=== PATIENT | male | born 1945 | race Caucasian/White ===

== ENCOUNTER 2020-11-30 12:49 | Outpatient (REF) | payer OTHER, SELFPAY | END 2020-11-30 12:50 | disposition home or self-care (01) | LOC: HO.LAB 12:49 | PROVIDERS: PCP Internal Medicine; Visit Provider Internal Medicine | DX: Z20.822 Contact with and (suspected) exposure to COVID-19 (principal) | CPT/HCPCS: 36415; C9803; U0003 ==

== ENCOUNTER → 2020-12-27 14:41 | Outpatient (BNVA) | payer OTHER, SELFPAY | PROVIDERS: PCP Internal Medicine; Visit Provider Internal Medicine Cardiovascular Disease | DX: I10 Essential (primary) hypertension (principal); I20.8 Other forms of angina pectoris; I25.2 Old myocardial infarction; I49.3 Ventricular premature depolarization | CPT/HCPCS: 93005 ==

== ENCOUNTER 2021-02-05 16:18 | Outpatient (REF) | payer OTHER, SELFPAY ==
--- NOTE | ~2021-02-05 | US_ITS ---
EXAMINATION: US RETROPERITONEAL COMPLETE (RENAL) CLINICAL INFORMATION: Calculus of kidney. COMPARISON: None TECHNIQUE: Real-time imaging of the kidneys and bladder. FINDINGS: RIGHT KIDNEY: 10.3 x 6.0 x 5.7 cm (SAG x AP x TRV). The kidney is normal in size, contour, and echogenicity. Renal cortical thickness is normal. No calculi or focal parenchymal lesions. No hydronephrosis. There is mild dilated calyces. LEFT KIDNEY: 12.1 x 5.6 x 4.8 cm (SAG x AP x TRV). The kidney is normal in size, contour, and echogenicity. Renal cortical thickness is normal. No calculi or focal parenchymal lesions. No hydronephrosis. There are mild dilated calyces. BLADDER: Well distended and normal. Right ureteral jet is demonstrated; left is not. Prevoid bladder volume is 142 mL. Postvoid bladder volume is 11.4 mL. ADDITIONAL FINDINGS: The prostate is partially removed as per patient. Prostate volume is 38.2 mL. US/US retroperitoneal comp IMPRESSION: Prominent dilated bilateral caliectasis but no hydronephrosis. No echogenic stones. No cyst or solid mass seen. Mild prostate enlargement in spite of partial prostatectomy. Right ureteral jet is seen. Left jet not seen.
== END 2021-02-05 16:19 | disposition home or self-care (01) ==
LOC: HO.US 16:18
PROVIDERS: PCP Internal Medicine; Visit Provider Urology
DX: N20.0 Calculus of kidney (principal)
CPT/HCPCS: 76770

== ENCOUNTER → 2021-03-11 13:22 | Outpatient (REF) | payer OTHER, SELFPAY ==
--- NOTE | 2021-03-11 13:28 | ECG_ITS ---
Hook-up date: 2021-03-11 13:41:00 Duration: 45:41:00 Test Indications: VENT.PREMATURE DEPOLARIZATION Medications: 321604 QRS complexes 50149 Ventricular ectopics which represent 11 % of total QRS comp. 856 Supraventricular ectopics which represent <1 % of total QRS comp. * Paced QRS complexs which represent % of total QRS comp. VENTRICULAR ECTOPY 30996 Isolated 4998 Bigeminal Cycles 383 Couplets 21 Runs 64 Beats in Runs 4 Beats LONGEST at 65 BPM at 03:04:53 2021-03-12 3 Beats FASTEST at 130 BPM at 00:37:50 2021-03-12 SUPRAVENTRICULAR ECTOPY 447 Isolated 189 Couplets 6 Runs 31 Beats in Runs 9 Beats LONGEST at 98 BPM at 18:12:21 2021-03-11 3 Beats FASTEST at 129 BPM at 21:57:51 2021-03-11 HEART RATES 59 MIN at 06:03:34 2021-03-12 83 AVG 116 MAX at 05:06:15 2021-03-12 LONGEST RR 1.5120 secs at 22:24:53 2021-03-11 S-T LEVELS Channel 1 - 128 mm at 13:41:00 2021-03-11 - 128 mm at 13:41:00 2021-03-11 Channel 2 - 128 mm at 13:41:00 2021-03-11 - 128 mm at 13:41:00 2021-03-11 Channel 3 - 128 mm at 03:30:01 -- - 128 mm at 03:30:01 Underlying rhythm is sinus; Average rate 83/min; range 59-116/min; Frequent premature ventricular ectopy- about 13,800 (12%); Mostly isolated, some couplets, several bigeminal cycles, longest 3-4 beats; Occasional Premature atrial complexes ; no sustained arrhythmias; Patient did not return diary Referred By: Sunny Issa Overread By: CARLOS SAXENA
== END ==
LOC: HO.CARD 13:22
PROVIDERS: Visit Provider Internal Medicine Cardiovascular Disease
DX: I49.3 Ventricular premature depolarization (principal)
CPT/HCPCS: 93225; 93226

== ENCOUNTER → 2021-03-27 13:52 | Outpatient (BNVA) | payer OTHER, SELFPAY | PROVIDERS: Visit Provider Internal Medicine Cardiovascular Disease ==

== ENCOUNTER → 2021-04-11 07:52 | Outpatient (REF) | payer OTHER, SELFPAY ==
--- NOTE | ~2021-04-11 | NM_ITS ---
Myocardial perfusion study Indication: Cardiac arrhythmias to evaluate for myocardial ischemia Technique: The patient was brought in for a Lexiscan perfusion study on 04/11/2021. Patient performed low-level exercise and was injected 0.4 mg of Lexiscan intravenously. Within a minute of injection, 30 mCi of sestamibi was given intravenously. Images were obtained using the SPECT gamma camera interlaced with the gating device. Images were obtained in supine position. Resting perfusion study was performed on 04/12/2021. Patient was administered 30 mCi of sestamibi intravenously at rest. Images were then obtained in supine position. Images obtained with and without attenuation. Total DLP 105 mGy-cm. Images were processed with the software and compared side to side in short axis, horizontal long axis and vertical long axis views. Findings: The stress perfusion study showed nondistended images show large area all absent uptake in the basal and mid inferior wall as well as severely reduced uptake in the inferoapical and apex of the LV myocardium. There is also absent uptake in the basal and mid inferolateral and severely reduced uptake in the distal inferolateral wall of the LV myocardium.. The gated study shows decreased LV systolic function with calculated LVEF of 43%. LV cavity is mildly to moderately size. The gated study shows absent inferior and adjacent inferolateral wall thickening and contraction of segments. Resting study shows absent uptake in the basal and mid inferior and moderately reduced uptake in the inferoapical wall of the LV myocardium. Is also absent uptake in the basal and mid inferolateral wall and uptake in the distal inferolateral wall of the LV myocardium. Is also moderately reduced uptake in the mid inferolateral wall of the LV myocardium.. Gating at rest reveals inferior wall motion normality with ejection fraction at 34%. The findings are consistent with large area of myocardial infarction of the inferior and ingested inferolateral wall, transmural with parmjit-infarct ischemia of the inferoapical as well as distal inferolateral wall of the LV myocardium.. NM/NM cardiolite stress test Impression: 1. Myocardial perfusion imaging study shows large area of transmural myocardial infarction in RCA territory with parmjit-infarct ischemia 2. Gated LVEF is 43% with stress and 34% with stress 3. Transient ischemic dilatation not present but LV cavity is dilated EKG is nondiagnostic for ischemia
--- NOTE | 2021-04-11 08:00 | CA_ITS ---
Acquisition Time: 2021-04-11 08:03:37 Total Exercise Time: 00:02:36 Test Indications: Abnormal ECG Medications: ASA ATORVASTATIN CARVEDILOL GEMFIBROZIL LISINOPRIL CLOPIDOGREL LOSARTAN Protocol: [place] Max HR: 153 BPM 104% of Pred: 147 BPM Max BP: 154/072 mmHG Max Work Load: 4.6 METS Exercise stress test with exercise 2 min 36 sec of [place] protocol, with moderte shortness of beath and difficulty with treadmill reqeusting to stop exercise. Heart rate acheived 102% MPHR with rare PVC during exercise. Treadmill stopped and assisted to sitting position. Testing changed to pharmacological stress test with Lexiscan injection, while sitting and kicking his legs, without anginal symptoms, with isolated multifocal PVCs, ventricular cuplets and bigeminy runs, with normotensive response to injection, with borderline ST depression. In recovery he did have prolonged sinus tachycardia and was treated with Aminophylline 75mg IVP with improvement in heart rate. Nuclear images pending. Test reviewed with Dr Issa. Referred By: Sunny Issa Overread By: LATASHA LAKE
== END ==
LOC: HO.CARD 07:52
PROVIDERS: Visit Provider Internal Medicine Cardiovascular Disease
DX: I20.8 Other forms of angina pectoris (principal); I49.3 Ventricular premature depolarization
CPT/HCPCS: 78452; 93016; 93017; 93018; A9500; J0280; J2785

== ENCOUNTER → 2021-04-15 14:36 | Outpatient (BNVA) | payer OTHER, SELFPAY | PROVIDERS: Visit Provider Internal Medicine Cardiovascular Disease ==

== ENCOUNTER 2021-04-17 07:45 | Outpatient (REF) | payer OTHER, SELFPAY ==
[2021-04-17 08:44] LABS: Hematocrit 47.3 % (42-52); Hemoglobin 15.2 g/dl (14.0-18.0); Mean Corpuscular HGB Conc 32.1 g/dl (31.0-36.0); Mean Corpuscular Hemoglobin 29.3 pg (27.0-33.0); Mean Corpuscular Volume 91.1 fL (80-98); Platelet Count 177 X10*3/uL (160-400); Red Blood Count 5.19 X10*6/uL (4.60-5.80); Red Cell Distribution Width 13.1 % (11.0-16.0); White Blood Count 8.3 X10*3/uL (4.8-10.8)
[2021-04-17 09:05] LABS: INTERNATIONAL NORM RATIO 1.1 (0.9-1.1); Prothrombin Time 12.9 SEC (10.8-13.0)
[2021-04-17 09:11] LABS: Anion Gap 11 (12-20); Blood Urea Nitrogen 17 mg/dL (9-16); Calcium 9.1 mg/dL (8.4-10.2); Carbon Dioxide 28 mmol/L (22-29); Chloride 103 mmol/L (96-108); Estimated Glomerular Filt Rate 51; Glucose Random 207 mg/dL (60-115); Potassium 4.2 mmol/L (3.3-5.1); Sodium 138 mmol/L (135-145)
== END 2021-04-17 07:46 | disposition home or self-care (01) ==
LOC: HO.LAB 07:45
PROVIDERS: PCP Internal Medicine; Visit Provider Internal Medicine Cardiovascular Disease
DX: I20.8 Other forms of angina pectoris (principal)
CPT/HCPCS: 36415; 80048; 85027; 85610

== ENCOUNTER 2021-04-30 08:52 | Outpatient (REF) | payer OTHER, SELFPAY ==
--- NOTE | 2021-04-30 17:24 | PFT_ITS ---
FLOWS: FEV1 101% of predicted at 2.89 L. FVC 90% of predicted at 3.59 L. FEV1 to FVC ratio of 0.81. No bronchodilator response. LUNG VOLUMES: Total lung capacity 102% of predicted at 6.78 L. Residual volume 107% of predicted at 2.59 L. Slow vital capacity 99% of predicted at 4.19 L. Expiratory reserve volume 29% of predicted at 0.33 L. Diffusion capacity is mildly decreased. IMPRESSION: No obstructive or restrictive ventilatory defect. No bronchodilator response. Decreased expiratory reserve volume suggests extrathoracic restriction likely secondary to abdominal obesity. Isolated decrease in diffusion capacity suggests pulmonary edema or pulmonary vascular or interstitial disease. Clinical correlation is advised. MD PRETTY Bowens/MODL / [id number]
== END 2021-04-30 08:53 | disposition home or self-care (01) ==
LOC: HO.RESP 08:52
PROVIDERS: PCP Internal Medicine; Visit Provider Internal Medicine Cardiovascular Disease
DX: R06.00 Dyspnea, unspecified (principal)
CPT/HCPCS: 94060; 94727; 94729

== ENCOUNTER 2021-05-09 11:15 | Inpatient (IN) | payer OTHER, SELFPAY ==
[2021-05-09] VITALS (13 sets, daily range): BP systolic 113–158; BP diastolic 74–97; PULSE 67–166; RESP 15–24; TEMP 36.4–37; O2SAT 92–100; BMI 31.1; BMI 31.5
--- NOTE | 2021-05-09 | ECG_ITS ---
Test Reason : REPEAT Blood Pressure : / mmHG Vent. Rate : 160 BPM Atrial Rate : 159 BPM P-R Int : 000 ms QRS Dur : 136 ms QT Int : 270 ms P-R-T Axes : 000 -50 148 degrees QTc Int : 440 ms Ventricular tachycardia Abnormal ECG When compared with ECG of 09-MAY-2021 11:43, Ventricular tachycardia has replaced Sinus rhythm Vent. rate has increased BY 85 BPM Referred By: Edmundo Barahona Electronically Signed By:LORENZO ESCALANTE MD
--- NOTE | 2021-05-09 | ECG_ITS ---
Test Reason : chest pain Blood Pressure : / mmHG Vent. Rate : 073 BPM Atrial Rate : 073 BPM P-R Int : 144 ms QRS Dur : 102 ms QT Int : 422 ms P-R-T Axes : 056 -18 -07 degrees QTc Int : 464 ms Normal sinus rhythm Possible Left atrial enlargement Inferior infarct , age undetermined Abnormal ECG When compared with ECG of 09-MAY-2021 13:15, Sinus rhythm has replaced Vantricular tachycardia Vent. rate has decreased BY 87 BPM Referred By: Edmundo Barahona Electronically Signed By:LORENZO ESCALANTE MD
--- NOTE | 2021-05-09 | ECG_ITS ---
Test Reason : ARRHYTHMIA Blood Pressure : / mmHG Vent. Rate : 075 BPM Atrial Rate : 075 BPM P-R Int : 142 ms QRS Dur : 102 ms QT Int : 384 ms P-R-T Axes : 063 -24 006 degrees QTc Int : 428 ms Sinus rhythm with occasional Premature ventricular complexes Inferior infarct (cited on or before 08-APR-2020) Abnormal ECG When compared with ECG of 08-APR-2020 02:53, Premature ventricular complexes are now Present Non-specific change in ST segment in Inferior leads QT has shortened Referred By: Edmundo Barahona Electronically Signed By:LORENZO ESCALANTE MD
--- NOTE | ~2021-05-09 | XR_ITS ---
EXAMINATION: XR CHEST CLINICAL INFORMATION: Rule out pneumothorax status post ICD COMPARISON: Chest x-ray May 10, 2021 TECHNIQUE: Frontal view of the chest was obtained. FINDINGS: Cardiac silhouette is normal in size. Single lead AICD is stable in orientation. The lungs are adequately aerated. There is no lobar consolidation. No pleural effusion or pneumothorax. XR/XR chest 1V IMPRESSION: No pneumothorax.
--- NOTE | ~2021-05-09 | XR_ITS ---
EXAMINATION: XR CHEST CLINICAL INFORMATION: Chest pain COMPARISON: Chest 04/08/2020 TECHNIQUE: Frontal view of the chest was obtained. FINDINGS: No significant abnormality is noted involving the heart, lungs, mediastinum, bony thorax or soft tissues. XR/XR chest 1V IMPRESSION: Unremarkable chest exam.
--- NOTE | ~2021-05-09 | FL_ITS ---
EXAMINATION: CHEST X-RAY CLINICAL INFORMATION: Rule out pneumothorax COMPARISON: Previous chest x-ray from yesterday TECHNIQUE: AP portable chest FINDINGS: There is a new left subclavian pacemaker defibrillator with tip projecting over the ventricular apex. The cardiac and mediastinal contours are stable. The lungs are clear. There is no pleural effusion or pneumothorax. There is curvature of the midthoracic to the right. FL/FL guidance in OR IMPRESSION: New left subclavian pacemaker defibrillator device with tip projecting over the ventricular apex. No pneumothorax. EXAMINATION: Intraoperative fluoroscopy guidance CLINICAL INFORMATION: Pacemaker COMPARISON: Previous chest x-ray from yesterday TECHNIQUE: Fluoroscopic guidance was provided for pacemaker placement. Fluoroscopy time 245 seconds. Cumulative dose 1 3 6 mgy. 2 submitted fluoroscopic images. FINDINGS: Images demonstrate a pacemaker defibrillator lead projecting over the ventricular apex. IMPRESSION: Fluoroscopic guidance for pacemaker placement.
[2021-05-09] MEDS: Amiodarone/Dextrose 150 MG/100 ML PLAST..BAG 600 MG IV ×2 (12:17→14:05)
[2021-05-09 12:20] LABS: MANUAL DIFF FLAG NO
[2021-05-09 12:22] LABS: Basophils Absolute Auto 0.1 X10*3/uL (0.0-0.2); Basophils Percent Auto 0.6 % (0-2); Eosinophils Absolute Auto 0.4 X10*3/uL (0.0-0.4); Eosinophils Percent Auto 4.2 % (0-4); Hematocrit 47.3 % (42-52); Hemoglobin 15.6 g/dl (14.0-18.0); Imm Gran Abs Auto 0.03 X10*3/uL (0.00-0.03); Imm Gran Pct Auto 0.4 % (0.0-0.4); Lymphocytes Absolute Auto 2.6 X10*3/uL (1.2-4.9); Lymphocytes Percent Auto 30.9 % (20-40); Mean Corpuscular Hemoglobin 29.8 pg (27.0-33.0); Mean Corpuscular Volume 90.4 fL (80-98); Mean Platelet Volume 11.1 fL (9.4-12.4); Monocytes Absolute Auto 0.9 X10*3/uL (0.1-1.2); Monocytes Percent Auto 10.9 % (2-11); Neutrophils Absolute Auto 4.5 X10*3/uL (2.0-8.3); Platelet Count 220 X10*3/uL (160-400); Red Blood Count 5.23 X10*6/uL (4.60-5.80); Red Cell Distribution Width 13.2 % (11.0-16.0); White Blood Count 8.5 X10*3/uL (4.8-10.8)
[2021-05-09 12:26] LABS: Prothrombin Time 11.4 SEC (10.8-13.0)
[2021-05-09 12:29] LABS: Partial Thromboplastin Time 34.1 SEC (24.1-38.0)
[2021-05-09] MEDS: Amiodarone HCL 900 MG in 0.9 % Sodium Chloride 500 ML 34.53 MG IVCONT (12:38)
[2021-05-09 12:50] LABS: Lipase 30 U/L (8-78)
[2021-05-09 12:51] LABS: Troponin-I High Sensitivity 15.2 ng/L (<3.5-35.0)
[2021-05-09 12:53] LABS: Alanine Aminotransferase 18 U/L (0-40); Albumin Level 4.2 g/dL (3.5-5.0); Alkaline Phosphatase 74 U/L (39-117); Anion Gap 12 (12-20); Aspartate Amino Transferase 16 U/L (5-37); Bilirubin Total 0.6 mg/dL (0.0-1.0); Blood Urea Nitrogen 17 mg/dL (9-16); Calcium 9.2 mg/dL (8.4-10.2); Carbon Dioxide 26 mmol/L (22-29); Chloride 105 mmol/L (96-108); Creatinine Clr Calc Pharmacy 54.7; Estimated Glomerular Filt Rate 53; Glucose Random 152 mg/dL (60-115); Magnesium 2.3 mg/dL (1.6-2.6); Phosphorus 2.3 mg/dL (2.7-4.5); Potassium 4.6 mmol/L (3.3-5.1); Sodium 138 mmol/L (135-145); Total Protein 7.1 g/dL (6.5-8.0)
--- NOTE | 2021-05-09 13:14 | P.CONCA_ITS ---
History of Present Illness History of Present Illness Date of Service: 05/09/21 Requesting physician: Edmundo Barahona Consult reason: other ( near syncope, sustained VT) Chief complaint: rapid heart beat Narrative: I was requested to see Garfield in cardiology consultation today for symptoms of near syncope and wide complex tachycardia noted on telemetry. These are consistent with sustained ventricular tachycardia monomorphic going at 180 beats per minute. Patient is a pleasant 75-year-old man follows with Dr. Issa who recently on April 23 underwent cardiac catheterization for symptoms of shortness of breath and subsequently underwent stenting of the proximal LAD after FFR which showed significant LAD stenosis. He was also noted to have 100% distal RCA lesion with collaterals. He had last year delayed presentation with inferior myocardial infarction and at that time was managed medically due to delayed presentation infarcted myocardium. LVEF at that time was 30-35%. Recent myocardial perfusion shows persistent transmitted scar in the inferior wall with moderately reduced LV systolic function by gated LV EF. No recent echocardiogram. He is currently on neurohormonal modulation carvedilol as well as losartan. Patient has not had any history of congestive heart failure. Recent Holter monitor shown frequent PVCs but no ventricular sustained arrhythmias. Patient with the last 10 days to 2 weeks has been having recurrent episodes of lightheadedness and feels flushed and warm. He starts feeling like he is going to pass out but then symptoms then subsided within 30 seconds. He is also notice the symptoms at nighttime and he would say that he would be resting and suddenly he would have the symptoms and his watch would suggest that his heart rate was elevated at 180 beats per minute. And within 15-30 seconds heart rate was settled down back to 80 beats per minute. Was not sure as to what was going on. Today he woke up and since morning he has had 5 episode and therefore decided to come to the Emergency put in the emergency room on monitor was noted to have wide complex tachycardia consistent with ventricular tachycardia. Initially was asymptomatic and hemodynamically stable. Subsequently had another episode where he felt lightheaded while he was laying in bed. He has not had any throat discomfort similar to his myocardial infarction pain or any chest pain. No full syncopal episodes. Denies any recent systemic symptoms. Denies any heart failure symptoms. His initial troponin is negative. His potassium is 4.6 and magnesium of 2.3. Creatinine is stable. Review of Systems Constitutional: Constitutional: Reports no additional constitutional complaint s Cardiovascular: Cardiovascular: Denies chest pain, Denies syncope, Reports rapid heart rate, Denies leg edema, Reports lightheadedness, Denies Loss of Consciousness and Denies dyspnea Respiratory: Respiratory: Reports no additional respiratory complaints and Denies dyspnea Gastrointestinal: Gastrointestinal: Reports no additional gastrointestinal complaints Genitourinary: Genitourinary: Reports no additional male genitourinary complaints Musculoskeletal: Musculoskeletal: Reports no additional musculoskeletal complaints Neurologic: Reports system reviewed and no additional complaints, except as documented and Denies syncope Endocrine: Endocrine: Reports no additional endocrine complaints Hematologic/Lymphatic: Hematologic/Lymphatic: Reports no additional hematologic/lymphatic complaints FOR[facility]LY [facility] Past Medical History Medical History CAD (coronary artery disease) Ischemic cardiomyopathy Sustained VT (ventricular tachycardia) Surgical History Surgical History History of tonsillectomy Hx of external ear surgery Stented coronary artery Social History Social History Alcohol intake: never Patient Tobacco Use Status: Never used Tobacco Meds Allergies Allergy/AdvReac Type Severity Reaction Status Date / Time Sulfa (Sulfonamide Allergy Unknown UNKNOWN Unverified 07/26/20 14:54 Antibiotics) [SULFA (SULFONAMIDE ANTIBIOTICS)] aspirin [ASA] AdvReac Unknown TINGLES Unverified 07/26/20 14:54 FEELING PER PT sulfa Allergy Unknown Uncoded 06/28/20 00:00 Active Medications: Current Medications Generic Name Dose Route Start Last Admin Trade Name Zak PRN Reason Stop Dose Admin Amiodarone HCl 900 mg/ Sodium 518 mls @ 34.533 mls/hr 05/09/21 12:30 05/09/21 12:38 Chloride IVCONT 1 mg/min .Q15H1M MICHAEL 34.53 mls/hr Administration Protocol 1 MG/MIN Home Medications Medication Instructions Recorded Confirmed Last Taken Type aspirin 81 mg tablet,delayed 81 mg PO DAILY 12/27/20 12/27/20 Unknown History release atorvastatin 40 mg tablet 40 mg PO DAILY 12/27/20 12/27/20 Unknown History carvedilol 6.25 mg tablet 6.25 mg PO BID 12/27/20 12/27/20 Unknown History clopidogrel 75 mg tablet 75 mg PO DAILY 12/27/20 12/27/20 Unknown History gemfibrozil 600 mg tablet 600 mg PO BID 12/27/20 12/27/20 Unknown History latanoprost 0.005 % eye drops 1 drp OPHTHALMIC (EYE) DAILY 12/27/20 12/27/20 Unknown History lisinopril 5 mg tablet 5 mg PO DAILY 12/27/20 12/27/20 Unknown History multivitamin 1 tab PO DAILY 12/27/20 12/27/20 Unknown History ropinirole 1 mg tablet 1 mg PO BEDTIME 12/27/20 12/27/20 Unknown History Physical Exam Vital Signs: Vital Signs: Last Vital Signs Temp 98.6 F 05/09/21 11:21 Pulse 79 05/09/21 12:17 Resp 18 05/09/21 11:21 BP 124/74 05/09/21 12:17 Pulse Ox 98 05/09/21 11:21 Body Mass Index 31.1 Const: General: cooperative, comfortable, no acute distress, alert, awake and anxious Nutritional Appearance: overweight Orientation/consciousness: patient oriented x3 Limitations: no limitations HENMT: Head: Yes normocephalic and Yes atraumatic Neck: Neck: Yes trachea midline, Yes supple and Yes no JVD Chest: Chest palpation & inspection: normal inspection of the chest Resp: Effort & Inspection: normal respiratory effort Auscultation: clear to auscultation bilaterally Cardio: Jugular venous distension: no JVD Palpation: abnormal PMI displaced PMI Rate: regular rate Rhythm: regular rhythm Heart sounds: S1 normal heart sound present and S2 normal heart sound present GI: Auscultation: normal bowel sounds Skin: General skin exam: no rashes or lesions noted Neuro: General: patient oriented x3 and no focal motor deficits Extrem: General: Yes no clubbing, cyanosis or edema Psych: Appearance: grossly normal Results Labs and Meds Result diagrams: 05/09/21 12:14 05/09/21 12:14 Lab results: Laboratory Results - last 24 hr 05/09/21 05/09/21 05/09/21 12:14 12:14 12:14 WBC 8.5 RBC 5.23 Hgb 15.6 Hct 47.3 MCV 90.4 MCH 29.8 MCHC 33.0 RDW 13.2 Plt Count 220 MPV 11.1 Immature Gran % (Auto) 0.4 Neut % (Auto) 53.0 Lymph % (Auto) 30.9 Woodruff % (Auto) 10.9 Eos % (Auto) 4.2 H Baso % (Auto) 0.6 Lymph # (Auto) 2.6 Woodruff # (Auto) 0.9 Eos # (Auto) 0.4 Baso # (Auto) 0.1 Abs Immat Gran (auto) 0.03 Absolute Neuts (auto) 4.5 Absolute Nucleated RBC 0.000 Nucleated RBC % (auto) 0.0 PT 11.4 INR 1.0 APTT 34.1 Sodium 138 Potassium 4.6 Chloride 105 Carbon Dioxide 26 Anion Gap 12 BUN 17 H Creatinine 1.33 Estim Creat Clear Calc 54.7 Estimated GFR 53 Random Glucose 152 H Calcium 9.2 Phosphorus 2.3 L Magnesium 2.3 Total Bilirubin 0.6 AST 16 ALT 18 Alkaline Phosphatase 74 Troponin I High Sens Total Protein 7.1 Albumin 4.2 Lipase 05/09/21 05/09/21 12:14 12:14 WBC RBC Hgb Hct MCV MCH MCHC RDW Plt Count MPV Immature Gran % (Auto) Neut % (Auto) Lymph % (Auto) Woodruff % (Auto) Eos % (Auto) Baso % (Auto) Lymph # (Auto) Woodruff # (Auto) Eos # (Auto) Baso # (Auto) Abs Immat Gran (auto) Absolute Neuts (auto) Absolute Nucleated RBC Nucleated RBC % (auto) PT INR APTT Sodium Potassium Chloride Carbon Dioxide Anion Gap BUN Creatinine Estim Creat Clear Calc Estimated GFR Random Glucose Calcium Phosphorus Magnesium Total Bilirubin AST ALT Alkaline Phosphatase Troponin I High Sens 15.2 Total Protein Albumin Lipase 30 Imaging Radiologist's impression: Impressions Chest X-Ray 05/09/21 12:05 IMPRESSION: Unremarkable chest exam. Assessment and Plan (1) Sustained VT (ventricular tachycardia): Status: Acute patient presents with near syncope and noted to have sustained VT. This is a monomorphic VT and appears to be scar based VT from prior inferior myocardial infarction. Hemodynamically stable VT. However due to recurrent episodes, will start him on IV amiodarone. Check electrolytes appear to be within normal limits. No evidence of acute coronary syndrome by troponins. Continue to trend troponin. Given his presentation with near syncope as well as LV systolic dysfunction, patient should get defibrillator placement for secondary prevention. This was discussed with him. Had a detailed discussion about risks, benefits, alternatives 2nd open to proceed. Discussed with EPS will also agree. Will schedule for tomorrow. Discussed with him further management. Most likely will treat him with oral amiodarone. Will also program ICD for antitachycardia pacing. May consider catheter based ablation if pe rsists with recurrent VT and/ or as a primary method of treatment. Will discuss with EPS about the same. (2) Ischemic cardiomyopathy: Status: Acute Ischemic cardiomyopathy with at least moderate LV systolic dysfunction. Will obtain echocardiogram. Continue neurohormonal modulation with carvedilol as well as losartan. No overt signs of congestive heart failure. Management of ischemic cardiomyopathy was discussed. Avoidance of salt loading was discussed. Advised to monitor blood pressure at home. Will continue to maximize medical therapy. (3) CAD (coronary artery disease): Status: Acute CAD with prior inferior NH which appears to have completely infarcted myocardium in the inferior wall. Recent stenting of the LAD for symptoms of shortness of breath. Significant LAD stenosis. Continue dual antiplatelet the rapy uninterrupted. Continue aggressive risk factor modification. Will up titrate atorvastatin to 80 mg daily and add Zetia 10 mg to his regimen. Avoid using gemfibrozil in combination with statin therapy. Consider switching to Vascepa. Will follow with the patient. Thank you for allowing us to partake in his care Procedures Date of Service Date of Service: 05/09/21
--- NOTE | 2021-05-09 13:53 | ED.ARRPALP ---
HPI - Arrhythmia/Palpitations General Chief Complaint: Arrhythmia/Palpitations Stated Complaint: rapid heart beat Time Seen by Provider: 05/09/21 12:01 Source: patient Mode of arrival: ambulatory History of Present Illness HPI narrative: 75-year-old male who presents emergency department for evaluation of lightheadedness, dizziness and a rapid heart rate. The patient states that 1 year prior he had a myocardial infarction, he had a cardiac catheterization but states that did not have any treatment such as stenting at that time. He states that 3 weeks ago he had a stress test which pre press operator felt was abnormal and this led to cardiac catheterization. The patient had a cardiac catheterization at [facility] and he was found to have 100% RCA lesion, 70% lad lesion which was stented and 80% left circumferential lesion. He states that he was asymptomatic prior to the cardiac catheterization. over the past week, the patient has had intermittent episodes of lightheadedness. He describes the lightheadedness as a sensation as if he is going to black out. He states that these were intermittent. He states that yesterday and today he had 4-5 episodes per day lasting 30 seconds associated with shortness of breath. He denied any associated diaphoresis, chest pain, neck, arm or jaw pain, dyspnea on exertion. He states that today he had an episode and his pulse on his Apple watch was 185 and his O2 saturation was 95% at home. The patient came to the emergency department for evaluation . On the patient's phototypesetting equipment monitor he was noted to have a wide complex tachycardia which lasted approximately 1-2 minutes and then resolved. He has had intermittent recurrence of this rhythm since he has been in the emergency department. Related Data Home Medications Medication Instructions Recorded Confirmed aspirin 81 mg tablet,delayed 81 mg PO DAILY 12/27/20 05/09/21 release atorvastatin 40 mg tablet 40 mg PO DAILY 12/27/20 05/09/21 carvedilol 6.25 mg tablet 6.25 mg PO BID 12/27/20 05/09/21 clopidogrel 75 mg tablet 75 mg PO DAILY 12/27/20 05/09/21 gemfibrozil 600 mg tablet 600 mg PO BID 12/27/20 05/09/21 latanoprost 0.005 % eye drops 1 drp OPHTHALMIC (EYE) DAILY 12/27/20 05/09/21 lisinopril 5 mg tablet 5 mg PO DAILY 12/27/20 12/27/20 multivitamin 1 tab PO DAILY 12/27/20 05/09/21 ropinirole 1 mg tablet 1 mg PO BEDTIME 12/27/20 05/09/21 Previous Rx's Medication Instructions Recorded losartan 25 mg tablet 25 mg PO DAILY #90 tab 09/19/20 Allergies Allergy/AdvReac Type Severity Reaction Status Date / Time Sulfa (Sulfonamide Allergy Unknown UNKNOWN Unverified 07/26/20 14:54 Antibiotics) [SULFA (SULFONAMIDE ANTIBIOTICS)] aspirin [ASA] AdvReac Unknown TINGLES Unverified 07/26/20 14:54 FEELING PER PT sulfa Allergy Unknown Uncoded 06/28/20 00:00 Review of Systems Review of Systems: Yes all other systems are reviewed and are negative [facility] Past Medical History Medical History CAD (coronary artery disease) Ischemic cardiomyopathy Sustained VT (ventricular tachycardia) Surgical History History of tonsillectomy Hx of external ear surgery Stented coronary artery Social History Social History Alcohol intake: never Patient Tobacco Use Status: Never used Tobacco Use of substances other than those prescribed or required for medical reasons: No Advance Directives: No Advance Directives Information Provided: No Physical Exam Vital Signs: Vital Signs: Last Vital Signs Temp 98.6 F 05/09/21 11:21 Pulse 78 05/09/21 14:06 Resp 16 05/09/21 14:06 BP 132/88 05/09/21 14:06 Pulse Ox 97 05/09/21 14:06 Body Mass Index 31.1 Const: General: cooperative and healthy appearing Orientation/consciousness: oriented to person and oriented to place Limitations: no limitations HENMT: Head: Yes normal to inspection, Yes normocephalic and Yes atraumatic Ears: external ears normal General nose exam: Normal external nose present Face and sinus: Yes normal facial exam Mouth: Normal oral and palatal mucosa present Throat: Yes posterior oropharynx normal Eyes: Periorbital: periorbital findings normal Eyelids: Yes eyelids normal Conjunctivae: conjunctivae normal Sclerae: sclerae normal Corneas: corneas normal Pupils: Equal, round and reactive pupils present Direct Ophthalmoscopy: normal light reflex Neck: Neck: Yes full ROM, Yes no lymphadenopathy, Yes no meningeal signs, Yes trachea midline and Yes supple Chest: Chest palpation & inspection: normal inspection of the chest and normal palpation of entire chest wall Resp: Effort & Inspection: normal respiratory effort and able to speak in complete sentences Auscultation: clear to auscultation bilaterally Cardio: Rate: regular rate Rhythm: regular rhythm Heart sounds: S1 normal heart sound present, S2 normal heart sound present and no murmurs GI: Inspection: Yes normal to inspection Palpation (GI): Soft to palpation, nontender, no guarding, not rigid and No hepatosplenomegaly present : General: Yes no CVA tenderness Back/Spine/Pelvis: Back: no CVA tenderness Cervical Spine: normal cervical lordosis Thoracic/Lumbar Spine: thoracic and lumbar spine normal to inspection Skin: Lesions: no lesions Rashes: no rashes Wounds: no wounds Neuro: General: oriented to person, oriented to place and no meningeal signs Cranial nerves: Yes CN's II-XII intact bilaterally and Yes Equal, round and reactive pupils present Cognition (Neuro): normal cognition Motor exam (neuro): 5/5 motor strength present throughout Extrem: General: Yes normal to inspection and Yes full ROM Psych: Appearance: well kempt Mental Status: mental status grossly normal Speech and movement: Normal speech and movement present Affect: normal affect Attitude: cooperative Thought process: Normal thought process present Thought content: Normal thought content present Course Course Course Narrative: 75-year-old male with a history of inferior myocardial infarction approximately 1 year prior, status post LAD stent 3 weeks prior presented to the emergency department for multiple episodes of near-syncope. The patient noted today that he had a very high pulses on his Apple watch. On presentation, the patient was found to have recurrent episodes of wide complex tachycardia. I did discuss the patient's presentation with our covering pre press operator, Dr. Busby he felt that the patient was in V-tach. He recommended that the patient be treated with amiodarone. The patient was given an amiodarone bolus of 150 mg IV and then started on amiodarone drip 1 milligram/kilogram x6 hours and then 0.5 milligrams/kilogram. The patient's laboratory evaluation revealed normal electrolytes and normal CBC. The patient had a detectable but not elevated high sensitivity troponin of 15.2. This will be repeated in 3 hours. I will discuss the patient's presentation with the covering hospitalist. 1405: Patient continues to have episodes of V-tach after receiving the 1st amiodarone bolus 150 mg IV and being on the amiodarone drip. I ordered a 2nd bolus of amiodarone 150 mg IV. 1546: The patient continues to have intermittent episodes of ventricular tachycardia with near syncopal symptoms. I did discuss this with Dr. Busby. he recommended that the patient continue on amiodarone drip and also started a lidocaine bolus and drip. The patient was ordered to get lidocaine bolus 1.5 milligrams/kilogram followed by 2nd lidocaine bolus 10 minutes later of 0.75 mg IV. He will any started on a lidocaine drip of 1 milligram/minute. I did discuss the patient's presentation with the covering associate faculty, Dr. Currie the patient will be admitted to the intensive care unit. 1738: The patient's repeat 3 hour high sensitivity troponin was 18.1 which is not greater than 50% elevated compared to the initial value of 15.2 suggest that the patient has not had acute myocardial injury. MDM - Arrhythmia/Palpitations Lab Data Result diagrams: 05/09/21 12:14 05/09/21 12:14 Labs: Lab Results 05/09/21 05/09/21 05/09/21 Range/Units 12:14 12:14 12:14 WBC 8.5 (4.8-10.8) X10*3/uL RBC 5.23 (4.60-5.80) X10*6/uL Hgb 15.6 (14.0-18.0) g/dl Hct 47.3 (42-52) % MCV 90.4 (80-98) fL MCH 29.8 (27.0-33.0) pg MCHC 33.0 (31.0-36.0) g/dl RDW 13.2 (11.0-16.0) % Plt Count 220 (160-400) X10*3/uL MPV 11.1 (9.4-12.4) fL Immature Gran % (Auto) 0.4 (0.0-0.4) % Neut % (Auto) 53.0 (45-73) % Lymph % (Auto) 30.9 (20-40) % [place] % (Auto) 10.9 (2-11) % Eos % (Auto) 4.2 H (0-4) % Baso % (Auto) 0.6 (0-2) % Lymph # (Auto) 2.6 (1.2-4.9) X10*3/uL [place] # (Auto) 0.9 (0.1-1.2) X10*3/uL Eos # (Auto) 0.4 (0.0-0.4) X10*3/uL Baso # (Auto) 0.1 (0.0-0.2) X10*3/uL Abs Immat Gran (auto) 0.03 (0.00-0.03) X10*3/uL Absolute Neuts (auto) 4.5 (2.0-8.3) X10*3/uL Absolute Nucleated RBC 0.000 (0.0-0.012) X10*3/uL Nucleated RBC % (auto) 0.0 (0.0-0.2) /100WBC PT 11.4 (10.8-13.0) SEC INR 1.0 (0.9-1.1) APTT 34.1 (24.1-38.0) SEC Sodium 138 (135-145) mmol/L Potassium 4.6 (3.3-5.1) mmol/L Chloride 105 (96-108) mmol/L Carbon Dioxide 26 (22-29) mmol/L Anion Gap 12 (12-20) BUN 17 H (9-16) mg/dL Creatinine 1.33 (0.5-1.4) mg/dL Estim Creat Clear Calc 54.7 Estimated GFR 53 Random Glucose 152 H (60-115) mg/dL Calcium 9.2 (8.4-10.2) mg/dL Phosphorus 2.3 L (2.7-4.5) mg/dL Magnesium 2.3 (1.6-2.6) mg/dL Total Bilirubin 0.6 (0.0-1.0) mg/dL AST 16 (5-37) U/L ALT 18 (0-40) U/L Alkaline Phosphatase 74 (39-117) U/L Troponin I High Sens (<3.5-35.0) ng/L Total Protein 7.1 (6.5-8.0) g/dL Albumin 4.2 (3.5-5.0) g/dL Lipase (8-78) U/L 05/09/21 05/09/21 05/09/21 Range/Units 12:14 12:14 15:49 WBC (4.8-10.8) X10*3/uL RBC (4.60-5.80) X10*6/uL Hgb (14.0-18.0) g/dl Hct (42-52) % MCV (80-98) fL MCH (27.0-33.0) pg MCHC (31.0-36.0) g/dl RDW (11.0-16.0) % Plt Count (160-400) X10*3/uL MPV (9.4-12.4) fL Immature Gran % (Auto) (0.0-0.4) % Neut % (Auto) (45-73) % Lymph % (Auto) (20-40) % [place] % (Auto) (2-11) % Eos % (Auto) (0-4) % Baso % (Auto) (0-2) % Lymph # (Auto) (1.2-4.9) X10*3/uL [place] # (Auto) (0.1-1.2) X10*3/uL Eos # (Auto) (0.0-0.4) X10*3/uL Baso # (Auto) (0.0-0.2) X10*3/uL Abs Immat Gran (auto) (0.00-0.03) X10*3/uL Absolute Neuts (auto) (2.0-8.3) X10*3/uL Absolute Nucleated RBC (0.0-0.012) X10*3/uL Nucleated RBC % (auto) (0.0-0.2) /100WBC PT (10.8-13.0) SEC INR (0.9-1.1) APTT (24.1-38.0) SEC Sodium (135-145) mmol/L Potassium (3.3-5.1) mmol/L Chloride (96-108) mmol/L Carbon Dioxide (22-29) mmol/L Anion Gap (12-20) BUN (9-16) mg/dL Creatinine (0.5-1.4) mg/dL Estim Creat Clear Calc Estimated GFR Random Glucose (60-115) mg/dL Calcium (8.4-10.2) mg/dL Phosphorus (2.7-4.5) mg/dL Magnesium (1.6-2.6) mg/dL Total Bilirubin (0.0-1.0) mg/dL AST (5-37) U/L ALT (0-40) U/L Alkaline Phosphatase (39-117) U/L Troponin I High Sens 15.2 18.1 (<3.5-35.0) ng/L Total Protein (6.5-8.0) g/dL Albumin (3.5-5.0) g/dL Lipase 30 (8-78) U/L ABG Data Interpretation: 13 15: Wide complex tachycardia with a rate of 160, prolonged QRS of 130 still attacks milliseconds, normal QTC of 440 milliseconds, Q-waves in lead 3 and AVF, ST segment depression V2 through the 6. Critical Care Time Critical Care Time Critical Care Time: Yes Total Critical Care Time: 80 Attestation: Critical Care: The patient was critically ill with a high probability of imminent or life threatening deterioration. I spent greater than 30 minutes of discontinuous time evaluating the patient,delivering critical care at the bedside, discussing and evaluating pertinent data with consultants. Critical care time does not include time spent performing separately billable procedures or teaching. Total time spent performing critical care was 85 minutes. Discharge Plan Discharge Clinical Impression: Near syncope, Ventricular tachycardia Patient Disposition: Admitted As Inpatient
--- NOTE | 2021-05-09 14:17 | PC.NURSE ---
Addendum entered by Joselyn Mitchell 05/09/21 14:19: addendum- wide complex tachycardia Original Note: Pt had svt in 150-170s episode lasting approx 1.5 minutes- felt whoozy , c/o mild chest tightness. Provider at bedside. VS otherwise WNL
[2021-05-09] MEDS: Lidocaine HCl/D5W 2 GM/250 ML IV.SOLN 7.5 GM IVCONT (15:42)
[2021-05-09] MEDS: Lidocaine HCl/PF 100 MG/5 ML SYRINGE 70 MG IV (15:50)
[2021-05-09 16:29] LABS: Troponin-I High Sensitivity 18.1 ng/L (<3.5-35.0)
--- NOTE | 2021-05-09 16:47 | P.EN_ITS ---
Event Note Date of Service: 05/09/21 Event Note: 75 yo M with CAD, recent stent, EF 30%, presented to the ED with s ymptomatic recurrent VT. Started on amiodarone gtt, still having breakthrough VT. Seen by Dr. Busby. Plan to start Lidoc drip, admit to ICU, to OR tomorrow for ICD.
[2021-05-09] MEDS: Sodium,Potassium Phosphates POWD.PACK 2 PACKET PO (20:13)
[2021-05-09] MEDS: Aspirin Enteric Coated 81 MG TABLET.DR PO (20:15)
[2021-05-09] MEDS: Clopidogrel Bisulfate 75 MG TABLET PO (20:15)
[2021-05-09 20:28] LABS: Glucose Urine UA NEG (NEG); Leukocyte Esterase Urine NEG (NEG); Nitrite Urine NEG (NEG); Specific Gravity - Urine 1.025 (1.005-1.025); Urine Blood NEG (NEG); Urine Ketones NEG (NEG); Urine Protein NEG (NEG-TRACE)
[2021-05-09 20:29] LABS: Appearance Urine CLEAR; Color Urine YELLOW
[2021-05-09] MEDS: carvediloL 6.25 MG TABLET PO (21:12)
[2021-05-09] MEDS: Atorvastatin Calcium 40 MG TABLET PO (21:12)
[2021-05-09] MEDS: rOPINIRole HCL 1 MG TABLET PO (21:13)
[2021-05-09] MEDS: gemfibroziL 600 MG TABLET PO (21:13)
--- NOTE | 2021-05-09 21:24 | PM.CCHP ---
History of Present Illness Date of Service: 05/09/21 <PEG Rodas - Last Filed: 05/10/21 22:14> Chief Complaint: PVT, Lighheaddedness <PEG Rodas - Last Filed: 05/10/21 22:14> HPI: 75-year-old patient with underlying history of coronary disease whose 1st HI happened in February of last year, who recently had a coronary cardiac catheterization stent approximately 3 weeks ago where he was found to have LAD stenosis. He also is noted to have 100% distal RCA lesion with collaterals., has history of hypertension, hyperlipidemia, ischemic cardiomyopathy with reported ejection fraction of 30%, Presented to the emergency room today after experiencing 4 days worth of intermittent lightheadedness, the patient states he has noted the episodes were more often until he had 4 very close episodes in the morning associated with lightheadedness, he check his smart watch and noted that his heart rate was as high as 185 beats per minute but would last about 30 seconds to a minute. Upon coming to the emergency room, the patient was noted to be on V-tach with a wide complex, amiodarone was given without any improvement of his symptoms, Cardiology was consulted, patient was placed on a lidocaine drip and these worked converted his rhythm into sinus rhythm. His workup is overall unremarkable without any lab abnormality with exception of a phosphorus level of 2.6. Patient was admitted to the ICU, he has pacer pads on and the hope is to have an AICD implanted tomorrow morning. Currently patient states that he has no symptoms, denies any headache, double or blurred vision, lightheadedness or dizziness, chest pain, shortness of breath, abdominal pain or other related symptoms. ROS: Denies headache, no visual changes, lightheadedness or dizziness, no history of seizures or strokes, no history of eye or ear problems, no sore throat, cough or sputum production, denies shortness of breath, no history of heart failure, pulmonary disease, no hemoptysis, denies any melena, hematochezia, liver or kidney problems, no dysuria, hematuria, no leg swelling, no history of DVT or PE. She has no travel and has not been contact with anybody with COVID and he has received his covid vaccine already All other review of systems negative. Past Medical History: as above Past Surgical History: Left ear bone surgery repair Family history: unknown Social History: Lives at home ; Devices: none Smoker: never Etoh hx: none Drug hx: none CODE STATUS: FULL CODE Allergies: Sulfa (hives, erhythema) Home Medications: see med rec PHYSICAL EXAM: VS: Blood pressure 139/78, heart rate 82, respirations 15, O2 sat 96% on room air temperature 97.5?. General: Alert oriented x3 no acute distress. Speaking full sentences. Speech is well articulated, thought process is coherent. Following all commands. Skin: Intact, no lesions, edema, erythema, clubbing or cyanosis. No ulcers. HEENT: Head is normocephalic, atraumatic, pupils equal round reactive to light accommodation bilaterally. Extraocular movements appear intact. Buccal mucosa is moist, Neck is supple without lymphadenopathy. Cardiac: Clear S1-S2, no murmurs rubs or gallops. Pulmonary: Clear to auscultation, no wheezes, rales or rhonchi. Abdomen: Protuberant, positive bowel sounds in all 4 quadrants. Soft, no-tender, no rebound or guarding. Musculoskeletal: Moving all 4 extremities upon request a major joints, there is no crepitus or tenderness. The strength is 5/5 bilaterally and throughout all 4 extremities. There is no leg edema , no calf tenderness , no leg asymmetry. Gait not assessed at this point. Neurologic: As above, cranial nerves 2-12 are grossly intact. No focal deficits noted. Vascular: 2+ pulses upper and lower extremities distally. LABORATORY DATA: White blood cells 8.5, hemoglobin 15.6, hematocrit 47.3 platelet count 220 INR 1.0. Sodium 138, potassium 4.6, chloride 105, carbon dioxide 26, anion gap 12, BUN 17, creatinine 1.33, phosphorus 2.3, magnesium 2.3. LFTs normal, troponin 18.1. Urinalysis negative. REVIEW OF IMAGES: Chest x-ray no acute pathology. EKG REVIEW: Wide complex tachycardia with a rate of 160, prolonged QRS of 130ms, normal QTC of 440 ms, Q-waves in lead 3 and AVF, ST segment depression V2 through the 6. No comparison available. ASSESSMENT AND PLAN: 1. Paroxysmal white complex ventricular tachycardia 2. Lightheadedness due to above 3. Controlled essential hypertension 4. Hyperlipidemia 5. History of coronary disease status post recent stent 3 weeks ago 6. Hypophosphatemia Admit to ICU, I's and O's, vital signs, continue with lidocaine infusion as amiodarone did not work, resume home medications with exception of Zestril ( as he is on losartan), I have checked with the patient's manager electronic and he does not want aspirin or Plavix held for tomorrow's AICD procedure given that the patient had a recent stent. Will resume Plavix and aspirin tonight as the patient did not have his dose this morning. Will continue with statin. Patient is taking clear liquids only. Neutra-Phos. GI PROPHYLAXIS: No need DVT PROPHYLAXIS: Pneumatic stockings Critical care time used for critical evaluation of this patient, diagnosis, treatment and coordination of care, review her records and documentation TOTAL CRITICAL CARE TIME 90 MIN . Patient's care was discussed in detail with Dr. Currie. He is aware of all the above as well as the plan of care for this patient. <PEG Rodas - Last Filed: 05/10/21 22:14> [facility] Past Medical History Medical History: Medical History CAD (coronary artery disease) Ischemic cardiomyopathy Sustained VT (ventricular tachycardia) <PEG Rodas - Last Filed: 05/10/21 22:14> Surgical History Surgical History: Surgical History History of tonsillectomy Hx of external ear surgery Stented coronary artery <PEG Rodas - Last Filed: 05/10/21 22:14> Social History Social History: Social History Household Members: Other Household Members Other:: partner Housing: House Do you presently have visiting nurse or other home services: No Alcohol intake: never Patient Tobacco Use Status: Never used Tobacco Use of substances other than those prescribed or required for medical reasons: No Currently Displaying Signs/Symptoms of Drug Intoxication Withdrawal: No Have you been hit, kicked, punched, or otherwise hurt by someone within the past year? If so, by whom?: No Do you feel safe in your current relationship?: Yes Is there a partner from a previous relationship who is making you feel unsafe now?: No Are you made to feel afraid or neglected: No Spiritual Healthcare Practices: none per patient [facility] Practices: none per patient Cultural Healthcare Practices: NONE PER PATIENT Advance Directives: No Advance Directives Information Provided: No Do you have thoughts of harming others: None Do you have a plan to hurt others: No Plan Recently lost weight without trying: No Nutrition Risks: No Nutritional Risk Poor oral hygiene: No service: No Current occupational status: unemployed <PEG Rodas - Last Filed: 05/10/21 22:14> Meds Allergies/Adverse reactions: Allergies Allergy/AdvReac Type Severity Reaction Status Date / Time Sulfa (Sulfonamide Allergy Unknown Redness of Verified 05/10/21 10:47 Antibiotics) Skin [SULFA (SULFONAMIDE ANTIBIOTICS)] <PEG Rodas - Last Filed: 05/10/21 22:14> Active Medications: Current Medications Generic Name Dose Route Start Last Admin Trade Name Zak PRN Reason Stop Dose Admin Aspirin 81 mg 05/09/21 20:00 05/09/21 20:15 Aspirin Enteric Coated 81 Mg Tablet.Dr PO 81 mg DAILY MICHAEL Administration Atorvastatin Calcium 40 mg 05/09/21 21:00 05/09/21 21:12 Atorvastatin Calcium 40 Mg Tablet PO 40 mg BEDTIME MICHAEL Administration Carvedilol 6.25 mg 05/09/21 21:00 05/09/21 21:12 Carvedilol 6.25 Mg Tablet PO 6.25 mg BID MICHAEL Administration Protocol Clopidogrel Bisulfate 75 mg 05/09/21 19:45 05/09/21 20:15 Clopidogrel Bisulfate 75 Mg Tablet PO 75 mg DAILY MICHAEL Administration Gemfibrozil 600 mg 05/09/21 21:00 05/09/21 21:13 Gemfibrozil 600 Mg Tablet PO 600 mg BID MICHAEL Administration Amiodarone HCl 900 mg/ Sodium 518 mls @ 34.533 mls/hr 05/09/21 12:30 05/09/21 18:54 Chloride IVCONT 0.5 mg/min .Q15H1M MICHAEL 17.27 mls/hr Infusion Protocol 1 MG/MIN Cefazolin Sodium 2 gm/ Sodium 100 mls @ 200 mls/hr 05/10/21 14:00 Chloride IV 05/10/21 14:29 ONCE ONE Lidocaine HCl/Dextrose 2 gm in 250 mls @ 7.5 mls/hr 05/09/21 15:30 05/09/21 15:42 IVCONT 05/11/21 00:49 1 mg/min .Q24H MICHAEL 7.5 mls/hr Administration 1 MG/MIN Latanoprost 1 drop 05/10/21 21:00 Latanoprost 0.005 % Ophth Rachel 2.5 Ml Drops EYE-BOTH BEDTIME MICHAEL Lidocaine HCl 70 mg 05/09/21 15:18 05/09/21 15:50 Lidocaine Hcl/Pf 100 Mg/5 Ml Syringe IV 70 mg Q15M PRN Administration ventricular tachycardia Multivitamins/Vitamin C 1 tab 05/10/21 09:00 Multivitamin Tablet PO DAILY MICHAEL Ropinirole HCl 1 mg 05/09/21 21:00 05/09/21 21:13 Ropinirole Hcl 1 Mg Tablet PO 1 mg BEDTIME MICHAEL Administration <PEG Rodas - Last Filed: 05/10/21 22:14> Home medications: Home Medications Medication Instructions Recorded Confirmed Last Taken Type aspirin 81 mg tablet,delayed 81 mg PO DAILY 12/27/20 05/09/21 Unknown History release atorvastatin 40 mg tablet 40 mg PO DAILY 12/27/20 05/09/21 Unknown History carvedilol 6.25 mg tablet 6.25 mg PO BID 12/27/20 05/09/21 Unknown History clopidogrel 75 mg tablet 75 mg PO DAILY 12/27/20 05/09/21 Unknown History gemfibrozil 600 mg tablet 600 mg PO BID 12/27/20 05/09/21 Unknown History latanoprost 0.005 % eye drops 1 drp OPHTHALMIC (EYE) DAILY 12/27/20 05/09/21 Unknown History multivitamin 1 tab PO DAILY 12/27/20 05/09/21 Unknown History ropinirole 1 mg tablet 1 mg PO BEDTIME 12/27/20 05/09/21 Unknown History <PEG Rodas - Last Filed: 05/10/21 22:14> Physical Exam Vital Signs: Vital Signs: Last Vital Signs Temp 97.5 F 05/09/21 20:00 Pulse 82 05/09/21 21:12 Resp 18 05/09/21 21:00 BP 138/82 05/09/21 21:12 Pulse Ox 96 05/09/21 21:00 Body Mass Index 31.5 <PEG Rodas - Last Filed: 05/10/21 22:14> Results Labs CBC and Chem 7: : 05/10/21 05:38 05/10/21 05:38 <PEG Rodas - Last Filed: 05/10/21 22:14> Labs: Laboratory Results - last 24 hr 05/09/21 05/09/21 05/09/21 12:14 12:14 12:14 MCV 90.4 MCH 29.8 MCHC 33.0 RDW 13.2 Plt Count 220 MPV 11.1 Immature Gran % (Auto) 0.4 Neut % (Auto) 53.0 Lymph % (Auto) 30.9 [place] % (Auto) 10.9 Eos % (Auto) 4.2 H Baso % (Auto) 0.6 Lymph # (Auto) 2.6 [place] # (Auto) 0.9 Eos # (Auto) 0.4 Baso # (Auto) 0.1 Abs Immat Gran (auto) 0.03 Absolute Neuts (auto) 4.5 Absolute Nucleated RBC 0.000 Nucleated RBC % (auto) 0.0 PT 11.4 INR 1.0 APTT 34.1 Anion Gap 12 Estim Creat Clear Calc 54.7 Estimated GFR 53 Random Glucose 152 H Calcium 9.2 Phosphorus 2.3 L Magnesium 2.3 Total Bilirubin 0.6 AST 16 ALT 18 Alkaline Phosphatase 74 Troponin I High Sens Total Protein 7.1 Albumin 4.2 Lipase Urine Color Urine Appearance Urine pH Ur Specific [place] Urine Protein Urine Glucose (UA) Urine Ketones Urine Blood Urine Nitrite Ur Leukocyte Esterase 05/09/21 05/09/21 05/09/21 12:14 12:14 15:49 MCV MCH MCHC RDW Plt Count MPV Immature Gran % (Auto) Neut % (Auto) Lymph % (Auto) [place] % (Auto) Eos % (Auto) Baso % (Auto) Lymph # (Auto) [place] # (Auto) Eos # (Auto) Baso # (Auto) Abs Immat Gran (auto) Absolute Neuts (auto) Absolute Nucleated RBC Nucleated RBC % (auto) PT INR APTT Anion Gap Estim Creat Clear Calc Estimated GFR Random Glucose Calcium Phosphorus Magnesium Total Bilirubin AST ALT Alkaline Phosphatase Troponin I High Sens 15.2 18.1 Total Protein Albumin Lipase 30 Urine Color Urine Appearance Urine pH Ur Specific [place] Urine Protein Urine Glucose (UA) Urine Ketones Urine Blood Urine Nitrite Ur Leukocyte Esterase 05/09/21 20:12 MCV MCH MCHC RDW Plt Count MPV Immature Gran % (Auto) Neut % (Auto) Lymph % (Auto) [place] % (Auto) Eos % (Auto) Baso % (Auto) Lymph # (Auto) [place] # (Auto) Eos # (Auto) Baso # (Auto) Abs Immat Gran (auto) Absolute Neuts (auto) Absolute Nucleated RBC Nucleated RBC % (auto) PT INR APTT Anion Gap Estim Creat Clear Calc Estimated GFR Random Glucose Calcium Phosphorus Magnesium Total Bilirubin AST ALT Alkaline Phosphatase Troponin I High Sens Total Protein Albumin Lipase Urine Color YELLOW Urine Appearance CLEAR Urine pH 6.0 Ur Specific [place] 1.025 Urine Protein NEG Urine Glucose (UA) NEG Urine Ketones NEG Urine Blood NEG Urine Nitrite NEG Ur Leukocyte Esterase NEG <PEG Rodas - Last Filed: 05/10/21 22:14> Imaging Radiologist's Impressions: Impressions Chest X-Ray 05/09/21 12:05 IMPRESSION: Unremarkable chest exam. <PEG Rodas - Last Filed: 05/10/21 22:14>
[2021-05-09 23:28] LABS: Troponin-I High Sensitivity 20.1 ng/L (<3.5-35.0)
[2021-05-10] VITALS (22 sets, daily range): BP systolic 107–141; BP diastolic 52–103; PULSE 65–85; RESP 10–22; TEMP 35.9–36.7; O2SAT 92–96; BMI 31.5
[2021-05-10 01:37] LABS: Troponin-I High Sensitivity 20.6 ng/L (<3.5-35.0)
[2021-05-10 05:46] LABS: MANUAL DIFF FLAG NO
[2021-05-10 05:56] LABS: Basophils Percent Auto 0.3 % (0-2); Eosinophils Absolute Auto 0.3 X10*3/uL (0.0-0.4); Eosinophils Percent Auto 2.7 % (0-4); Hematocrit 42.3 % (42-52); Hemoglobin 13.9 g/dl (14.0-18.0); Imm Gran Abs Auto 0.04 X10*3/uL (0.00-0.03); Imm Gran Pct Auto 0.4 % (0.0-0.4); Lymphocytes Absolute Auto 1.8 X10*3/uL (1.2-4.9); Lymphocytes Percent Auto 17.8 % (20-40); Mean Corpuscular HGB Conc 32.9 g/dl (31.0-36.0); Mean Corpuscular Hemoglobin 29.6 pg (27.0-33.0); Mean Corpuscular Volume 90.2 fL (80-98); Mean Platelet Volume 10.7 fL (9.4-12.4); Monocytes Absolute Auto 0.7 X10*3/uL (0.1-1.2); Monocytes Percent Auto 7.2 % (2-11); Neutrophils Absolute Auto 7.2 X10*3/uL (2.0-8.3); Neutrophils Percent Auto 71.6 % (45-73); Platelet Count 181 X10*3/uL (160-400); Red Blood Count 4.69 X10*6/uL (4.60-5.80); Red Cell Distribution Width 13.1 % (11.0-16.0)
[2021-05-10 06:17] LABS: Alanine Aminotransferase 16 U/L (0-40); Albumin Level 3.7 g/dL (3.5-5.0); Alkaline Phosphatase 66 U/L (39-117); Anion Gap 14 (12-20); Aspartate Amino Transferase 15 U/L (5-37); Bilirubin Total 1.1 mg/dL (0.0-1.0); Blood Urea Nitrogen 14 mg/dL (9-16); Calcium 8.5 mg/dL (8.4-10.2); Carbon Dioxide 21 mmol/L (22-29); Chloride 105 mmol/L (96-108); Creatinine Clr Calc Pharmacy 63.6; Estimated Glomerular Filt Rate > 60; Glucose Random 133 mg/dL (60-115); Potassium 4.7 mmol/L (3.3-5.1); Sodium 135 mmol/L (135-145); Total Protein 6.2 g/dL (6.5-8.0)
--- NOTE | 2021-05-10 06:33 | PC.NURSE ---
PT HAD EPISODE OF JAW DISCOMFORT AND THEN NAUSEA, NO VOMITTING. THIS OCCURED AT 2300 LAST NIGHT. PEG DAVID AT BEDSIDE IMMEDIATELY. jAW DISCOMFORT AND NAUSEA SUBSIDED ON ITS OWN. 12 LEAD EKG WAS DONE AND INTERPRETTED BY PEG STEVENS TO SHOW NO CHANGES. TROPS DRAWN X2 AND WERE 20.1 AND THEN 20.6. NO CHANGES ON OIL FIELD ROUSTABOUT. RHYTHM WAS AND STILL IS NSR, RATE 60'S-80, NO ECTOPY. PT WAS GIVEN O2 AT 2L VIA NC AND WENT BACK TO SLEEP. NO RECURRENCE OF THESE SYMPTOMS FOR THE REST OF THE NIGHT.
[2021-05-10 07:55] LABS: COVID-19 Test Negative (Negative)
--- NOTE | 2021-05-10 09:00 | CA_ITS ---
Transthoracic Echocardiogram Patient (Last, First, Middle): [place] D Gender: Male Date of : 1945 Age: 75 Procedure Date: 05/10/2021 Procedure Type: Transthoracic Echocardiogram Location: ICU Height: 172.72 cm Weight: 93.9 kg BSA: 2.07 m2 Heart Rate: bpm BP: 112 / 71 mmHg Console Assembler: Referring MD: Naldo Busby MD Back Roller: Naldo Busby MD Symptoms: ventricular tachycardia Study Quality: Fair ECG Rhythm: Sinus Conclusions: - 1. Severe LV systolic dysfunction with LVEF of 25-30% with grade 1 diastolic dysfunction with regional wall motion abnormality suggestive prior myocardial infarction 2. Mild aortic and mitral regurgitation 3. Normal RV systolic pressure 4. No pericardial effusion Findings Procedure Information Contrast agent, definity, is being given per protocol without apparent complications. Left Ventricle Normal left ventricular cavity size. There is normal left ventricular wall thickness. The left ventricular systolic function is severely decreased. The visually estimated ejection fraction is between 25-30%. Spectral Doppler is indicative of an impaired relaxation filling pattern. E/E prime ratio is <8, consistent with normal filling pressures. Evidence suggests grade I (mild) diastolic dysfunction. Wall Motion Rest Echo Findings The apical inferior and apical septum segments are hypokinetic. The inferoseptal wall, inferolateral wall, the basal inferior, basal anterior, and mid inferior segments are akinetic. All other scored wall segments showed normal motion. Right Ventricle Normal right ventricular cavity size. There is normal right ventricular systolic function. Atria The left atrium is likely dilated. There is lipomatous hypertrophy of the interatrial septum. There is no evidence of interatrial shunt. The right atrium is normal in size. Aortic Valve There is mild calcification of the aortic valve. There is mild thickening of the aortic valve. There is no aortic valve stenosis. There is mild aortic valve regurgitation. Mitral Valve Normal mitral valve structure and function. There is mild mitral valve regurgitation. There is no mitral valve stenosis. Pulmonic Valve The pulmonic valve was not well visualized. Tricuspid Valve Normal tricuspid valve structure. There is trace tricuspid valve regurgitation. The right ventricular systolic pressure is normal. The right ventricular systolic pressure is 21 mmHg. There is no evidence of pulmonary hypertension. Great Vessels All visible segments of the aorta are normal in size. The pulmonary artery was not well visualized. Venous The inferior vena cava is normal in size and collapses greater than 50% with inspiration. Pericardium/Pleural There is no evidence of pericardial effusion. Prior Study Comparison No prior study available for comparison. Measurements 2D Linear Measurements IVSd: 1.14 0.6-0.9/0.6-1.0 cm LVIDd: 5.34 3.9-5.3/4.2-5.9 cm LVIDd Index: 2.58 2.4-3.2/2.2-3.1 cm/m2 LVIDs: 4.67 2.0-3.6 cm LVPWd: 1.09 0.7-1.1 cm Ao Root: 3.40 2.1-3.5 cm LA Diam: 4.20 2.7-3.8/3.0-4.0 cm LAIDs Index: 2.03 1.5-2.3 cm/m2 LV Mass: 292.79 67-162/88-224 g LV Mass Index: 141.44 43-95/49-115 g/m2 LVOT Diam: 2.10 3.0+(-)1.3 cm 2D Systolic Function EF 4C: 23.60 >55% EF 2C: 35.50 >55% EF BiP: 30.10 >55% Mitral Valve MV Pk E: 0.54 MV PK A: 0.80 MV Decel Time: 204.00 E/A: 0.70 E'Lateral: 5.55 E'Medial: 3.48 E/E' Med: 15.40 E/E' Lat: 9.70 PHT: 60.00 MVA PHT: 3.67 Decel Smyth: 2.63 Aortic Valve AoV Pk Gabe: 1.13 AoV Mn Gabe: 0.86 AoV VTI: 0.30 AoV Pk Grad: 5.00 Aov Mn Grad: 3.00 BRENDAN Cont.VTI: 1.50 LVOT LVOT Pk Gabe: 0.52 LVOT Mn Gabe: 0.40 LVOT VTI: 0.13 LVOT Pk Grad: 1.00 LVOT Mn Grad: 1.00 LVOT Diam: 2.10 LVOT Area: 3.46 Diastolic Function MV Pk E: 0.54 MV Pk A: 0.80 E/A: 0.70 E'Medial: 3.48 E/E' Med: 15.40 E' Laterial: 5.55 E/E' Lat: 9.70 Tricuspid Valve TR Pk Gabe: 2.11 TR Pk Grad: 18.00 RA Press: 3.00 RVSP: 21.00 Great Vessels Aorta Ao Root-2D: 3.40 2.0-3.7 cm Ao Asc: 3.60 2.1-3.4 cm Updated in Other Vendor System with Status of Final Naldo Busby MD electronically signed on 05/10/2021 10:38:56 AM with status of Final
--- NOTE | 2021-05-10 10:13 | PM.PNCARD ---
Subjective Subjective Date of Service: 05/10/21 Principal diagnosis: Refractory ventricular tachycardia Interval history: patient is doing well currently on dual therapy with IV amiodarone IV lidocaine. He did not respond much to IV amiodarone but arrhythmias were then control with IV lidocaine. Doing well. No cardiac symptoms. Blood pressure is well optimized. Echocardiogram was done this morning pending. No evidence of acute coronary syndrome. Plan for ICD placement later today Review of Systems Constitutional: Reports no additional constitutional complaints Cardiovascular: Reports no additional cardiovascular complaints Respiratory: Reports no additional respiratory complaints Gastrointestinal: Reports no additional gastrointestinal complaints Genitourinary: Reports no additional male genitourinary complaints Musculoskeletal: Reports no additional musculoskeletal complaints Reports system reviewed and no additional complaints, except as documented Psychiatric: Reports no additional psychiatric complaints Hematologic/Lymphatic: Reports no additional hematologic/lymphatic complaints Physical Exam Vital Signs: Last Vital Signs Temp 97.6 F 05/10/21 08:00 Pulse 72 05/10/21 10:00 Resp 14 05/10/21 10:00 BP 126/83 05/10/21 10:00 Pulse Ox 95 05/10/21 10:00 Body Mass Index 31.5 Const General: cooperative, comfortable, no acute distress, alert and awake Nutritional Appearance: average body habitus Orientation/consciousness: patient oriented x3 Limitations: no limitations Neck Neck: Yes trachea midline, Yes supple and Yes no JVD Resp Effort & Inspection: normal respiratory effort Auscultation: clear to auscultation bilaterally Cardio Palpation: abnormal PMI displaced PMI Rate: regular rate Rhythm: regular rhythm Heart sounds: S1 normal heart sound present and S2 normal heart sound present GI Auscultation: normal bowel sounds Skin General skin exam: no rashes or lesions noted Neuro General: patient oriented x3 and no focal motor deficits Extrem General: Yes no clubbing, cyanosis or edema Results Labs and Meds Result diagrams: 05/10/21 05:38 05/10/21 05:38 Lab results: Laboratory Results - last 24 hr 05/09/21 05/09/21 05/09/21 12:14 12:14 12:14 WBC 8.5 RBC 5.23 Hgb 15.6 Hct 47.3 MCV 90.4 MCH 29.8 MCHC 33.0 RDW 13.2 Plt Count 220 MPV 11.1 Immature Gran % (Auto) 0.4 Neut % (Auto) 53.0 Lymph % (Auto) 30.9 [place] % (Auto) 10.9 Eos % (Auto) 4.2 H Baso % (Auto) 0.6 Lymph # (Auto) 2.6 [place] # (Auto) 0.9 Eos # (Auto) 0.4 Baso # (Auto) 0.1 Abs Immat Gran (auto) 0.03 Absolute Neuts (auto) 4.5 Absolute Nucleated RBC 0.000 Nucleated RBC % (auto) 0.0 PT 11.4 INR 1.0 APTT 34.1 Sodium 138 Potassium 4.6 Chloride 105 Carbon Dioxide 26 Anion Gap 12 BUN 17 H Creatinine 1.33 Estim Creat Clear Calc 54.7 Estimated GFR 53 Random Glucose 152 H Calcium 9.2 Phosphorus 2.3 L Magnesium 2.3 Total Bilirubin 0.6 AST 16 ALT 18 Alkaline Phosphatase 74 Troponin I High Sens Total Protein 7.1 Albumin 4.2 Lipase Urine Color Urine Appearance Urine pH Ur Specific [place] Urine Protein Urine Glucose (UA) Urine Ketones Urine Blood Urine Nitrite Ur Leukocyte Esterase COVID-19 (RENA) COVID-19 [place] 05/09/21 05/09/21 05/09/21 12:14 12:14 15:49 WBC RBC Hgb Hct MCV MCH MCHC RDW Plt Count MPV Immature Gran % (Auto) Neut % (Auto) Lymph % (Auto) [place] % (Auto) Eos % (Auto) Baso % (Auto) Lymph # (Auto) [place] # (Auto) Eos # (Auto) Baso # (Auto) Abs Immat Gran (auto) Absolute Neuts (auto) Absolute Nucleated RBC Nucleated RBC % (auto) PT INR APTT Sodium Potassium Chloride Carbon Dioxide Anion Gap BUN Creatinine Estim Creat Clear Calc Estimated GFR Random Glucose Calcium Phosphorus Magnesium Total Bilirubin AST ALT Alkaline Phosphatase Troponin I High Sens 15.2 18.1 Total Protein Albumin Lipase 30 Urine Color Urine Appearance Urine pH Ur Specific [place] Urine Protein Urine Glucose (UA) Urine Ketones Urine Blood Urine Nitrite Ur Leukocyte Esterase COVID-19 (RENA) COVID-19 [place] 05/09/21 05/09/21 05/10/21 20:12 22:51 01:04 WBC RBC Hgb Hct MCV MCH MCHC RDW Plt Count MPV Immature Gran % (Auto) Neut % (Auto) Lymph % (Auto) [place] % (Auto) Eos % (Auto) Baso % (Auto) Lymph # (Auto) [place] # (Auto) Eos # (Auto) Baso # (Auto) Abs Immat Gran (auto) Absolute Neuts (auto) Absolute Nucleated RBC Nucleated RBC % (auto) PT INR APTT Sodium Potassium Chloride Carbon Dioxide Anion Gap BUN Creatinine Estim Creat Clear Calc Estimated GFR Random Glucose Calcium Phosphorus Magnesium Total Bilirubin AST ALT Alkaline Phosphatase Troponin I High Sens 20.1 20.6 Total Protein Albumin Lipase Urine Color YELLOW Urine Appearance CLEAR Urine pH 6.0 Ur Specific [place] 1.025 Urine Protein NEG Urine Glucose (UA) NEG Urine Ketones NEG Urine Blood NEG Urine Nitrite NEG Ur Leukocyte Esterase NEG COVID-19 (RENA) COVID-19 Clin Com 05/10/21 05/10/21 05/10/21 05:38 05:38 07:34 WBC 10.0 RBC 4.69 Hgb 13.9 L Hct 42.3 MCV 90.2 MCH 29.6 MCHC 32.9 RDW 13.1 Plt Count 181 MPV 10.7 Immature Gran % (Auto) 0.4 Neut % (Auto) 71.6 Lymph % (Auto) 17.8 L [place] % (Auto) 7.2 Eos % (Auto) 2.7 Baso % (Auto) 0.3 Lymph # (Auto) 1.8 [place] # (Auto) 0.7 Eos # (Auto) 0.3 Baso # (Auto) 0.0 Abs Immat Gran (auto) 0.04 H Absolute Neuts (auto) 7.2 Absolute Nucleated RBC 0.000 Nucleated RBC % (auto) 0.0 PT INR APTT Sodium 135 Potassium 4.7 Chloride 105 Carbon Dioxide 21 L Anion Gap 14 BUN 14 Creatinine 1.15 Estim Creat Clear Calc 63.6 Estimated GFR > 60 Random Glucose 133 H Calcium 8.5 D Phosphorus Magnesium Total Bilirubin 1.1 H AST 15 ALT 16 Alkaline Phosphatase 66 Troponin I High Sens Total Protein 6.2 L Albumin 3.7 Lipase Urine Color Urine Appearance Urine pH Ur Specific [place] Urine Protein Urine Glucose (UA) Urine Ketones Urine Blood Urine Nitrite Ur Leukocyte Esterase COVID-19 (RENA) Negative COVID-19 Clin Com See Note last EKG shows normal sinus rhythm with inferior Q-waves Imaging Radiologist's impression: Impressions Chest X-Ray 05/09/21 12:05 IMPRESSION: Unremarkable chest exam. Progress Note: A&P Assessment and plan (1) Ventricular tachycardia, incessant: Status: Acute Assessment and Plan: refractory ventricular tachycardia requiring both amiodarone and IV lidocaine, suppressed after IV lidocaine initiation doing well. Schedule for ICD placement for secondary prevention this afternoon. Had a very detailed discussion with patient about the need for ICD and the monitoring required after that. Also discussed risks, benefits, alternatives. Patient understands and agrees. Will await full consultation with Dr. Victor. will switch after defibrillator placement to oral drug therapy with amiodarone and mexiletine. Outpatient follow-up and if persists with recurrent VT may require ablation as outpatient. (2) Ischemic cardiomyopathy: Status: Acute Assessment and Plan: Ischemic cardiomyopathy without heart failure. Will follow up with echocardiogram. Maximize carvedilol as well as losartan therapy. Increase carvedilol to 12.5 mg b.i.d. and losartan to 50 mg daily. (3) CAD (coronary artery disease): Status: Acute Assessment and Plan: CAD with recent stenting to the LAD. Continue dual antiplatelet therapy uninterrupted. Continue atorvastatin 40 mg. Discontinue gemfibrozil, will switch to Vascepa as outpatient. Will follow with the patient. Thank you for allowing me to partake in his care Fall Risk Details Current Medications: Current Medications Generic Name Dose Route Start Last Admin Trade Name Freq PRN Reason Stop Dose Admin Aspirin 81 mg 05/09/21 20:00 05/09/21 20:15 Aspirin Enteric Coated 81 Mg Tablet. PO 81 mg DAILY MICHAEL Administration Atorvastatin Calcium 40 mg 05/09/21 21:00 05/09/21 21:12 Atorvastatin Calcium 40 Mg Tablet PO 40 mg BEDTIME MICHAEL Administration Carvedilol 6.25 mg 05/09/21 21:00 05/09/21 21:12 Carvedilol 6.25 Mg Tablet PO 6.25 mg BID MICHAEL Administration Protocol Clopidogrel Bisulfate 75 mg 05/09/21 19:45 05/09/21 20:15 Clopidogrel Bisulfate 75 Mg Tablet PO 75 mg DAILY MICHAEL Administration Gemfibrozil 600 mg 05/09/21 21:00 05/09/21 21:13 Gemfibrozil 600 Mg Tablet PO 600 mg BID MICHAEL Administration Amiodarone HCl 900 mg/ Sodium 518 mls @ 34.533 mls/hr 05/09/21 12:30 05/10/21 06:32 Chloride IVCONT Not Given .Q15H1M MICHAEL Protocol 1 MG/MIN Cefazolin Sodium 2 gm/ Sodium 100 mls @ 200 mls/hr 05/10/21 14:00 Chloride IV 05/10/21 14:29 ONCE ONE Lidocaine HCl/Dextrose 2 gm in 250 mls @ 7.5 mls/hr 05/09/21 15:30 05/09/21 15:42 IVCONT 05/11/21 00:49 1 mg/min .Q24H MICHAEL 7.5 mls/hr Administration 1 MG/MIN Latanoprost 1 drop 05/10/21 21:00 Latanoprost 0.005 % Ophth Rachel 2.5 Ml Drops EYE-BOTH BEDTIME MICHAEL Lidocaine HCl 70 mg 05/09/21 15:18 05/09/21 15:50 Lidocaine Hcl/Pf 100 Mg/5 Ml Syringe IV 70 mg Q15M PRN Administration ventricular tachycardia Losartan Potassium 25 mg 05/10/21 09:00 Losartan Potassium 25 Mg Tablet PO DAILY MICHAEL Protocol Multivitamins/Vitamin C 1 tab 05/10/21 09:00 05/10/21 09:55 Multivitamin Tablet PO Not Given DAILY MICHAEL Ropinirole HCl 1 mg 05/09/21 21:00 05/09/21 21:13 Ropinirole Hcl 1 Mg Tablet PO 1 mg BEDTIME MICHAEL Administration Time Spent With Patient Time: Total time spent is greater than 50% in coordination of care (as documented) at patient's floor/unit and/or counseling patient: Time with patient: 25 - 35 minutes Procedures Date of Service Date of Service: 05/10/21
[2021-05-10] MEDS: Losartan Potassium 25 MG TABLET PO (10:42)
[2021-05-10] MEDS: Amiodarone HCL 900 MG in 0.9 % Sodium Chloride 500 ML 17.27 MG IVCONT (10:51)
--- NOTE | 2021-05-10 11:52 | MHC.CM.PN ---
Met with pt to discuss d/c planning: pt resides with significant other: independent with all care needs, drives, no assistive devices: agreeable to NA referral for surgical site assessment/ med management, etc. S.O. to transport home.
[2021-05-10] MEDS: ceFAZolin Sodium 2 GM in 0.9 % Sodium Chloride 100 ML IV (13:20)
--- NOTE | 2021-05-10 13:53 | HO.ANESPROP2 ---
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) Stable angina (Acute) Hypertension (Acute) Past Medical History Medical History CAD (coronary artery disease) Ischemic cardiomyopathy Sustained VT (ventricular tachycardia) Surgical History Surgical History History of tonsillectomy Hx of external ear surgery Stented coronary artery Social History Social History Household Members: Other Household Members Other:: partner Housing: House Do you presently have visiting nurse or other home services: No Alcohol intake: never Patient Tobacco Use Status: Never used Tobacco Use of substances other than those prescribed or required for medical reasons: No Currently Displaying Signs/Symptoms of Drug Intoxication Withdrawal: No Have you been hit, kicked, punched, or otherwise hurt by someone within the past year? If so, by whom?: No Do you feel safe in your current relationship?: Yes Is there a partner from a previous relationship who is making you feel unsafe now?: No Are you made to feel afraid or neglected: No Spiritual Healthcare Practices: none per patient Caodaism Healthcare Practices: none per patient Cultural Healthcare Practices: NONE PER PATIENT Advance Directives: No Advance Directives Information Provided: No Do you have thoughts of harming others: None Do you have a plan to hurt others: No Plan Recently lost weight without trying: No Nutrition Risks: No Nutritional Risk Poor oral hygiene: No service: No Current occupational status: unemployed Meds Allergies Allergy/AdvReac Type Severity Reaction Status Date / Time Sulfa (Sulfonamide Allergy Unknown Redness of Verified 05/10/21 10:47 Antibiotics) Skin [SULFA (SULFONAMIDE ANTIBIOTICS)] Active Medications: Current Medications Generic Name Dose Route Start Last Admin Trade Name Freq PRN Reason Stop Dose Admin Aspirin 81 mg 05/10/21 21:00 Aspirin Enteric Coated 81 Mg Tablet. PO BEDTIME MICHAEL Atorvastatin Calcium 40 mg 05/09/21 21:00 05/09/21 21:12 Atorvastatin Calcium 40 Mg Tablet PO 40 mg BEDTIME MICHAEL Administration Carvedilol 12.5 mg 05/10/21 21:00 Carvedilol 12.5 Mg Tablet PO BID [facility] Protocol Clopidogrel Bisulfate 75 mg 05/10/21 21:00 Clopidogrel Bisulfate 75 Mg Tablet PO BEDTIME MICHAEL Amiodarone HCl 900 mg/ Sodium 518 mls @ 34.533 mls/hr 05/09/21 12:30 05/10/21 10:51 Chloride IVCONT 0.5 mg/min .Q15H1M MICHAEL 17.27 mls/hr Administration Protocol 1 MG/MIN Cefazolin Sodium 2 gm/ Sodium 100 mls @ 200 mls/hr 05/10/21 14:00 05/10/21 13:20 Chloride IV 05/10/21 14:29 200 mls/hr ONCE ONE Administration Lidocaine HCl/Dextrose 2 gm in 250 mls @ 7.5 mls/hr 05/09/21 15:30 05/09/21 15:42 IVCONT 05/11/21 00:49 1 mg/min .Q24H MICHAEL 7.5 mls/hr Administration 1 MG/MIN Latanoprost 1 drop 05/10/21 21:00 Latanoprost 0.005 % Ophth Rachel 2.5 Ml Drops EYE-BOTH BEDTIME MICHAEL Lidocaine HCl 70 mg 05/09/21 15:18 05/09/21 15:50 Lidocaine Hcl/Pf 100 Mg/5 Ml Syringe IV 70 mg Q15M PRN Administration ventricular tachycardia Losartan Potassium 50 mg 05/11/21 09:00 Losartan Potassium 50 Mg Tablet PO DAILY [facility] Protocol Multivitamins/Vitamin C 1 tab 05/10/21 09:00 05/10/21 09:55 Multivitamin Tablet PO Not Given DAILY [facility] Non-Form Med: 1 mg 05/10/21 14:00 05/10/21 13:17 Mexiletine 150 Mg PO 1 mg Cap Q8H MICHAEL Administration Ropinirole HCl 1 mg 05/09/21 21:00 05/09/21 21:13 Ropinirole Hcl 1 Mg Tablet PO 1 mg BEDTIME MICHAEL Administration Home Medications Medication Instructions Recorded Confirmed Last Taken Type aspirin 81 mg tablet,delayed 81 mg PO DAILY 12/27/20 05/09/21 Unknown History release atorvastatin 40 mg tablet 40 mg PO DAILY 12/27/20 05/09/21 Unknown History carvedilol 6.25 mg tablet 6.25 mg PO BID 12/27/20 05/09/21 Unknown History clopidogrel 75 mg tablet 75 mg PO DAILY 12/27/20 05/09/21 Unknown History gemfibrozil 600 mg tablet 600 mg PO BID 12/27/20 05/09/21 Unknown History latanoprost 0.005 % eye drops 1 drp OPHTHALMIC (EYE) DAILY 12/27/20 05/09/21 Unknown History multivitamin 1 tab PO DAILY 12/27/20 05/09/21 Unknown History ropinirole 1 mg tablet 1 mg PO BEDTIME 12/27/20 05/09/21 Unknown History Exam Exam Date and Time: May 10, 2021 1353 Height,Weight and Vital Signs: Height 5 ft 8 in Weight 94 kg Last Vital Signs Temp 98.0 F 05/10/21 12:00 Pulse 80 05/10/21 13:00 Resp 15 05/10/21 13:00 BP 141/81 H 05/10/21 13:00 Pulse Ox 95 05/10/21 13:00 Pertinent Lab Results Pertinent Lab Results: Laboratory Tests 05/09/21 05/09/21 05/09/21 12:14 12:14 12:14 WBC 8.5 RBC 5.23 Hgb 15.6 Hct 47.3 MCV 90.4 MCH 29.8 MCHC 33.0 RDW 13.2 Plt Count 220 MPV 11.1 Immature Gran % (Auto) 0.4 Neut % (Auto) 53.0 Lymph % (Auto) 30.9 [place] % (Auto) 10.9 Eos % (Auto) 4.2 H Baso % (Auto) 0.6 Lymph # (Auto) 2.6 [place] # (Auto) 0.9 Eos # (Auto) 0.4 Baso # (Auto) 0.1 Abs Immat Gran (auto) 0.03 Absolute Neuts (auto) 4.5 Absolute Nucleated RBC 0.000 Nucleated RBC % (auto) 0.0 PT 11.4 INR 1.0 APTT 34.1 Sodium 138 Potassium 4.6 Chloride 105 Carbon Dioxide 26 Anion Gap 12 BUN 17 H Creatinine 1.33 Estim Creat Clear Calc 54.7 Estimated GFR 53 Random Glucose 152 H Calcium 9.2 Phosphorus 2.3 L Magnesium 2.3 Total Bilirubin 0.6 AST 16 ALT 18 Alkaline Phosphatase 74 Troponin I High Sens Total Protein 7.1 Albumin 4.2 Lipase Urine Color Urine Appearance Urine pH Ur Specific [place] Urine Protein Urine Glucose (UA) Urine Ketones Urine Blood Urine Nitrite Ur Leukocyte Esterase COVID-19 (RENA) COVID-19 [facility] 05/09/21 05/09/21 05/09/21 12:14 12:14 15:49 WBC RBC Hgb Hct MCV MCH MCHC RDW Plt Count MPV Immature Gran % (Auto) Neut % (Auto) Lymph % (Auto) [place] % (Auto) Eos % (Auto) Baso % (Auto) Lymph # (Auto) [place] # (Auto) Eos # (Auto) Baso # (Auto) Abs Immat Gran (auto) Absolute Neuts (auto) Absolute Nucleated RBC Nucleated RBC % (auto) PT INR APTT Sodium Potassium Chloride Carbon Dioxide Anion Gap BUN Creatinine Estim Creat Clear Calc Estimated GFR Random Glucose Calcium Phosphorus Magnesium Total Bilirubin AST ALT Alkaline Phosphatase Troponin I High Sens 15.2 18.1 Total Protein Albumin Lipase 30 Urine Color Urine Appearance Urine pH Ur Specific [place] Urine Protein Urine Glucose (UA) Urine Ketones Urine Blood Urine Nitrite Ur Leukocyte Esterase COVID-19 (RENA) COVID-19 [facility] 05/09/21 05/09/21 05/10/21 20:12 22:51 01:04 WBC RBC Hgb Hct MCV MCH MCHC RDW Plt Count MPV Immature Gran % (Auto) Neut % (Auto) Lymph % (Auto) [place] % (Auto) Eos % (Auto) Baso % (Auto) Lymph # (Auto) [place] # (Auto) Eos # (Auto) Baso # (Auto) Abs Immat Gran (auto) Absolute Neuts (auto) Absolute Nucleated RBC Nucleated RBC % (auto) PT INR APTT Sodium Potassium Chloride Carbon Dioxide Anion Gap BUN Creatinine Estim Creat Clear Calc Estimated GFR Random Glucose Calcium Phosphorus Magnesium Total Bilirubin AST ALT Alkaline Phosphatase Troponin I High Sens 20.1 20.6 Total Protein Albumin Lipase Urine Color YELLOW Urine Appearance CLEAR Urine pH 6.0 Ur Specific [place] 1.025 Urine Protein NEG Urine Glucose (UA) NEG Urine Ketones NEG Urine Blood NEG Urine Nitrite NEG Ur Leukocyte Esterase NEG COVID-19 (RENA) COVID-19 [facility] 07/12/3005/10/21 05/10/21 05:38 05:38 07:34 WBC 10.0 RBC 4.69 Hgb 13.9 L Hct 42.3 MCV 90.2 MCH 29.6 MCHC 32.9 RDW 13.1 Plt Count 181 MPV 10.7 Immature Gran % (Auto) 0.4 Neut % (Auto) 71.6 Lymph % (Auto) 17.8 L [place] % (Auto) 7.2 Eos % (Auto) 2.7 Baso % (Auto) 0.3 Lymph # (Auto) 1.8 [place] # (Auto) 0.7 Eos # (Auto) 0.3 Baso # (Auto) 0.0 Abs Immat Gran (auto) 0.04 H Absolute Neuts (auto) 7.2 Absolute Nucleated RBC 0.000 Nucleated RBC % (auto) 0.0 PT INR APTT Sodium 135 Potassium 4.7 Chloride 105 Carbon Dioxide 21 L Anion Gap 14 BUN 14 Creatinine 1.15 Estim Creat Clear Calc 63.6 Estimated GFR > 60 Random Glucose 133 H Calcium 8.5 D Phosphorus Magnesium Total Bilirubin 1.1 H AST 15 ALT 16 Alkaline Phosphatase 66 Troponin I High Sens Total Protein 6.2 L Albumin 3.7 Lipase Urine Color Urine Appearance Urine pH Ur Specific [place] Urine Protein Urine Glucose (UA) Urine Ketones Urine Blood Urine Nitrite Ur Leukocyte Esterase COVID-19 (RENA) Negative COVID-19 Clin Com See Note Airway Mallampati Class: III TM Dist: >3cm Neck ROM: Full Loose/Missing/Broken Teeth: Yes Heart: RRR Lungs: CTA Assessment and Plan Assessment Anesthesia Assessment: Anesthesia Plan Discussed and Chart Reviewed Final Anesthetic Review NPO: Yes ASA Class: IV Final Preanesthetic Review: Meds/Allgs Chart Reviewed, Consent Obtained/Reviewed and Anes Risks/Benef Reviewed Patient Risk: High Procedure Risk: Intermediate Anesthetic Plan Anesthetic Plan: MAC: Disposition: Standard PACU
--- NOTE | 2021-05-10 16:31 | PM.CNCAR ---
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 Patient has been having recurrent episodes of palpitations with severe lightheadedness and pre-syncope. He presented [facility] [place] and was found to be sustained VT at HR 180 initially and then subsequently 160 with lightheadedness. He denies chest pain, orthopnea, PND, LE edema. He denies fevers/chills Review of Systems Review of Systems: Yes all other systems are reviewed and are negative [facility] Past Medical History Medical History CAD (coronary artery disease) Ischemic cardiomyopathy Sustained VT (ventricular tachycardia) Surgical History Surgical History History of tonsillectomy Hx of external ear surgery Stented coronary artery Social History Social History Household Members: Other Household Members Other:: partner Housing: House Do you presently have visiting nurse or other home services: No Alcohol intake: never Patient Tobacco Use Status: Never used Tobacco Use of substances other than those prescribed or required for medical reasons: No Currently Displaying Signs/Symptoms of Drug Intoxication Withdrawal: No Have you been hit, kicked, punched, or otherwise hurt by someone within the past year? If so, by whom?: No Do you feel safe in your current relationship?: Yes Is there a partner from a previous relationship who is making you feel unsafe now?: No Are you made to feel afraid or neglected: No Spiritual Healthcare Practices: none per patient Faith Healthcare Practices: none per patient Cultural Healthcare Practices: NONE PER PATIENT Advance Directives: No Advance Directives Information Provided: No Do you have thoughts of harming others: None Do you have a plan to hurt others: No Plan Recently lost weight without trying: No Nutrition Risks: No Nutritional Risk Poor oral hygiene: No service: No Current occupational status: unemployed Meds Allergies Allergy/AdvReac Type Severity Reaction Status Date / Time Sulfa (Sulfonamide Allergy Unknown Redness of Verified 05/10/21 10:47 Antibiotics) Skin [SULFA (SULFONAMIDE ANTIBIOTICS)] Active Medications: Current Medications Generic Name Dose Route Start Last Admin Trade Name Zak PRN Reason Stop Dose Admin Aspirin 81 mg 05/10/21 21:00 Aspirin Enteric Coated 81 Mg Tablet. PO BEDTIME MICHAEL Atorvastatin Calcium 40 mg 05/09/21 21:00 05/09/21 21:12 Atorvastatin Calcium 40 Mg Tablet PO 40 mg BEDTIME MICHAEL Administration Carvedilol 12.5 mg 05/10/21 21:00 Carvedilol 12.5 Mg Tablet PO BID MICHAEL Protocol Clopidogrel Bisulfate 75 mg 05/10/21 21:00 Clopidogrel Bisulfate 75 Mg Tablet PO BEDTIME MICHAEL Amiodarone HCl 900 mg/ Sodium 518 mls @ 34.533 mls/hr 05/09/21 12:30 05/10/21 10:51 Chloride IVCONT 0.5 mg/min .Q15H1M MICHAEL 17.27 mls/hr Administration Protocol 1 MG/MIN Lidocaine HCl/Dextrose 2 gm in 250 mls @ 7.5 mls/hr 05/09/21 15:30 05/09/21 15:42 IVCONT 05/11/21 00:49 1 mg/min .Q24H MICHAEL 7.5 mls/hr Administration 1 MG/MIN Cefazolin Sodium/Dextrose 2 gm in 50 mls @ 2 mls/hr 05/10/21 18:00 Ancef IV 05/11/21 17:59 Q12H MICHAEL Latanoprost 1 drop 05/10/21 21:00 Latanoprost 0.005 % Ophth Rachel 2.5 Ml Drops EYE-BOTH BEDTIME MICHAEL Lidocaine HCl 70 mg 05/09/21 15:18 05/09/21 15:50 Lidocaine Hcl/Pf 100 Mg/5 Ml Syringe IV 70 mg Q15M PRN Administration ventricular tachycardia Losartan Potassium 50 mg 05/11/21 09:00 Losartan Potassium 50 Mg Tablet PO DAILY [facility] Protocol Multivitamins/Vitamin C 1 tab 05/10/21 09:00 05/10/21 09:55 Multivitamin Tablet PO Not Given DAILY [facility] Non-Form Med: 1 mg 05/10/21 14:00 05/10/21 13:17 Mexiletine 150 Mg PO 1 mg Cap Q8H MICHAEL Administration Ropinirole HCl 1 mg 05/09/21 21:00 05/09/21 21:13 Ropinirole Hcl 1 Mg Tablet PO 1 mg BEDTIME MICHAEL Administration Home Medications Medication Instructions Recorded Confirmed Last Taken Type aspirin 81 mg tablet,delayed 81 mg PO DAILY 12/27/20 05/09/21 Unknown History release atorvastatin 40 mg tablet 40 mg PO DAILY 12/27/20 05/09/21 Unknown History carvedilol 6.25 mg tablet 6.25 mg PO BID 12/27/20 05/09/21 Unknown History clopidogrel 75 mg tablet 75 mg PO DAILY 12/27/20 05/09/21 Unknown History gemfibrozil 600 mg tablet 600 mg PO BID 12/27/20 05/09/21 Unknown History latanoprost 0.005 % eye drops 1 drp OPHTHALMIC (EYE) DAILY 12/27/20 05/09/21 Unknown History multivitamin 1 tab PO DAILY 12/27/20 05/09/21 Unknown History ropinirole 1 mg tablet 1 mg PO BEDTIME 12/27/20 05/09/21 Unknown History Physical Exam Vital Signs: Vital Signs: Last Vital Signs Temp 98.0 F 05/10/21 12:00 Pulse 76 05/10/21 14:00 Resp 22 H 05/10/21 14:00 BP 126/103 H 05/10/21 14:00 Pulse Ox 95 05/10/21 14:00 Body Mass Index 31.5 HENMT: Mouth: Normal oral and palatal mucosa present Chest: Chest palpation & inspection: normal inspection of the chest and normal palpation of entire chest wall Resp: Effort & Inspection: normal respiratory effort and able to speak in complete sentences Auscultation: clear to auscultation bilaterally Cardio: Jugular venous distension: no JVD Rate: regular rate Rhythm: regular rhythm Heart sounds: S1 normal heart sound present and Normal, physiologic split S2 sound present GI: Palpation (GI): Soft to palpation and nontender Extrem: General: Yes normal to inspection and Yes no pedal edema Results Labs and Meds Result diagrams: 05/10/21 05:38 05/10/21 05:38 Lab results: Laboratory Results - last 24 hr 05/09/21 05/09/21 05/10/21 20:12 22:51 01:04 WBC RBC Hgb Hct MCV MCH MCHC RDW Plt Count MPV Immature Gran % (Auto) Neut % (Auto) Lymph % (Auto) [place] % (Auto) Eos % (Auto) Baso % (Auto) Lymph # (Auto) [place] # (Auto) Eos # (Auto) Baso # (Auto) Abs Immat Gran (auto) Absolute Neuts (auto) Absolute Nucleated RBC Nucleated RBC % (auto) Sodium Potassium Chloride Carbon Dioxide Anion Gap BUN Creatinine Estim Creat Clear Calc Estimated GFR Random Glucose Calcium Total Bilirubin AST ALT Alkaline Phosphatase Troponin I High Sens 20.1 20.6 Total Protein Albumin Urine Color YELLOW Urine Appearance CLEAR Urine pH 6.0 Ur Specific [place] 1.025 Urine Protein NEG Urine Glucose (UA) NEG Urine Ketones NEG Urine Blood NEG Urine Nitrite NEG Ur Leukocyte Esterase NEG COVID-19 (RENA) COVID-19 Visionnaire 05/10/21 05/10/21 05/10/21 05:38 05:38 07:34 WBC 10.0 RBC 4.69 Hgb 13.9 L Hct 42.3 MCV 90.2 MCH 29.6 MCHC 32.9 RDW 13.1 Plt Count 181 MPV 10.7 Immature Gran % (Auto) 0.4 Neut % (Auto) 71.6 Lymph % (Auto) 17.8 L [place] % (Auto) 7.2 Eos % (Auto) 2.7 Baso % (Auto) 0.3 Lymph # (Auto) 1.8 [place] # (Auto) 0.7 Eos # (Auto) 0.3 Baso # (Auto) 0.0 Abs Immat Gran (auto) 0.04 H Absolute Neuts (auto) 7.2 Absolute Nucleated RBC 0.000 Nucleated RBC % (auto) 0.0 Sodium 135 Potassium 4.7 Chloride 105 Carbon Dioxide 21 L Anion Gap 14 BUN 14 Creatinine 1.15 Estim Creat Clear Calc 63.6 Estimated GFR > 60 Random Glucose 133 H Calcium 8.5 D Total Bilirubin 1.1 H AST 15 ALT 16 Alkaline Phosphatase 66 Troponin I High Sens Total Protein 6.2 L Albumin 3.7 Urine Color Urine Appearance Urine pH Ur Specific [place] Urine Protein Urine Glucose (UA) Urine Ketones Urine Blood Urine Nitrite Ur Leukocyte Esterase COVID-19 (RENA) Negative COVID-19 Flipboard Com See Note Assessment and Plan (1) Ventricular tachycardia, incessant: Start date: 05/10/21 Status: Acute (2) Ischemic cardiomyopathy: Status: Acute (3) CAD (coronary artery disease): Status: Acute 1. VT Discussed with patient that given he has sustained VT, he has a class I indication for ICD. I noted a 1-3% risk of bleeding, infection, perforation, pneumothorax, stroke, heart attack. He agreed to perform ICD Would start asael 150 mg TID today and stop lidocaine If no further VT overnight, would stop IV amio and start amio 400 mg TID for 1 week and then 200 mg qd. If no VT in 1-2 months, can stop amio. If he has further VT, he is a good candidate for VT ablation from likely inferoseptal VT from scar Will plan to keep tegaderm dressing on for 5 days, no showering for 5 days. No lifting arm above shoulder level for 6 weeks My office ([phone] ) will call for follow-up for wound check in 2 weeks CXR today and tomorrow to r/o pneumothorax continue aspirin/plavix, no heparin or lovenox for 5 days Full wound instructions below: [facility] Dr. Fredy Victor Pacemaker/ICD Instructions Site Care: Leave dressing on for 5 days. Do not shower or get the area wet for 5 days. Once you remove the dressing, there will be steri-strips in place. Do not peel off, they will fall off. Hand washing is a must when caring for your incision to prevent infections. Avoid touching your incision or using lotions, creams, or ointments until it is healed (2-4 weeks). Limit the movement of your arm on the same side as the pacemaker but do not stop moving it. Avoid stretching that arm over your head or shoulder-level or lift or carry anything heavier than 5 pounds with the left arm for 6 weeks Avoid golfing, swimming, tennis, bowling, shoveling snow or mowing the lawn for 6 weeks Follow-up instructions: If you do not already have a scheduled follow-up appointment, please call [phone] for the [place] office Please keep the identification card for the device with you, it will be useful when you go through security during flights. Please plug in your home monitor and leave it at your bedside. Call device company if you need assistance plugging in the monitor. Please tell all your healthcare providers you have a pacemaker, especially before procedures or before a MRI. Call your doctor if you have any redness, swelling, pus from incision site, fever of 101 degrees. If you have any bleeding from the incision site, lie down and put pressure on the incision site for 30 minutes. If this does not resolve, please get transportation to the closest hospital but do not drive yourself. Fredy Victor [facility] Electrophysiology Attending Assessment & Plan (1) Ventricular tachycardia, incessant: Code(s): I47.2 - Ventricular tachycardia Category: Medical (2) Ischemic cardiomyopathy: Code(s): I25.5 - Ischemic cardiomyopathy Category: Medical (3) CAD (coronary artery disease): Comment: inferior STEMI, April 2020, manage medically as head CT of RCA and delayed presentation with markedly elevated troponins. Proximal LAD severe disease status post drug-eluting stent. Distal circumflex 80% disease, small vessel. Code(s): I25.10 - Atherosclerotic heart disease of [place] coronary artery without angina pectoris Category: Medical Plan: 1. VT Discussed with patient that given he has sustained VT, he has a class I indication for ICD. I noted a 1-3% risk of bleeding, infection, perforation, pneumothorax, stroke, heart attack. He agreed to perform ICD Would start asael 150 mg TID today and stop lidocaine If no further VT overnight, would stop IV amio and start amio 400 mg TID for 1 week and then 200 mg qd. If no VT in 1-2 months, can stop amio. If he has further VT, he is a good candidate for VT ablation from likely inferoseptal VT from scar Will plan to keep tegaderm dressing on for 5 days, no showering for 5 days. No lifting arm above shoulder level for 6 weeks My office ([phone] ) will call for follow-up for wound check in 2 weeks CXR today and tomorrow to r/o pneumothorax continue aspirin/plavix, no heparin or lovenox for 5 days Full wound instructions below: [facility] Dr. Fredy Victor Pacemaker/ICD Instructions Site Care: Leave dressing on for 5 days. Do not shower or get the area wet for 5 days. Once you remove the dressing, there will be steri-strips in place. Do not peel off, they will fall off. Hand washing is a must when caring for your incision to prevent infections. Avoid touching your incision or using lotions, creams, or ointments until it is healed (2-4 weeks). Limit the movement of your arm on the same side as the pacemaker but do not stop moving it. Avoid stretching that arm over your head or shoulder-level or lift or carry anything heavier than 5 pounds with the left arm for 6 weeks Avoid golfing, swimming, tennis, bowling, shoveling snow or mowing the lawn for 6 weeks Follow-up instructions: If you do not already have a scheduled follow-up appointment, please call [phone] for the [place] office Please keep the identification card for the device with you, it will be useful when you go through security during flights. Please plug in your home monitor and leave it at your bedside. Call device company if you need assistance plugging in the monitor. Please tell all your healthcare providers you have a pacemaker, especially before procedures or before a MRI. Call your doctor if you have any redness, swelling, pus from incision site, fever of 101 degrees. If you have any bleeding from the incision site, lie down and put pressure on the incision site for 30 minutes. If this does not resolve, please get transportation to the closest hospital but do not drive yourself. [facility] Electrophysiology Attending Procedures Date of Service Date of Service: 05/10/21
[2021-05-10] MEDS: ceFAZolin Sodium/Dextrose,Iso 2 GM/50 ML PIGGYBACK IV (16:51)
--- NOTE | 2021-05-10 16:51 | P.OP_ITS ---
Operative Note Operative Note Date of Service: 05/19/21 Pacemaker/ICD/Loop Interrogation Note Date: 05/19/21 Performing provider: Fredy Victor MD % Pacing: The % of pacing is as follows: RA [] RV [] LV (WATER TEAM LEADER only)??[] Current Pacer Settings: documented created in error Testing Performed: error
--- NOTE | 2021-05-10 16:51 | P.BOP_ITS ---
Brief Operative Note Date of Service: 05/10/21 Surgeon: Fredy Victor MD Was an Utilization Manager used for this Procedure?: No Estimated blood loss (mL): 50
--- NOTE | 2021-05-10 16:52 | P.OP_ITS ---
Operative Note Operative Note Date of Service: 05/10/21 Narrative: Date of Service: Narrative: Procedure: Single chamber ICD Indication: secondary prevention ICD for VT Procedure The risks, benefits, complications, alternatives and expected outcomes were discussed with the patient. Patient was prepped and draped in the usual sterile fashion. After the antibiotic was infused, lidocaine was infiltrated medial to the deltopectoral groove. An incision was made. The incision was extended to the prepectoral fascia using blunt dissection. The lead was positioned in the RV. Appropriate sensing and thresholds were obtained. No diaphragmatic pacing occurred at high outputs. The lead was sutured to the muscle using 3 ethibond ties. Lead measurements were rechecked. A left prepectoral pocket was fashioned. The lead was attached to the generator. The system was placed in the pocket. The ICD was checked under fluoroscopy with adrquate slack noted noted. The pin of the lead was beyond the set screws. Hemostasis was verified. The pocket was closed with 3 layers. Steristrips and tegaderm were applied [employer] Device: Acticor 7 VR-T DX [employer] serial number [id number] RV lead: Plexa ProMRI S DX 65/15 serial number [id number] Pacing impedance 618 ohms HV impedance 77 ohms Threshold 0.9 V at 0.4 ms R waves 16 Programmed VVI 40 BPM VF therapy >200 BPM ATP during charging, 40Jx6 VT2 HR 182 BPM, ATP x2, Ramp x 2, 40J x3 VT1 HR 150 BPM, ATP x2, Ramp x 4, 40J x 3 Plan CXR today and tomorrow to r/o pneumo Ancef x 2 doses Keep tegaderm dressing on for 5 days, no showering for 5 days. See Consult note for wound instructions No heparin subq or lovenox for 5 days, continue aspirin/plavix Fredy Victor Electrophysiology/Cardiology Attending
--- NOTE | 2021-05-10 18:24 | PC.NURSE ---
Patient back from OR at 1700 - Lidocain gtt on hold per Dr Busby - Continued on Amio gtt per Dr Busby - plan to transition to PO tomorrow. Dressing left upper chest C/D/I. SR HR 80's, no ectopy. EKG ordered and completed.
[2021-05-10] MEDS: rOPINIRole HCL 1 MG TABLET PO (21:47)
[2021-05-10] MEDS: Clopidogrel Bisulfate 75 MG TABLET PO (21:48)
[2021-05-10] MEDS: Aspirin Enteric Coated 81 MG TABLET.DR PO (21:48)
[2021-05-10] MEDS: carvediloL 12.5 MG TABLET PO (21:48)
[2021-05-10] MEDS: Atorvastatin Calcium 40 MG TABLET PO (21:48)
--- NOTE | 2021-05-10 22:14 | P.PNCC_ITS ---
Subjective Subjective Date of Service: 05/10/21 Critical Care Time (minutes): 60 Comment: Clinical Precedent to this date: 75-year-old patient with underlying history of coronary disease whose 1st PR happened in February of last year, who recently had a coronary cardiac catheterization stent approximately 3 weeks ago where he was found to have LAD stenosis. He also is noted to have 100% distal RCA lesion with collaterals., has history of hypertension, hyperlipidemia, ischemic cardiomyopathy with reported ejection fraction of 30%, Presented to the emergency room on 05/09/2021 after experiencing 4 days worth of intermittent lightheadedness, the patient states he has noted the episodes were more often until he had 4 very close episodes in the morning associated with lightheadedness, he check his smart watch and noted that his heart rate was as h igh as 185 beats per minute but would last about 30 seconds to a minute. Upon coming to the emergency room, the patient was noted to be on V-tach with a wide complex, amiodarone was given without any improvement of his symptoms, Cardiology was consulted, patient was placed on a lidocaine drip and these worked converted his rhythm into sinus rhythm. His workup is overall unremarkable without any lab abnormality with exception of a phosphorus level of 2.6. Patient was admitted to the ICU, overnight without significant events. This morning the patient underwent placement of an ICD without any complications. Follow-up of x-ray did not reveal any pneumothorax. Subjective: Currently the patient denies any complaints such as chest pain, shortness of breath, arm or jaw pain, nausea vomiting, abdominal discomfort or any other associated symptom that was not present before. Other ROS negative. Objective VS: Blood pressure 138/80, heart rate 83 and regular, respirations 12, O2 sat 90 8% on room air. General: Alert oriented x3 no acute distress Skin: Intact, no lesions or rash HEENT: Normocephalic, atraumatic, extraocular movements intact, neck is supple, no lymphadenopathy. Buccal mucosa moist. Throat midline. Cardiac: Clear S1-S2, no murmurs rubs or gallops. Pacer like device under the skin cover with Tegaderm, clean, dry and intact surroundings. Pulmonary: Clear to auscultation, no wheezes, rales or rhonchi. Abdomen: Protuberant, positive bowel sounds in all 4 quadrants. Soft, nontender. Musculoskeletal: Moving all 4 extremities upon request a major joints, no calf tenderness, no edema. Neurologic: As above, no focal deficits. Vascular: 2+ pulses upper and lower extremities distally. LABORATORY DATA: White blood cells 10.0, hemoglobin 13.9, hematocrit 42.3, platelet 181, sodium 135, potassium 4.7, chloride 105, carbon dioxide 21, anion gap 14, BUN 14, creatinine 1.15, random glucose 133, LFTs normal. REVIEW OF IMAGES: Postprocedure x-ray shows no pneumothorax and good placement of the above-mentioned device. ASSESSMENT AND PLAN: 1.Paroxysmal white complex ventricular tachycardia======= post ICD placement 2. Lightheadedness due to above 3. Controlled essential hypertension 4. Hyperlipidemia 5. History of coronary disease status post recent stent 3 weeks ago 6. Hypophosphatemia =====replaced Recommendation by electrophysiology was to stop the lidocaine drip now and star max a cane 150 mg t.i.d. If no more events it was also recommended to start in am amiodarone po 400 mg t.i.d. for 1 week and then 200 mg once daily until seen in follow-up (in 2 weeks). Patient should no shower for 5 days and the Tegaderm is to be kept for the same amount of time. Continue aspirin and Plavix but hold off on any heparin or Lovenox. [employer] will come tomorrow a.m. to interrogate the device. Will order a 12 lead EKG for tomorrow morning. Labs in the morning GI PROPHYLAXIS: No need DVT PROPHYLAXIS: Pneumatic stockings, early ambulation Critical care time used for critical evaluation of this patient, diagnosis, treatment and coordination of care, review her records and documentation TOTAL CRITICAL CARE TIME 60 MIN Patient's care was discussed in detail with Dr. Currie. He is aware of all the above as well as the plan of care for this patient. Physical Exam Vital Signs: Vital Signs: Last Vital Signs Temp 96.6 F L 05/10/21 17:00 Pulse 79 05/10/21 21:48 Resp 18 05/10/21 21:00 BP 125/60 05/10/21 21:48 Pulse Ox 93 05/10/21 19:00 Body Mass Index 31.5 Objective Data Labs CBC & Chem 7: 05/11/21 05:13 05/11/21 05:13 Labs: Laboratory Results - last 24 hr 05/09/21 05/10/21 05/10/21 22:51 01:04 05:38 WBC 10.0 RBC 4.69 Hgb 13.9 L Hct 42.3 MCV 90.2 MCH 29.6 MCHC 32.9 RDW 13.1 Plt Count 181 MPV 10.7 Immature Gran % (Auto) 0.4 Neut % (Auto) 71.6 Lymph % (Auto) 17.8 L [place] % (Auto) 7.2 Eos % (Auto) 2.7 Baso % (Auto) 0.3 Lymph # (Auto) 1.8 [place] # (Auto) 0.7 Eos # (Auto) 0.3 Baso # (Auto) 0.0 Abs Immat Gran (auto) 0.04 H Absolute Neuts (auto) 7.2 Absolute Nucleated RBC 0.000 Nucleated RBC % (auto) 0.0 Sodium Potassium Chloride Carbon Dioxide Anion Gap BUN Creatinine Estim Creat Clear Calc Estimated GFR Random Glucose Calcium Total Bilirubin AST ALT Alkaline Phosphatase Troponin I High Sens 20.1 20.6 Total Protein Albumin COVID-19 (RENA) COVID-Shwrüm 05/10/21 05/10/21 05:38 07:34 WBC RBC Hgb Hct MCV MCH MCHC RDW Plt Count MPV Immature Gran % (Auto) Neut % (Auto) Lymph % (Auto) [place] % (Auto) Eos % (Auto) Baso % (Auto) Lymph # (Auto) [place] # (Auto) Eos # (Auto) Baso # (Auto) Abs Immat Gran (auto) Absolute Neuts (auto) Absolute Nucleated RBC Nucleated RBC % (auto) Sodium 135 Potassium 4.7 Chloride 105 Carbon Dioxide 21 L Anion Gap 14 BUN 14 Creatinine 1.15 Estim Creat Clear Calc 63.6 Estimated GFR > 60 Random Glucose 133 H Calcium 8.5 D Total Bilirubin 1.1 H AST 15 ALT 16 Alkaline Phosphatase 66 Troponin I High Sens Total Protein 6.2 L Albumin 3.7 COVID-19 (RENA) Negative COVID-19 Clin Com See Note Quality Stroke Does the patient have a stroke diagnosis?: No VTE Prior VTE?: No VTE Risk Level:: Medical - moderate - high VTE Device Contraindication: N/A - Device Ordered VTE Drug Contraindication: N/A - Med Ordered
[2021-05-10] MEDS: Latanoprost 0.005 % Ophth Sol 2.5 ML DROPS 1 DROP EYE-BOTH (22:30)
[2021-05-11] VITALS (11 sets, daily range): BP systolic 118–131; BP diastolic 64–86; PULSE 70–81; RESP 10–22; TEMP 36.1–36.7; O2SAT 91–95; BMI 32.0
[2021-05-11 05:23] LABS: MANUAL DIFF FLAG NO
[2021-05-11 05:25] LABS: Basophils Percent Auto 0.2 % (0-2); Eosinophils Absolute Auto 0.2 X10*3/uL (0.0-0.4); Eosinophils Percent Auto 2.2 % (0-4); Hematocrit 43.2 % (42-52); Hemoglobin 14.3 g/dl (14.0-18.0); Imm Gran Abs Auto 0.02 X10*3/uL (0.00-0.03); Imm Gran Pct Auto 0.2 % (0.0-0.4); Lymphocytes Absolute Auto 1.2 X10*3/uL (1.2-4.9); Lymphocytes Percent Auto 12.3 % (20-40); Mean Corpuscular HGB Conc 33.1 g/dl (31.0-36.0); Mean Corpuscular Hemoglobin 29.7 pg (27.0-33.0); Mean Corpuscular Volume 89.8 fL (80-98); Mean Platelet Volume 10.9 fL (9.4-12.4); Monocytes Absolute Auto 0.8 X10*3/uL (0.1-1.2); Monocytes Percent Auto 8.1 % (2-11); Neutrophils Absolute Auto 7.6 X10*3/uL (2.0-8.3); Platelet Count 169 X10*3/uL (160-400); Red Blood Count 4.81 X10*6/uL (4.60-5.80); Red Cell Distribution Width 12.9 % (11.0-16.0); White Blood Count 9.9 X10*3/uL (4.8-10.8)
[2021-05-11] MEDS: ceFAZolin Sodium/Dextrose,Iso 2 GM/50 ML PIGGYBACK IV (05:41)
[2021-05-11 06:06] LABS: Alanine Aminotransferase 14 U/L (0-40); Albumin Level 3.7 g/dL (3.5-5.0); Alkaline Phosphatase 74 U/L (39-117); Anion Gap 12 (12-20); Aspartate Amino Transferase 14 U/L (5-37); Bilirubin Total 0.8 mg/dL (0.0-1.0); Blood Urea Nitrogen 16 mg/dL (9-16); Calcium 8.3 mg/dL (8.4-10.2); Carbon Dioxide 22 mmol/L (22-29); Chloride 105 mmol/L (96-108); Estimated Glomerular Filt Rate 57; Glucose Random 134 mg/dL (60-115); Magnesium 2.1 mg/dL (1.6-2.6); Phosphorus 1.9 mg/dL (2.7-4.5); Potassium 4.5 mmol/L (3.3-5.1); Sodium 134 mmol/L (135-145); Total Protein 6.2 g/dL (6.5-8.0)
--- NOTE | 2021-05-11 08:00 | ECG_ITS ---
Test Reason : h/o VT, s/p ICD. Blood Pressure : / mmHG Vent. Rate : 069 BPM Atrial Rate : 069 BPM P-R Int : 156 ms QRS Dur : 112 ms QT Int : 450 ms P-R-T Axes : 063 -25 -14 degrees QTc Int : 482 ms Normal sinus rhythm Possible Left atrial enlargement Inferior infarct (cited on or before 09-MAY-2021) Abnormal ECG When compared with ECG of 09-MAY-2021 22:46, QT has lengthened Referred By: Pola Currie Electronically Signed By:LORENZO ESCALANTE MD
[2021-05-11] MEDS: Potassium Phosphate 30 MMOL in 0.9 % Sodium Chloride 500 ML 85 MMOL IV (09:54)
[2021-05-11] MEDS: carvediloL 12.5 MG TABLET PO ×2 (09:54→20:42)
[2021-05-11] MEDS: Amiodarone HCL 200 MG TABLET 400 MG PO ×3 (09:54→20:42)
[2021-05-11] MEDS: Multivitamin TABLET 1 TAB PO (09:55)
[2021-05-11] MEDS: Losartan Potassium 50 MG TABLET PO (09:55)
--- NOTE | 2021-05-11 12:41 | PM.PNCARD ---
Subjective Subjective Date of Service: 05/11/21 Principal diagnosis: Refractory ventricular tachycardia Interval history: No overnight ventricular tachycardia. Patient feels fine. Tolerating medications well. Underwent single-chamber ICD placement, [employer] yesterday with atrial sensing modality. Device check today by the company sales solutions representative shows normal functioning. Noted on the monitor intermittent spikes that are suggestive of pacer spike, however they do appear to be artifactual. Switch to p.o. amiodarone today. Tolerating therapy well. Review of Systems Constitutional: Reports no additional constitutional complaints Cardiovascular: Reports no additional cardiovascular complaints Respiratory: Reports no additional respiratory complaints Gastrointestinal: Reports no additional gastrointestinal complaints Reports system reviewed and no additional complaints, except as documented Psychiatric: Reports no additional psychiatric complaints Physical Exam Vital Signs: Last Vital Signs Temp 98.1 F 05/11/21 08:00 Pulse 72 05/11/21 09:55 Resp 20 05/11/21 08:00 BP 131/80 05/11/21 09:55 Pulse Ox 95 05/11/21 08:00 Body Mass Index 32.0 Const General: cooperative, comfortable, no acute distress, alert and awake Nutritional Appearance: overweight Orientation/consciousness: patient oriented x3 Neck Neck: Yes trachea midline, Yes supple and Yes no JVD Resp Effort & Inspection: normal respiratory effort Auscultation: clear to auscultation bilaterally Cardio Jugular venous distension: no JVD Palpation: abnormal PMI displaced PMI Rate: regular rate Rhythm: regular rhythm Heart sounds: S1 normal heart sound present and S2 normal heart sound present Skin General skin exam: no rashes or lesions noted Neuro General: patient oriented x3 Extrem General: Yes no clubbing, cyanosis or edema Results Labs and Meds Result diagrams: 05/11/21 05:13 05/11/21 05:13 Lab results: Laboratory Results - last 24 hr 05/11/21 05/11/21 05:13 05:13 WBC 9.9 RBC 4.81 Hgb 14.3 Hct 43.2 MCV 89.8 MCH 29.7 MCHC 33.1 RDW 12.9 Plt Count 169 MPV 10.9 Immature Gran % (Auto) 0.2 Neut % (Auto) 77.0 H Lymph % (Auto) 12.3 L [place] % (Auto) 8.1 Eos % (Auto) 2.2 Baso % (Auto) 0.2 Lymph # (Auto) 1.2 [place] # (Auto) 0.8 Eos # (Auto) 0.2 Baso # (Auto) 0.0 Abs Immat Gran (auto) 0.02 Absolute Neuts (auto) 7.6 Absolute Nucleated RBC 0.000 Nucleated RBC % (auto) 0.0 Sodium 134 L Potassium 4.5 Chloride 105 Carbon Dioxide 22 Anion Gap 12 BUN 16 Creatinine 1.24 Estim Creat Clear Calc 59.0 Estimated GFR 57 Random Glucose 134 H Calcium 8.3 L Phosphorus 1.9 L Magnesium 2.1 Total Bilirubin 0.8 AST 14 ALT 14 Alkaline Phosphatase 74 Total Protein 6.2 L Albumin 3.7 Imaging Radiologist's impression: Impressions Guidance Fluoroscopy 05/10/21 12:36 IMPRESSION: New left subclavian pacemaker defibrillator device with tip projecting over the ventricular apex. No pneumothorax. EXAMINATION: Intraoperative fluoroscopy guidance CLINICAL INFORMATION: Pacemaker COMPARISON: Previous chest x-ray from yesterday TECHNIQUE: Fluoroscopic guidance was provided for pacemaker placement. Fluoroscopy time 245 seconds. Cumulative dose 1 3 6 mgy. 2 submitted fluoroscopic images. FINDINGS: Images demonstrate a pacemaker defibrillator lead projecting over the ventricular apex. IMPRESSION: Fluoroscopic guidance for pacemaker placement. Chest X-Ray 05/10/21 16:35 IMPRESSION: New left subclavian pacemaker defibrillator device with tip projecting over the ventricular apex. No pneumothorax. EXAMINATION: Intraoperative fluoroscopy guidance CLINICAL INFORMATION: Pacemaker COMPARISON: Previous chest x-ray from yesterday TECHNIQUE: Fluoroscopic guidance was provided for pacemaker placement. Fluoroscopy time 245 seconds. Cumulative dose 1 3 6 mgy. 2 submitted fluoroscopic images. FINDINGS: Images demonstrate a pacemaker defibrillator lead projecting over the ventricular apex. IMPRESSION: Fluoroscopic guidance for pacemaker placement. Chest X-Ray 05/11/21 06:00 IMPRESSION: No pneumothorax. Progress Note: A&P Assessment and plan (1) Ventricular tachycardia, incessant: Status: Acute Assessment and Plan: patient presents with near syncope and refractory ventricular tachycardia acquiring dual therapy. Currently switch to p.o. therapy with mexiletine and amiodarone. QTC is mildly prolonged. Repeat EKG tomorrow morning. Will also maximize beta-blockers. Ventricular tachycardia appears to be scar based. If fails medical therapy plan for outpatient ablation for the VT. Discussed with EPS. Transition to [facility] [place] today. Ambulate as tolerated. If no further arrhythmias will pursue discharge tomorrow with outpatient follow-up. (2) ICD (implantable cardioverter-defibrillator) in place: Status: Acute Assessment and Plan: Single-chamber ICD in place for secondary prevention. ICD function on today's morning intra get silva appears to be normal. The pacing spikes noted on telemetry appear to be artifactual. If persists will check his device again tomorrow prior to discharge. (3) CAD (coronary artery disease): Status: Acute Assessment and Plan: CAD with prior inferior STEMI with delayed presentation with inferior scar. Recent LAD stent. Continue dual antiplatelet therapy uninterrupted for a total of 1 year. Blood pressure is optimized. Will continue to maximize see below. Continue high-intensity statin therapy. (4) Ischemic cardiomyopathy: Status: Acute Assessment and Plan: Ischemic cardiomyopathy severe LV systolic dysfunction. Continue maximize neurohormonal modulation. stage B by WHO heart failure classification. Clinically euvolemic and well compensated. Will pursue further maximization as outpatient. Will follow with the patient. Fall Risk Details Current Medications: Current Medications Generic Name Dose Route Start Last Admin Trade Name Freq PRN Reason Stop Dose Admin Amiodarone HCl 400 mg 05/11/21 09:00 05/11/21 09:54 Amiodarone Hcl 200 Mg Tablet PO 400 mg TID MICHAEL Administration Aspirin 81 mg 05/10/21 21:00 05/10/21 21:48 Aspirin Enteric Coated 81 Mg Tablet. PO 81 mg BEDTIME MICHAEL Administration Atorvastatin Calcium 40 mg 05/09/21 21:00 05/10/21 21:48 Atorvastatin Calcium 40 Mg Tablet PO 40 mg BEDTIME MICHAEL Administration Carvedilol 12.5 mg 05/10/21 21:00 05/11/21 09:54 Carvedilol 12.5 Mg Tablet PO 12.5 mg BID MICHAEL Administration Protocol Clopidogrel Bisulfate 75 mg 05/10/21 21:00 05/10/21 21:48 Clopidogrel Bisulfate 75 Mg Tablet PO 75 mg BEDTIME MICHAEL Administration Amiodarone HCl 900 mg/ Sodium 518 mls @ 34.533 mls/hr 05/09/21 12:30 05/11/21 11:02 Chloride IVCONT Not Given .Q15H1M MICHAEL Protocol 1 MG/MIN Cefazolin Sodium/Dextrose 2 gm in 50 mls @ 2 mls/hr 05/10/21 18:00 05/11/21 05:41 Ancef IV 05/11/21 17:59 2 mls/hr Q12H MICHAEL Administration Potassium Phosphate 30 mmol/ 510 mls @ 85 mls/hr 05/11/21 08:00 05/11/21 09:54 Sodium Chloride IV 05/11/21 13:59 85 mls/hr ONCE ONE Administration Latanoprost 1 drop 05/10/21 21:00 05/10/21 22:30 Latanoprost 0.005 % Ophth Rachel 2.5 Ml Drops EYE-BOTH 1 drop BEDTIME MICHAEL Administration Lidocaine HCl 70 mg 05/09/21 15:18 05/09/21 15:50 Lidocaine Hcl/Pf 100 Mg/5 Ml Syringe IV 70 mg Q15M PRN Administration ventricular tachycardia Losartan Potassium 50 mg 05/11/21 09:00 05/11/21 09:55 Losartan Potassium 50 Mg Tablet PO 50 mg DAILY MICHAEL Administration Protocol Multivitamins/Vitamin C 1 tab 05/10/21 09:00 05/11/21 09:55 Multivitamin Tablet PO 1 tab DAILY MICHAEL Administration Non-Form Med: 150 mg 05/11/21 14:00 Mexiletine 150 Mg PO Cap Q8H MICHAEL Ropinirole HCl 1 mg 05/09/21 21:00 05/10/21 21:47 Ropinirole Hcl 1 Mg Tablet PO 1 mg BEDTIME MICHAEL Administration Time Spent With Patient Time: Total time spent is greater than 50% in coordination of care (as documented) at patient's floor/unit and/or counseling patient: Time with patient: 25 - 35 minutes Procedures Date of Service Date of Service: 05/11/21
--- NOTE | 2021-05-11 13:25 | PM.CCPN ---
Subjective Subjective Date of Service: 05/11/21 Interval History: Mr. [place] was admitted to ICU on May 09 bec of symptomatic recurrent VT. The patient is a 75-year-old man with underlying history of coronary disease, s/p NM February ?. Had cath about 3 weeks ago, found to have LAD stenosis and 100% distal RCA lesion with collaterals. Has CMOP w EF 30%, hypertension and hyperlipidemia Presented to the emergency room on 05/09 after experiencing 4 days worth of intermittent lightheadedness. Had five episodes on May 09. He checked his smart watch and noted that his heart rate was as high as 185, so he went to the ED to get checked out, where he was found to have episodes of wide complex V-tach at rate of 180, lasting for 1-2 min. Amiodarone had no effect. Was given Lidocaine which abolished the VTach episodes. Was admitted to ICU for monitoring. Next day (yesterday) underwent ICD implant, and was started on mexilitine, and lidocaine drip d/c?d. Was started on oral amiodarone this morning, and the amiodarone drip was d/c?d. No episodes of VT since arrival in the ICU. No signif lab abnormalities. Echo yesterday showed severe LV systolic dysfunction with LVEF of 25-30%, grade 1 diastolic dysfunction, with RWMAs c/w prior NM. Normal RV and RVSP. Fully alert and appropriate today. Feels well, looks perfectly well. OOB in chair with no problems. Breathing easy, Sat 95% on room air. HR 71, SR. BP 115/67. Been afebrile throughout. No JVD, no edema. LABORATORY DATA: As below. IMPRESSION: 1. Status post NM in February,. 2. Ischemic cardiomyopathy. 3. Nonsustained VT. 4. Status post ICD implant. Will continue on mexiletine and amiodarone. VT ablation procedure if has recurrent VT. Otherwise continued f/u per Cardiology. St[place] [facility] [place] I will sign out to hospitalists. Time: Critical Care Time (minutes): 0 Physical Exam Vital Signs: Vital Signs: Last Vital Signs Temp 98 F 05/11/21 12:00 Pulse 80 05/11/21 12:00 Resp 22 H 05/11/21 12:00 BP 131/86 05/11/21 12:00 Pulse Ox 94 05/11/21 12:00 Body Mass Index 32.0 Objective Data Labs CBC & Chem 7: 05/11/21 05:13 05/11/21 05:13 Labs: Laboratory Results - last 24 hr 05/11/21 05/11/21 05:13 05:13 WBC 9.9 RBC 4.81 Hgb 14.3 Hct 43.2 MCV 89.8 MCH 29.7 MCHC 33.1 RDW 12.9 Plt Count 169 MPV 10.9 Immature Gran % (Auto) 0.2 Neut % (Auto) 77.0 H Lymph % (Auto) 12.3 L [place] % (Auto) 8.1 Eos % (Auto) 2.2 Baso % (Auto) 0.2 Lymph # (Auto) 1.2 [place] # (Auto) 0.8 Eos # (Auto) 0.2 Baso # (Auto) 0.0 Abs Immat Gran (auto) 0.02 Absolute Neuts (auto) 7.6 Absolute Nucleated RBC 0.000 Nucleated RBC % (auto) 0.0 Sodium 134 L Potassium 4.5 Chloride 105 Carbon Dioxide 22 Anion Gap 12 BUN 16 Creatinine 1.24 Estim Creat Clear Calc 59.0 Estimated GFR 57 Random Glucose 134 H Calcium 8.3 L Phosphorus 1.9 L Magnesium 2.1 Total Bilirubin 0.8 AST 14 ALT 14 Alkaline Phosphatase 74 Total Protein 6.2 L Albumin 3.7 Quality Stroke Does the patient have a stroke diagnosis?: No VTE Prior VTE?: No VTE Risk Level:: Medical - moderate - high VTE Device Contraindication: N/A - Device Ordered VTE Drug Contraindication: N/A - Med Ordered
--- NOTE | 2021-05-11 16:29 | PC.NURSE ---
Amio drip off after Cardiology came to eval patient. First PO dose this AM 0900. Pacer interrogated. Patient remains in NSR with no ectopy noted. KPhos infused and completed at 16:30. Pacer site with Surgical dsg C/D/I, no drainage. PLAN: transfer [place] [facility] [place]
--- NOTE | 2021-05-11 17:29 | HO.POSTANES ---
Post Anesthesia Evaluation Post Anesthesia Evaluation Vital Signs: Vital Signs Temp Pulse Resp BP Pulse Ox 05/11/21 15:21 97.0 F 81 14 119/66 95 05/11/21 15:18 75 119/66 05/11/21 12:00 98 F 80 22 H 131/86 94 05/11/21 09:55 72 131/80 05/11/21 09:54 72 131/80 05/11/21 08:00 98.1 F 72 20 131/80 95 Anesthesia: Monitored Mental Status: Awake Pain Control: Satisfactory Nausea/Vomiting: None Hydration: Adequate Anesthesia-Related Issues: No Anes. Related Issues
[2021-05-11] MEDS: Latanoprost 0.005 % Ophth Sol 2.5 ML DROPS 1 DROP EYE-BOTH (20:40)
[2021-05-11] MEDS: Atorvastatin Calcium 40 MG TABLET PO (20:42)
[2021-05-11] MEDS: Aspirin Enteric Coated 81 MG TABLET.DR PO (20:42)
[2021-05-11] MEDS: rOPINIRole HCL 1 MG TABLET PO (20:42)
[2021-05-11] MEDS: Clopidogrel Bisulfate 75 MG TABLET PO (20:42)
--- NOTE | 2021-05-12 | ECG_ITS ---
Test Reason : S/P PACEMAKER Blood Pressure : / mmHG Vent. Rate : 064 BPM Atrial Rate : 064 BPM P-R Int : 156 ms QRS Dur : 106 ms QT Int : 456 ms P-R-T Axes : 062 -22 -14 degrees QTc Int : 470 ms Normal sinus rhythm Inferior infarct , age undetermined Abnormal ECG When compared to the previous EKG of No significant changes seen Referred By: Naldo Busby Electronically Signed By:NALDO BUSBY MD
[2021-05-12 02:59] VITALS: BP 111/68; PULSE 68; RESP 18; O2SAT 94
[2021-05-12 06:00] VITALS: BMI 32.0
[2021-05-12 06:03] LABS: Phosphorus 2.8 mg/dL (2.7-4.5)
[2021-05-12 06:30] VITALS: BP 158/94; PULSE 67; RESP 18; TEMP 37; O2SAT 97
[2021-05-12 07:16] VITALS: BP 132/77; PULSE 66; RESP 18; TEMP 36.5; O2SAT 96
[2021-05-12 08:36] VITALS: BP 132/77; PULSE 66
[2021-05-12] MEDS: Amiodarone HCL 200 MG TABLET 400 MG PO (08:36)
[2021-05-12 08:37] VITALS: BP 132/77; PULSE 66
[2021-05-12] MEDS: Multivitamin TABLET 1 TAB PO (08:37)
[2021-05-12] MEDS: carvediloL 12.5 MG TABLET PO (08:37)
--- NOTE | 2021-05-12 11:00 | P.PNCA_ITS ---
Subjective Subjective Date of Service: 05/12/21 Principal diagnosis: Refractory ventricular tachycardia Interval history: Patient not having any more ventricular arrhythmias. Feeling well overall. Complains of some nausea. No other cardiac symptoms Review of Systems Constitutional: Reports no additional constitutional complaints Cardiovascular: Reports no additional cardiovascular complaints Respiratory: Reports no additional respiratory complaints Gastrointestinal: Reports no additional gastrointestinal complaints and Reports nausea Genitourinary: Reports no additional male genitourinary complaints Reports system reviewed and no additional complaints, except as documented Psychiatric: Reports no additional psychiatric complaints Physical Exam Vital Signs: Last Vital Signs Temp 97.7 F 05/12/21 07:16 Pulse 66 05/12/21 08:37 Resp 18 05/12/21 07:16 BP 132/77 05/12/21 08:37 Pulse Ox 96 05/12/21 07:16 Body Mass Index 32.0 Const General: cooperative, comfortable, no acute distress, alert and awake Nutritional Appearance: overweight Orientation/consciousness: patient oriented x3 Neck Neck: Yes trachea midline, Yes supple and Yes no JVD Resp Effort & Inspection: normal respiratory effort Auscultation: clear to auscultation bilaterally Cardio Jugular venous distension: no JVD Palpation: abnormal PMI displaced PMI Rate: regular rate Rhythm: regular rhythm Heart sounds: S1 normal heart sound present and S2 normal heart sound present Skin General skin exam: no rashes or lesions noted Neuro General: patient oriented x3 Extrem General: Yes no clubbing, cyanosis or edema Psych Appearance: grossly normal Results Labs and Meds Result diagrams: 05/11/21 05:13 05/11/21 05:13 Lab results: Laboratory Results - last 24 hr 05/12/21 05:23 Phosphorus 2.8 Progress Note: A&P Assessment and plan (1) Ventricular tachycardia, incessant: Status: Acute Assessment and Plan: incessant ventricular tachycardia, suppressed on dual therapy with amiodarone and mexiletine, p.o.. Some nausea. Reduce amiodarone to 400 mg b.i.d. for 2 weeks and continue mexiletine 150 mg t.i.d.. Follow up in the clinic in 2 weeks time with EKG and ICD check. Patient also status post ICD placement for secondary prevention, working well. No driving for at least 2 weeks (2) Ischemic cardiomyopathy: Status: Acute Assessment and Plan: Ischemic cardiomyopathy without overt congestive heart failure. Continue c urrent carvedilol as well as losartan therapy which she is tolerating well. Will continue to maximize as outpatient. Signs and symptoms of heart failure were discussed. He understands and agrees. (3) CAD (coronary artery disease): Status: Acute Assessment and Plan: coronary artery disease status post stenting of LAD Recently with prior inferior infarct with chronic total occlusion of the RCA. Continue dual antiplatelet therapy uninterrupted. Continue high-intensity statin therapy with target goal LDL less than 70 mg/dL. Blood pressure is optimized. Patient can be discharged home. Will follow up in clinic in 2 weeks time. Thank you for allowing me to partake in his care Fall Risk Details Current Medications: Current Medications Generic Name Dose Route Start Last Admin Trade Name Freq PRN Reason Stop Dose Admin Amiodarone HCl 400 mg 05/11/21 09:00 05/12/21 08:36 Amiodarone Hcl 200 Mg Tablet PO 400 mg TID MICHAEL Administration Aspirin 81 mg 05/10/21 21:00 05/11/21 20:42 Aspirin Enteric Coated 81 Mg Tablet. PO 81 mg BEDTIME MICHAEL Administration Atorvastatin Calcium 40 mg 05/09/21 21:00 05/11/21 20:42 Atorvastatin Calcium 40 Mg Tablet PO 40 mg BEDTIME MICHAEL Administration Carvedilol 12.5 mg 05/10/21 21:00 05/12/21 08:37 Carvedilol 12.5 Mg Tablet PO 12.5 mg BID MICHAEL Administration Protocol Clopidogrel Bisulfate 75 mg 05/10/21 21:00 05/11/21 20:42 Clopidogrel Bisulfate 75 Mg Tablet PO 75 mg BEDTIME MICHAEL Administration Amiodarone HCl 900 mg/ Sodium 518 mls @ 34.533 mls/hr 05/09/21 12:30 05/11/21 21:53 Chloride IVCONT Not Given .Q15H1M MICHAEL Protocol 1 MG/MIN Latanoprost 1 drop 05/10/21 21:00 05/11/21 20:40 Latanoprost 0.005 % Ophth Rachel 2.5 Ml Drops EYE-BOTH 1 drop BEDTIME MICHAEL Administration Lidocaine HCl 70 mg 05/09/21 15:18 05/09/21 15:50 Lidocaine Hcl/Pf 100 Mg/5 Ml Syringe IV 70 mg Q15M PRN Administration ventricular tachycardia Losartan Potassium 50 mg 05/12/21 21:00 Losartan Potassium 50 Mg Tablet PO BEDTIME MICHAEL Protocol Multivitamins/Vitamin C 1 tab 05/10/21 09:00 05/12/21 08:37 Multivitamin Tablet PO 1 tab DAILY MICHAEL Administration Non-Form Med: 150 mg 05/11/21 14:00 05/12/21 05:37 Mexiletine 150 Mg PO 150 mg Cap Q8H MICHAEL Administration Ondansetron HCl 4 mg 05/12/21 08:31 Ondansetron Hcl 4 Mg/2 Ml Vial IVPUSH Q8H PRN Nausea and Vomiting Ropinirole HCl 1 mg 05/09/21 21:00 05/11/21 20:42 Ropinirole Hcl 1 Mg Tablet PO 1 mg BEDTIME MICHAEL Administration Time Spent With Patient Time: Total time spent is greater than 50% in coordination of care (as documented) at patient's floor/unit and/or counseling patient: Time with patient: 25 - 35 minutes Progress Note: Quality Stroke Does the patient have a stroke diagnosis?: No Procedures Date of Service Date of Service: 05/12/21
[2021-05-12 11:13] VITALS: BP 116/62; PULSE 67; RESP 16; TEMP 36.5; O2SAT 95
--- NOTE | 2021-05-12 11:37 | PM.DS ---
DS: Providers Provider Date of Service: 05/12/21 Date of admission: 05/09/21 16:38 Primary care physician: Darrell Real MD Consults: 05/09/21 12:50 Consult to Cardiology Stat Consulting Provider: Naldo Busby Reason for consultation: intermittent, symptomatic,V-tach please evaluate for treatment Has provider been notified: Yes DS: Diagnosis Discharge Diagnosis (1) Ventricular tachycardia, incessant: Status: Acute (2) Ischemic cardiomyopathy: Status: Acute (3) CAD (coronary artery disease): Status: Acute (4) ICD (implantable cardioverter-defibrillator) in place: Status: Acute (5) Near syncope: Status: Acute (6) Ventricular tachycardia: Status: Acute (7) Sustained VT (ventricular tachycardia): Status: Acute DS: Medications Discharge Medications Home Medications: Home Medications Medication Instructions Recorded Confirmed aspirin 81 mg tablet,delayed 81 mg PO DAILY 12/27/20 05/09/21 release atorvastatin 40 mg tablet 40 mg PO DAILY 12/27/20 05/09/21 clopidogrel 75 mg tablet 75 mg PO DAILY 12/27/20 05/09/21 gemfibrozil 600 mg tablet 600 mg PO BID 12/27/20 05/09/21 latanoprost 0.005 % eye drops 1 drp OPHTHALMIC (EYE) DAILY 12/27/20 05/09/21 multivitamin 1 tab PO DAILY 12/27/20 05/09/21 ropinirole 1 mg tablet 1 mg PO BEDTIME 12/27/20 05/09/21 Previous Rx's Medication Instructions Recorded Mexiletene 150 mg PO Q8H 30 Days 05/12/21 amiodarone 400 mg PO BID 30 Days #120 tab 05/12/21 carvedilol 12.5 mg PO BID 30 Days #60 tab 05/12/21 losartan 50 mg PO BEDTIME 30 Days #30 tab 05/12/21 ondansetron 4 mg PO Q8H PRN #14 tab 05/12/21 DS: Summary Hospital Course Hospital Course: admission note HPI 75-year-old patient with underlying history of coronary disease whose 1st SD happened in February of last year, who recently had a coronary cardiac catheterization stent approximately 3 weeks ago where he was found to have LAD stenosis. He also is noted to have 100% distal RCA lesion with collaterals., has history of hypertension, hyperlipidemia, ischemic cardiomyopathy with reported ejection fraction of 30%, Presented to the emergency room today after experiencing 4 days worth of intermittent lightheadedness, the patient states he has noted the episodes were more often until he had 4 very close episodes in the morning associated with lightheadedness, he check his smart watch and noted that his heart rate was as high as 185 beats per minute but would last about 30 seconds to a minute. Upon coming to the emergency room, the patient was noted to be on V-tach with a wide complex, amiodarone was given without any improvement of his symptoms, Cardiology was consulted, patient was placed on a lidocaine drip and these worked converted his rhythm into sinus rhythm. His workup is overall unremarkable without any lab abnormality with exception of a phosphorus level of 2.6. Patient was admitted to the ICU, he has pacer pads on and the hope is to have an AICD implanted tomorrow morning. Currently patient states that he has no symptoms, denies any headache, double or blurred vision, lightheadedness or dizziness, chest pain, shortness of breath, abdominal pain or other related symptoms. Hospital course The patient was admitted to the intensive care unit for monitoring after being placed on amiodarone and lidocaine drips with fair control of his sustained ventricular tachycardia as he converted back to sinus rhythm. pacer pads were placed. He was evaluated by Cardiology with recommendation for placement of AICD which was done the next morning. the patient was noted after the procedure to have irregularities on telemetry but confirming with checking the AICD device by Cardiology no abnormal rhythm was found. Adjustments to his carvedilol and losartan doses were recommended by Cardiology as an echo was consistent with cardiomyopathy with ejection fraction 25% to 30 with grade 1 diastolic dysfunction and regional wall motion abnormality. he was started on oral amiodarone and mexiletine with fair control of symptoms is no recurrence of arrhythmias noted. Continue dual antiplatelet therapy. Continue high-intensity statin therapy with target goal LDL less than 70 mg/dL. Blood pressure is optimized. to follow up with Cardiology as outpatient in 2 weeks Time Spent with Patient Time attestation: Total time spent providing and/or coordinating discharge services: Discharge coordination time: Greater than 30 minutes Quality: Stroke Does the patient have a stroke diagnosis?: No Physical Exam Vital Signs: Vital Signs: Last Vital Signs Temp 97.7 F 05/12/21 11:13 Pulse 67 05/12/21 11:13 Resp 16 05/12/21 11:13 BP 116/62 05/12/21 11:13 Pulse Ox 95 05/12/21 11:13 Body Mass Index 32.0 Const: Other: Constitutional : Alert, oriented, not in distress Neck : Normal inspection, Supple Cardiovascular : RRR, S1 S2, no lower extremity edema Respiratory : Good bilateral air entry, no crackles, wheezes or rhonchi Gastrointestinal: soft, lax, Normal bowel sounds, Non tender Skin : Warm/Dry, AICD site clean with no drainage or erythema. Neurological : Alert & oriented x3, No focal deficit DS: Data Data Completed and Pending Labs on day of discharge: Laboratory Results - last 24 hr 05/12/21 05:23 Phosphorus 2.8 Discharge Plan Discharge Patient Disposition: Home, Self-Care Discharge Diagnosis: ventricular tachycardia post ICD placement Referrals: [facility] [Provider Group] - 1 Week Darrell Real MD [Primary Care Provider] - 1 Week Discharge Medications: New amiodarone 200 mg Tablet 400 mg PO BID 30 Days Qty: 120 RF: 0 Mexiletene 150 mg PO Q8H 30 Days RF: 1 losartan 50 mg Tablet 50 mg PO BEDTIME 30 Days Qty: 30 RF: 0 carvedilol 12.5 mg Tablet 12.5 mg PO BID 30 Days Qty: 60 RF: 0 ondansetron 4 mg tablet,disintegrating 4 mg PO Q8H PRN (Reason: nausea and vomiting) Qty: 14 RF: 0 Continued aspirin 81 mg tablet,delayed release (DR/EC) 81 mg PO DAILY RF: 0 clopidogrel 75 mg tablet 75 mg PO DAILY RF: 0 atorvastatin 40 mg tablet 40 mg PO DAILY RF: 0 ropinirole 1 mg tablet 1 mg PO BEDTIME RF: 0 gemfibrozil 600 mg tablet 600 mg PO BID RF: 0 latanoprost 0.005 % drops 1 drp ophthalmic (eye) DAILY RF: 0 multivitamin Tablet 1 tab PO DAILY RF: 0 Discontinued losartan 25 mg tablet 25 mg PO DAILY Qty: 90 RF: 4 carvedilol 6.25 mg tablet 6.25 mg PO BID RF: 0 Discharge Orders: Discharge Order (Routine); Ordered 05/12/21 Ordered By: Vinh Hernandez Diet: advance to usual diet Activity on Discharge: As tolerated Stand Alone Forms: Patient Portal Discharge page Activity Restrictions/Additional Instructions: [facility]olyn and [facility] Dr. Fredy Victor Pacemaker/ICD Instructions Site Care: Leave dressing on for 5 days. Do not shower or get the area wet for 5 days. Once you remove the dressing, there will be steri-strips in place. Do not peel off, they will fall off. Hand washing is a must when caring for your incision to prevent infections. Avoid touching your incision or using lotions, creams, or ointments until it is healed (2-4 weeks). Limit the movement of your arm on the same side as the pacemaker but do not stop moving it. Avoid stretching that arm over your head or shoulder-level or lift or carry anything heavier than 5 pounds with the left arm for 6 weeks Avoid golfing, swimming, tennis, bowling, shoveling snow or mowing the lawn for 6 weeks Follow-up instructions: If you do not already have a scheduled follow-up appointment, please call [phone] for the [place] office Please keep the identification card for the device with you, it will be useful when you go through security during flights. Please plug in your home monitor and leave it at your bedside. Call device company if you need assistance plugging in the monitor. Please tell all your healthcare providers you have a pacemaker, especially before procedures or before a MRI. Call your doctor if you have any redness, swelling, pus from incision site, fever of 101 degrees. If you have any bleeding from the incision site, lie down and put pressure on the incision site for 30 minutes. If this does not resolve, please get transportation to the closest hospital but do not drive yourself. Care Plan Goals: Read below Health Concerns: Read below Plan of Treatment: you were admitted to the hospital for evaluation of near-syncope and lightheadedness. Found to arrhythmia called ventricular tachycardia evaluated by Cardiology and monitored in the ICU on arrhythmia medications. A pacemaker /ICD was placed the next morning and your symptoms totally resolved with no recurrence of the arrhythmias. Evaluated by Dr. Busby from Cardiology with adjustments of your home medications. Assessment: Start amiodarone and Mexiletine as prescribed Increase the dose of carvedilol and losartan To follow-up with Dr. Busby in the clinic in 2 weeks
--- NOTE | 2021-05-12 12:20 | MHC.CM.PN ---
PT WILL DISCHARGE HOME TODAY WITH [facility]. PT WILL SELF ARRANGE TRANSPORT
== END 2021-05-12 13:19 | disposition home or self-care (01) | DRG 177 ==
LOC: HO.ED 15:44 → HO.EDOVER 16:52 → HO.ICU 16:53 → HO.IMC 05-12 06:09
PROVIDERS: Internal Medicine Cardiovascular Disease; Physician Assistant Medical; Admitting Provider Anesthesiology; Emergency Provider Emergency Medicine Emergency Medical Services; PCP Family Medicine; Visit Provider Student in an Organized Health Care Education/Training Program
PROC: 0JH60FZ Insertion of Subcutaneous Defibrillator Lead into Chest Subcutaneous Tissue and Fascia, Open Approach (ICD-10-PCS; principal; 2021-05-10 14:00)
DX: I47.2 Ventricular tachycardia (principal); I25.10 Atherosclerotic heart disease of native coronary artery without angina pectoris; I25.5 Ischemic cardiomyopathy; I25.2 Old myocardial infarction; Z98.61 Coronary angioplasty status; Z20.822 Contact with and (suspected) exposure to COVID-19; Z88.2 Allergy status to sulfonamides; Z79.02 Long term (current) use of antithrombotics/antiplatelets; Z79.82 Long term (current) use of aspirin; Z79.899 Other long term (current) drug therapy
CPT/HCPCS: 36415; 71045; 80053; 81003; 83690; 83735; 84100; 84484; 85025; 85610; 85730; 87635; 93005; 93306; 99223; 99285; C1722; C1892; J0282; J0690; J2250; J2370; J2405; J3010; J3370

== ENCOUNTER → 2021-05-23 12:30 | Outpatient (BNVA) | payer OTHER, SELFPAY | PROVIDERS: PCP Internal Medicine; Referring Provider Family Medicine; Visit Provider Internal Medicine Cardiovascular Disease ==

== ENCOUNTER → 2021-07-25 12:33 | Outpatient (BNVA) | payer OTHER, SELFPAY | PROVIDERS: PCP Internal Medicine; Referring Provider Internal Medicine; Visit Provider Internal Medicine Cardiovascular Disease ==

== ENCOUNTER → 2022-03-03 12:59 | Outpatient (BNVA) | payer OTHER, SELFPAY | PROVIDERS: PCP Internal Medicine; Referring Provider Internal Medicine; Visit Provider Internal Medicine Cardiovascular Disease | DX: I25.5 Ischemic cardiomyopathy (principal); I47.2 Ventricular tachycardia | CPT/HCPCS: 93005 ==

== ENCOUNTER → 2022-03-13 10:16 | Outpatient (REF) | payer OTHER, SELFPAY ==
--- NOTE | 2022-03-13 10:18 | CA_ITS ---
Transthoracic Echocardiogram Patient (Last, First, Middle): Garfield [place] D Gender: Male Date of : 1945 Age: 76 Procedure Date: 03/13/2022 Procedure Type: Transthoracic Echocardiogram Location: OP Height: 172.72 cm Weight: 92.99 kg BSA: 2.07 m2 Heart Rate: bpm BP: 130 / 80 mmHg Electrode Cleaner: TO/YR Referring MD: Sunny Issa MD Symptoms: I25.5 - Ischemic cardiomyopathy Study Quality: Fair Conclusions: - 1. Mildly reduced LV systolic function with impaired relaxation filling pattern with regional wall motion abnormality suggestive underlying coronary artery disease 2. Mild aortic regurgitation 3. Normal RV systolic pressure 4. No pericardial effusion Findings Left Ventricle Normal left ventricular cavity size. There is normal left ventricular wall thickness. The left ventricular systolic function is mildly decreased. The visually estimated ejection fraction is between 45-50%. There is evidence of regional wall motion abnormalities. Spectral Doppler is indicative of an impaired relaxation filling pattern. E/E prime ratio is between 8 and 15 consistent with indeterminate filling pressures. Wall Motion Rest Echo Findings The apex, apical inferior, basal anterior, and mid inferior segments are hypokinetic. The inferoseptal wall and basal inferior segment are akinetic. All other scored wall segments showed normal motion. Right Ventricle Normal right ventricular cavity size and systolic function. Atria The left atrium is normal in size. There is lipomatous hypertrophy of the interatrial septum. There is no evidence of interatrial shunt. The right atrium is normal in size. Aortic Valve There is mild calcification of the aortic valve. There is mild thickening of the aortic valve. There is no aortic valve stenosis. There is mild aortic valve regurgitation. Mitral Valve There is mild anterior mitral leaflet thickening. There is mild mitral annular calcification. There is trace mitral valve regurgitation. There is no mitral valve stenosis. Pulmonic Valve The pulmonic valve was not well visualized. Tricuspid Valve Likely normal tricuspid valve structure and function. There is trace tricuspid valve regurgitation. The right ventricular systolic pressure is normal. The right ventricular systolic pressure is 19 mmHg. Normal right atrial pressure. There is no evidence of pulmonary hypertension. Great Vessels All visible segments of the aorta are normal in size. The pulmonary artery was not well visualized. Venous The inferior vena cava is normal in size and collapses greater than 50% with inspiration. Pericardium/Pleural There is no evidence of pericardial effusion. Prior Study Comparison Changes noted compared to prior study dated: 05/10/2021. LV systolic function is improved Measurements 2D Linear Measurements IVSd: 0.97 0.6-0.9/0.6-1.0 cm LVIDd: 5.68 3.9-5.3/4.2-5.9 cm LVIDd Index: 2.74 2.4-3.2/2.2-3.1 cm/m2 LVIDs: 4.29 2.0-3.6 cm LVPWd: 1.00 0.7-1.1 cm LA Diam: 4.10 2.7-3.8/3.0-4.0 cm LAIDs Index: 1.98 1.5-2.3 cm/m2 LV Mass: 274.11 67-162/88-224 g LV Mass Index: 132.42 43-95/49-115 g/m2 LVOT Diam: 2.10 3.0+(-)1.3 cm 2D Systolic Function EF 4C: 50.50 >55% EF 2C: 45.00 >55% EF BiP: 48.20 >55% Mitral Valve MV Pk E: 0.45 MV PK A: 0.77 MV Decel Time: 258.00 E/A: 0.60 E'Lateral: 5.00 E'Medial: 2.83 E/E' Med: 16.00 E/E' Lat: 9.10 PHT: 75.00 MVA PHT: 2.93 Decel [place]: 1.76 Aortic Valve AoV Pk Gabe: 0.99 AoV Mn Gabe: 0.75 AoV VTI: 0.18 AoV Pk Grad: 4.00 Aov Mn Grad: 2.00 BRENDAN Cont.VTI: 2.03 LVOT LVOT Pk Gabe: 0.56 LVOT Mn Gabe: 0.41 LVOT VTI: 0.11 LVOT Pk Grad: 1.00 LVOT Mn Grad: 1.00 LVOT Diam: 2.10 LVOT Area: 3.46 Diastolic Function MV Pk E: 0.45 MV Pk A: 0.77 E/A: 0.60 E'Medial: 2.83 E/E' Med: 16.00 E' Laterial: 5.00 E/E' Lat: 9.10 Right Ventricle TAPSE (mm): 17.40 TVS' Gabe: 9.25 Tricuspid Valve TR Pk Gabe: 2.02 TR Pk Grad: 16.00 RA Press: 3.00 RVSP: 19.00 Great Vessels Aorta Sinus of Valsalva: 3.88 2.0-3.5 cm Ao Asc: 3.40 2.1-3.4 cm Ao Arch: 3.20 Updated in Other Vendor System with Status of Final Naldo Busby MD electronically signed on 03/14/2022 1:45:08 PM with status of Final
== END ==
LOC: HO.CARD 10:16
PROVIDERS: PCP Physician Assistant Medical; Visit Provider Internal Medicine Cardiovascular Disease
DX: I25.5 Ischemic cardiomyopathy (principal)
CPT/HCPCS: 93306

== ENCOUNTER 2022-03-20 08:11 | Outpatient (REF) | payer OTHER, SELFPAY ==
[2022-03-20 09:23] LABS: Cholesterol 190 mg/dL; HDL Cholesterol 38 mg/dL; LDL Cholesterol Calculated 102 mg/dl; Triglycerides 251 mg/dL
== END 2022-03-20 08:12 | disposition home or self-care (01) ==
LOC: HO.LAB 08:11
PROVIDERS: PCP Physician Assistant Medical; Visit Provider Internal Medicine Cardiovascular Disease
DX: I25.5 Ischemic cardiomyopathy (principal)
CPT/HCPCS: 36415; 80061

== ENCOUNTER → 2023-04-09 12:49 | Outpatient (BNVA) | payer OTHER, SELFPAY | PROVIDERS: PCP Physician Assistant Medical; Referring Provider Physician Assistant Medical; Visit Provider Internal Medicine Cardiovascular Disease | DX: I25.5 Ischemic cardiomyopathy (principal); I47.20 Ventricular tachycardia, unspecified; I20.8 Other forms of angina pectoris | CPT/HCPCS: 93005 ==

== ENCOUNTER → 2023-04-30 13:49 | Outpatient (REF) | payer OTHER, SELFPAY ==
--- NOTE | 2023-04-30 13:51 | CA_ITS ---
Transthoracic Echocardiogram Patient (Last, First, Middle): Garfield [place] D Gender: Male Date of : 1945 Age: 77 Procedure Date: 04/30/2023 Procedure Type: Transthoracic Echocardiogram Location: OP Height: 172.72 cm Weight: 90.72 kg BSA: 2.04 m2 Heart Rate: bpm BP: 130 / 70 mmHg [employer] Assistant Department Head: TO Referring MD: Sunny Issa MD Office Machines Wirer: Sunny Issa MD Symptoms: I25.5 - Ischemic cardiomyopathy Study Quality: Fair Conclusions: - Normal left ventricular cavity size. There is normal left ventricular wall thickness. The left ventricular systolic function is mildly decreased. The visually estimated ejection fraction is between 40-45%. - E/E prime ratio is between 8 and 15 consistent with indeterminate filling pressures. - The inferior wall and inferolateral wall are akinetic. - Normal right ventricular cavity size. There is borderline right ventricular systolic function. - There is mild aortic valve regurgitation. Findings Left Ventricle Normal left ventricular cavity size. There is normal left ventricular wall thickness. The left ventricular systolic function is mildly decreased. The visually estimated ejection fraction is between 40-45%. There is evidence of regional wall motion abnormalities. Abnormal diastolic function is noted. Spectral Doppler is indicative of an impaired relaxation filling pattern. E/E prime ratio is between 8 and 15 consistent with indeterminate filling pressures. Wall Motion Rest Echo Findings The inferior wall and inferolateral wall are akinetic. Right Ventricle Normal right ventricular cavity size. There is borderline right ventricular systolic function. Atria The left atrium is normal in size. The right atrium is likely dilated. Aortic Valve There is a normal trileaflet aortic valve. There is mild calcification of the aortic valve. There is no aortic valve stenosis. There is mild aortic valve regurgitation. Mitral Valve The mitral valve appears normal. There is mild mitral annular calcification. There is no mitral valve regurgitation. There is no mitral valve stenosis. Pulmonic Valve Normal pulmonic valve structure and function. There is no pulmonic valve regurgitation. Tricuspid Valve There is no tricuspid valve regurgitation. Normal right atrial pressure. There is no evidence of pulmonary hypertension. Great Vessels There is mild dilatation of the ascending aorta measuring 3.70 cm. The visualized portions of the pulmonary artery and branches are normal. Venous The inferior vena cava is normal in size and collapses greater than 50% with inspiration. Pericardium/Pleural There is no evidence of pericardial effusion. Prior Study Comparison No significant change compared to prior study dated: 03/13/2022. Measurements 2D Linear Measurements IVSd: 1.24 0.6-0.9/0.6-1.0 cm LVIDd: 5.35 3.9-5.3/4.2-5.9 cm LVIDd Index: 2.62 2.4-3.2/2.2-3.1 cm/m2 LVIDs: 4.29 2.0-3.6 cm LVPWd: 0.79 0.7-1.1 cm LA Diam: 3.30 2.7-3.8/3.0-4.0 cm LAIDs Index: 1.62 1.5-2.3 cm/m2 LV Mass: 259.45 67-162/88-224 g LV Mass Index: 127.18 43-95/49-115 g/m2 LVOT Diam: 2.20 3.0+(-)1.3 cm 2D Systolic Function EF 4C: 44.90 >55% EF 2C: 45.00 >55% EF BiP: 42.90 >55% Mitral Valve MV Pk E: 0.47 MV PK A: 0.96 MV Decel Time: 198.00 E/A: 0.50 E'Lateral: 8.16 E'Medial: 3.81 E/E' Med: 12.30 E/E' Lat: 5.70 PHT: 58.00 MVA PHT: 3.[address] [place]: 2.36 Aortic Valve AoV Pk Gabe: 1.39 AoV Mn Gabe: 1.02 AoV VTI: 0.26 AoV Pk Grad: 8.00 Aov Mn Grad: 5.00 BRENDAN Cont.VTI: 2.27 AI Pk Gabe: 3.[address] [place]: 2.19 LVOT LVOT Pk Gabe: 0.77 LVOT Mn Gabe: 0.56 LVOT VTI: 0.16 LVOT Pk Grad: 2.00 LVOT Mn Grad: 1.00 LVOT Diam: 2.20 LVOT Area: 3.80 Diastolic Function MV Pk E: 0.47 MV Pk A: 0.96 E/A: 0.50 E'Medial: 3.81 E/E' Med: 12.30 E' Laterial: 8.16 E/E' Lat: 5.70 Right Ventricle TAPSE (mm): 16.50 TVS' Gabe: 10.20 Tricuspid Valve TR Pk Gabe: 1.95 TR Pk Grad: 15.00 RA Press: 3.00 RVSP: 18.00 Great Vessels Aorta Sinus of Valsalva: 3.64 2.0-3.[address] [place]: 2.70 1.7-3.4 cm Ao Asc: 3.70 2.1-3.4 cm Updated in Other Vendor System with Status of Final Sunny Issa MD electronically signed on 05/02/2023 12:26:21 AM with status of Final
== END ==
LOC: HO.CARD 13:49
PROVIDERS: PCP Physician Assistant Medical; Visit Provider Internal Medicine Cardiovascular Disease
DX: I25.5 Ischemic cardiomyopathy (principal)
CPT/HCPCS: 93306

== ENCOUNTER → 2023-05-22 23:59 | Outpatient (BNV) | payer OTHER, SELFPAY ==
--- NOTE | 2023-06-03 10:23 | A.OFFVIS_ITS ---
Intake Intake Visit Reasons: Remote ICD Check- Biotronik Allergies Sulfa (Sulfonamide Antibiotics) [SULFA (SULFONAMIDE ANTIBIOTICS)] Allergy (Unknown, Verified 04/09/23 12:55) Redness of Skin [facility] Medical History (Updated 03/03/22 @ 21:15 by Sunny Issa MD) CAD (coronary artery disease) ICD (implantable cardioverter-defibrillator) in place Ischemic cardiomyopathy Sustained VT (ventricular tachycardia) Surgical History History of tonsillectomy Hx of external ear surgery Stented coronary artery Family History Other No known health problems Social History Household Members: Other Household Members Other:: partner Housing: House Do you presently have visiting nurse or other home services: No Alcohol intake: never Patient Tobacco Use Status: Never used Tobacco service: No Current occupational status: unemployed Office Procedures Cardiac Device Check Cardiac Device Check Details: Biotronik ICD. Battery life good. No arrhythmia or device therapies. Right ventricular pacing threshold above limit. We will arrange an in office interrogation. [id number] Cardiac Device Interrogation, pacemaker or defibrillator Procedure code (CPT) selection complete Assessment & Plan Assessment & Plan (1) Sustained VT (ventricular tachycardia): Code(s): I47.2 - Ventricular tachycardia (2) Ischemic cardiomyopathy: Code(s): I25.5 - Ischemic cardiomyopathy Coding Level of Care Code Procedure Only Diagnoses Sustained VT (ventricular tachycardia) I47.2 Ischemic cardiomyopathy I25.5 CPT Codes Cardiac Device Check - Cardiac Device 14: [id number] Cardiac Device Interrogation, pacemaker or defibrillator ([id number])
== END ==
PROVIDERS: PCP Physician Assistant Medical; Visit Provider Internal Medicine Cardiovascular Disease
DX: I25.5 Ischemic cardiomyopathy (principal); Z95.810 Presence of automatic (implantable) cardiac defibrillator; I47.20 Ventricular tachycardia, unspecified
CPT/HCPCS: 93295

== ENCOUNTER → 2023-06-08 14:09 | Outpatient (BNVA) | payer OTHER, SELFPAY | PROVIDERS: PCP Physician Assistant Medical; Visit Provider Internal Medicine Cardiovascular Disease ==

== ENCOUNTER → 2023-08-25 23:59 | Outpatient (BNV) | payer OTHER, SELFPAY ==
--- NOTE | 2023-08-29 16:39 | MHC.OFFVIS ---
Intake Intake Visit Reasons: Remote ICD Check- Biotronik Allergies Sulfa (Sulfonamide Antibiotics) [SULFA (SULFONAMIDE ANTIBIOTICS)] Allergy (Unknown, Verified 04/09/23 12:55) Redness of Skin [facility] Medical History (Updated 03/03/22 @ 21:15 by Sunny Issa MD) ICD (implantable cardioverter-defibrillator) in place Sustained VT (ventricular tachycardia) CAD (coronary artery disease) Ischemic cardiomyopathy Surgical History History of tonsillectomy Hx of external ear surgery Stented coronary artery Family History Other No known health problems Social History Household Members: Other Household Members Other:: partner Housing: House Do you presently have visiting nurse or other home services: No Alcohol intake: never Patient Tobacco Use Status: Never used Tobacco service: No Current occupational status: unemployed Office Procedures Cardiac Device Check Cardiac Device Check Details: ICD Battery life ok. No new alerts. [id number] Cardiac Device Interrogation, pacemaker or defibrillator Procedure code (CPT) selection complete Assessment & Plan Assessment & Plan (1) Sustained VT (ventricular tachycardia): Code(s): I47.2 - Ventricular tachycardia Orders: Orders AMB Cardiac Device Follow-up 08/25/23 I47.2 - Ventricular tachycardia Coding Level of Care Code Procedure Only Diagnoses Sustained VT (ventricular tachycardia) I47.2 CPT Codes Cardiac Device Check - Cardiac Device 14: [id number] Cardiac Device Interrogation, pacemaker or defibrillator ([id number])
== END ==
PROVIDERS: PCP Physician Assistant Medical; Visit Provider Internal Medicine Cardiovascular Disease
DX: I47.20 Ventricular tachycardia, unspecified (principal); Z95.810 Presence of automatic (implantable) cardiac defibrillator
CPT/HCPCS: 93295

== ENCOUNTER 2023-08-31 13:03 | Outpatient (AMB) | payer OTHER, SELFPAY ==
[2023-08-31 13:31] VITALS: BP 130/74; PULSE 84
--- NOTE | 2023-08-31 13:31 | A.OFFVIS_ITS ---
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: No Allergies Sulfa (Sulfonamide Antibiotics) [SULFA (SULFONAMIDE ANTIBIOTICS)] Allergy (Unknown, Verified 08/31/23 13:32) Redness of Skin Medication List - Last Reconciled 08/31/23 by Ashley Isabel NP-C aspirin 81 mg PO DAILY 90 days atorvastatin 40 mg PO DAILY carvedilol 6.25 mg PO BID clopidogrel 75 mg PO DAILY 90 days ezetimibe 10 mg PO DAILY latanoprost 0.005% 1 drp ophthalmic (eye) DAILY losartan 50 mg See Protocol PO BEDTIME 90 days mexiletine 150 mg PO BID multivitamin 1 tab PO DAILY ropinirole 1 mg PO BEDTIME HPI follow up echo w/ device check HPI Details Garfield is a 78-year-old male past medical history of hypertension, hyperlipidemia, inferior wall [place], ischemic cardiomyopathy, VF with cardiac arrest, single-chamber ICD who presents for follow-up. Today he reports that he has been feeling well overall since his visit in April. He does describe an occasional pulsing like pressure in his neck which can happen randomly. It mostly has occurred when he gets up in the morning. He says he also will get if he does something requiring much exertion such as kayaking. He does not have any concerning symptoms with normal ADLs. No chest discomfort at rest or with activity. No shortness of breath, palpitations, presyncope, syncope, PND, orthopnea or edema. He is taking all his meds as directed. ICD site is feeling good. Leaving for [place] September 09 and will be back early March 2024. [facility] Medical History (Updated 08/31/23 @ 16:30 by BHARTI GonzalesC) ICD (implantable cardioverter-defibrillator) in place Sustained VT (ventricular tachycardia) CAD (coronary artery disease) Ischemic cardiomyopathy Surgical History (Updated 08/31/23 @ 16:30 by BHARTI GonzalesC) Stented coronary artery Hx of external ear surgery History of tonsillectomy Family History Other No known health problems Social History Household Members: Other Household Members Other:: partner Housing: House Do you presently have visiting nurse or other home services: No Alcohol intake: never Patient Tobacco Use Status: Never used Tobacco service: No Current occupational status: unemployed Review of Systems Const All systems reviewed & are unremarkable except as noted in HPI and below ENT Details: throat sensation Denies dizziness Card Denies chest pain, Denies chest pain at rest, Denies chest pain with activity, Denies rapid heart rate, Denies pedal edema, Denies edema, Denies leg edema, Denies lightheadedness, Denies palpitations, Denies dyspnea, Denies dyspnea on exertion and Denies orthopnea Resp Denies cough, Denies dyspnea and Denies dyspnea on exertion GI Denies hematochezia and Denies change in stool character Musc Denies abnormal gait, Denies limited range of motion, Denies muscle cramps, Denies muscle weakness, Denies numbness, Denies radiating pain into limb, Denies stiffness and Denies tingling Neuro Denies abnormal gait, Denies dizziness, Denies numbness and Denies tingling Endo Denies palpitations Physical Exam Vital Signs: Last Vital Signs Pulse 84 08/31/23 13:31 BP 130/74 08/31/23 13:31 Const General: cooperative, healthy appearing, comfortable and no acute distress Neck Neck: Yes normal visual inspection Resp Effort & Inspection: normal respiratory effort Auscultation: clear to auscultation bilaterally, no crackles, no rales, no rhonchi and no wheezes Cardio Jugular venous distension: no JVD Rate: regular rate Rhythm: regular rhythm Heart sounds: S1 normal heart sound present, S2 normal heart sound present, no gallops, no murmurs and no rubs Peripheral pulses: Peripheral pulses 2+ throughout Extrem General: Yes normal to inspection Psych Appearance: grossly normal Mental Status: mental status grossly normal Speech and movement: Normal speech and movement present Office Procedures Cardiac Device Check Cardiac Device Check Details: Biotronik single lead ICD VVI mode, base rate 40, battery 100% RV threshold 3.2 volts at 0.4 milliseconds, based on testing the pulse amplitude was increased from 3.75 up to 4 volts. No VT or VF, no therapies, 0% RV pacing [id number] Cardiac Device Check, single lead implantable defibrillator Procedure code (CPT) selection complete Assessment & Plan Assessment & Plan (1) CAD (coronary artery disease): Comment: inferior STEMI, April 2020, manage medically as head CT of RCA and delayed presentation with markedly elevated troponins. Proximal LAD severe disease status post drug-eluting stent. Distal circumflex 80% disease, small vessel. Code(s): I25.10 - Atherosclerotic heart disease of [place] coronary artery without angina pectoris Plan: History of inferior STEMI 04/2020, late presentation, also with proximal LAD disease which was later stented. He did have EF arrest with successful resuscitation. Single chamber ICD is in place. He had residual ischemic cardiomyopathy with EF as low as 25-30%. He has been on appropriate medical management. Echocardiogram done 04/30/2023 shows EF 40-45%, inferior wall and inferior lateral wall akinetic, no significant change from echo 03/13/2022. He does describe getting a quick pulsation type feeling in his neck/throat, randomly and with over exertion such as kayaking. No discomfort with day-to-day activities. Overall this seems atypical for angina however he does say that at the time of his [place] he had throat discomfort. Nuclear stress test considered however patient declines as he is leaving for [place] on September 09. 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 He also can seek emergency medical care if he has concerning symptoms. Informed him that this could be an anginal symptom for him and he states understanding. He will continue to monitor the symptom. Continue aspirin indefinitely. Continue Plavix, atorvastatin, Zetia, carvedilol, losartan. No med changes made today as blood pressure recheck was low at 100/60. Will arrange for cardiology office visit upon his return in March 2024. (2) Stented coronary artery: Comment: 04/23/2021, proximal LAD drug-eluting stent Code(s): Z95.5 - Presence of coronary angioplasty implant and graft (3) Ischemic cardiomyopathy: Code(s): I25.5 - Ischemic cardiomyopathy Plan: Recent echo with EF 40-45%. Echocardiogram March 2022 showed EF 45-50%. No clinical signs of heart failure on examination. Continue carvedilol and losartan for neurohormonal modulation. (4) ICD (implantable cardioverter-defibrillator) in place: Comment: Biotronik single-chamber ICD, secondary prevention, implanted 05/10/2021 Code(s): Z95.810 - Presence of automatic (implantable) cardiac defibrillator Plan: Biotronik ICD in place, single-chamber, 0% V pacing, no and VT/VF or therapies required. RV threshold increased, rep aware. Continue to monitor remotely. Will arrange for office interrogation next visit (5) Hypertension: Code(s): I10 - Essential (primary) hypertension Qualifiers: Hypertension type: essential hypertension Qualified Code(s): I10 - Essential (primary) hypertension Plan: Normal range today. Started visit 130/74, after sitting for 15 minutes blood pressure recheck 100/60. No med changes made Coding Level of Care Code Est Pt Level 4 (89178) Diagnoses CAD (coronary artery disease) I25.10 Stented coronary artery Z95.5 Ischemic cardiomyopathy I25.5 ICD (implantable cardioverter-defibrillator) in place Z95.810 Essential hypertension I10 Hypertension type: essential hypertension CPT Codes Cardiac Device Check - Cardiac Device 4: [id number] Cardiac Device Check, single lead implantable defibrillator ([id number]) Time Spent (min) 28
== END 2023-08-31 14:03 | disposition home or self-care (01) ==
PROVIDERS: PCP Physician Assistant Medical; Visit Provider Nurse Practitioner Family
DX: I25.10 Atherosclerotic heart disease of native coronary artery without angina pectoris (principal); Z95.5 Presence of coronary angioplasty implant and graft; I25.5 Ischemic cardiomyopathy; Z95.810 Presence of automatic (implantable) cardiac defibrillator; I10 Essential (primary) hypertension
CPT/HCPCS: 93282; 99214

== ENCOUNTER → 2023-08-31 13:03 | Outpatient (BNVA) | payer OTHER, SELFPAY | PROVIDERS: PCP Physician Assistant Medical; Visit Provider Nurse Practitioner Family ==

== ENCOUNTER → 2023-11-20 23:59 | Outpatient (BNV) | payer OTHER, SELFPAY ==
--- NOTE | 2023-12-05 20:43 | MHC.OFFVIS ---
Intake Intake Visit Reasons: Remote ICD Check- Biotronik Allergies Sulfa (Sulfonamide Antibiotics) [SULFA (SULFONAMIDE ANTIBIOTICS)] Allergy (Unknown, Verified 08/31/23 13:32) Redness of Skin PFSH Medical History (Updated 08/31/23 @ 16:30 by ALTON Gonzales) ICD (implantable cardioverter-defibrillator) in place Sustained VT (ventricular tachycardia) CAD (coronary artery disease) Ischemic cardiomyopathy Surgical History (Updated 08/31/23 @ 16:30 by ALTON Gonzales) Stented coronary artery Hx of external ear surgery History of tonsillectomy Family History Other No known health problems Social History Household Members: Other Household Members Other:: partner Housing: House Do you presently have visiting nurse or other home services: No Alcohol intake: never Patient Tobacco Use Status: Never used Tobacco service: No Current occupational status: unemployed Office Procedures Cardiac Device Check Cardiac Device Check Details: ICD Good battery life No new alerts. No device therapies. [id number] Cardiac Device Interrogation, pacemaker or defibrillator Procedure code (CPT) selection complete Assessment & Plan Assessment & Plan (1) ICD (implantable cardioverter-defibrillator) in place: Comment: Biotronik single-chamber ICD, secondary prevention, implanted 05/10/2021 Code(s): Z95.810 - Presence of automatic (implantable) cardiac defibrillator Plan Coding Level of Care Code Procedure Only Diagnoses ICD (implantable cardioverter-defibrillator) in place Z95.810 CPT Codes Cardiac Device Check - Cardiac Device 14: [id number] Cardiac Device Interrogation, pacemaker or defibrillator ([id number])
== END ==
PROVIDERS: PCP Physician Assistant Medical; Visit Provider Internal Medicine Cardiovascular Disease
DX: I25.5 Ischemic cardiomyopathy (principal); Z95.810 Presence of automatic (implantable) cardiac defibrillator
CPT/HCPCS: 93295

== ENCOUNTER → 2024-02-12 23:59 | Outpatient (BNV) | payer OTHER, SELFPAY ==
--- NOTE | 2024-02-15 22:01 | MHC.OFFVIS ---
Intake Intake Visit Reasons: Remote HF monitoring- Biotronik Allergies Sulfa (Sulfonamide Antibiotics) [SULFA (SULFONAMIDE ANTIBIOTICS)] Allergy (Unknown, Verified 08/31/23 13:32) Redness of Skin PFSH Medical History (Updated 08/31/23 @ 16:30 by ALTON Gonzales) ICD (implantable cardioverter-defibrillator) in place Sustained VT (ventricular tachycardia) CAD (coronary artery disease) Ischemic cardiomyopathy Surgical History (Updated 08/31/23 @ 16:30 by BHARTI GonzalesC) Stented coronary artery Hx of external ear surgery History of tonsillectomy Family History Other No known health problems Social History Household Members: Other Household Members Other:: partner Housing: House Do you presently have visiting nurse or other home services: No Alcohol intake: never Patient Tobacco Use Status: Never used Tobacco service: No Current occupational status: unemployed Office Procedures Cardiac Device Check Cardiac Device Check Details: HF monitoring Stable thoracic impedance. [id number] Cardiac Device Interrogation, cardio physiologic monitor Procedure code (CPT) selection complete Assessment & Plan Assessment & Plan (1) Ischemic cardiomyopathy: Code(s): I25.5 - Ischemic cardiomyopathy Plan: Orders: Orders AMB Cardiac Device Follow-up 02/12/24 I48.0 - Paroxysmal atrial fibrillation Coding Level of Care Code Procedure Only Diagnoses Ischemic cardiomyopathy I25.5 CPT Codes Cardiac Device Check - Cardiac Device 15: [id number] Cardiac Device Interrogation, cardio physiologic monitor ([id number])
== END ==
PROVIDERS: PCP Physician Assistant Medical; Visit Provider Internal Medicine Cardiovascular Disease
DX: I25.5 Ischemic cardiomyopathy (principal); Z95.810 Presence of automatic (implantable) cardiac defibrillator
CPT/HCPCS: 93297

== ENCOUNTER → 2024-02-29 23:59 | Outpatient (BNV) | payer OTHER, SELFPAY ==
--- NOTE | 2024-03-14 10:34 | MHC.OFFVIS ---
Intake Visit Reasons: Remote ICD check- Biotronik Allergies Sulfa (Sulfonamide Antibiotics) [SULFA (SULFONAMIDE ANTIBIOTICS)] Allergy (Unknown, Verified 08/31/23 13:32) Redness of Skin PFSH Medical History (Updated 08/31/23 @ 16:30 by ALTON Gonzales) ICD (implantable cardioverter-defibrillator) in place Sustained VT (ventricular tachycardia) CAD (coronary artery disease) Ischemic cardiomyopathy Surgical History (Updated 08/31/23 @ 16:30 by ALTON Gonzales) Stented coronary artery Hx of external ear surgery History of tonsillectomy Family History Other No known health problems Social History Household Members: Other Household Members Other:: partner Housing: House Do you presently have visiting nurse or other home services: No Alcohol intake: never Patient Tobacco Use Status: Never used Tobacco service: No Current occupational status: unemployed Office Procedures Cardiac Device Check Cardiac Device Check Details: Biotronik ICD. Good battery life. No new alerts/device therapies. [id number] Cardiac Device Interrogation, pacemaker or defibrillator Procedure code (CPT) selection complete Assessment & Plan Assessment & Plan (1) ICD (implantable cardioverter-defibrillator) in place: Comment: Biotronik single-chamber ICD, secondary prevention, implanted 05/10/2021 Code(s): Z95.810 - Presence of automatic (implantable) cardiac defibrillator Category: Medical Plan Coding Level of Care Code Procedure Only Diagnoses ICD (implantable cardioverter-defibrillator) in place Z95.810 CPT Codes Cardiac Device Check - Cardiac Device 14: [id number] Cardiac Device Interrogation, pacemaker or defibrillator ([id number])
== END ==
PROVIDERS: PCP Physician Assistant Medical; Visit Provider Internal Medicine Cardiovascular Disease
DX: Z45.02 Encounter for adjustment and management of automatic implantable cardiac defibrillator (principal)
CPT/HCPCS: 93295

== ENCOUNTER 2024-03-21 13:29 | Outpatient (AMB) | payer OTHER, SELFPAY ==
[2024-03-21 13:38] VITALS: BP 124/60; PULSE 95; O2SAT 95; BMI 31.0
--- NOTE | 2024-03-21 13:38 | A.OFFVIS_ITS ---
Vital Signs 03/21/24 13:38 Height 5 ft 8 in Weight 204 lb 2.369 oz BMI 31.0 BP 124/60 Blood Pressure Location Lt brachial Position Sitting Pulse 95 Pulse Source Pulse Oximeter Pulse Oximetry (%) 95 Intake Visit Reasons: follow up w/ device check Impress Associate Required: No Accompanied by: Self / Same As Patient Allergies Sulfa (Sulfonamide Antibiotics) [SULFA (SULFONAMIDE ANTIBIOTICS)] Allergy (Unknown, Verified 08/31/23 13:32) Redness of Skin Medication List - Last Reconciled 03/21/24 by Sunny Issa MD aspirin 81 mg PO DAILY 90 days atorvastatin 40 mg PO DAILY carvedilol 6.25 mg PO BID clopidogrel 75 mg PO DAILY ezetimibe 10 mg PO DAILY latanoprost 0.005% 1 drp ophthalmic (eye) DAILY losartan 50 mg See Protocol PO BEDTIME 90 days multivitamin 1 tab PO DAILY ropinirole 1 mg PO BEDTIME HPI Comments Details: 78-year-old gentleman with background history of ischemic cardiomyopathy and ventricular tachycardia for which he had single lead ICD placed in the past. Ejection fraction the past was 25-30%. No heart failure symptoms. He has been on mexiletine and has not had any shocks from his device. Clinically not in heart failure. He had repeat echocardiography in March 2022 showed mildly reduced ejection fraction of 45 50%. He has been on guideline directed medical therapy. He has been doing well. He is denying any shortness of breath. He did have some throbbing sensation around his ICD a few times. This is not a consistent symptom. He did not have any chest throbbing when he had acute coronary syndrome. He has been taking carvedilol 12.5 mg once a day. He is supposed to be on 6.25 mg twice a day. 03/21/24: He is here for follow-up. Doing well. No chest pain or shortness of breath. No arrhythmia or device therapy. [facility] Medical History (Updated 08/31/23 @ 16:30 by ALTON Gonzales) ICD (implantable cardioverter-defibrillator) in place Sustained VT (ventricular tachycardia) CAD (coronary artery disease) Ischemic cardiomyopathy Surgical History Stented coronary artery Hx of external ear surgery History of tonsillectomy Family History Other No known health problems Social History Household Members: Other Household Members Other:: partner Housing: House Do you presently have visiting nurse or other home services: No Alcohol intake: never Patient Tobacco Use Status: Never used Tobacco service: No Current occupational status: unemployed Review of Systems Const Denies chills, Denies fatigue, Denies fever(s), Denies frequent falls, Denies weakness, Denies weight gain and Denies weight loss ENT Denies dizziness Card Denies chest pain, Denies leg edema, Denies lightheadedness, Denies palpitations , Denies dyspnea and Denies dyspnea on exertion Resp Denies cough, Denies dyspnea and Denies dyspnea on exertion GI Denies hematochezia Musc Denies abnormal gait, Denies muscle weakness, Denies numbness, Denies radiating pain into limb and Denies tingling Neuro Denies abnormal gait, Denies dizziness, Denies frequent falls, Denies numbness, Denies tingling and Denies weakness Endo Denies fatigue and Denies palpitations Physical Exam Vital Signs: Last Vital Signs Pulse 95 03/21/24 13:38 BP 124/60 03/21/24 13:38 Pulse Ox 95 03/21/24 13:38 BMI result Body Mass Index 31.0 GENERAL APPEARANCE: in no acute distress, pleasant. NECK: no carotid bruit, no jugular venous distention. SKIN: no suspicious lesions, warm and dry. HEART: no murmurs, regular rate and rhythm. LUNGS: clear to auscultation bilaterally. ABDOMEN: soft, nontender. EXTREMITIES: no edema. PERIPHERAL PULSES: equal. NEUROLOGIC: No gross deficits, AAO X 3 Office Procedures Cardiac Device Check Cardiac Device Check Details: Biotronik ICD. Good battery life. No arrhythmia recorded/no device therapies. [id number] Cardiac Device Interrogation, pacemaker or defibrillator Procedure code (CPT) selection complete Assessment & Plan Assessment & Plan (1) ICD (implantable cardioverter-defibrillator) in place: Comment: Biotronik single-chamber ICD, secondary prevention, implanted 05/10/2021 Code(s): Z95.810 - Presence of automatic (implantable) cardiac defibrillator Category: Medical (2) Stented coronary artery: Comment: 04/23/2021, proximal LAD drug-eluting stent Code(s): Z95.5 - Presence of coronary angioplasty implant and graft Category: Surgical (3) Ischemic cardiomyopathy: Code(s): I25.5 - Ischemic cardiomyopathy Category: Medical (4) Sustained VT (ventricular tachycardia): Code(s): I47.2 - Ventricular tachycardia Category: Medical Plan Pleasant 78 year gentleman who is here for follow-up. Has known history of coronary disease with previous inferior wall PA which was late presenting leading to cardiomyopathy. He subsequently had LAD PCI and presented later with monomorphic VT requiring ICD placement. He was started on mexiletine which she was taking but recently he is stopped using mexiletine thinking that ezetimibe which was sent to him for hyperlipidemia was a substitution for mexiletine. I have explained to him that ezetimibe was added because his LDL cholesterol was more than 100 at target is less than 70 and he should continue ezetimibe but mexiletine has to be restarted. I will send a new script for mexiletine for him. We interrogated his device in the office and he does not have any significant concerns. He did have RV threshold which could not be performed and we will arrange an in office interrogation with device wrap in 3 months. Thank you for allowing me to participate in the care of your patient. Please feel free to contact me if you have any questions. Orders: Orders AMB Cardiac Device Follow-up Today I48.0 - Paroxysmal atrial fibrillation Medications: New mexiletine 150 mg PO Q12H 100 caps 4RF Coding Level of Care Code Est Pt Level 4 (62128) Diagnoses ICD (implantable cardioverter-defibrillator) in place Z95.810 Stented coronary artery Z95.5 Ischemic cardiomyopathy I25.5 Sustained VT (ventricular tachycardia) I47.2 CPT Codes Cardiac Device Check - Cardiac Device 14: [id number] Cardiac Device Interrogation, pacemaker or defibrillator ([id number])
== END 2024-03-21 13:59 | disposition home or self-care (01) ==
PROVIDERS: PCP Physician Assistant Medical; Visit Provider Internal Medicine Cardiovascular Disease
DX: I25.5 Ischemic cardiomyopathy (principal); Z95.810 Presence of automatic (implantable) cardiac defibrillator; I47.20 Ventricular tachycardia, unspecified; Z95.5 Presence of coronary angioplasty implant and graft
CPT/HCPCS: 93282; 99214

== ENCOUNTER → 2024-03-21 13:29 | Outpatient (BNVA) | payer OTHER, SELFPAY | PROVIDERS: PCP Physician Assistant Medical; Visit Provider Internal Medicine Cardiovascular Disease ==

== ENCOUNTER → 2024-04-21 23:59 | Outpatient (BNV) | payer OTHER, SELFPAY ==
--- NOTE | 2024-05-08 19:52 | MHC.OFFVIS ---
Intake Visit Reasons: Remote HF monitoring- Bi[employer]ronik Allergies Sulfa (Sulfonamide Antibiotics) [SULFA (SULFONAMIDE ANTIBIOTICS)] Allergy (Unknown, Verified 08/31/23 13:32) Redness of Skin PFSH Medical History (Updated 08/31/23 @ 16:30 by Ashley Isabel NP-C) ICD (implantable cardioverter-defibrillator) in place Sustained VT (ventricular tachycardia) CAD (coronary artery disease) Ischemic cardiomyopathy Surgical History Stented coronary artery Hx of external ear surgery History of tonsillectomy Family History Other No known health problems Social History Household Members: Other Household Members Other:: partner Housing: House Do you presently have visiting nurse or other home services: No Alcohol intake: never Patient Tobacco Use Status: Never used Tobacco service: No Current occupational status: unemployed Office Procedures Cardiac Device Check Cardiac Device Check Details: HF monitoring Stable thoracic impedance. [id number] Cardiac Device Interrogation, cardio physiologic monitor Procedure code (CPT) selection complete Assessment & Plan Assessment & Plan (1) ICD (implantable cardioverter-defibrillator) in place: Comment: Biotronik single-chamber ICD, secondary prevention, implanted 05/10/2021 Code(s): Z95.810 - Presence of automatic (implantable) cardiac defibrillator Category: Medical Plan: Coding Level of Care Code Procedure Only Diagnoses ICD (implantable cardioverter-defibrillator) in place Z95.810 CPT Codes Cardiac Device Check - Cardiac Device 15: [id number] Cardiac Device Interrogation, cardio physiologic monitor ([id number])
== END ==
PROVIDERS: PCP Physician Assistant Medical; Visit Provider Internal Medicine Cardiovascular Disease
DX: Z45.02 Encounter for adjustment and management of automatic implantable cardiac defibrillator (principal)
CPT/HCPCS: 93297

== ENCOUNTER → 2024-05-23 23:59 | Outpatient (BNV) | payer OTHER, SELFPAY ==
--- NOTE | 2024-06-01 08:51 | MHC.OFFVIS ---
Intake Visit Reasons: Remote ICD check- Bi[employer]ronik Allergies Sulfa (Sulfonamide Antibiotics) [SULFA (SULFONAMIDE ANTIBIOTICS)] Allergy (Unknown, Verified 08/31/23 13:32) Redness of Skin PFSH Medical History (Updated 08/31/23 @ 16:30 by Ashley Isabel NP-C) ICD (implantable cardioverter-defibrillator) in place Sustained VT (ventricular tachycardia) CAD (coronary artery disease) Ischemic cardiomyopathy Surgical History Stented coronary artery Hx of external ear surgery History of tonsillectomy Family History Other No known health problems Social History Household Members: Other Household Members Other:: partner Housing: House Do you presently have visiting nurse or other home services: No Alcohol intake: never Patient Tobacco Use Status: Never used Tobacco service: No Current occupational status: unemployed Office Procedures Cardiac Device Check Cardiac Device Check Details: Biotronik ICD Battery OK No new alerts. [id number] Cardiac Device Check, dual lead implantable defibrillator Procedure code (CPT) selection complete Assessment & Plan Assessment & Plan (1) ICD (implantable cardioverter-defibrillator) in place: Comment: Biotronik single-chamber ICD, secondary prevention, implanted 05/10/2021 Code(s): Z95.810 - Presence of automatic (implantable) cardiac defibrillator Category: Medical Plan Coding Level of Care Code Procedure Only Diagnoses ICD (implantable cardioverter-defibrillator) in place Z95.810 CPT Codes Cardiac Device Check - Cardiac Device 5: 47628-WK Cardiac Device Check, dual lead implantable defibrillator ([id number])
== END ==
PROVIDERS: PCP Physician Assistant Medical; Visit Provider Internal Medicine Cardiovascular Disease
DX: Z45.02 Encounter for adjustment and management of automatic implantable cardiac defibrillator (principal)
CPT/HCPCS: 93295

== ENCOUNTER → 2024-07-01 23:59 | Outpatient (BNV) | payer OTHER, SELFPAY ==
--- NOTE | 2024-07-12 18:36 | MHC.OFFVIS ---
Intake Visit Reasons: Remote HF monitoring- Bi[employer]ronik Allergies Sulfa (Sulfonamide Antibiotics) [SULFA (SULFONAMIDE ANTIBIOTICS)] Allergy (Unknown, Verified 08/31/23 13:32) Redness of Skin PFSH Medical History (Updated 08/31/23 @ 16:30 by BHARTI GonzalesC) ICD (implantable cardioverter-defibrillator) in place Sustained VT (ventricular tachycardia) CAD (coronary artery disease) Ischemic cardiomyopathy Surgical History Stented coronary artery Hx of external ear surgery History of tonsillectomy Family History Other No known health problems Social History Household Members: Other Household Members Other:: partner Housing: House Do you presently have visiting nurse or other home services: No Alcohol intake: never Patient Tobacco Use Status: Never used Tobacco service: No Current occupational status: unemployed Office Procedures Cardiac Device Check Cardiac Device Check Details: HF monitoring Stable thoracic impedance. [id number] Cardiac Device Interrogation, cardio physiologic monitor Procedure code (CPT) selection complete Assessment & Plan Assessment & Plan (1) Ischemic cardiomyopathy: Code(s): I25.5 - Ischemic cardiomyopathy Category: Medical Plan: Coding Level of Care Code Procedure Only Diagnoses Ischemic cardiomyopathy I25.5 CPT Codes Cardiac Device Check - Cardiac Device 15: [id number] Cardiac Device Interrogation, cardio physiologic monitor ([id number])
== END ==
PROVIDERS: PCP Physician Assistant Medical; Visit Provider Internal Medicine Cardiovascular Disease
DX: I25.5 Ischemic cardiomyopathy (principal); Z95.810 Presence of automatic (implantable) cardiac defibrillator
CPT/HCPCS: 93297

== ENCOUNTER 2024-07-17 13:12 | Emergency (ER) | payer OTHER, SELFPAY ==
--- NOTE | ~2024-07-17 | XR_ITS ---
EXAMINATION: XR CHEST CLINICAL INFORMATION: Palpitations COMPARISON: Chest x-ray on 05/11/2021 TECHNIQUE: 2 views of the chest were obtained. FINDINGS: No significant abnormality is noted involving the heart, lungs, mediastinum, bony thorax or soft tissues. Single lead left chest cardiac device. XR/XR chest 2V IMPRESSION: No acute disease. Electronically signed by: Isatu De Paz MD 07/17/2024 03:16 PM EDT
--- NOTE | 2024-07-17 13:15 | ECG_ITS ---
Test Reason : palpitations Blood Pressure : / mmHG Vent. Rate : 099 BPM Atrial Rate : 099 BPM P-R Int : 140 ms QRS Dur : 110 ms QT Int : 336 ms P-R-T Axes : 056 -19 075 degrees QTc Int : 431 ms Normal sinus rhythm Minimal voltage criteria for LVH, may be normal variant ( Kennedy product ) Inferior infarct (cited on or before 09-MAY-2021) Abnormal ECG When compared with ECG of 12-MAY-2021 10:55, Vent. rate has increased BY 35 BPM T wave inversion no longer evident in Inferior leads Referred By: Generic ED Physician Electronically Signed By:TAVO SOUSA
[2024-07-17 13:19] VITALS: BP 158/83; PULSE 108; RESP 18; TEMP 36.6; O2SAT 97; BMI 31.2
[2024-07-17 13:36] LABS: MANUAL DIFF FLAG NO
[2024-07-17 13:37] LABS: Basophils Percent Auto 0.6 % (0-2); Eosinophils Absolute Auto 0.2 X10*3/uL (0.0-0.4); Eosinophils Percent Auto 2.3 % (0-4); Hematocrit 45.5 % (42.0-52.0); Hemoglobin 14.7 g/dl (14.0-18.0); Imm Gran Abs Auto 0.02 X10*3/uL (0.00-0.03); Imm Gran Pct Auto 0.3 % (0.0-0.4); Lymphocytes Absolute Auto 1.9 X10*3/uL (1.2-4.9); Lymphocytes Percent Auto 28.8 % (20-40); Mean Corpuscular HGB Conc 32.3 g/dl (31.0-36.0); Mean Corpuscular Hemoglobin 27.2 pg (27.0-33.0); Mean Corpuscular Volume 84.3 fL (80.0-98.0); Mean Platelet Volume 10.2 fL (9.4-12.4); Monocytes Absolute Auto 0.9 X10*3/uL (0.1-1.2); Neutrophils Absolute Auto 3.5 x10*3/uL (2.0-8.3); Platelet Count 178 X10*3/uL (160-400); Red Cell Distribution Width 15.8 % (11.0-16.0); White Blood Count 6.5 X10*3/uL (4.8-10.8)
--- NOTE | 2024-07-17 13:42 | ED_ITS ---
HPI - General Adult General Chief complaint: Arrhythmia/Palpitations Stated complaint: High heart rate Time Seen by Provider: 07/17/24 16:03 Source: patient, RN notes reviewed and old records reviewed Mode of arrival: ambulatory Limitations: no limitations History of Present Illness ED Provider: Kallie HPI narrative: 78 year old male with past medical history significant for coronary artery disease, history of V-tach, cardiomyopathy followed by Dr. Issa status post ICD implantation, hypertension presents for evaluation of ?fast heart rate. ? Patient reports that he was at [employer] today when his watch told him that his heart rate was fast It did not note an abnormal rhythm but told him that his heart rate was 112 The patient reports that he was asymptomatic at the time He did not feel a fast, or irregular heartbeat He did not have any shortness of breath or chest pain He reports that he is not a diabetic but is being closely followed by his primary doctor due to elevated glucose He has no complaints or concerns at this time He reports that he got his COVID vaccine 3 days ago Related Data Home Medications ?Medication ?Instructions ?Recorded ?Confirmed latanoprost 0.005 % eye drops 1 drp ophthalmic (eye) DAILY 12/27/20 03/21/24 multivitamin 1 tab PO DAILY 12/27/20 03/21/24 ropinirole 1 mg tablet 1 mg PO BEDTIME 12/27/20 03/21/24 carvedilol 6.25 mg tablet 6.25 mg PO BID 08/31/23 03/21/24 Previous Rx's ?Medication ?Instructions ?Recorded aspirin 81 mg tablet,delayed 81 mg PO DAILY 90 days #90 tabs 08/13/21 release atorvastatin 40 mg tablet 40 mg PO DAILY #90 tabs 10/07/21 losartan 50 mg tablet 50 mg PO BEDTIME 90 days #90 tabs 06/30/22 ezetimibe 10 mg tablet 10 mg PO DAILY #90 tabs 09/19/22 clopidogrel 75 mg tablet 75 mg PO DAILY #90 tabs 09/09/23 mexiletine 150 mg capsule 150 mg PO Q12H #100 caps 03/21/24 Allergies Allergy/AdvReac Type Severity Reaction Status Date / Time Sulfa (Sulfonamide Allergy Unknown Redness of Verified 07/17/24 13:20 Antibiotics) Skin [SULFA (SULFONAMIDE ANTIBIOTICS)] Review of Systems 2 Constitutional: Constitutional: Denies body ache(s), Denies chills, Denies fever(s) and Denies frequent falls Eyes: Eyes: Denies blurry vision ENT: Denies vertigo and Denies dizziness Cardiovascular: Cardiovascular: Denies chest pain, Denies chest pain at rest, Denies chest pain with activity, Reports rapid heart rate, Denies palpitations and Denies dyspnea Respiratory: Respiratory: Denies cough and Denies dyspnea Gastrointestinal: Gastrointestinal: Denies abdominal pain, Denies nausea and Denies vomiting Musculoskeletal: Musculoskeletal: Denies back pain Integumentary/Breasts: Skin/Breast: Denies rash Neurologic: Denies vertigo, Denies dizziness and Denies frequent falls Psychiatric: Psychiatric: Denies anxiety Endocrine: Endocrine: Denies palpitations PMFSH Past Medical History Medical History (Updated 07/17/24 @ 16:55 by Jagjit Arreguin) ICD (implantable cardioverter-defibrillator) in place Sustained VT (ventricular tachycardia) CAD (coronary artery disease) Ischemic cardiomyopathy Surgical History Stented coronary artery Hx of external ear surgery History of tonsillectomy Family History Family History Other No known health problems Social History Social History Household Members: Other Household Members Other:: partner Housing: House Do you presently have visiting nurse or other home services: No Alcohol intake: never Patient Tobacco Use Status: Never used Tobacco Smoked in Last 30 Days: No Use of substances other than those prescribed or required for medical reasons: No Advance Directives: No Advance Directives Information Provided: No service: No Current occupational status: unemployed Physical Exam ED Vital Signs: Vital Signs - 24 hr 07/17/24 13:19 07/17/24 15:34 07/17/24 15:57 Temperature 98 F 97.9 F 98.0 F Pulse Rate 108 H 92 85 Respiratory Rate 18 18 13 Blood Pressure 158/83 H 145/88 H 148/90 H Pulse Oximetry 97 98 98 Oxygen Delivery Method Room Air BMI result Body Mass Index 31.2 Const General: healthy appearing, comfortable, no acute distress, alert and awake Nutritional Appearance: well nourished Orientation/consciousness: patient oriented x3 [facility] Head: Yes normocephalic and Yes atraumatic Eyes Eyelids: Yes eyelids normal Conjunctivae: conjunctivae normal Sclerae: sclerae normal Corneas: corneas normal Pupils: Equal, round and reactive pupils present EOM: EOMs intact bilaterally Neck Neck: Yes full ROM Resp Effort & Inspection: normal respiratory effort, able to speak in complete sentences, no audible wheezes and not labored Auscultation: clear to auscultation bilaterally Cardio Other: No lower extremity edema Rate: regular rate Rhythm: regular rhythm GI Inspection: No distended Palpation (GI): Soft to palpation, not firm, nontender, no guarding and not rigid Skin General skin exam: elasticity normal Neuro General: patient oriented x3 Cranial nerves: Yes Equal, round and reactive pupils present and Yes Bilaterally intact EOM present Cognition (Neuro): normal cognition Extrem Other: Moving all extremities well without any obvious deformities Course Course Course Narrative: RME performed by Zaria Weldon PA-C. Patient is a 78 year old assigned male at presenting to the emergency department with an elevated heart rate. Patient states that his watch alerted him that he had a high heart rate. Detailed physical exam and review of systems are deferred to the pre billing clinician. EKG, labs, imaging, and swabs ordered. Patient placed back in the waiting room pending room availability and results. Medical Decision Making Medical Decision Making [place] Narrative: 78-year-old male presents for evaluation of ?tachycardia. ? His past medical history as documented above, he is currently asymptomatic and has been asymptomatic all day today. Currently his heart rate is 88 and regular, his EKG shows a sinus rhythm. The patient is mildly hypertensive, but otherwise vital signs are within normal limits. His labs are significant for a slightly elevated creatinine to 1.56 and a glucose of 236 but no evidence of DKA. I discussed possible IV fluids to address both of these issues with the patient reports that he would like to go home and will drink water at home. He has appropriate follow-up with cardiology and his PCP. There was no evidence that he had a true arrhythmia, the patient does have an AICD that can be interrogated by cardiology to evaluate for any possible arrhythmias Differential Diagnosis Differential Diagnoses: The differential diagnosis associated with the presentation includes Tachycardia Dehydration TYLER Hyperglycemia Arrhythmia Lab Data [place] Lab Attestation statement: I reviewed the patient's lab results. No leukocytosis or anemia. Normal platelet count. Electrolytes within normal limits. Creatinine elevated to 1.56, glucose elevated to 236, no evidence of DKA 07/17/24 13:31 07/17/24 13:31 Labs: Lab Results 07/17/24 07/17/24 Range/Units 13:31 16:08 WBC 6.5 (4.8-10.8) X10*3/uL RBC 5.40 (4.60-5.80) X10*6/uL Hgb 14.7 (14.0-18.0) g/dl Hct 45.5 (42.0-52.0) % MCV 84.3 (80.0-98.0) fL MCH 27.2 (27.0-33.0) pg MCHC 32.3 (31.0-36.0) g/dl RDW 15.8 (11.0-16.0) % Plt Count 178 (160-400) X10*3/uL MPV 10.2 (9.4-12.4) fL Immature Gran % (Auto) 0.3 (0.0-0.4) % Neut % (Auto) 54.0 (45-73) % Lymph % (Auto) 28.8 (20-40) % [place] % (Auto) 14.0 H (2-11) % Eos % (Auto) 2.3 (0-4) % Baso % (Auto) 0.6 (0-2) % Lymph # (Auto) 1.9 (1.2-4.9) X10*3/uL [place] # (Auto) 0.9 (0.1-1.2) X10*3/uL Eos # (Auto) 0.2 (0.0-0.4) X10*3/uL Baso # (Auto) 0.0 (0.0-0.2) X10*3/uL Abs Immat Gran (auto) 0.02 (0.00-0.03) X10*3/uL Absolute Neuts (auto) 3.5 (2.0-8.3) x10*3/uL Absolute Nucleated RBC 0.000 (0.0-0.012) X10*3/uL Nucleated RBC % (auto) 0.0 (0.0-0.2) /100WBC PT 12.1 (11.1-13.3) SEC INR 1.0 (0.9-1.1) Sodium 137 (135-145) mmol/L Potassium 4.2 (3.3-5.1) mmol/L Chloride 105 (96-108) mmol/L Carbon Dioxide 24 (22-29) mmol/L Anion Gap 12 (12-20) BUN 16 (9-16) mg/dL Creatinine 1.56 H (0.5-1.4) mg/dL Estim Creat Clear Calc 44.5 Estimated GFR 43 Random Glucose 236 H (60-115) mg/dL Calcium 9.4 D (8.4-10.2) mg/dL Magnesium 2.2 (1.6-2.6) mg/dL Troponin I High Sens 20.8 19.2 (<3.5-35.0) ng/L Influenza Type A (PCR) NEGATIVE (Negative) Influenza Type B (PCR) NEGATIVE (Negative) RSV RNA Qual (PCR) NEGATIVE (Negative) SARS-CoV-2 RNA (RT-PCR) NEGATIVE (Negative) Independent Interpretation I performed an independent interpretation of an: EKG and Plain X-Ray (Agree with Radiology interpretation) Interpretation: Normal sinus rhythm with a rate of [address] segment elevations or depressions. Radiology Impression Discussion of test interpretation with radiology: I have reviewed the radiologist's reading. Radiologist Impression: FINDINGS: No significant abnormality is noted involving the heart, lungs, mediastinum, bony thorax or soft tissues. Single lead left chest cardiac device. XR/XR chest 2V IMPRESSION: No acute disease. Discharge Plan Discharge Clinical Impression: Tachycardia Patient Disposition: Home, Self-Care Instructions: Tachycardia (ED) Additional Instructions: Your workup in the ER today was reassuring Your EKG showed a normal, sinus rhythm Your blood work and chest x-ray were reassuring Your glucose was elevated to 236 Your kidney function was slightly elevated to 1.56 I recommend that you follow-up with your primary doctor regarding your elevated glucose and cardiology regarding or fast heart rate today Return for new or worsening symptoms Prescriptions: No Action aspirin 81 mg tablet,delayed release (DR/EC) 81 mg PO DAILY 90 Days Qty: 90 2RF atorvastatin 40 mg tablet 40 mg PO DAILY Qty: 90 3RF losartan 50 mg tablet 50 mg PO BEDTIME 90 Days Qty: 90 3RF Protocol: Hold for SBP< HOLD for SBP < : 90 ezetimibe 10 mg tablet 10 mg PO DAILY Qty: 90 3RF clopidogrel 75 mg tablet 75 mg PO DAILY Qty: 90 3RF ropinirole 1 mg tablet 1 mg PO BEDTIME latanoprost 0.005 % drops 1 drp ophthalmic (eye) DAILY multivitamin Tablet 1 tab PO DAILY carvedilol 6.25 mg tablet 6.25 mg PO BID mexiletine 150 mg capsule 150 mg PO Q12H Qty: 100 4RF Print Language: Spanish
[2024-07-17 13:45] LABS: Prothrombin Time 12.1 SEC (11.1-13.3)
[2024-07-17 13:50] LABS: Anion Gap 12 (12-20); Blood Urea Nitrogen 16 mg/dL (9-16); Calcium 9.4 mg/dL (8.4-10.2); Carbon Dioxide 24 mmol/L (22-29); Chloride 105 mmol/L (96-108); Creatinine Clr Calc Pharmacy 44.5; Estimated Glomerular Filt Rate 43; Glucose Random 236 mg/dL (60-115); Magnesium 2.2 mg/dL (1.6-2.6); Potassium 4.2 mmol/L (3.3-5.1); Sodium 137 mmol/L (135-145)
[2024-07-17 13:57] LABS: Troponin-I High Sensitivity 20.8 ng/L (<3.5-35.0)
[2024-07-17 14:17] LABS: Influenza A PCR NEGATIVE (Negative); Influenza B PCR NEGATIVE (Negative); Resp Syncy Virus RNA Qual PCR NEGATIVE (Negative); SARS COV2 PCR INHOUSE NEGATIVE (Negative)
[2024-07-17 15:34] VITALS: BP 145/88; PULSE 92; RESP 18; TEMP 36.6; O2SAT 98
--- NOTE | 2024-07-17 15:38 | PC.NURSE ---
no physical complaints, was going to leave [facility] but will stay for 2nd troponin
[2024-07-17 15:57] VITALS: BP 148/90; PULSE 85; RESP 13; TEMP 36.7; O2SAT 98
[2024-07-17 16:02] VITALS: PULSE 84
[2024-07-17 16:33] LABS: Troponin-I High Sensitivity 19.2 ng/L (<3.5-35.0)
[2024-07-17 17:06] VITALS: BP 143/81; PULSE 78; RESP 14; TEMP 36.8; O2SAT 97
[2024-07-17 17:54] VITALS: BP 143/81; PULSE 78; RESP 14; TEMP 36.8; O2SAT 97
== END 2024-07-17 17:55 | disposition home or self-care (01) ==
PROVIDERS: Physician Assistant Medical; Emergency Provider Emergency Medicine; PCP Physician Assistant Medical
DX: R00.0 Tachycardia, unspecified (principal); I49.9 Cardiac arrhythmia, unspecified; R00.2 Palpitations; I25.10 Atherosclerotic heart disease of native coronary artery without angina pectoris; Z03.818 Encounter for observation for suspected exposure to other biological agents ruled out; Z79.899 Other long term (current) drug therapy
CPT/HCPCS: 0241U; 36415; 71046; 80048; 83735; 84484; 85025; 85610; 93005; 99284; 99285

== ENCOUNTER → 2024-07-25 10:52 | Outpatient (REF) | payer OTHER, SELFPAY ==
--- NOTE | 2024-07-25 10:57 | HM_ITS ---
Conclusion: 1. Patient was monitored for total period of 2 days and 23 hours 2. Baseline was normal sinus rhythm with average heart of 80 beats per minute 3. No significant pauses noted 4. Frequent PVCs noted with total burden of 5.6% mostly isolated 5. No patient reported events MTDD
== END ==
LOC: HO.CARD 10:52
PROVIDERS: Visit Provider Internal Medicine Cardiovascular Disease
DX: I25.5 Ischemic cardiomyopathy (principal); I25.10 Atherosclerotic heart disease of native coronary artery without angina pectoris; Z95.810 Presence of automatic (implantable) cardiac defibrillator; I47.20 Ventricular tachycardia, unspecified
CPT/HCPCS: 93242

== ENCOUNTER → 2024-07-25 10:57 | Outpatient (BNV) | payer OTHER, SELFPAY | PROVIDERS: Visit Provider Internal Medicine Cardiovascular Disease | DX: I49.3 Ventricular premature depolarization (principal) | CPT/HCPCS: 93244 ==

== ENCOUNTER → 2024-08-18 23:59 | Outpatient (BNV) | payer OTHER, SELFPAY ==
--- NOTE | 2024-08-23 18:58 | MHC.OFFVIS ---
Intake Visit Reasons: Remote ICD check- [employer] Allergies Sulfa (Sulfonamide Antibiotics) [SULFA (SULFONAMIDE ANTIBIOTICS)] Allergy (Unknown, Verified 07/17/24 13:20) Redness of Skin [facility] Medical History (Updated 07/18/24 @ 00:00 by Mera Pugh) ICD (implantable cardioverter-defibrillator) in place Sustained VT (ventricular tachycardia) CAD (coronary artery disease) Ischemic cardiomyopathy Surgical History Stented coronary artery Hx of external ear surgery History of tonsillectomy Family History Other No known health problems Social History Household Members: Other Household Members Other:: partner Housing: House Do you presently have visiting nurse or other home services: No Alcohol intake: never Patient Tobacco Use Status: Never used Tobacco service: No Current occupational status: unemployed Office Procedures Cardiac Device Check Cardiac Device Check Details: ICD Good battery life No new alerts. 30275-IY Cardiac Device Check, single lead implantable defibrillator Procedure code (CPT) selection complete Assessment & Plan Assessment & Plan (1) ICD (implantable cardioverter-defibrillator) in place: Comment: [employer] single-chamber ICD, secondary prevention, implanted 05/10/2021 Code(s): Z95.810 - Presence of automatic (implantable) cardiac defibrillator Category: Medical Plan Orders: Orders AMB Cardiac Device Follow-up 08/18/24 Z95.810 - Presence of automatic (implantable) cardiac defibrillator Coding Level of Care Code Procedure Only Diagnoses ICD (implantable cardioverter-defibrillator) in place Z95.810 CPT Codes Cardiac Device Check - Cardiac Device 4: 64480-CE Cardiac Device Check, single lead implantable defibrillator ([id number])
--- NOTE | 2024-08-23 19:01 | A.OFFVIS_ITS ---
Intake Visit Reasons: Remote ICD check- [employer] Allergies Sulfa (Sulfonamide Antibiotics) [SULFA (SULFONAMIDE ANTIBIOTICS)] Allergy (Unknown, Verified 07/17/24 13:20) Redness of Skin [facility] Medical History (Updated 07/18/24 @ 00:00 by Mera Pugh) ICD (implantable cardioverter-defibrillator) in place Sustained VT (ventricular tachycardia) CAD (coronary artery disease) Ischemic cardiomyopathy Surgical History Stented coronary artery Hx of external ear surgery History of tonsillectomy Family History Other No known health problems Social History Household Members: Other Household Members Other:: partner Housing: House Do you presently have visiting nurse or other home services: No Alcohol intake: never Patient Tobacco Use Status: Never used Tobacco service: No Current occupational status: unemployed Office Procedures Cardiac Device Check Cardiac Device Check Details: ICD Good battery life No new alerts. 49142-MY Cardiac Device Check, single lead implantable defibrillator Procedure code (CPT) selection complete Cardiac Device Check Cardiac Device Check Details: HF monitoring Optivol showing ongoing fluid overload. 49082-[id number] Device Interrogation, cardiac physiologic monitor system Procedure code (CPT) selection complete Assessment & Plan Assessment & Plan (1) ICD (implantable cardioverter-defibrillator) in place: Comment: [employer] single-chamber ICD, secondary prevention, implanted 05/10/2021 Code(s): Z95.810 - Presence of automatic (implantable) cardiac defibrillator Category: Medical Plan: (2) Ischemic cardiomyopathy: Code(s): I25.5 - Ischemic cardiomyopathy Category: Medical Plan: Plan Orders: Orders AMB Cardiac Device Follow-up 08/18/24 Z95.810 - Presence of automatic (implantable) cardiac defibrillator AMB Cardiac Device Follow-up 08/18/24 I25.5 - Ischemic cardiomyopathy, Z95.810 - Presence of automatic (implantable) cardiac defibrillator Coding Level of Care Code Procedure Only Diagnoses ICD (implantable cardioverter-defibrillator) in place Z95.810 Ischemic cardiomyopathy I25.5 CPT Codes Cardiac Device Check - Cardiac Device 4: 32709-[place] Cardiac Device Check, single lead implantable defibrillator ([id number]) Cardiac Device Check - Cardiac Device 10: 01420-[id number] Device Interrogation, cardiac physiologic monitor system ([id number])
== END ==
PROVIDERS: Visit Provider Internal Medicine Cardiovascular Disease
DX: I25.5 Ischemic cardiomyopathy (principal); Z95.810 Presence of automatic (implantable) cardiac defibrillator
CPT/HCPCS: 93295; 93297

== ENCOUNTER 2024-09-05 12:29 | Outpatient (AMB) | payer OTHER, SELFPAY ==
[2024-09-05 12:58] VITALS: BP 140/70; PULSE 66; BMI 30.3
--- NOTE | 2024-09-05 12:58 | MHC.OFFVIS ---
Vital Signs 09/05/24 12:58 Height 5 ft 8 in Weight 199 lb 4.766 oz BMI 30.3 BP 140/70 H Blood Pressure Location Rt brachial Position Sitting Pulse 66 Pulse Source Pulse Oximeter Intake Visit Reasons: follow up w/ device check Intake Note: f/up with device check Print Journalist Required: No Accompanied by: Self / Same As Patient Allergies Sulfa (Sulfonamide Antibiotics) [SULFA (SULFONAMIDE ANTIBIOTICS)] Allergy (Unknown, Verified 07/17/24 13:20) Redness of Skin Medication List - Last Reconciled 09/05/24 by Sunny Issa MD aspirin 81 mg PO DAILY 90 days atorvastatin 40 mg PO DAILY carvedilol 12.5 mg (2 x 6.25 mg) PO BID clopidogrel 75 mg PO DAILY ezetimibe 10 mg PO DAILY latanoprost 0.005% 1 drp ophthalmic (eye) DAILY losartan 50 mg See Protocol PO BEDTIME 90 days metformin 500 mg PO DAILY mexiletine 150 mg PO Q12H multivitamin 1 tab PO DAILY ropinirole 1 mg PO BEDTIME HPI Comments Details: 79-year-old gentleman with background history of ischemic cardiomyopathy and ventricular tachycardia for which he had single lead ICD placed in the past. Ejection fraction the past was 25-30%. No heart failure symptoms. He has been on mexiletine and has not had any shocks from his device. Clinically not in heart failure. He had repeat echocardiography in March 2022 showed mildly reduced ejection fraction of 45 50%. He has been on guideline directed medical therapy. He has been doing well. He is denying any shortness of breath. He did have some throbbing sensation around his ICD a few times. This is not a consistent symptom. He did not have any chest throbbing when he had acute coronary syndrome. He has been taking carvedilol 12.5 mg once a day. He is supposed to be on 6.25 mg twice a day. 03/21/24: He is here for follow-up. Doing well. No chest pain or shortness of breath. No arrhythmia or device therapy. 09/05/2024: He is here for follow-up. He has been doing well. He was in the emergency department in 07/2024 when he missed his carvedilol and was feeling tachycardia and palpitations. He did not have any arrhythmia. He was advised to restart carvedilol and was on 12.5 mg twice a day of carvedilol. He is returning and denying any symptoms. His device was interrogated with showing runs of nonsustained VT. No other concerns and no symptoms. [facility] Medical History (Updated 07/18/24 @ 00:00 by Background Daemon) ICD (implantable cardioverter-defibrillator) in place Sustained VT (ventricular tachycardia) CAD (coronary artery disease) Ischemic cardiomyopathy Surgical History Stented coronary artery Hx of external ear surgery History of tonsillectomy Family History Other No known health problems Social History Household Members: Other Household Members Other:: partner Housing: House Do you presently have visiting nurse or other home services: No Alcohol intake: never Patient Tobacco Use Status: Never used Tobacco service: No Current occupational status: unemployed Review of Systems Const Denies chills, Denies fatigue, Denies fever(s), Denies frequent falls, Denies weakness, Denies weight gain and Denies weight loss ENT Denies dizziness Card Denies chest pain, Denies leg edema, Denies lightheadedness, Denies palpitations, Denies dyspnea and Denies dyspnea on exertion Resp Denies cough, Denies dyspnea and Denies dyspnea on exertion GI Denies hematochezia Musc Denies abnormal gait, Denies muscle weakness, Denies numbness, Denies radiating pain into limb and Denies tingling Neuro Denies abnormal gait, Denies dizziness, Denies frequent falls, Denies numbness, Denies tingling and Denies weakness Endo Denies fatigue and Denies palpitations Physical Exam Vital Signs: Last Vital Signs Pulse 66 09/05/24 12:58 BP 140/70 H 09/05/24 12:58 BMI result Body Mass Index 30.3 GENERAL APPEARANCE: in no acute distress, pleasant. NECK: no carotid bruit, no jugular venous distention. SKIN: no suspicious lesions, warm and dry. HEART: no murmurs, regular rate and rhythm. LUNGS: clear to auscultation bilaterally. ABDOMEN: soft, nontender. EXTREMITIES: no edema. PERIPHERAL PULSES: equal. NEUROLOGIC: No gross deficits, AAO X 3 Assessment & Plan Assessment & Plan (1) CAD (coronary artery disease): Comment: inferior STEMI, April 2020, manage medically as head CT of RCA and delayed presentation with markedly elevated troponins. Proximal LAD severe disease status post drug-eluting stent. Distal circumflex 80% disease, small vessel. Code(s): I25.10 - Atherosclerotic heart disease of [place] coronary artery without angina pectoris Category: Medical (2) Ischemic cardiomyopathy: Code(s): I25.5 - Ischemic cardiomyopathy Category: Medical (3) ICD (implantable cardioverter-defibrillator) in place: Comment: [employer] single-chamber ICD, secondary prevention, implanted 05/10/2021 Code(s): Z95.810 - Presence of automatic (implantable) cardiac defibrillator Category: Medical Plan Pleasant 79 year gentleman who is here for follow-up. He has known history of coronary artery disease with previous PCI. He has ischemic cardiomyopathy and had ICD placed because he had sustained ventricular tachycardia. He has been on mexiletine 150 mg twice a day and carvedilol 12.5 mg twice a day. Device interrogation has shown runs of nonsustained VT. I have advised him to increase the carvedilol to 25 mg twice a day. He will continue rest of his medications as before. Clinically stable. Thank you for allowing me to participate in the care of your patient. Please feel free to contact me if you have any questions. Medications: New carvedilol must administer with a meal/food 25 mg PO BID 180 tabs 3RF Discontinued carvedilol Discontinued Reason: Doctor's Order 12.5 mg (2 x 6.25 mg) PO BID 180 tabs 3RF Coding Level of Care Code Est Pt Level 4 (40474) Diagnoses CAD (coronary artery disease) I25.10 Ischemic cardiomyopathy I25.5 ICD (implantable cardioverter-defibrillator) in place Z95.810
== END 2024-09-05 13:18 | disposition home or self-care (01) ==
LOC: HO.HCS 12:30
PROVIDERS: PCP Physician Assistant Medical; Visit Provider Internal Medicine Cardiovascular Disease
DX: I25.10 Atherosclerotic heart disease of native coronary artery without angina pectoris (principal); I25.5 Ischemic cardiomyopathy; Z95.810 Presence of automatic (implantable) cardiac defibrillator
CPT/HCPCS: 99214

== ENCOUNTER → 2024-09-05 12:29 | Outpatient (BNVA) | payer OTHER, SELFPAY | PROVIDERS: PCP Physician Assistant Medical; Visit Provider Internal Medicine Cardiovascular Disease ==

== ENCOUNTER → 2024-11-16 23:59 | Outpatient (BNV) | payer OTHER, SELFPAY ==
--- NOTE | 2024-11-27 17:58 | MHC.OFFVIS ---
Intake Visit Reasons: Remote ICD check- [employer] Allergies Sulfa (Sulfonamide Antibiotics) [SULFA (SULFONAMIDE ANTIBIOTICS)] Allergy (Unknown, Verified 07/17/24 13:20) Redness of Skin [facility] Medical History (Updated 07/18/24 @ 00:00 by Mera Pugh) ICD (implantable cardioverter-defibrillator) in place Sustained VT (ventricular tachycardia) CAD (coronary artery disease) Ischemic cardiomyopathy Surgical History Stented coronary artery Hx of external ear surgery History of tonsillectomy Family History Other No known health problems Social History Household Members: Other Household Members Other:: partner Housing: House Do you presently have visiting nurse or other home services: No Alcohol intake: never Patient Tobacco Use Status: Never used Tobacco service: No Current occupational status: unemployed Office Procedures Cardiac Device Check Cardiac Device Check Details: ICD Good battery No new alerts [id number] Cardiac Device Check, single lead implantable defibrillator Procedure code (CPT) selection complete Assessment & Plan Assessment & Plan (1) ICD (implantable cardioverter-defibrillator) in place: Comment: [employer] single-chamber ICD, secondary prevention, implanted 05/10/2021 Code(s): Z95.810 - Presence of automatic (implantable) cardiac defibrillator Category: Medical Plan Coding Level of Care Code Procedure Only Diagnoses ICD (implantable cardioverter-defibrillator) in place Z95.810 CPT Codes Cardiac Device Check - Cardiac Device 4: 28839-AB Cardiac Device Check, single lead implantable defibrillator ([id number])
== END ==
PROVIDERS: PCP Physician Assistant Medical; Visit Provider Internal Medicine Cardiovascular Disease
DX: Z45.02 Encounter for adjustment and management of automatic implantable cardiac defibrillator (principal)
CPT/HCPCS: 93295

== ENCOUNTER → 2024-12-06 23:59 | Outpatient (BNV) | payer OTHER, SELFPAY ==
--- NOTE | 2024-12-13 13:55 | A.OFFVIS_ITS ---
Intake Visit Reasons: Remote ICD check- [employer] Allergies Sulfa (Sulfonamide Antibiotics) [SULFA (SULFONAMIDE ANTIBIOTICS)] Allergy (Unknown, Verified 07/17/24 13:20) Redness of Skin [facility] Medical History (Updated 07/18/24 @ 00:00 by Mera Pugh) ICD (implantable cardioverter-defibrillator) in place Sustained VT (ventricular tachycardia) CAD (coronary artery disease) Ischemic cardiomyopathy Surgical History Stented coronary artery Hx of external ear surgery History of tonsillectomy Family History Other No known health problems Social History Household Members: Other Household Members Other:: partner Housing: House Do you presently have visiting nurse or other home services: No Alcohol intake: never Patient Tobacco Use Status: Never used Tobacco service: No Current occupational status: unemployed Office Procedures Cardiac Device Check Cardiac Device Check Details: Heart failure monitoring. Stable thoracic impedance. [id number]-[id number] Device Interrogation, cardiac physiologic monitor system Procedure code (CPT) selection complete Assessment & Plan Assessment & Plan (1) Ischemic cardiomyopathy: Code(s): I25.5 - Ischemic cardiomyopathy Category: Medical Plan Orders: Orders AMB Cardiac Device Follow-up 12/06/24 I25.5 - Ischemic cardiomyopathy Coding Level of Care Code Procedure Only Diagnoses Ischemic cardiomyopathy I25.5 CPT Codes Cardiac Device Check - Cardiac Device 10: 77518-Cdenoyd Device Interrogation, cardiac physiologic monitor system ([id number])
== END ==
PROVIDERS: PCP Physician Assistant Medical; Visit Provider Internal Medicine Cardiovascular Disease
DX: I25.5 Ischemic cardiomyopathy (principal)
CPT/HCPCS: 93290

== ENCOUNTER → 2024-12-13 23:59 | Outpatient (BNV) | payer OTHER, SELFPAY ==
--- NOTE | 2024-12-13 14:03 | MHC.OFFVIS ---
Intake Visit Reasons: Remote ICD check- [employer] Allergies Sulfa (Sulfonamide Antibiotics) [SULFA (SULFONAMIDE ANTIBIOTICS)] Allergy (Unknown, Verified 07/17/24 13:20) Redness of Skin PFSH Medical History (Updated 07/18/24 @ 00:00 by Mera Pugh) ICD (implantable cardioverter-defibrillator) in place Sustained VT (ventricular tachycardia) CAD (coronary artery disease) Ischemic cardiomyopathy Surgical History Stented coronary artery Hx of external ear surgery History of tonsillectomy Family History Other No known health problems Social History Household Members: Other Household Members Other:: partner Housing: House Do you presently have visiting nurse or other home services: No Alcohol intake: never Patient Tobacco Use Status: Never used Tobacco service: No Current occupational status: unemployed Office Procedures Cardiac Device Check Cardiac Device Check Details: [employer]ronik ICD. Battery status 89%. No new alerts. 43297-ZN Cardiac Device Check, single lead implantable defibrillator Procedure code (CPT) selection complete Assessment & Plan Assessment & Plan (1) ICD (implantable cardioverter-defibrillator) in place: Comment: [employer]ik single-chamber ICD, secondary prevention, implanted 05/10/2021 Code(s): Z95.810 - Presence of automatic (implantable) cardiac defibrillator Category: Medical Plan Orders: Orders AMB Cardiac Device Follow-up Today Z95.810 - Presence of automatic (implantable) cardiac defibrillator Coding Level of Care Code Procedure Only Diagnoses ICD (implantable cardioverter-defibrillator) in place Z95.810 CPT Codes Cardiac Device Check - Cardiac Device 4: 43161-SD Cardiac Device Check, single lead implantable defibrillator ([id number])
== END ==
PROVIDERS: PCP Physician Assistant Medical; Visit Provider Internal Medicine Cardiovascular Disease
DX: Z45.02 Encounter for adjustment and management of automatic implantable cardiac defibrillator (principal)
CPT/HCPCS: 93295

== ENCOUNTER → 2024-12-15 23:59 | Outpatient (BNV) | payer OTHER, SELFPAY ==
--- NOTE | 2024-12-19 08:57 | MHC.OFFVIS ---
Intake Visit Reasons: Remote ICD check- [employer] Allergies Sulfa (Sulfonamide Antibiotics) [SULFA (SULFONAMIDE ANTIBIOTICS)] Allergy (Unknown, Verified 07/17/24 13:20) Redness of Skin [facility] Medical History (Updated 07/18/24 @ 00:00 by Mera Pugh) ICD (implantable cardioverter-defibrillator) in place Sustained VT (ventricular tachycardia) CAD (coronary artery disease) Ischemic cardiomyopathy Surgical History Stented coronary artery Hx of external ear surgery History of tonsillectomy Family History Other No known health problems Social History Household Members: Other Household Members Other:: partner Housing: House Do you presently have visiting nurse or other home services: No Alcohol intake: never Patient Tobacco Use Status: Never used Tobacco service: No Current occupational status: unemployed Office Procedures Cardiac Device Check Cardiac Device Check Details: [employer]ik ICD. Battery status 87%. No new alerts. Lead impedance and threshold stable. 95171-SP Cardiac Device Check, single lead implantable defibrillator Procedure code (CPT) selection complete Assessment & Plan Assessment & Plan (1) Ischemic cardiomyopathy: Code(s): I25.5 - Ischemic cardiomyopathy Category: Medical Plan Orders: Orders AMB Cardiac Device Follow-up 12/15/24 I25.5 - Ischemic cardiomyopathy Coding Level of Care Code Procedure Only Diagnoses Ischemic cardiomyopathy I25.5 CPT Codes Cardiac Device Check - Cardiac Device 4: 88703-CA Cardiac Device Check, single lead implantable defibrillator ([id number])
== END ==
PROVIDERS: PCP Physician Assistant Medical; Visit Provider Internal Medicine Cardiovascular Disease
DX: I25.5 Ischemic cardiomyopathy (principal); Z95.810 Presence of automatic (implantable) cardiac defibrillator
CPT/HCPCS: 93295

== ENCOUNTER → 2025-01-17 23:59 | Outpatient (BNV) | payer OTHER, SELFPAY ==
--- NOTE | 2025-03-05 21:08 | A.OFFVIS_ITS ---
Intake Visit Reasons: Remote ICD check- [employer] Allergies Sulfa (Sulfonamide Antibiotics) [SULFA (SULFONAMIDE ANTIBIOTICS)] Allergy (Unknown, Verified 07/17/24 13:20) Redness of Skin [facility] Medical History (Updated 07/18/24 @ 00:00 by Mera Pugh) ICD (implantable cardioverter-defibrillator) in place Sustained VT (ventricular tachycardia) CAD (coronary artery disease) Ischemic cardiomyopathy Surgical History Stented coronary artery Hx of external ear surgery History of tonsillectomy Family History Other No known health problems Social History Household Members: Other Household Members Other:: partner Housing: House Do you presently have visiting nurse or other home services: No Alcohol intake: never Patient Tobacco Use Status: Never used Tobacco service: No Current occupational status: unemployed Office Procedures Cardiac Device Check Cardiac Device Check Details: HF monitoring Stable thoracic impedance. 77652-Sysssz Cardiac Device Interrogation, cardio physiologic monitor Procedure code (CPT) selection complete Assessment & Plan Assessment & Plan (1) Ischemic cardiomyopathy: Code(s): I25.5 - Ischemic cardiomyopathy Category: Medical Plan: Coding Level of Care Code Procedure Only Diagnoses Ischemic cardiomyopathy I25.5 CPT Codes Cardiac Device Check - Cardiac Device 15: 28748-Taurkl Cardiac Device Interrogation, cardio physiologic monitor ([id number])
== END ==
PROVIDERS: PCP Physician Assistant Medical; Visit Provider Internal Medicine Cardiovascular Disease
DX: I25.5 Ischemic cardiomyopathy (principal); Z95.810 Presence of automatic (implantable) cardiac defibrillator
CPT/HCPCS: 93297

== ENCOUNTER → 2025-01-19 23:59 | Outpatient (BNV) | payer OTHER, SELFPAY ==
--- NOTE | 2025-02-14 13:11 | MHC.OFFVIS ---
Intake Visit Reasons: Remote ICD check- [employer] Allergies Sulfa (Sulfonamide Antibiotics) [SULFA (SULFONAMIDE ANTIBIOTICS)] Allergy (Unknown, Verified 07/17/24 13:20) Redness of Skin PFS Medical History (Updated 07/18/24 @ 00:00 by Mera Pugh) ICD (implantable cardioverter-defibrillator) in place Sustained VT (ventricular tachycardia) CAD (coronary artery disease) Ischemic cardiomyopathy Surgical History Stented coronary artery Hx of external ear surgery History of tonsillectomy Family History Other No known health problems Social History Household Members: Other Household Members Other:: partner Housing: House Do you presently have visiting nurse or other home services: No Alcohol intake: never Patient Tobacco Use Status: Never used Tobacco service: No Current occupational status: unemployed Office Procedures Cardiac Device Check Cardiac Device Check Details: [employer]ik ICD. Battery life 87%. No new alerts. 05165-Gnuugl Cardiac Device Interrogation, pacemaker or defibrillator Procedure code (CPT) selection complete Assessment & Plan Assessment & Plan (1) ICD (implantable cardioverter-defibrillator) in place: Comment: [employer] single-chamber ICD, secondary prevention, implanted 05/10/2021 Code(s): Z95.810 - Presence of automatic (implantable) cardiac defibrillator Category: Medical Plan Coding Level of Care Code Procedure Only Diagnoses ICD (implantable cardioverter-defibrillator) in place Z95.810 CPT Codes Cardiac Device Check - Cardiac Device 14: 62080-Iuhuxu Cardiac Device Interrogation, pacemaker or defibrillator ([id number])
== END ==
PROVIDERS: PCP Physician Assistant Medical; Visit Provider Internal Medicine Cardiovascular Disease
DX: Z45.02 Encounter for adjustment and management of automatic implantable cardiac defibrillator (principal)
CPT/HCPCS: 93295

== ENCOUNTER → 2025-02-03 23:59 | Outpatient (BNV) | payer OTHER, SELFPAY ==
--- NOTE | 2025-02-14 12:45 | MHC.OFFVIS ---
Intake Visit Reasons: Remote ICD check- [employer] Allergies Sulfa (Sulfonamide Antibiotics) [SULFA (SULFONAMIDE ANTIBIOTICS)] Allergy (Unknown, Verified 07/17/24 13:20) Redness of Skin PFS Medical History (Updated 07/18/24 @ 00:00 by Mera Pugh) ICD (implantable cardioverter-defibrillator) in place Sustained VT (ventricular tachycardia) CAD (coronary artery disease) Ischemic cardiomyopathy Surgical History Stented coronary artery Hx of external ear surgery History of tonsillectomy Family History Other No known health problems Social History Household Members: Other Household Members Other:: partner Housing: House Do you presently have visiting nurse or other home services: No Alcohol intake: never Patient Tobacco Use Status: Never used Tobacco service: No Current occupational status: unemployed Office Procedures Cardiac Device Check Cardiac Device Check Details: [employer]ik ICD. Battery life 87%. No new alerts. RV pacing 0%. [id number]-Fxsrnq Cardiac Device Interrogation, pacemaker or defibrillator Procedure code (CPT) selection complete Assessment & Plan Assessment & Plan (1) ICD (implantable cardioverter-defibrillator) in place: Comment: [employer] single-chamber ICD, secondary prevention, implanted 05/10/2021 Code(s): Z95.810 - Presence of automatic (implantable) cardiac defibrillator Category: Medical Plan Coding Level of Care Code Procedure Only Diagnoses ICD (implantable cardioverter-defibrillator) in place Z95.810 CPT Codes Cardiac Device Check - Cardiac Device 14: 50731-Awdiqw Cardiac Device Interrogation, pacemaker or defibrillator ([id number])
== END ==
PROVIDERS: PCP Physician Assistant Medical; Visit Provider Internal Medicine Cardiovascular Disease
DX: Z45.02 Encounter for adjustment and management of automatic implantable cardiac defibrillator (principal)
CPT/HCPCS: 93295

== ENCOUNTER → 2025-02-21 23:59 | Outpatient (BNV) | payer OTHER, SELFPAY ==
--- NOTE | 2025-03-13 10:20 | MHC.OFFVIS ---
Intake Visit Reasons: Remote HF monitoring- [employer] Allergies Sulfa (Sulfonamide Antibiotics) [SULFA (SULFONAMIDE ANTIBIOTICS)] Allergy (Unknown, Verified 07/17/24 13:20) Redness of Skin PFSH Medical History (Updated 07/18/24 @ 00:00 by Mera Pugh) ICD (implantable cardioverter-defibrillator) in place Sustained VT (ventricular tachycardia) CAD (coronary artery disease) Ischemic cardiomyopathy Surgical History Stented coronary artery Hx of external ear surgery History of tonsillectomy Family History Other No known health problems Social History Household Members: Other Household Members Other:: partner Housing: House Do you presently have visiting nurse or other home services: No Alcohol intake: never Patient Tobacco Use Status: Never used Tobacco service: No Current occupational status: unemployed Office Procedures Cardiac Device Check Cardiac Device Check Details: Heart failure monitoring. Stable thoracic impedance. [id number]-Vcpnqv Cardiac Device Interrogation, cardio physiologic monitor Procedure code (CPT) selection complete Assessment & Plan Assessment & Plan (1) Ischemic cardiomyopathy: Code(s): I25.5 - Ischemic cardiomyopathy Category: Medical Plan Coding Level of Care Code Procedure Only Diagnoses Ischemic cardiomyopathy I25.5 CPT Codes Cardiac Device Check - Cardiac Device 15: 10529-Boeyjw Cardiac Device Interrogation, cardio physiologic monitor ([id number])
== END ==
PROVIDERS: PCP Physician Assistant Medical; Visit Provider Internal Medicine Cardiovascular Disease
DX: I25.5 Ischemic cardiomyopathy (principal); Z95.810 Presence of automatic (implantable) cardiac defibrillator
CPT/HCPCS: 93297

== ENCOUNTER → 2025-02-21 23:59 | Outpatient (BNV) | payer OTHER, SELFPAY ==
--- NOTE | 2025-03-13 10:18 | A.OFFVIS_ITS ---
Intake Visit Reasons: Remote device check- [employer] Allergies Sulfa (Sulfonamide Antibiotics) [SULFA (SULFONAMIDE ANTIBIOTICS)] Allergy (Unknown, Verified 07/17/24 13:20) Redness of Skin [facility] Medical History (Updated 07/18/24 @ 00:00 by Mera Pugh) ICD (implantable cardioverter-defibrillator) in place Sustained VT (ventricular tachycardia) CAD (coronary artery disease) Ischemic cardiomyopathy Surgical History Stented coronary artery Hx of external ear surgery History of tonsillectomy Family History Other No known health problems Social History Household Members: Other Household Members Other:: partner Housing: House Do you presently have visiting nurse or other home services: No Alcohol intake: never Patient Tobacco Use Status: Never used Tobacco service: No Current occupational status: unemployed Office Procedures Cardiac Device Check Cardiac Device Check Details: ICD Good battery life. No new alerts. 28539-Gdumte Cardiac Device Interrogation, pacemaker or defibrillator Procedure code (CPT) selection complete Assessment & Plan Assessment & Plan (1) ICD (implantable cardioverter-defibrillator) in place: Comment: [employer]ik single-chamber ICD, secondary prevention, implanted 05/10/2021 Code(s): Z95.810 - Presence of automatic (implantable) cardiac defibrillator Category: Medical Plan Coding Level of Care Code Procedure Only Diagnoses ICD (implantable cardioverter-defibrillator) in place Z95.810 CPT Codes Cardiac Device Check - Cardiac Device 14: 45617-Behcbb Cardiac Device Interrogation, pacemaker or defibrillator ([id number])
== END ==
PROVIDERS: PCP Physician Assistant Medical; Visit Provider Internal Medicine Cardiovascular Disease
DX: Z45.02 Encounter for adjustment and management of automatic implantable cardiac defibrillator (principal)
CPT/HCPCS: 93295

== ENCOUNTER 2025-04-05 13:28 | Outpatient (AMB) | payer OTHER, SELFPAY ==
--- NOTE | 2025-04-05 13:37 | A.OFFVIS_ITS ---
Vital Signs 04/05/25 13:39 Height 5 ft 8 in Weight 197 lb 8.547 oz BMI 30.0 BP 110/62 Blood Pressure Location Lt brachial Position Sitting Pulse 66 Pulse Source Monitor Intake Visit Reasons: 6m follow up Intake Note: 6 mth f/up Regrinder Required: No Accompanied by: Self / Same As Patient Allergies Sulfa (Sulfonamide Antibiotics) [SULFA (SULFONAMIDE ANTIBIOTICS)] Allergy (Unknown, Verified 07/17/24 13:20) Redness of Skin Medication List - Last Reconciled 04/05/25 by Sunny Issa MD aspirin 81 mg PO DAILY 90 days atorvastatin 40 mg PO DAILY carvedilol 25 mg PO BID clopidogrel 75 mg PO DAILY ezetimibe 10 mg PO DAILY losartan 50 mg See Protocol PO BEDTIME 90 days metformin 500 mg PO DAILY mexiletine 150 mg PO Q12H multivitamin 1 tab PO DAILY ropinirole 1 mg PO BEDTIME HPI Comments Details: 79-year-old gentleman with background history of ischemic cardiomyopathy and ventricular tachycardia for which he had single lead ICD placed in the past. Ejection fraction the past was 25-30%. No heart failure symptoms. He has been on mexiletine and has not had any shocks from his device. Clinically not in heart failure. He had repeat echocardiography in March 2022 showed mildly reduced ejection fraction of 45 50%. He has been on guideline directed medical therapy. He has been doing well. He is denying any shortness of breath. He did have some throbbing sensation around his ICD a few times. This is not a consistent symptom. He did not have any chest throbbing when he had acute coronary syndrome. He has been taking carvedilol 12.5 mg once a day. He is supposed to be on 6.25 mg twice a day. 03/21/24: He is here for follow-up. Doing well. No chest pain or shortness of breath. No arrhythmia or device therapy. 09/05/2024: He is here for follow-up. He has been doing well. He was in the emergency department in 07/2024 when he missed his carvedilol and was feeling tachycardia and palpitations. He did not have any arrhythmia. He was advised to restart carvedilol and was on 12.5 mg twice a day of carvedilol. He is returning and denying any symptoms. His device was interrogated with showing runs of nonsustained VT. No other concerns and no symptoms. 04/05/2025: Here for follow-up. Denying any significant dyspnea or chest discomfort. He has been walking his dog. Occasionally he gets hot and sweaty feeling along with some throat discomfort at rest. This happens every few months. He is saying when he is walking his dog he does not get any symptoms. Last echocardiography was in April of 2023 when his ejection fraction was 40-45% with inferior inferolateral akinesis. [facility] Medical History (Updated 07/18/24 @ 00:00 by Mera Pugh) ICD (implantable cardioverter-defibrillator) in place Sustained VT (ventricular tachycardia) CAD (coronary artery disease) Ischemic cardiomyopathy Surgical History Stented coronary artery Hx of external ear surgery History of tonsillectomy Family History Other No known health problems Social History Household Members: Other Household Members Other:: partner Housing: House Do you presently have visiting nurse or other home services: No Alcohol intake: never Patient Tobacco Use Status: Never used Tobacco service: No Current occupational status: unemployed Review of Systems Const Denies chills, Denies fatigue, Denies fever(s), Denies frequent falls, Denies weakness, Denies weight gain and Denies weight loss ENT Denies dizziness Card Denies chest pain, Denies leg edema, Denies lightheadedness, Denies palpitations, Denies dyspnea and Denies dyspnea on exertion Resp Denies cough, Denies dyspnea and Denies dyspnea on exertion GI Denies hematochezia Musc Denies abnormal gait, Denies muscle weakness, Denies numbness, Denies radiating pain into limb and Denies tingling Neuro Denies abnormal gait, Denies dizziness, Denies frequent falls, Denies numbness, Denies tingling and Denies weakness Endo Denies fatigue and Denies palpitations Physical Exam Vital Signs: Last Vital Signs Pulse 66 04/05/25 13:39 BP 110/62 04/05/25 13:39 BMI result Body Mass Index 30.0 GENERAL APPEARANCE: in no acute distress, pleasant. NECK: no carotid bruit, no jugular venous distention. SKIN: no suspicious lesions, warm and dry. HEART: no murmurs, regular rate and rhythm. LUNGS: clear to auscultation bilaterally. ABDOMEN: soft, nontender. EXTREMITIES: no edema. PERIPHERAL PULSES: equal. NEUROLOGIC: No gross deficits, AAO X 3 Assessment & Plan Assessment & Plan (1) Hypertension: Code(s): I10 - Essential (primary) hypertension Category: Medical Qualifiers: Hypertension type: essential hypertension Qualified Code(s): I10 - Essential (primary) hypertension (2) Ischemic cardiomyopathy: Code(s): I25.5 - Ischemic cardiomyopathy Category: Medical (3) ICD (implantable cardioverter-defibrillator) in place: Comment: [employer]ik single-chamber ICD, secondary prevention, implanted 05/10/2021 Code(s): Z95.810 - Presence of automatic (implantable) cardiac defibrillator Category: Medical Plan [age] year gentleman who is here for follow-up. He has known history of inferior wall OH. He presented late and was felt not to be a candidate for revascularization. He did have residual disease which was treated with drug- eluting stents. His ejection fraction is 40-45% based on echo from April 2023. He continues to be on mexiletine for ventricular tachycardia and has a secondary prevention ICD in place. Clinically euvolemic. We will check echocardiogram to reassess ejection fraction. He also is endorsing some symptoms including throat discomfort and sweating from time to time. This is clearly nonexertional. His device interrogation has not shown any significant arrhythmia so far. We will continue to monitor him closely. He will see us in few months after echocardiography is done. If echo shows worsening ejection fraction then I will consider repeat angiogram. Thank you for allowing me to participate in the care of your patient. Please feel free to contact me if you have any questions. Orders: Orders CA echo transthoracic complete Today I25.5 - Ischemic cardiomyopathy Coding Level of Care Code Est Pt Level 4 (70863) Diagnoses Essential hypertension I10 Hypertension type: essential hypertension Ischemic cardiomyopathy I25.5 ICD (implantable cardioverter-defibrillator) in place Z95.810
[2025-04-05 13:39] VITALS: BP 110/62; PULSE 66
--- OUTSIDE RECORDS SUMMARY | 2025-04-05 14:22 | XMS_ITS | Clinical Summary ---
Author Organization [facility] [address] [facility] Address [address] [place] [address] Phone Care Team Providers Care Professor Of Graphic Design Name Role Phone Dorian Douglas Primary Care Provider [phone] Allergies Active Allergy Reactions Criticality Noted Date Comments Sulfacetamide Sodium Hives 09/08/2005 Medications rOPINIRole (REQUIP) 1 mg tablet Take 1 tablet (1 mg total) by mouth at bedtime. 4 Active losartan (COZAAR) 50 mg tablet Take 1 tablet (50 mg total) by mouth 1 (one) time each day. Active mexiletine (MEXITIL) 150 mg capsule Take 1 capsule (150 mg total) by mouth 1 (one) time each day. Active atorvastatin (LIPITOR) 40 mg tablet Take 1 tablet (40 mg total) by mouth 1 (one) time each day. 4 Active ezetimibe (ZETIA) 10 mg tablet Take 1 tablet (10 mg total) by mouth 1 (one) time each day. 4 Active metFORMIN (GLUCOPHAGE) 500 mg tablet Take 1 Tablet by mouth daily (with breakfast). Take 1 tab with breakfast each day for blood sugar. 4 Active flash glucose scanning reader (FreeStyle Dave 2 [place]well) misc 1 UNITS BY DOES NOT APPLY ROUTE NEEDED FOR OTHER (GLUCOSE MONITORING). 4 Active aspirin 81 mg EC tablet Take 81 mg by mouth daily. 1 Active carvediloL (COREG) 6.25 mg tablet Take 2 Tablets by mouth 2 times daily (with meals). 0 Active clopidogreL (PLAVIX) 75 mg tablet Take 1 tablet (75 mg total) by mouth 1 (one) time each day. 0 Active flash glucose sensor (FreeStyle Dave 2 Sensor) kit 1 UNITS BY DOES NOT APPLY ROUTE EVERY 14 DAYS 2 each 5 Active flash glucose sensor (FREESTYLE DAVE 2 SENSOR MISC) 1 UNITS BY DOES NOT APPLY ROUTE EVERY 14 DAYS. 4 03/30/20 Discontinu ed(zhouwulicOgone te order) cephalexin (KEFLEX) 500 mg capsule Take 1 capsule (500 mg total) by mouth every 12 (twelve) hours. 4 03/30/20 Discontinu ed(Therapy completed) blood-glucose meter kit 1 Device by Does not apply route daily for 360 days. E11.49 3 03/30/20 25 Discontinu ed(Patient Discharge) FREESTYLE LANCETS MISC 1 Units by Does not apply route daily. E11.49 3 03/30/20 25 Discontinu ed(Therapy completed) blood sugar diagnostic (FreeStyle Lite Strips) test strip 1 Units by In Vitro route daily. E11.49 3 03/30/20 25 Discontinu ed(Therapy completed) latanoprost (XALATAN) 0.005 % ophthalmic solution Place 1 Drop into both eyes at bedtime. 03/30/20 Discontinu ed(Patient Discharge) Active Problems Problem Noted Date Diagnosed Date Basal cell carcinoma of right ala nasi 4 Diabetes mellitus type 2, un complicated ([facility] V24, [facility] V28) 03/09/2023 Coronary artery disease due to lipid rich plaque 05/17/2021 ICD (implantable cardioverter-defibrillator) in place 05/17/2021 History of myocardial infarction 04/25/2020 Overview (10/24/2024): Right coronary artery totally occluded some disease in circumflex and LAD Glaucoma 03/26/2018 Hyperglycemia 01/08/2015 Overview (11/03/2024): Hyperglycemia noted on nonfasting test BPH (benign prostatic hyperplasia) 09/24/2011 Overview (10/24/2024): Dr Carbajal Diverticulitis of colon without hemorrhage 01/22 Overview (10/24/2024): Incidental finding at colonoscopy 01/22/2009. Restless leg syndrome 10/27/2008 Urolithiasis 10/27/2008 Overview (11/03/2024): Hx of lithotripsy Usually sees dr carbajal, kidney stones lithotripsy 2013 and 2019 in [place] Pure hypercholesterolemia 09/08/2005 Encounters Date Type Department Care Team Description 03/30/2025 8:30 AM EDT Office Visit Adult Medicine [address] [phone] Lamar Mitchell PA Type 2 diabetes mellitus without complication, without long-term current use of insulin (CMS/HCC V24, CMS/HCC V28) (Primary Dx); Mixed hyperlipidemia; Stage 3a chronic kidney disease (CMS/HCC V24, CMS/HCC V28); History of non-ST elevation myocardial infarction (NSTEMI); Benign prostatic hyperplasia without lower urinary tract symptoms; Restless leg syndrome; Colon cancer screening 03/30/2025 Telephone Adult Medicine [address] [phone] Lamar Mitcehll PA Med Refill 03/27/2025 Telephone Adult Medicine [address] [phone] Dorian Douglas PA Labs Only from Last 3 Months Immunizations Name Administration Dates Next Due Influenza trivalent, 0.5mL ( Fluad) 65yo and older 07/17/2022,07/11/2021,07/18/2020,08/10,08/19/2017,07/27/2015 Influenza trivalent, 0.5mL ( Fluzone High-dose) 65yo and older 07/15/2024,08/06/2018 Influenza trivalent, 0.5mL, preservative free (Fluarix; FluLaval; Fluzone) ages 6mo and older (Afluria) 3 years and older 09/22/2016,07/25/2014,11/24/2012,09/02 Influenza trivalent, with pr eservative (Fluzone; Afluria) 6mo and older 06/24/2019 Influenza, Unspecified 08/19/2017 Moderna (age 6mo & older) Bi valent, COVID-19, 0.5 mL or 0.25 mL dosage 04/29/2023,07/30/2022 Moderna SARS-CoV-2 COVID-19, mRNA, LNP-S, preservative free 02/21/2022 Pneumococcal conjugate 13 va lent (Prevnar 13, PCV13) 2mo and older 07/27/2015 Pneumococcal polysaccharide 23 valent (Pneumovax 23) 2yo and older 2014 RSV, bivalent, protein subun it RSVpreF, 0.5mL, Preservative Free (Arexvy) 60yo and older 08/02/2024 Td Tetanus diptheria (Tdvax) 7yo and older 01/19/2015,02/20/2005 Td, Unspecified 02/20/2005 Tdap Tetanus diptheria acell ular pertussis (Boostrix; Adacel) 7yo and older 07/02/2022 Zoster Live 02/07/2015 Zoster recombinant (Shingrix ) 19yo and older 04/15/2021,11/25/2020 Surgical History Surgery Date Site/Laterality Comments OTHER SURGICAL HISTORY PROCEDURE: HISTORY OTHER; COMMENT: bladder stone surgicaly removed TONSILLECTOMY PROCEDURE: HISTORICAL TONSILLECTOMY LITHOTRIPSY 2013 PROCEDURE: HISTORICAL LITHOTRIPSY; COMMENT: 2013 OTHER SURGICAL HISTORY 2014 PROCEDURE: HISTORY OTHER; COMMENT: dr mcarthur rt prosthetic bone inserted COLONOSCOPY 01/22/2009 PROCEDURE: HISTORICAL COLONOSCOPY; COMMENT: diverticulosis FLEXIBLE SIGMOIDOSCOPY 1990 PROCEDURE: HISTORICAL FLEXIBLE SIGMOIDOSCOPY; COMMENT: 1990 negative COLONOSCOPY 06/21/2020 PROCEDURE: HISTORICAL COLONOSCOPY; COMMENT: Subcentimeter polyps x4 and extensive diverticulosis; pathology: Tubular adenoma x4. CARDIAC CATHETERIZATION 04/2021 PROCEDURE: HISTORICAL CARDIAC CATH; COMMENT: stenting procedure 04/2021 PACEMAKER IMPLANT Left PROCEDURE: HISTORICAL PACEMAKER Medical History Medical History Date Comments Pure hypercholesterolemia DX:Pur e hypercholesterolemia Urolithiasis 10/27/2008 DX:Urolithiasis; COMMENT: Hx of lithotripsy Sone residual stones present Restless leg syndrome 10/27/2008 DX:Restles s leg syndrome Diverticulosis of colon (wit hout mention of hemorrhage) 01/22/2009 DX:Diverticulosis of colon ( without mention of hemorrhage); COMMENT: Incidental finding at colonoscopy 01/22/2009. Special screening for malign ant neoplasms, colon 01/22/2009 DX:Special screening for mal ignant neoplasms, colon; COMMENT: Negative colonoscopy 01/22/2009, no colon cancer screening needed for 10 years. Hyperglycemia 01/08/2015 DX:Hyperglycemia Glaucoma 03/26/2018 DX:Glaucoma Family History Relation Name Status Comments Father (Age 80's) no sibs Mother (Age 80's) Social History Tobacco Use Types Packs/Day Years Used Date Smoking Tobacco: Never Smokeless Tobacco: Never Tobacco Cessation:Counseling Given: Not Answered Alcohol Use Standard Drinks/Week Comments Yes 0 (1 standard drink = 0.6 oz pur e alcohol) Housing Instability Answer Date Recorde d Are you worried that in the next 2 months you may not have stable housing? No 03/27/2025 Food Access & Nutrition Answer Date Rec orded Do you have access to a vari ety of food including fruits and vegetables? Yes 03/27/2025 Access to Healthcare Answer Date Record ed Within the last 3 months, ho w many times did you visit the emergency department for your medical care? 0 03/27/2025 Health Literacy Answer Date Recorded How often do you need to hav e someone help you when you read instructions, pamphlets, or other written material from your doctor or pharmacy? Never 03/27/2025 Caregiver: How often do you need to have someone help you when you read instructions, pamphlets, or other written material from your doctor or pharmacy? Not on file 03/27/2025 Financial Risk Answer Date Recorded How hard is it for you to pa y for the very basics like food, housing, medical care, and air conditioning / heating? Somewhat hard 03/27/2025 Transportation Answer Date Recorded Has the lack of transportati on kept you from meetings, work, or from getting things needed for daily living? No Has the lack of transportati on kept you from medical appointments or from getting medications? No 03/27/2025 Social Isolation Answer Date Recorded How often do you feel lonely or isolated from th ose around you? Never 03/27/2025 Food Risk Answer Date Recorded Within the past 12 months we worried whether our food would run out before we got money to buy more. Never true 03/27/2025 Within the past 12 months th e food we bought just didn't last and we didn't have money to get more. Never true 03/27/2025 Dependent Care Answer Date Recorded Do you need help finding or paying for care for your loved ones. For example, early childhood associate teacher or elderly care for an older adult? No 03/27/2025 Education Answer Date Recorded Do you think completing more education or training, like finishing a GED, going to college, or learning a trade, would be helpful for you? No 03/27/2025 Employment and Income Answer Date Recor ded During the last four weeks, have you been actively looking for work? No 03/27/2025 Living Situation Answer Date Recorded What is your living situation? 0 03/27/2025 Sex and Gender Information Value Date Recorded Sex Assigned at Male 03/27/2025 2:11 PM EDT Legal Sex Male 9:21 PM EST Gender Identity Male 03/27/2025 2:11 PM EDT Sexual Orientation Straight 03/27/2025 2: 11 PM EDT Obstetrics History Last Filed Vital Signs Vital Sign Reading Time Taken Comments Blood Pressure 115/60 03/30/2025 8:18 AM EDT Pulse 68 03/30/2025 8:18 AM EDT Temperature 36.2 ??C (97.2 ??F) 03/30/2025 8:18 AM ED T Respiratory Rate 16 03/30/2025 8:18 AM EDT Oxygen Saturation - - Inhaled Oxygen Concentration - - Weight 91.6 kg (202 lb) 03/30/2025 8:18 AM EDT Height 172.7 cm (5' 8 ) 03/30/2025 8:18 AM EDT Body Mass Index 30.71 03/30/2025 8:18 AM EDT Plan of Treatment Upcoming Encounters Date Type Department Care Team (Late st Contact Info) Description 05/30/2025 8:40 AM EDT Consult Gastroenterology - [place] [address] [place] [phone] Pamela Cruz, SHERMAN [address] [facility] [address] [place] [address] 09/06/2025 10:45 AM EDT Office Visit Adult Medicine [facility] [address] [place] [phone] Dorian Douglas PA [address] [place] [address] Health Maintenance Due Date Last Done Comments COVID-19 Vaccine (7 - Moderna risk 2023- season) 2025 07/15/2024, 04/29/2023, 07/30/2022, Additional history exists Diabetes: Blood Sugar Control Test (HGBA1C) 01/29/2025 08/01/2024, 08/01/2024 Colorectal Cancer Screening: Colonoscopy 06/21/2025 06/21/2020 Diabetes: Annual Retina Eye Exam 07/26/2025 07/26/2024 Diabetes: Annual Urine Albumin-Creatinine Ratio (uACR) 08/01/2025 08/01/2024 Diabetes: Annual GFR (Glomerular Filtration Rate) 08/01/2025 08/01/2024, 08/01/2024 Hypertension/CHF/CAD Annual BMP Blood Test 08/01/2025 08/01/2024, 08/01/2024 Diabetes: Annual Foot Exam 08/10/2025 08/10/2024 Depression Screening 03/27/2026 03/27/2025 Social Influencers of Health Screening 03/27/2026 03/27/2025 Falls Risk Assessment 03/30/2026 03/30/2025 Cholesterol Screening (Lipid Panel) 08/01/2029 08/01/2024, 08/01/2024 DTaP,Tdap,and Td Vaccines (5 - Td or Tdap) 07/02/2032 07/02/2022, 01/19/2015, 02/20/2005, Additional history exists Pneumococcal Vaccine: 50+ Years Completed 07/27/2015, 2014 Hepatitis C Screening Completed 01/29/2016 Zoster Vaccines Completed 04/15/2021, 11/09, 02/07/2015 Influenza Vaccine Completed 07/15/2024, , 07/11/2021, Additional history exists RSV Immunization Adult Patients Completed 08/02/2024 HIB Vaccines Aged Out No longer eligi ble based on patient's age to complete this topic HPV Vaccines Aged Out No longer eligi ble based on patient's age to complete this topic Hepatitis A Vaccines Aged Out No long er eligible based on patient's age to complete this topic Hepatitis B Vaccines Aged Out No long er eligible based on patient's age to complete this topic IPV Vaccines Aged Out No longer eligi ble based on patient's age to complete this topic MMR Vaccines Aged Out No longer eligi ble based on patient's age to complete this topic Meningococcal ACWY Vaccine Aged Out N o longer eligible based on patient's age to complete this topic Meningococcal B Vaccine Aged Out No l onger eligible based on patient's age to complete this topic RSV Immunization Patients Under 20 months Aged Out No longer eligible based on patient's age to complete this topic Varicella Vaccines Aged Out No longer eligible based on patient's age to complete this topic Procedures Procedure Name Priority Date/Time Associated Diagnosis Comments POC GLUCOSE Routine 03/30/2025 8:46 AM EDT Type 2 diabetes mellitus without complication, without long-term current use of insulin ([facility] V24, [facility] V28) DIABETES FOOT EXAM Routine 08/10/2024 URINE ALBUMIN CREATININE RATIO Routine 08/01/2024 ANNUAL BMP BLOOD TEST Routine 08/01/2024 HEMOGLOBIN A1C Routine 08/01/2024 LIPID PANEL Routine 08/01/2024 DIABETES EYE EXAM Routine 07/26/2024 COLONOSCOPY Routine 06/21/2020 HEPATITIS C SCREENING Routine 01/29/2016 from Last 3 Months or Most Recently Relevant to Health Maintenance Results * (ABNORMAL) POC glucose manually resulted (03/30/2025 8:46 AM EDT) [facility] Glucose POC 240 mg/dL Blood Capillary blood specimen / Unknown 03/30/2025 8:[address] [facility] Lamar Mitchell PA POINT OF CARE TEST ENTER/EDIT OR DERABLES Final Result * Diabetes Foot Exam (08/10/2024) [facility] Diabetes: Annual Foot Exam abstracted Result [facility] Provider HEALTH MAINTENANCE Final Result * Urine Albumin Creatinine Ratio (08/01/2024) [facility] Urine Albumin Creatinine Ratio abstracted Result [facility] Provider HEALTH MAINTENANCE Final Result * Annual BMP Blood Test (08/01/2024) [facility] Annual BMP Blood Test abstracted Result [facility] Provider HEALTH MAINTENANCE Final Result * (ABNORMAL) Hemoglobin A1c (08/01/2024) [facility] Hemoglobin A1C 8.0(A) <=6.5 % Blood Venous blood specimen / Unknown Result [facility] Provider LAB BLOOD ORDERABLES Briana l Result * (ABNORMAL) Lipid panel (08/01/2024) [facility] LDL/HDL Ratio 4 0 - 4 Triglycerides 239(A) 0 - 150 mg/dL Cholesterol 137 0 - 200 mg/dL HDL 34(A) >=40 mg/dL LDL Cholesterol 56 0 - 100 mg/dL Blood Venous blood specimen / Unknown Result [facility] Provider LAB BLOOD ORDERABLES Briana l Result * Diabetes Eye Exam (07/26/2024) [facility] Diabetes: Annual Retina Eye Exam abstracted Result [facility] Provider HEALTH MAINTENANCE Final Result * Colonoscopy (06/21/2020) Colonoscopy no interpretation , abstracted Anatomical Region Laterality Modality Other Historical Provider HEALTH MAINTENANCE Final Result * Hepatitis C Screening (01/29/2016) Hepatitis C Screening abstracted us Historical Provider HEALTH MAINTENANCE Final Result from Last 3 Months or Most Recently Relevant to Health Maintenance [place] [address] [place] [phone] [facility] Care Teams Professor Of Graphic Design Relationship Specialty Start Date End Date Dorian Douglas PA [address] [place] [phone] PCP - General Internal Medicine 11/16/20
== END 2025-04-05 14:11 | disposition home or self-care (01) ==
LOC: HO.HCS 13:29
PROVIDERS: PCP Physician Assistant Medical; Visit Provider Internal Medicine Cardiovascular Disease
DX: I10 Essential (primary) hypertension (principal); I25.5 Ischemic cardiomyopathy; Z95.810 Presence of automatic (implantable) cardiac defibrillator
CPT/HCPCS: 93010; 99214

== ENCOUNTER → 2025-04-05 13:28 | Outpatient (BNVA) | payer OTHER, SELFPAY | PROVIDERS: PCP Physician Assistant Medical; Visit Provider Internal Medicine Cardiovascular Disease | DX: I10 Essential (primary) hypertension (principal); I25.5 Ischemic cardiomyopathy; I47.20 Ventricular tachycardia, unspecified; Z95.810 Presence of automatic (implantable) cardiac defibrillator; Z95.5 Presence of coronary angioplasty implant and graft | CPT/HCPCS: 93005 ==

== ENCOUNTER → 2025-04-25 23:59 | Outpatient (BNV) | payer OTHER, SELFPAY ==
--- NOTE | 2025-05-04 21:46 | MHC.OFFVIS ---
Intake Visit Reasons: Remote device check- [employer] Allergies Sulfa (Sulfonamide Antibiotics) (SULFA (SULFONAMIDE ANTIBIOTICS)) Allergy (Unknown, Verified 07/17/24 13:20) Redness of Skin PFSH Medical History (Updated 07/18/24 @ 00:00 by Mera Pugh) ICD (implantable cardioverter-defibrillator) in place Sustained VT (ventricular tachycardia) CAD (coronary artery disease) Ischemic cardiomyopathy Surgical History Stented coronary artery Hx of external ear surgery History of tonsillectomy Family History Other No known health problems Social History Household Members: Other Household Members Other:: partner Housing: House Do you presently have visiting nurse or other home services: No Alcohol intake: never Patient Tobacco Use Status: Never used Tobacco service: No Current occupational status: unemployed Office Procedures Cardiac Device Check Cardiac Device Check Details: HF monitoring Good battery life Stable thoracic impedance. [id number] Cardiac Device Interrogation, cardio physiologic monitor Procedure code (CPT) selection complete Assessment & Plan Assessment & Plan (1) Ischemic cardiomyopathy: Code(s): I25.5 - Ischemic cardiomyopathy Category: Medical Plan: Coding Level of Care Code Procedure Only Diagnoses Ischemic cardiomyopathy I25.5 CPT Codes Cardiac Device Check - Cardiac Device 15: [id number] Cardiac Device Interrogation, cardio physiologic monitor ([id number])
== END ==
PROVIDERS: PCP Physician Assistant Medical; Visit Provider Internal Medicine Cardiovascular Disease
DX: I25.5 Ischemic cardiomyopathy (principal); Z95.810 Presence of automatic (implantable) cardiac defibrillator
CPT/HCPCS: 93297

== ENCOUNTER → 2025-05-11 23:59 | Outpatient (BNV) | payer OTHER, SELFPAY ==
--- NOTE | 2025-06-06 16:43 | A.OFFVIS_ITS ---
Intake Visit Reasons: Remote device check- [employer] Allergies Sulfa (Sulfonamide Antibiotics) (SULFA (SULFONAMIDE ANTIBIOTICS)) Allergy (Unknown, Verified 07/17/24 13:20) Redness of Skin [facility] Medical History (Updated 07/18/24 @ 00:00 by Mera Pugh) ICD (implantable cardioverter-defibrillator) in place Sustained VT (ventricular tachycardia) CAD (coronary artery disease) Ischemic cardiomyopathy Surgical History Stented coronary artery Hx of external ear surgery History of tonsillectomy Family History Other No known health problems Social History Household Members: Other Household Members Other:: partner Housing: House Do you presently have visiting nurse or other home services: No Alcohol intake: never Patient Tobacco Use Status: Never used Tobacco service: No Current occupational status: unemployed Office Procedures Cardiac Device Check Cardiac Device Check Details: ICD Good battery No new alerts. [id number] Cardiac Device Interrogation, pacemaker or defibrillator Procedure code (CPT) selection complete Assessment & Plan Assessment & Plan (1) Ischemic cardiomyopathy: Code(s): I25.5 - Ischemic cardiomyopathy Category: Medical Plan Coding Level of Care Code Procedure Only Diagnoses Ischemic cardiomyopathy I25.5 CPT Codes Cardiac Device Check - Cardiac Device 14: [id number] Cardiac Device Interrogation, pacemaker or defibrillator ([id number])
== END ==
PROVIDERS: PCP Physician Assistant Medical; Visit Provider Internal Medicine Cardiovascular Disease
DX: I25.5 Ischemic cardiomyopathy (principal); Z95.810 Presence of automatic (implantable) cardiac defibrillator
CPT/HCPCS: 93295

== ENCOUNTER → 2025-05-18 12:48 | Outpatient (REF) | payer OTHER, SELFPAY ==
--- NOTE | 2025-05-18 12:51 | CA_ITS ---
Transthoracic Echocardiogram Patient (Last, First, Middle): [place] D Gender: Male Date of : 1945 Age: 79 Procedure Date: 05/18/2025 Procedure Type: Transthoracic Echocardiogram Location: OP Height: 172.72 cm Weight: 90.72 kg BSA: 2.04 m2 Heart Rate: 67 bpm BP: 130 / 60 mmHg Director Process Improvement: BRANDYN/VEE Referring MD: Sunny Issa MD Cryptologic Linguist: Sunny Issa MD Symptoms: I25.5 - Ischemic cardiomyopathy Study Quality: Fair ECG Rhythm: Sinus Conclusions: - Normal left ventricular cavity size. There is normal left ventricular wall thickness. The left ventricular systolic function is mildly decreased. The visually estimated ejection fraction is between 40-45%. - Elevated filling pressures. - The inferior wall and inferolateral wall are akinetic. - Normal right ventricular cavity size and systolic function. Findings Left Ventricle Normal left ventricular cavity size. There is normal left ventricular wall thickness. The left ventricular systolic function is mildly decreased. The visually estimated ejection fraction is between 40-45%. There is evidence of regional wall motion abnormalities. Abnormal diastolic function is noted. Spectral Doppler is indicative of an impaired relaxation filling pattern. Elevated filling pressures. Wall Motion Rest Echo Findings The inferior wall and inferolateral wall are akinetic. Right Ventricle Normal right ventricular cavity size and systolic function. There is an ICD wire seen in the right ventricle. Atria The left atrium is normal in size. The right atrium is normal in size. Aortic Valve There is no aortic valve stenosis. There is trace (trivial) aortic valve regurgitation. Mitral Valve The mitral valve appears normal. There is trace mitral valve regurgitation. There is no mitral valve stenosis. Pulmonic Valve Normal pulmonic valve structure and function. There is no pulmonic valve regurgitation. Tricuspid Valve Normal tricuspid valve structure. There is no tricuspid valve regurgitation. Tricuspid regurgitation envelope is inadequate for calculation of right ventricular systolic pressure. Normal right atrial pressure. Great Vessels All visible segments of the aorta are normal in size. The visualized portions of the pulmonary artery and branches are normal. Venous The inferior vena cava is normal in size and collapses greater than 50% with inspiration. Pericardium/Pleural There is no evidence of pericardial effusion. Prior Study Comparison No significant change compared to prior study dated: 04/30/2023. Measurements 2D Linear Measurements IVSd: 1.08 0.6-0.9/0.6-1.0 cm LVIDd: 5.73 3.9-5.3/4.2-5.9 cm LVIDd Index: 2.81 2.4-3.2/2.2-3.1 cm/m2 LVIDs: 4.49 2.0-3.6 cm LVPWd: 0.98 0.7-1.1 cm LA Diam: 4.10 2.7-3.8/3.0-4.0 cm LAIDs Index: 2.01 1.5-2.3 cm/m2 LV Mass: 296.74 67-162/88-224 g LV Mass Index: 145.46 43-95/49-115 g/m2 LVOT Diam: 2.40 3.0+(-)1.3 cm 2D Systolic Function EF 4C: 44.60 >55% EF 2C: 44.50 >55% EF BiP: 46.00 >55% Mitral Valve MV Pk E: 0.72 MV PK A: 0.81 MV Decel Time: 240.00 E/A: 0.90 E'Lateral: 6.31 E'Medial: 3.70 E/E' Med: 19.40 E/E' Lat: 11.30 PHT: 70.00 MVA PHT: 3.14 Decel Reynolds: 2.98 Aortic Valve AoV Pk Gabe: 1.05 AoV Mn Gabe: 0.87 AoV VTI: 0.25 AoV Pk Grad: 4.00 Aov Mn Grad: 3.00 BRENDAN Cont.VTI: 2.38 LVOT LVOT Pk Gabe: 0.62 LVOT Mn Gabe: 0.43 LVOT VTI: 0.13 LVOT Pk Grad: 2.00 LVOT Mn Grad: 1.00 LVOT Diam: 2.40 LVOT Area: 4.52 Diastolic Function MV Pk E: 0.72 MV Pk A: 0.81 E/A: 0.90 E'Medial: 3.70 E/E' Med: 19.40 E' Laterial: 6.31 E/E' Lat: 11.30 Right Ventricle TAPSE (mm): 16.50 TVS' Gabe: 12.00 Tricuspid Valve TR Pk Gabe: 2.03 TR Pk Grad: 16.00 Great Vessels Aorta Sinus of Valsalva: 3.80 2.0-3.5 cm Ao Asc: 3.30 2.1-3.4 cm Pulmonary Valve PV Pk Gabe: 0.77 Peak PV Grad: 2.00 WV Pk Gabe: 0.98 Updated in Other Vendor System with Status of Final Sunny Issa MD electronically signed on 05/21/2025 5:56:08 PM with status of Final
--- OUTSIDE RECORDS SUMMARY | 2025-05-18 12:52 | XMS_ITS | Clinical Summary ---
Author Organization [facility] [address] [facility] Address [address] [place] [address] Phone Care Team Providers Care Felled Seam Operator Name Role Phone Dorian Douglas Primary Care Provider [phone] Allergies Active Allergy Reactions Criticality Noted Date [...] flash glucose scanning reader (FreeStyle Dave 2 [place]) misc 1 UNITS BY DOES NOT APPLY [...] APPLY ROUTE EVERY 14 DAYS 2 each 11 5 Active Active Problems Problem Noted Date Diagnosed Date Basal cell carcinoma of right ala nasi 4 Diabetes mellitus type 2, un complicated ([facility] V24, [facility] V28) 03/09/2023 Coronary artery disease due to [...] kidney stones lithotripsy 2013 and 2019 in [place] Pure hypercholesterolemia 09/08/2005 Encounters Date Type Department Care Team Description 03/30/2025 8:30 AM EDT Office Visit Adult Medicine [address] [phone] Lamar Mitchell, PA Type 2 diabetes mellitus without complication, without long-term current use of insulin ([facility] V24, [facility] V28) (Primary Dx); Mixed hyperlipidemia; Stage 3a chronic kidney disease ([facility] V24, [facility] V28); History of non-ST elevation myocardial infarction (NSTEMI); Benign prostatic hyperplasia without lower urinary tract symptoms; Restless leg syndrome; Colon cancer screening 03/30/2025 Telephone Adult Medicine [address] [phone] Lamar Mitchell PA Med Refill 03/27/2025 Telephone Adult Medicine [address] [phone] Dorian Douglas PA Labs Only from Last [...] care for your loved ones. For example, child care worker or elderly care for an older adult? [...] 70 03/30/2025 8:18 AM EDT Temperature 36.2 C (97.2 F) 03/30/2025 8:18 AM EDT Respiratory Rate 16 03/30/2025 8:18 AM EDT [...] 05/30/2025 8:40 AM EDT Consult Gastroenterology - [place] [address] [phone] Pamela Cruz NP 175 [facility] [address] [place] [address] 09/06/2025 10:45 AM EDT Office Visit Adult Medicine [address] [phone] Dorian Douglas, [place] [address] [place] [id number] Health Maintenance Due Date Last Done Comments COVID-19 Vaccine (7 - Moderna risk 2023- season) 2025 07/15/2024, 04/29/2023, 07/30/2022, Additional history exists Diabetes: Blood Sugar Control Test (HGBA1C) 01/29/2025 08/01/2024, 08/01/2024 Colorectal Cancer Screening: Colonoscopy 06/21/2025 06/21/2020 Influenza Vaccine (#1) 2025 , 07/17/2022, 07/11/2021, Additional history exists Diabetes: Annual Retina Eye Exam 07/26/2025 07/26/2024 [...] 01/29/2016 Zoster Vaccines Completed 04/15/2021, 11/09, 02/07/2015 RSV Immunization Adult Patients Completed 08/02/2024 HIB [...] complication, without long-term current use of insulin ([facility] V24, [facility] V28) DIABETES FOOT EXAM Routine 08/10/2024 URINE ALBUMIN CREATININE RATIO Routine 08/01/2024 ANNUAL BMP BLOOD TEST Routine 08/01/2024 HEMOGLOBIN A1C Routine 08/01/2024 LIPID PANEL Routine 08/01/2024 DIABETES EYE EXAM Routine 07/26/2024 COLONOSCOPY Routine 06/21/2020 HEPATITIS C SCREENING Routine 01/29/2016 from Last 3 Months or Most Recently Relevant to Health Maintenance Results * (ABNORMAL) POC glucose manually resulted (03/30/2025 8:46 AM EDT) [facility] Glucose POC 240 mg/dL Blood Capillary blood specimen / Unknown 03/30/2025 8:46 AM EDT us Lamar RUVALCABA POINT OF CARE TEST ENTER/EDIT OR DERABLES Final Result * Diabetes Foot Exam (08/10/2024) [facility] Diabetes: Annual Foot Exam abstracted Historical Provider HEALTH MAINTENANCE Final Result * Urine Albumin Creatinine Ratio (08/01/2024) [facility] Urine Albumin Creatinine Ratio abstracted Historical Provider HEALTH MAINTENANCE Final Result * Annual BMP Blood Test (08/01/2024) [facility] Annual BMP Blood Test abstracted Historical Provider HEALTH MAINTENANCE Final Result * (ABNORMAL) Hemoglobin A1c (08/01/2024) [facility] Hemoglobin A1C 8.0(A) <=6.5 % Blood Venous blood specimen / Unknown Result [facility] Provider LAB BLOOD ORDERABLES Briana l Result * (ABNORMAL) Lipid panel (08/01/2024) [facility] LDL/HDL Ratio 4 0 - 4 Triglycerides 239(A) 0 - 150 mg/dL Cholesterol 137 0 - 200 mg/dL HDL 34(A) >=40 mg/dL LDL Cholesterol 56 0 - 100 mg/dL Blood Venous blood specimen / Unknown Result [facility] LAB BLOOD ORDERABLES Briana l Result * Diabetes Eye Exam (07/26/2024) [facility] Diabetes: Annual Retina Eye Exam abstracted Result [facility] Provider HEALTH MAINTENANCE Final Result * Colonoscopy (06/21/2020) [facility] Colonoscopy no interpretation , abstracted Anatomical Region Laterality Modality Other Result [facility] Provider HEALTH MAINTENANCE Final Result * Hepatitis C Screening (01/29/2016) [facility] Hepatitis C Screening abstracted Result [facility] HEALTH MAINTENANCE Final Result from Last 3 Months or Most Recently Relevant to Health Maintenance [place] [address] [place] [id number] [facility] Care Teams Felled Seam Operator Relationship Specialty Start Date End Date Dorian Douglas PA [address] [place] [address] PCP - General Internal Medicine 11/16/20
== END ==
LOC: HO.CARD 12:48
PROVIDERS: PCP Physician Assistant Medical; Visit Provider Internal Medicine
DX: I25.5 Ischemic cardiomyopathy (principal)
CPT/HCPCS: 93306

== ENCOUNTER → 2025-05-18 12:51 | Outpatient (BNV) | payer OTHER, SELFPAY | PROVIDERS: PCP Physician Assistant Medical; Visit Provider Internal Medicine Cardiovascular Disease | DX: I25.5 Ischemic cardiomyopathy (principal) | CPT/HCPCS: 93306 ==

== ENCOUNTER → 2025-05-22 23:59 | Outpatient (BNV) | payer OTHER, SELFPAY ==
--- NOTE | 2025-06-25 21:02 | MHC.OFFVIS ---
Intake Visit Reasons: Remote device check- [employer] Allergies Sulfa (Sulfonamide Antibiotics) (SULFA (SULFONAMIDE ANTIBIOTICS)) Allergy (Unknown, Verified 07/17/24 13:20) Redness of Skin [facility] Medical History (Updated 07/18/24 @ 00:00 by Mera Pugh) ICD (implantable cardioverter-defibrillator) in place Sustained VT (ventricular tachycardia) CAD (coronary artery disease) Ischemic cardiomyopathy Surgical History Stented coronary artery Hx of external ear surgery History of tonsillectomy Family History Other No known health problems Social History Household Members: Other Household Members Other:: partner Housing: House Do you presently have visiting nurse or other home services: No Alcohol intake: never Patient Tobacco Use Status: Never used Tobacco service: No Current occupational status: unemployed Office Procedures Cardiac Device Check Cardiac Device Check Details: ICD Good battery life No new alerts [id number] Cardiac Device Interrogation, pacemaker or defibrillator Procedure code (CPT) selection complete Assessment & Plan Assessment & Plan (1) ICD (implantable cardioverter-defibrillator) in place: Comment: [employer]ik single-chamber ICD, secondary prevention, implanted 05/10/2021 Code(s): Z95.810 - Presence of automatic (implantable) cardiac defibrillator Category: Medical Plan Coding Level of Care Code Procedure Only Diagnoses ICD (implantable cardioverter-defibrillator) in place Z95.810 CPT Codes Cardiac Device Check - Cardiac Device 14: [id number] Cardiac Device Interrogation, pacemaker or defibrillator ([id number])
== END ==
PROVIDERS: PCP Physician Assistant Medical; Visit Provider Internal Medicine Cardiovascular Disease
DX: Z45.02 Encounter for adjustment and management of automatic implantable cardiac defibrillator (principal)
CPT/HCPCS: 93295

== ENCOUNTER → 2025-06-16 23:59 | Outpatient (BNV) | payer OTHER, SELFPAY ==
--- NOTE | 2025-06-25 20:23 | MHC.OFFVIS ---
Intake Visit Reasons: Remote HF monitoring- [employer] Allergies Sulfa (Sulfonamide Antibiotics) (SULFA (SULFONAMIDE ANTIBIOTICS)) Allergy (Unknown, Verified 07/17/24 13:20) Redness of Skin [facility] Medical History (Updated 07/18/24 @ 00:00 by Mera Pugh) ICD (implantable cardioverter-defibrillator) in place Sustained VT (ventricular tachycardia) CAD (coronary artery disease) Ischemic cardiomyopathy Surgical History Stented coronary artery Hx of external ear surgery History of tonsillectomy Family History Other No known health problems Social History Household Members: Other Household Members Other:: partner Housing: House Do you presently have visiting nurse or other home services: No Alcohol intake: never Patient Tobacco Use Status: Never used Tobacco service: No Current occupational status: unemployed Office Procedures Cardiac Device Check Cardiac Device Check Details: HF monitoring Stable thoracic impedance. [id number] Cardiac Device Interrogation, cardio physiologic monitor Procedure code (CPT) selection complete Assessment & Plan Assessment & Plan (1) ICD (implantable cardioverter-defibrillator) in place: Comment: [employer]ik single-chamber ICD, secondary prevention, implanted 05/10/2021 Code(s): Z95.810 - Presence of automatic (implantable) cardiac defibrillator Category: Medical Plan Coding Level of Care Code Procedure Only Diagnoses ICD (implantable cardioverter-defibrillator) in place Z95.810 CPT Codes Cardiac Device Check - Cardiac Device 15: [id number] Cardiac Device Interrogation, cardio physiologic monitor ([id number])
== END ==
PROVIDERS: PCP Physician Assistant Medical; Visit Provider Internal Medicine Cardiovascular Disease
DX: Z45.02 Encounter for adjustment and management of automatic implantable cardiac defibrillator (principal)
CPT/HCPCS: 93297

== ENCOUNTER 2025-07-18 18:09 | Inpatient (IN) | payer OTHER, SELFPAY ==
--- NOTE | ~2025-07-18 | CT_ITS ---
CLINICAL HISTORY: LLQ pain, diverticulitis CT abdomen and pelvis without contrast Comparison: None provided Findings: Mild bibasilar atelectasis and emphysematous changes of the imaged lung bases. Small pericardial effusion with borderline cardiomegaly. Cardiac leads and additional superficial metal noted with associated metal artifacts. Mild-moderate left-sided hydroureteronephrosis with with 5 mm stone in the lower portion of the left ureter. No right-sided hydronephrosis. Vascular calcifications are multifocal. Bilateral perinephric stranding, left worse than right. Multiple additional bilateral nephrolithiasis are nonobstructing in the small measuring up to 4 mm. The adrenal glands are normal. The spleen is nonenlarged. Mild volume loss of the pancreas noted. Gallbladder is distended. Question mild liver surface nodularity accounting for artifacts. Small mesenteric nodes are nonspecific and may be reactive. No small bowel obstruction. Severe stool burden is present, including the cecum. Wall thickening of the sigmoid colon is nonspecific multiple diverticula. Imaged appendix is within normal limits (image 542 of series 4). Right inguinal hernia contains fat, mesentery, and 10 cm of small intestine. No associated acute inflammatory stranding at this time. Prostate gland measures 5.9 cm transverse. Moderate wall thickening of the urinary bladder is nonspecific. Degenerative disc changes and facet arthropathy are multifocal. Mild-moderate osteoarthritis of the hips. IMPRESSION: 1. Mild-moderate left-sided hydroureteronephrosis with 5 mm stone in the lower portion of the left ureter. 2. Additional small nonobstructing nephrolithiasis. 3. Right inguinal hernia containing small intestine. No small bowel obstruction. 4. Severe stool burden. This document has been electronically signed by: William Pruitt MD on 07/18/2025 23:27:05
--- NOTE | ~2025-07-18 | FL_ITS ---
EXAMINATION: FL GUIDANCE ONLY HISTORY: Left ureteral stone COMPARISON: None available. TECHNIQUE: Fluoroscopy time: 10.3 seconds. Cumulative Dose: 3.0757 mGy. DAP: 1.3379 mGym2 Images: 2. FINDINGS: Fluoroscopic spot films of the left abdomen demonstrate a nephroureteral stent in place. There is a small amount of contrast in the left renal collecting system. FL/FL guidance in OR IMPRESSION: Fluoroscopy during procedure. Please see procedure report for additional information. Electronically signed by: Devan Larsen MD 07/21/2025 07:08 AM EDT
--- NOTE | ~2025-07-18 | XR_ITS ---
CLINICAL HISTORY: SOB 2 view chest x-ray Comparison: CR/SR - XR CHEST 2V - 07/17/24 13:35 EDT Findings: Left-sided pacer. The lungs are clear. Heart size is normal. No acute fracture. IMPRESSION: 1. No acute findings. This document has been electronically signed by: Maximiliano Henry MD on 07/18/2025 20:54:23
[2025-07-18 20:01] VITALS: BP 175/76; PULSE 66; RESP 16; TEMP 36.6; O2SAT 99; BMI 29.5
--- NOTE | 2025-07-18 20:04 | ECG_ITS ---
Test Reason : ABDOMINAL PAIN Blood Pressure : */* mmHG Vent. Rate : 69 BPM Atrial Rate : 69 BPM P-R Int : 138 ms QRS Dur : 108 ms QT Int : 388 ms P-R-T Axes : 51 -19 25 degrees QTcB Int : 415 ms Normal sinus rhythm Nonspecific T wave abnormality Abnormal ECG When compared with ECG of 17-Jul-2024 13:10, No significant change was found Referred By: Christiane Jessica Electronically Signed By: LORENZO ESCALANTE MD
--- NOTE | 2025-07-18 20:04 | ED.GENADULT ---
HPI - General Adult General Chief complaint: Abdominal Pain Stated complaint: hot and cold flashes/rt side pain Time Seen by Provider: 07/18/25 21:31 Source: patient Limitations: no limitations History of Present Illness ED Provider: Fely Lopez PA-C HPI narrative: 79-year-old male with a history of kidney stones, hypertension, hyperlipidemia, diabetes, known coronary artery disease, prior sustained V-tach, ischemic cardiomyopathy status post ICD, systolic heart failure with the EF of 40-45% ECHO 05/2025 who presents with the abdominal pain since earlier today. Pain is focal to the left lower abdomen, unable to describe the nature of his discomfort. The pain does not migrate, but it does fluctuate in intensity, becoming severe at times. Associated diaphoresis when the pain becomes severe, and nausea. Denies diarrhea or fever. Denies abdominal distention, inability to pass flatus from below or constipation. Denies flank pain, back pain, dysuria or hematuria. Related Data Home Medications ?Medication ?Instructions ?Recorded ?Confirmed multivitamin 1 tab PO DAILY 12/27/20 04/05/25 ropinirole 1 mg tablet 1 mg PO BEDTIME 12/27/20 04/05/25 metformin 500 mg tablet 500 mg PO DAILY 09/05/24 04/05/25 Previous Rx's ?Medication ?Instructions ?Recorded aspirin 81 mg tablet,delayed 81 mg PO DAILY 90 days #90 tabs 08/13/21 release atorvastatin 40 mg tablet 40 mg PO DAILY #90 tabs 10/07/21 losartan 50 mg tablet 50 mg PO BEDTIME 90 days #90 tabs 06/30/22 ezetimibe 10 mg tablet 10 mg PO DAILY #90 tabs 09/19/22 carvedilol 25 mg tablet 25 mg PO BID #180 tabs 09/05/24 mexiletine 150 mg capsule 150 mg PO Q12H #180 caps 09/19/24 clopidogrel 75 mg tablet 75 mg PO DAILY #90 tabs 02/06/25 Allergies Allergy/AdvReac Type Severity Reaction Status Date / Time Sulfa (Sulfonamide Allergy Unknown Redness of Verified 07/18/25 20:04 Antibiotics) (SULFA Skin (SULFONAMIDE ANTIBIOTICS)) Review of Systems Review of Systems: Yes all other systems are reviewed and are negative Constitutional: Constitutional: Denies fatigue and Denies fever(s) Cardiovascular: Cardiovascular: Denies chest pain and Denies dyspnea Respiratory: Respiratory: Denies cough and Denies dyspnea Gastrointestinal: Gastrointestinal: Reports abdominal pain, Denies constipation, Denies diarrhea, Denies nausea and Denies vomiting Genitourinary: Genitourinary: Denies hematuria, Denies oliguria, Denies dysuria and Denies flank pain Musculoskeletal: Musculoskeletal: Denies back pain Endocrine: Endocrine: Denies fatigue PMFSH Past Medical History Attestation statement: The following information was validated with the patient. Medical History (Updated 07/19/25 @ 02:50 by PEG Aviles) ICD (implantable cardioverter-defibrillator) in place Sustained VT (ventricular tachycardia) CAD (coronary artery disease) Ischemic cardiomyopathy Surgical History Stented coronary artery Hx of external ear surgery History of tonsillectomy Family History Family History Other No known health problems Social History Social History Household Members: Other Household Members Other:: partner Housing: House Do you presently have visiting nurse or other home services: No Alcohol intake: never Patient Tobacco Use Status: Never used Tobacco Smoked in Last 30 Days: No Use of substances other than those prescribed or required for medical reasons: No Advance Directives: No Advance Directives Information Provided: No service: No Current occupational status: unemployed Physical Exam ED Vital Signs: Vital Signs - 24 hr 07/18/25 20:01 07/18/25 21:12 07/18/25 22:41 Temperature 97.8 F 98.4 F Pulse Rate 66 77 89 Respiratory Rate 16 18 16 Blood Pressure 175/76 H 172/66 H 153/78 H Pulse Oximetry 99 97 95 Oxygen Delivery Method Room Air Room Air 07/19/25 02:12 Temperature 98.3 F Pulse Rate 99 Respiratory Rate 12 Blood Pressure 124/73 Pulse Oximetry 96 Oxygen Delivery Method Room Air BMI result Body Mass Index 29.5 Const Other: Alert Orientation/consciousness: patient oriented x3 Resp Effort & Inspection: normal respiratory effort Cardio Other: Normal peripheral perfusion GI Other: Abdomen is soft, nontender nondistended no guarding with deep palpation General: Yes no CVA tenderness Back/Spine/Pelvis Back: no CVA tenderness Skin Other: Warm dry no rash Neuro General: patient oriented x3, gait normal, no focal motor deficits and CN's II-XI intact bilaterally Psych Other: Cooperative Course Course Course Narrative: This is an RME: Additional HPI, ROS, PE not included below will be deferred to primary provider. RME assessment and note performed by: Christiane Jessica PA-C This is a 4-ovoe-gxr-male, with a hx of FL with stents and ICD, CAD, HTN, who presents to the ER with complaints of nausea, and dry heaves, also endorsing llq pain. ABd is soft with TTP in the LLQ. Plan: Labs, UA, EKG, CXR, further ER eval needed Medications Administered Discontinued Medications Generic Name Dose Route Start Last Admin Trade Name Freq PRN Reason Stop Dose Admin Ceftriaxone Sodium 2 gm 07/19/25 00:06 07/19/25 00:50 Ceftriaxone Sodium 2 Gm Vial IVPUSH 07/19/25 00:07 2 gm ONCE ONE Administration Sodium Chloride 500 mls @ 500 mls/hr 07/18/25 21:56 07/18/25 23:26 Ns IV 07/18/25 22:55 Infused .Q1H ONE Infusion Morphine Sulfate 4 mg 07/18/25 21:56 07/18/25 22:26 Morphine Sulfate 4 Mg/Ml Cartridge IVPUSH 07/18/25 21:57 4 mg ONCE ONE Administration Protocol Morphine Sulfate 4 mg 07/19/25 01:01 07/19/25 01:24 Morphine Sulfate 4 Mg/Ml Cartridge IVPUSH 07/19/25 01:02 4 mg ONCE ONE Administration Protocol Ondansetron HCl 4 mg 07/18/25 21:56 07/18/25 22:26 Ondansetron Hcl 4 Mg/2 Ml Vial IVPUSH 07/18/25 21:57 4 mg ONCE ONE Administration Medical Decision Making Medical Decision Making [facility] Narrative: 79-year-old male with a history of kidney stones, hypertension, hyperlipidemia, diabetes, known coronary artery disease, prior sustained V-tach, ischemic cardiomyopathy status post ICD, systolic heart failure with the EF of 40-45% ECHO 05/2025 who presents with the abdominal pain since earlier today. Pain is focal to the left lower abdomen, unable to describe the nature of his discomfort. The pain does not migrate, but it does fluctuate in intensity, becoming severe at times. Associated diaphoresis when the pain becomes severe, and nausea. Denies diarrhea or fever. Denies abdominal distention, inability to pass flatus from below or constipation. Denies flank pain, back pain, dysuria or hematuria. Problem: Age, kidney stones, vascular disease, diabetes History: Per patient I have considered the following differential diagnoses: Diverticulitis, bowel obstruction, renal colic, UTI, pyelonephritis Plan: Patient here with focal left lower abdominal discomfort, without any associated symptoms. Could be renal colic, he has a history of kidney stones, although he is not complaining of back pain flank pain, or related symptoms. Doubtful to be pyelonephritis, he has no CVA tenderness. He is just giving a urine sample now, screening labs were already collected. He has no diarrhea to suggest diverticulitis, he does not have any obstructive symptoms to suggest SBO. We will be obtaining a CT scan. He does have a leukocytosis. He also has a slight bump in his creatinine, we will be giving gentle IV fluid hydration, his EF is only 40%. I have independently reviewed the following tests: Labs: Leukocytosis of 15.8 with left shift, not anemic, slight bump in creatinine at 1.65, no additional electrolyte abnormalities, lactic 1.7, urine infected passing a large amount of hematuria it is very discolored, viral panel negative CT abdomen and pelvis:Findings: Mild bibasilar atelectasis and emphysematous changes of the imaged lung bases. Small pericardial effusion with borderline cardiomegaly. Cardiac leads and additional superficial metal noted with associated metal artifacts. Mild-moderate left-sided hydroureteronephrosis with with 5 mm stone in the lower portion of the left ureter. No right-sided hydronephrosis. Vascular calcifications are multifocal. Bilateral perinephric stranding, left worse than right. Multiple additional bilateral nephrolithiasis are nonobstructing in the small measuring up to 4 mm. The adrenal glands are normal. The spleen is nonenlarged. Mild volume loss of the pancreas noted. Gallbladder is distended. Question mild liver surface nodularity accounting for artifacts. Small mesenteric nodes are nonspecific and may be reactive. No small bowel obstruction. Severe stool burden is present, including the cecum. Wall thickening of the sigmoid colon is nonspecific multiple diverticula. Imaged appendix is within normal limits (image 542 of series 4). Right inguinal hernia contains fat, mesentery, and 10 cm of small intestine. No associated acute inflammatory stranding at this time. Prostate gland measures 5.9 cm transverse. Moderate wall thickening of the urinary bladder is nonspecific. Degenerative disc changes and facet arthropathy are multifocal. Mild-moderate osteoarthritis of the hips. IMPRESSION: 1. Mild-moderate left-sided hydroureteronephrosis with 5 mm stone in the lower portion of the left ureter. 2. Additional small nonobstructing nephrolithiasis. 3. Right inguinal hernia containing small intestine. No small bowel obstruction. 4. Severe stool burden Given the findings, obtaining blood cultures, lactic, starting ceftriaxone,. Differential Diagnosis Differential Diagnoses: The differential diagnosis associated with the presentation includes See medical decision making Admission/Observation Consideration of admission/observation: Escalation of care including admission/observation considered We will be admitted, we will require Urology during his hospitalization Consult Healthcare Provider Management of the patient was discussed with: Hospitalist Lab Data MDM Lab Attestation statement: I reviewed the patient's lab results. 07/18/25 20:39 07/18/25 20:39 Labs: Lab Results 07/18/25 07/18/25 07/19/25 Range/Units 20:39 22:06 00:42 WBC 15.8 H (4.8-10.8) X10*3/uL RBC 5.21 (4.60-5.80) X10*6/uL Hgb 15.1 (14.0-18.0) g/dl Hct 44.8 (42.0-52.0) % MCV 86.0 (80.0-98.0) fL MCH 29.0 (27.0-33.0) pg MCHC 33.7 (31.0-36.0) g/dl RDW 13.3 (11.0-16.0) % Plt Count 196 (160-400) X10*3/uL MPV 10.5 (9.4-12.4) fL Immature Gran % (Auto) 0.4 (0.0-0.4) % Neut % (Auto) 84.2 H (45-73) % Lymph % (Auto) 8.5 L (20-40) % Caswell % (Auto) 6.5 (2-11) % Eos % (Auto) 0.1 (0-4) % Baso % (Auto) 0.3 (0-2) % Lymph # (Auto) 1.3 (1.2-4.9) X10*3/uL [place]well # (Auto) 1.0 (0.1-1.2) X10*3/uL Eos # (Auto) 0.0 (0.0-0.4) X10*3/uL Baso # (Auto) 0.1 (0.0-0.2) X10*3/uL Abs Immat Gran (auto) 0.06 H (0.00-0.03) X10*3/uL Absolute Neuts (auto) 13.3 H (2.0-8.3) x10*3/uL Absolute Nucleated RBC 0.000 (0.0-0.012) X10*3/uL Nucleated RBC % (auto) 0.0 (0.0-0.2) /100WBC Sodium 141 (135-145) mmol/L Potassium 4.7 (3.3-5.1) mmol/L Chloride 106 (96-108) mmol/L Carbon Dioxide 24 (22-29) mmol/L Anion Gap 16 (12-20) BUN 20 H (9-16) mg/dL Creatinine 1.65 H (0.5-1.4) mg/dL Estim Creat Clear Calc 40.4 Estimated GFR 41 Random Glucose 135 H (60-115) mg/dL Lactic Acid 1.7 (0.5-2.0) mmol/L Calcium 9.3 (8.4-10.2) mg/dL Magnesium 2.1 (1.6-2.6) mg/dL Total Bilirubin 1.2 H (0.0-1.0) mg/dL Direct Bilirubin 0.4 (0.0-0.5) mg/dL AST 27 (5-37) U/L ALT 23 (0-40) U/L Alkaline Phosphatase 104 (39-117) U/L Troponin I High Sens 16.8 (<3.5-35.0) ng/L B-Natriuretic Peptide 103 H (<100) pg/mL Total Protein 7.3 (6.5-8.0) g/dL Albumin 4.3 (3.5-5.0) g/dL Lipase 26 (8-78) U/L Urine Color Red A Urine Appearance Cloudy Urine pH 8.5 (5.0-9.0) Ur Specific [place] 1.020 (1.005-1.025) Urine Protein 30 (1+) H (Neg-Trace) mg/dL Urine Glucose (UA) Negative (Negative) mg/dL Urine Ketones Trace (Negative) mg/dL Urine Blood Large (3+) H (Negative) Urine Nitrite Negative (Negative) Ur Leukocyte Esterase Moderate (2+) H (Negative) Urine RBC >20 H (0-2) /HPF Urine WBC >50 H (0-5) /HPF Ur Squamous Epith Cells 0-2 (0-2) /HPF Urine Bacteria None Seen (None Seen) Hyaline Casts 0-2 (0-2) /LPF COVID-19 (RENA) Cancelled COVID-19 Clin Com Cancelled Influenza Type A (INDRA) Negative (Negative) Influenza Type A (PCR) NEGATIVE (Negative) Influenza Type B (INDRA) Negative (Negative) Influenza Type B (PCR) NEGATIVE (Negative) Influenza A & B Note See Note RSV RNA Qual (PCR) NEGATIVE (Negative) SARS-CoV-2 RNA (RT-PCR) NEGATIVE (Negative) Radiology Impression Discussion of test interpretation with radiology: I have reviewed the radiologist's reading. Critical Care Time Critical Care Time Critical Care Time: Yes Total Critical Care Time: 35 Attestation: I Patti Lopez PA-C have personally performed 35 minutes of critical care time not including lines and procedures; renal colic, ureteral stone, UTI, TYLER need for admission, Urology consult etc. Discharge Plan Discharge Clinical Impression: Calculus of left ureter, Hydroureter on left, TYLER (acute kidney injury), Acute UTI, Constipation Patient Disposition: Admitted As Inpatient Print Language: Georgian
[2025-07-18 20:51] LABS: MANUAL DIFF FLAG NO
[2025-07-18 20:53] LABS: Hematocrit 44.8 % (42.0-52.0); Hemoglobin 15.1 g/dl (14.0-18.0); Imm Gran Abs Auto 0.06 X10*3/uL (0.00-0.03); Imm Gran Pct Auto 0.4 % (0.0-0.4); Lymphocytes Absolute Auto 1.3 X10*3/uL (1.2-4.9); Mean Corpuscular HGB Conc 33.7 g/dl (31.0-36.0); Mean Corpuscular Hemoglobin 29.0 pg (27.0-33.0); Mean Corpuscular Volume 86.0 fL (80.0-98.0); NRBC Abs Auto 0.000 X10*3/uL (0.0-0.012); NRBC Pct Auto 0.0 /100WBC (0.0-0.2); Platelet Count 196 X10*3/uL (160-400); Red Blood Count 5.21 X10*6/uL (4.60-5.80); White Blood Count 15.8 X10*3/uL (4.8-10.8)
[2025-07-18 21:07] LABS: Alanine Aminotransferase 23 U/L (0-40); Albumin Level 4.3 g/dL (3.5-5.0); Alkaline Phosphatase 104 U/L (39-117); Anion Gap 16 (12-20); Aspartate Amino Transferase 27 U/L (5-37); Blood Urea Nitrogen 20 mg/dL (9-16); Calcium 9.3 mg/dL (8.4-10.2); Carbon Dioxide 24 mmol/L (22-29); Chloride 106 mmol/L (96-108); Creatinine Clr Calc Pharmacy 40.4; Estimated Glomerular Filt Rate 41; Lipase 26 U/L (8-78); Magnesium 2.1 mg/dL (1.6-2.6); Potassium 4.7 mmol/L (3.3-5.1); Sodium 141 mmol/L (135-145); Total Protein 7.3 g/dL (6.5-8.0)
[2025-07-18 21:12] VITALS: BP 172/66; PULSE 77; RESP 18; TEMP 36.9; O2SAT 97
[2025-07-18 21:13] LABS: B Type Natriuretic Peptide 103 pg/mL (<100)
[2025-07-18 21:15] LABS: Troponin-I High Sensitivity 16.8 ng/L (<3.5-35.0)
--- OUTSIDE RECORDS SUMMARY | 2025-07-18 21:38 | XMS_ITS | Clinical Summary ---
Author Organization [facility] [address] [facility] Address [address] [place] [address] Phone Care Team Providers Care Medical Assistant Prn Name Role Phone Dorian Douglas Primary Care Provider [phone] Allergies Active Allergy Reactions Criticality Noted Date [...] flash glucose scanning reader (FreeStyle Dave 2 Herminie) misc 1 UNITS BY DOES NOT APPLY [...] 14 DAYS 2 each 11 5 Active bisacodyL (DULCOLAX) 5 mg EC tablet Take 2 tablets by mouth right before beginning bowel prep. See instructions provided by the office 2 tablet 5 Active polyethylene glycol (Golytely) 236-22.74-6.74 -5.86 gram solution Take 4L by mouth once for one dose. May substitue any PEG. Starting at 2PM the day before your procedure drink 1 8oz glasses at your own pace until you complete half of the gallon. Finish 2nd half of the gallon at 8PM. 4000 mL 5 Active Active Problems Problem Noted Date Diagnosed Date History of coronary artery stent placement 05/26 History of implantable cardiac defibrillator (IC D) 05/26/2025 Hyperlipidemia 05/26/2025 Hypertensive heart disease without CHF 5 Ischemic cardiomyopathy 05/26/2025 Ventricular tachycardia ([facility] V24, [facility] V2 8) 05/26/2025 Basal cell carcinoma of right ala nasi 4 Type 2 diabetes mellitus wit h microalbuminuria, without long-term current use of insulin ([facility] V24, [facility] V28) 03/09/2023 Coronary artery disease due to [...] dr carbajal, kidney stones lithotripsy 2013 and 2018 in [place] Pure hypercholesterolemia 09/08/2005 Encounters Date Type Department Care Team Description 06/27/2025 Telephone Gastroenterology [facility] [address] [facility] [address] [place] [phone] Lauren Liu LPN 05/30/2025 8:40 AM EDT Consult Gastroenterology [facility] [address] [facility] [address] [phone] Pamela Cruz, SHERMAN History of adenomatous polyp of colon (Primary Dx) 05/30/2025 Telephone Gastroenterology [facility] [address] [place] [phone] Pamela Cruz, SHERMAN from Last 3 Months Immunizations Name Administration [...] your loved ones. For example, early childhood coordinator or elderly care for an older adult? [...] Sign Reading Time Taken Comments Blood Pressure 108/62 05/30/2025 8:46 AM EDT Pulse 72 05/30/2025 8:46 AM EDT Temperature 36.2 C (97.2 F) 03/30/2025 8:18 AM EDT Respiratory Rate 16 03/30/2025 8:18 AM EDT Oxygen Saturation 96% 05/30/2025 8:46 AM EDT Inhaled Oxygen Concentration - - Weight 92.1 kg (203 lb) 05/30/2025 8:46 AM EDT Height 172.7 cm (5' 8 ) 05/30/2025 8:46 AM EDT Body Mass Index 30.87 05/30/2025 8:46 AM EDT Plan of Treatment Upcoming Encounters Date Type Department Care Team (Late st Contact Info) Description 07/25/2025 2:00 PM EDT Hospital Encounter [facility] Endoscopy [address] [place] [phone] Sally Mojica MD [address] [place] [phone] 09/06/2025 10:45 AM EDT Office Visit Adult Medicine [address] [address] Dorian Douglas PA [address] [place] [phone] Health Maintenance Due Date Last Done Comments Colorectal Cancer Screening: Colonoscopy 06/21/2025 06/21/2020 COVID-19 Vaccine (7 - Moderna risk season) 2025 07/15/2024, 04/29/2023, 07/30/2022, Additional history exists Influenza Vaccine (#1) 2025 , 07/17/2022, 07/11/2021, Additional history exists Diabetes: Annual Retina Eye Exam 07/26/2025 07/26/2024 Diabetes: Annual Foot Exam 08/10/2025 08/10/2024 Diabetes: Blood Sugar Control Test (HGBA1C) 11/24/2025 05/24/2025, 08/01/2024, 08/01/2024 Social Influencers of Health Screening 03/27/2026 03/27/2025 Falls Risk Assessment 03/30/2026 03/30/2025 Diabetes: Annual Urine Albumin-Creatinine Ratio (uACR) 05/24/2026 05/24/2025, 08/01/2024 Diabetes: Annual GFR (Glomerular Filtration Rate) 05/24/2026 05/24/2025, 08/01/2024, 08/01/2024 Hypertension/CHF/CAD Annual BMP Blood Test 05/24/2026 05/24/2025, 08/01/2024, 08/01/2024 Cholesterol Screening (Lipid Panel) 05/24/2030 05/24/2025, 08/01/2024, 08/01/2024 DTaP,Tdap,and Td Vaccines (5 - Td or Tdap) 07/02/2032 07/02/2022, 01/19/2015, 02/20/2005, Additional history exists Pneumococcal Vaccine: 50+ Years Completed 07/27/2015, 2014 Hepatitis C Screening Completed 01/29/2016 Zoster Vaccines Completed 04/15/2021, 11/09, 02/07/2015 RSV Immunization Adult Patients Completed 08/02/2024 Depression Screening Completed 03/27/2025 HIB Vaccines Aged Out No longer eligi [...] Procedure Name Priority Date/Time Associated Diagnosis Comments HEMOGLOBIN A1C Routine 05/24/2025 8:05 AM EDT Type 2 diabetes mellitus without complication, without long-term current use of insulin ([facility] V24, [facility] V28) MICROALBUMIN CREATININE URINE RATIO Routine 05/24/2025 8:05 AM EDT Type 2 diabetes mellitus without complication, without long-term current use of insulin (CMS/HCC V24, [facility] V28) COMPREHENSIVE METABOLIC PANEL Routine 05/24/2025 8:05 AM EDT Type 2 diabetes mellitus without complication, without long-term current use of insulin (CMS/HCC V24, CMS/HCC V28) LIPID PANEL WITH REFLEX TO DIRECT LDL Routine 05/24/2025 8:05 AM EDT Type 2 diabetes mellitus without complication, without long-term current use of insulin (CMS/HCC V24, CMS/HCC V28) DIABETES FOOT EXAM Routine 08/10/2024 DIABETES EYE EXAM Routine 07/26/2024 COLONOSCOPY Routine 06/21/2020 HEPATITIS C SCREENING Routine 01/29/2016 from Last 3 Months or Most Recently Relevant to Health Maintenance Results * (ABNORMAL) Lipid panel with reflex to direct LDL (05/24/2025 8:05 AM EDT) Cholesterol 166 0 - 200 mg/dL LAB CHEMISTRY METHOD 05/24/2025 11:13 AM EDT [facility] Triglycerides 211(H) 0 - 150 mg/dL LAB CHEMISTRY METHOD 05/24/2025 11:13 AM EDT [facility] HDL 38(L) >=40 mg/dL LAB CHEMISTRY METHOD 05/24/2025 11:13 AM [facility] LDL Calculated 86 0 - 100 mg/dL LAB CHEMISTRY METHOD 05/24/2025 11:13 AM [facility] VLDL Cholesterol Pablo 42.2 mg/dL LAB CHEMISTRY METHOD 05/24/2025 11:13 AM EDT [facility] Non HDL Chol. (LDL+VLDL) 128 <145 mg/dL LAB CHEMISTRY METHOD 05/24/2025 11:13 AM [facility] Chol/HDL Ratio 4.4 0.0 - 4.4 LAB CHEMISTRY METHOD 05/24/2025 11:13 AM [facility] Blood Venous blood specimen / Unknown Venipuncture / Unknown 05/24/2025 8:05 AM EDT 05/24/2025 8:05 AM EDT us Lamar Stephen RUVALCABA LAB BLOOD ORDERABLES Final Resul t [facility] [address] [place] [address], * (ABNORMAL) Microalbumin creatinine urine ratio (05/24/2025 8:05 AM EDT) Creatinine, Urine 231.0 mg/dL LAB CHEMISTRY METHOD 05/24/2025 12:21 PM EDT [facility] Microalb, Ur 39.5(H) 0.0 - 29.0 mg/L LAB CHEMISTRY METHOD 05/24/2025 12:21 PM EDT [facility] Microalb/Crea t Ratio 17 <30 mg/g creat LAB CHEMISTRY METHOD 05/24/2025 12:21 PM EDT [facility] Urine Urine specimen obtained by clean catch procedure / Unknown Non-blood Collection / Unknown 05/24/2025 8:05 AM EDT 05/24/2025 8:05 AM EDT us Lamar RUVALCABA LAB URINE ORDERABLES Final Resul t Performing Organization Address [facility]/ZIP Co de Phone Number [facility] [address] [place] [address], [place] [phone] * (ABNORMAL) Hemoglobin A1c (05/24/2025 8:05 AM EDT) Hemoglobin A1C 8.3(H) <6.5 % LAB CHEMISTRY METHOD 05/24/2025 12:36 PM EDT [facility] Mean Bld Glu Estim. 192 mg/dL LAB CHEMISTRY METHOD 05/24/2025 12:36 PM EDT [facility] Blood Venous blood specimen / Unknown Venipuncture / Unknown 05/24/2025 8:05 AM EDT 05/24/2025 8:05 AM EDT us Lamar RUVALCABA LAB BLOOD ORDERABLES Final Resul t [facility] [address] [place] [address], [place] [phone] * (ABNORMAL) Comprehensive metabolic panel (05/24/2025 8:05 AM EDT) Sodium 138 133 - 145 mmol/L LAB CHEMISTRY METHOD 05/24/2025 11:13 AM EDT [facility] Potassium 4.0 3.5 - 5.5 mmol/L LAB CHEMISTRY METHOD 05/24/2025 11:13 AM [facility] Chloride 106 96 - 110 mmol/L LAB CHEMISTRY METHOD 05/24/2025 11:13 AM [facility] CO2 28 21 - 32 mmol/L LAB CHEMISTRY METHOD 05/24/2025 11:13 AM [facility] Anion Gap 4 3 - 11 LAB CHEMISTRY METHOD 05/24/2025 11:13 AM [facility] Glucose 139(H) 70 - 100 mg/dL LAB CHEMISTRY METHOD 05/24/2025 11:13 AM [facility] BUN 19 5 - 25 mg/dL LAB CHEMISTRY METHOD 05/24/2025 11:13 AM [facility] Creatinine 1.48(H) 0.70 - 1.30 mg/dL LAB CHEMISTRY METHOD 05/24/2025 11:13 AM [facility] eGFR 48(L) >=60 mL/min/1. 73m2 LAB CHEMISTRY METHOD 05/24/2025 11:13 AM [facility] Comment:Calculation based on the Chronic Kidney Disease Epidemiology Collaboration (CKD-EPI) equation refit without adjustment for race. BUN/Creatinine Ratio 12.8 LAB CHEMISTRY METHOD 05/24/2025 11:13 AM [facility] Calcium 8.5 8.5 - 10.5 mg/dL LAB CHEMISTRY METHOD 05/24/2025 11:13 AM [facility] AST (SGOT) 19 10 - 42 unit/L LAB CHEMISTRY METHOD 05/24/2025 11:13 AM [facility] ALT (SGPT) 26 10 - 60 unit/L LAB CHEMISTRY METHOD 05/24/2025 11:13 AM [facility] Alkaline Phosphatase 89 42 - 121 unit/L LAB CHEMISTRY METHOD 05/24/2025 11:13 AM [facility] Total Protein 6.6 6.0 - 8.0 g/dL LAB CHEMISTRY METHOD 05/24/2025 11:13 AM EDT [facility] Albumin 3.8 3.2 - 5.0 g/dL LAB CHEMISTRY METHOD 05/24/2025 11:13 AM EDT [facility] Total Bilirubin 0.9 0.0 - 1.4 mg/dL LAB CHEMISTRY METHOD 05/24/2025 11:13 AM EDT [facility] Blood Venous blood specimen / Unknown Venipuncture / Unknown 05/24/2025 8:05 AM EDT 05/24/2025 8:05 AM EDT Lamar RUVALCABA LAB BLOOD ORDERABLES Final Resul t [facility] [address] [place] [address], * Diabetes Foot Exam (08/10/2024) [facility] Diabetes: Annual Foot Exam abstracted Historical Provider HEALTH MAINTENANCE Final Result * Diabetes Eye Exam (07/26/2024) [facility] Diabetes: Annual Retina Eye Exam abstracted Historical Provider HEALTH MAINTENANCE Final Result * Colonoscopy (06/21/2020) [facility] Colonoscopy no interpretation , abstracted Anatomical Region Laterality Modality Other Historical Provider HEALTH MAINTENANCE Final Result * Hepatitis C Screening (01/29/2016) [facility] Hepatitis C Screening abstracted Result [facility] Historical Provider HEALTH MAINTENANCE Final Result from Last 3 Months or Most Recently Relevant to Health Maintenance Insurance [address] [place] [place] [id number] [facility] Care Teams Medical Assistant Prn Relationship Specialty Start Date End Date Dorian Douglas PA [address] [place] [address] PCP - General Internal Medicine 11/16/20
--- OUTSIDE RECORDS SUMMARY | 2025-07-18 21:38 | XMS_ITS | Clinical Summary ---
Author Organization [facility] Address [address] [place] [address] Phone Care Team Providers Care Bunk Assembler Name Role Phone Unknown, Unknown Primary Care Provider Aura adams Allergies Active Allergy Reactions Criticality Noted Date Comments Sulfa (Sulfonamide Antibiotics) 06/14/2024 Other Reaction(s): rash/hives Medications atorvastatin (LIPITOR) 40 MG tablet Take 1 tablet by mouth every morning. 05/20/2024 Active carvedilol (COREG) 12.5 MG tablet 1 tablet with food Orally Twice a day Active clopidogrel (PLAVIX) 75 mg tablet Take 75 mg by mouth daily. Active ezetimibe (ZETIA) 10 mg tablet 1 tablet Orally Once a day Active latanoprost (XALATAN) 0.005 % ophthalmic solution Place 1 drop into each eye nightly at bedtime. Active mexiletine (MEXITIL) 150 MG capsule Take 150 mg by mouth every 12 (twelve) hours. Active aspirin 81 MG EC tablet Take 81 mg by mouth daily. Active Active Problems Problem Noted Date Diagnosed Date Basal cell carcinoma of right ala nasi Aspirin long-term use 06/14/2024 Anticoagulated 06/14/2024 Social History Tobacco Use Types Packs/Day Years Used Date Smoking Tobacco: Former Cigarettes Smokeless Tobacco: Never Tobacco Cessation:Counseling Given: Not Answered Alcohol Use Standard Drinks/Week Comments Not Currently 0 (1 standard drink = 0.6 oz pur e alcohol) Education Answer Date Recorded Are you interested in more education? Not on raissa e 06/06/2024 Are you concerned about learning? Not on file 06/06/2024 No 06/06/2024 No 06/06/2024 Digital Access Answer Date Recorded No 06/06/2024 No 06/06/2024 Reliable internet access at home? Not on file 06/06/2024 Device with a working camera? Not on file Sex and Gender Information Value Date Recorded Sex Assigned at Not on file Legal Sex Male 11:17 AM EDT Gender Identity Not on file Sexual Orientation Not on file Last Filed Vital Signs Vital Sign Reading Time Taken Comments Blood Pressure 155/103 08/05/2024 10:04 AM EDT Pulse 79 08/05/2024 10:04 AM EDT Temperature - - Respiratory Rate - - Oxygen Saturation 94% 08/05/2024 10:04 AM EDT Inhaled Oxygen Concentration - - Weight 92.3 kg (203 lb 6.4 oz) 06/14/2024 10:32 AM EDT Height 170.8 cm (5' 7.25 ) 06/14/2024 10:32 AM E DT Body Mass Index 31.62 06/14/2024 10:32 AM EDT Plan of Treatment Health Maintenance Due Date Last Done Comments LIPID PANEL 1947 DEPRESSION SCREENING 1959 SMOKING Hx and SMOKELESS TOBACCO SCREENING 1960 HEPATITIS C SCREENING 1965 INFLUENZA VACCINE (#1) 2025 , 07/17/2022, 07/11/2021, Additional history exists COVID-19 VACCINE ( season) 2025 07/15/2024, 04/29/2023, 07/30/2022, Additional history exists Adult Td,Tdap Booster 07/02/2032 07/02/2022 , 01/19/2015, 02/20/2005 PNEUMOCOCCAL VACCINES (50+ years) Completed 07/27/2015, 2014 ZOSTER VACCINES Completed 04/15/2021, 11/25/2020 RSV VACCINE Completed 08/02/2024 HEPATITIS A VACCINES Aged Out No long er eligible based on patient's age to complete this topic HIB VACCINES Aged Out No longer eligi ble based on patient's age to complete this topic MENINGOCOCCAL VACCINES (ACWY) Aged Out No longer eligible based on patient's age to complete this topic MENINGOCOCCAL VACCINES (B) Aged Out N o longer eligible based on patient's age to complete this topic Medical Devices Not on file Insurance O [place], [place] [facility] [address] [place], [place] [id number] Care Teams Bunk Assembler Relationship Specialty Start Date End Date Unknown, Unknown, PCP - General 06/06/24 Additional Source Comments The information contained in this document represents components of the legal health record. It is not the complete legal health record.[facility]
--- OUTSIDE RECORDS SUMMARY | 2025-07-18 21:38 | XMS_ITS | Encounter Summary ---
Author Organization [facility] Address [address] [place] [address] Phone Care Team Providers Care Acrobatic Rigger Name Role Phone Unknown, Unknown Primary Care Provider Aura adams Encounter Details Date Type Department Care Team (Late st Contact Info) Description 08/05/2024 Procedure Pass OR Admitting Dept - Virtual Department [address] [place] [address] Social History Tobacco Use Types Packs/Day Years Used Date Smoking Tobacco: Former Cigarettes Smokeless Tobacco: Never Alcohol Use Standard Drinks/Week Comments Not Currently [...] on file Sexual Orientation Not on file documented as of this encounter Plan of Treatment Not on file documented as of this encounter Visit Diagnoses Not on filedocumented in this encounter Care Teams Acrobatic Rigger Relationship Specialty Start Date End Date Unknown, Unknown, PCP - General 06/06/24 documented as of this encounter Additional Source Comments The information contained in this document represents components of the legal health record. It is not the complete legal health record.[facility]
[2025-07-18 22:03] LABS: IDNOW Serial# 55D5AD1C; Influenza B2 Negative (Negative)
[2025-07-18 22:16] LABS: Resp Syncy Virus RNA Qual PCR NEGATIVE (Negative); SARS COV2 PCR INHOUSE NEGATIVE (Negative)
[2025-07-18 22:41] VITALS: BP 153/78; PULSE 89; RESP 16; O2SAT 95
[2025-07-18 22:48] LABS: Appearance Urine Cloudy; Glucose Urine UA Negative (Negative); PH 8.5 (5.0-9.0); Specific Gravity - Urine 1.020 (1.005-1.025); UMIC TRIGGER UACC YES
[2025-07-18 22:50] LABS: UACC Culture Trigger YES
[2025-07-19 02:12] VITALS: BP 124/73; PULSE 99; RESP 12; TEMP 36.8; O2SAT 96
--- NOTE | 2025-07-19 03:16 | PM.IMHP ---
History of Present Illness Date of Service: 07/19/25 Chief Complaint: Left lower quadrant pain 79-year-old male with a past medical history of hypertension, HLD, diabetes, CAD, CHF; V-tach status post AICD; history of kidney stones; presented to the hospital today with a chief complaint of left lower quadrant pain. Over the past 1-2 days he has been having left lower quadrant pain. Also had mild burning when she pees and he pees. Has pink tinged urine. Denies any fevers and chills. He had Denies any chest pain or palpitations. Denies nausea vomiting. Review of all other systems is negative except mentioned above ER course: Per ER team, patient notes her left lower quadrant abdominal pain; CT abdomen pelvis showed findings concerning for ureteral stone as well as stool burden. Given pain medications. Urinalysis abnormal comes with UTI. [facility] Medical History (Updated 07/19/25 @ 02:50 by PEG Aviles) ICD (implantable cardioverter-defibrillator) in place Sustained VT (ventricular tachycardia) CAD (coronary artery disease) Ischemic cardiomyopathy Family History Other No known health problems Surgical History Stented coronary artery Hx of external ear surgery History of tonsillectomy Social History Household Members: Other Household Members Other:: partner Housing: House Do you presently have visiting nurse or other home services: No Alcohol intake: never Patient Tobacco Use Status: Never used Tobacco Smoked in Last 30 Days: No Use of substances other than those prescribed or required for medical reasons: No Advance Directives: No Advance Directives Information Provided: No service: No Current occupational status: unemployed Meds Allergies Allergy/AdvReac Type Severity Reaction Status Date / Time Sulfa (Sulfonamide Allergy Unknown Redness of Verified 07/18/25 20:04 Antibiotics) (SULFA Skin (SULFONAMIDE ANTIBIOTICS)) Home Medications ?Medication ?Instructions ?Recorded ?Confirmed ?Last Taken ?Type multivitamin 1 tab PO DAILY 12/27/20 04/05/25 Unknown History ropinirole 1 mg tablet 1 mg PO BEDTIME 12/27/20 04/05/25 Unknown History metformin 500 mg tablet 500 mg PO DAILY 09/05/24 04/05/25 Unknown History Physical Exam Vital Signs and Narrative: Vital Signs: Last Vital Signs Temp 98.3 F 07/19/25 02:12 Pulse 99 07/19/25 02:12 Resp 12 07/19/25 02:12 BP 124/73 07/19/25 02:12 Pulse Ox 96 07/19/25 02:12 O2 Del Method Room Air 07/19/25 02:12 BMI result Body Mass Index 29.5 Gen: Appears be in no acute distress HEENT: NCAT, Moist mucosa. Pulmonary: Vesicular breath sounds, fair air entry CVS: Normal S1-S2 Abdomen: BS+, Soft, Nontender Extremities: Warm well perfused Neuro: Alert and awake. Results Labs 07/18/25 20:39 07/18/25 20:39 Labs: Laboratory Results - last 24 hr 07/18/25 07/18/25 07/19/25 20:39 22:06 00:42 MCV 86.0 MCH 29.0 MCHC 33.7 RDW 13.3 Plt Count 196 MPV 10.5 Immature Gran % (Auto) 0.4 Neut % (Auto) 84.2 H Lymph % (Auto) 8.5 L [place] % (Auto) 6.5 Eos % (Auto) 0.1 Baso % (Auto) 0.3 Lymph # (Auto) 1.3 [place] # (Auto) 1.0 Eos # (Auto) 0.0 Baso # (Auto) 0.1 Abs Immat Gran (auto) 0.06 H Absolute Neuts (auto) 13.3 H Absolute Nucleated RBC 0.000 Nucleated RBC % (auto) 0.0 Anion Gap 16 Estim Creat Clear Calc 40.4 Estimated GFR 41 Random Glucose 135 H Lactic Acid 1.7 Calcium 9.3 Magnesium 2.1 Total Bilirubin 1.2 H Direct Bilirubin 0.4 AST 27 ALT 23 Alkaline Phosphatase 104 B-Natriuretic Peptide 103 H Total Protein 7.3 Albumin 4.3 Lipase 26 Urine Color Red A Urine Appearance Cloudy Urine pH 8.5 Ur Specific [place] 1.020 Urine Protein 30 (1+) H Urine Glucose (UA) Negative Urine Ketones Trace Urine Blood Large (3+) H Urine Nitrite Negative Ur Leukocyte Esterase Moderate (2+) H Urine RBC >20 H Urine WBC >50 H Ur Squamous Epith Cells 0-2 Urine Bacteria None Seen Hyaline Casts 0-2 COVID-19 (RENA) Cancelled COVID-19 Clin Com Cancelled Influenza Type A (INDRA) Negative Influenza Type A (PCR) NEGATIVE Influenza Type B (INDRA) Negative Influenza Type B (PCR) NEGATIVE Influenza A & B Note See Note RSV RNA Qual (PCR) NEGATIVE SARS-CoV-2 RNA (RT-PCR) NEGATIVE Assessment and Plan (1) Calculus of left ureter: Status: Acute Plan 79-year-old male with a past medical history of hypertension, HLD, diabetes, CAD, CHF; V-tach status post AICD; history of kidney stones; presented to the hospital today with a chief complaint of left lower quadrant pain. Admitted for following Left ureteral stone: Left hydroureteronephrosis: Nonobstructing nephrolithiasis: UTI: Hematuria: Pain control Continue ceftriaxone Flomax Urology consult Gentle IV fluids Diabetes: Insulin sliding scale Severe constipation: Bowel regimen Hypertension: Blood pressure on the normal side. Hold home antihypertensives for now. Monitor vitals and resume home antihypertensives accordingly. CAD: Continue home Plavix, statin, aspirin CHF: Stable. Monitor for signs of fluid overload. DVT prophylaxis: Lovenox Code status: Full code Quality Stroke Does the patient have a stroke diagnosis?: No VTE Prior VTE?: No VTE Risk Level:: Medical - moderate - high VTE Device Contraindication: Treatment Not Indicated VTE Drug Contraindication: N/A - Med Ordered
--- NOTE | 2025-07-19 03:37 | PC.NURSE ---
Soap suds enema administered per physician order. Patient tolerated without issue.
[2025-07-19] MEDS: Lactated Ringers 1,000 ML 100 ML IVCONT ×2 (03:47→22:46)
[2025-07-19 05:06] LABS: MANUAL DIFF FLAG NO
[2025-07-19 05:11] LABS: Hematocrit 45.8 % (42.0-52.0); Hemoglobin 15.0 g/dl (14.0-18.0); Imm Gran Abs Auto 0.07 X10*3/uL (0.00-0.03); Imm Gran Pct Auto 0.4 % (0.0-0.4); Lymphocytes Absolute Auto 1.0 X10*3/uL (1.2-4.9); Mean Corpuscular HGB Conc 32.8 g/dl (31.0-36.0); Mean Corpuscular Hemoglobin 29.4 pg (27.0-33.0); Mean Corpuscular Volume 89.8 fL (80.0-98.0); NRBC Abs Auto 0.000 X10*3/uL (0.0-0.012); NRBC Pct Auto 0.0 /100WBC (0.0-0.2); Platelet Count 202 X10*3/uL (160-400); Red Blood Count 5.10 X10*6/uL (4.60-5.80); White Blood Count 17.4 X10*3/uL (4.8-10.8)
[2025-07-19 05:31] LABS: Alanine Aminotransferase 24 U/L (0-40); Albumin Level 4.1 g/dL (3.5-5.0); Alkaline Phosphatase 94 U/L (39-117); Anion Gap 17 (12-20); Aspartate Amino Transferase 25 U/L (5-37); Blood Urea Nitrogen 21 mg/dL (9-16); Calcium 8.8 mg/dL (8.4-10.2); Carbon Dioxide 23 mmol/L (22-29); Chloride 104 mmol/L (96-108); Creatinine Clr Calc Pharmacy 37.2; Estimated Glomerular Filt Rate 37; Potassium 4.6 mmol/L (3.3-5.1); Sodium 139 mmol/L (135-145); Total Protein 7.0 g/dL (6.5-8.0)
[2025-07-19 06:36] VITALS: BP 132/68; PULSE 80; RESP 18; O2SAT 96
[2025-07-19 07:24] LABS: Glucose, Whole Blood 113 mg/dL (60-115)
[2025-07-19] MEDS: Aspirin Enteric Coated 81 MG TABLET.DR PO (08:53)
--- NOTE | 2025-07-19 09:18 | PC.NURSE ---
Pt reports BM. He states he does not think it was much but was able to pass some stool. Pt on colace at this time. Will continue to monitor.
--- NOTE | 2025-07-19 09:20 | PHA.MEDREC ---
Addendum entered by Xenia Oswald RPh 07/19/25 11:14: MED REC REVIEWED BY [facility] Original Note: Pharmacy Consult ? Medication Reconciliation Pharmacy has completed the medication reconciliation. Spoke with pt and he confirmed his medications. Pt confirmed he is still taking Ezetimibe once daily (claims shows LF 11/09 for 90) and Mexiletine once every 12 hours (LF 02/01 for 90); I called pt pharmacy and they state the Ezetimibe has not been filled since November for 90 days and Mexiletine has not been filled since January for 90 days.
[2025-07-19 09:53] VITALS: BP 131/59; PULSE 99; RESP 14; TEMP 36.8; O2SAT 95
--- NOTE | 2025-07-19 11:49 | MHC.CM.PN ---
CM met with Patient at bedside, in the ED. 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 Home/self care is Patient's goal and CM has initiated and will follow for dc planning. PCP/PA is Dorian Douglas and a Neighbor will transport at dc.
--- NOTE | 2025-07-19 12:13 | PC.NURSE ---
Pt IVs behind scheduled d/t frequent kinks in catheter. Pt given directives to keep AC area straight to allow for IVF to infuse. This RN is requires to restart Pts IV fluids d/t downstream occlusion on pump approx every 25-30 minutes. Will continue to encourage Pt to keep RAC straight.
[2025-07-19 14:59] VITALS: BP 131/59; PULSE 87; RESP 16; TEMP 36.6; O2SAT 96
--- NOTE | 2025-07-19 15:28 | PM.EVENT ---
Event Note Date of Service: 07/19/25 Event Note: Chart reviewed patient examined. Agree with H&P as outlined we will keep NPO pending urological procedure. Time Spent With Patient Time: Total time managing care of this patient today ____ minutes.
[2025-07-19 15:29] VITALS: BP 125/65; PULSE 81; RESP 18; TEMP 36.7; O2SAT 96
[2025-07-19 16:07] LABS: Glucose, Whole Blood 93 mg/dL (60-115)
--- NOTE | 2025-07-19 16:31 | P.CNUR_ITS ---
History of Present Illness Consult details Consult date: 07/19/25 Narrative: CC: Left mid ureteric stone 79-year-old male Past medical history significant for CAD, CHF, diabetes and AICD placement Present through emergency room with 1-2 days of left lower quadrant pain. [place] tinged urine. Mild dysuria. Denied fevers or chills. Imaging - CT Mild-moderate left-sided hydroureteronephrosis with with 5 mm stone in the lower portion of the left ureter. No right-sided hydronephrosis. Vascular calcifications are multifocal. Bilateral perinephric stranding, left worse than right. Multiple additional bilateral nephrolithiasis are nonobstructing in the small measuring up to 4 mm Laboratories - WBC 11.9, creatinine 1.8, calcium 8.4 - UA 3+ blood, moderate leuk esterase, negative nitrites Given failure to expel stone over past 24 hours recommend intervention Left retrograde, ureteroscopy with laser lithotripsy and stent placement will be organized Review of Systems 2 Constitutional: Constitutional: Reports as per HPI and Reports no additional constitutional complaints Cardiovascular: Cardiovascular: Reports as per HPI and Reports no additional cardiovascular complaints Respiratory: Respiratory: Reports as per HPI and Reports no additional respiratory complaints Gastrointestinal: Gastrointestinal: Reports as per HPI and Reports no additional gastrointestinal complaints Genitourinary: Genitourinary: Reports as per HPI Musculoskeletal: Musculoskeletal: Reports no additional musculoskeletal complaints and Reports as per HPI Neurologic: Reports system reviewed and no additional complaints, except as documented and Reports as per HPI [facility] Past Medical History Medical History (Updated 07/19/25 @ 02:50 by PEG Aviles) ICD (implantable cardioverter-defibrillator) in place Sustained VT (ventricular tachycardia) CAD (coronary artery disease) Ischemic cardiomyopathy Family History Family History Other No known health problems Surgical History Surgical History Stented coronary artery Hx of external ear surgery History of tonsillectomy Social History Social History Household Members: None Household Members Other:: partner Housing: House Do you presently have visiting nurse or other home services: No Alcohol intake: never Patient Tobacco Use Status: Never used Tobacco service: Yes Current occupational status: unemployed Meds Allergies Allergy/AdvReac Type Severity Reaction Status Date / Time Sulfa (Sulfonamide Allergy Unknown Redness of Verified 07/18/25 20:04 Antibiotics) (SULFA Skin (SULFONAMIDE ANTIBIOTICS)) Active Medications: Current Medications Acetaminophen (Acetaminophen 325 Mg Tablet) 650 mg PO Q6H PRN PRN Reason: Pain, Mild 1-3,fever,headache Last Admin: 07/19/25 08:53 Dose: 650 mg Aspirin (Aspirin Enteric Coated 81 Mg Tablet.) 81 mg PO DAILY [facility] Last Admin: 07/19/25 08:53 Dose: 81 mg Aspirin (Aspirin Enteric Coated 81 Mg Tablet.) 81 mg PO DAILY [facility] Atorvastatin Calcium (Atorvastatin Calcium 80 Mg Tablet) 80 mg PO DAILY [facility] Last Admin: 07/19/25 08:52 Dose: 80 mg Atorvastatin Calcium (Atorvastatin Calcium 40 Mg Tablet) 40 mg PO BEDTIME [facility] Calcium Carbonate (Calcium Carbonate 750 Mg Tab.Chew) 750 mg PO Q4H PRN PRN Reason: Heartburn Carvedilol (Carvedilol 25 Mg Tablet) 25 mg PO BID [facility]; Protocol Ceftriaxone Sodium (Ceftriaxone Sodium 1 Gm Vial) 1 gm IVPUSH Q24H [facility] Clopidogrel Bisulfate (Clopidogrel Bisulfate 75 Mg Tablet) 75 mg PO DAILY [facility] Last Admin: 07/19/25 08:52 Dose: 75 mg Dextrose (Dextrose 50 % 25 Gm/50 Ml Syringe) 25 gm IVPUSH Q15M PRN; Protocol PRN Reason: per Hypoglycemia Standing Ord. Docusate Sodium (Docusate Sodium 100 Mg Capsule) 100 mg PO BID [facility] Last Admin: 07/19/25 08:52 Dose: 100 mg Ezetimibe (Ezetimibe 10 Mg Tablet) 10 mg PO DAILY [facility] Enoxaparin Sodium (Enoxaparin Sodium 40 Mg/0.4 Ml Syringe) 40 mg SUBCUT Q24H [facility] Last Admin: 07/19/25 08:53 Dose: 40 mg Glucose (Glucose Gel 15 Gm Gel..Gram.) 15 gm PO Q15M PRN; Protocol PRN Reason: per Hypoglycemia Standing Ord. Hydromorphone HCl (Hydromorphone Hcl 0.5 Mg/0.5 Ml Syringe) 0.5 mg IVPUSH Q4H PRN; Protocol PRN Reason: Pain, Severe (Pain Scale 7-10) Hydromorphone HCl (Hydromorphone Hcl 0.5 Mg/0.5 Ml Syringe) 0.5 mg IVPUSH Q4H PRN; Protocol PRN Reason: Breakthrough Pain Lactated Ringer's (Lr) 1,000 mls @ 100 mls/hr IVCONT .Q10H [facility] Last Admin: 07/19/25 15:23 Dose: Not Given Insulin Human Lispro (Insulin Lispro 100 Unit/Ml 3 Ml Vial) 0 unit SUBCUT QIDACHS [facility]; Protocol Last Admin: 07/19/25 16:31 Dose: Not Given Magnesium Hydroxide (Milk Of Magnesia 30 Ml Oral.Susp) 30 ml PO DAILY PRN PRN Reason: Constipation Melatonin (Melatonin 3 Mg Tablet) 6 mg PO BEDTIME PRN PRN Reason: Insomnia Mexiletine HCl (Mexiletine Hcl 150 Mg Capsule) 150 mg PO Q12H [facility] Ropinirole HCl (Ropinirole Hcl 1 Mg Tablet) 1 mg PO BEDTIME [facility]HAEL Sodium Chloride (0.9 % Sodium Chloride Flush 3 Ml Syringe) 3 ml IVFLUSH QSHIFT [facility] Last Admin: 07/19/25 16:17 Dose: Not Given Home Medications ?Medication ?Instructions ?Recorded ?Confirmed ?Last Taken ?Type ropinirole 1 mg tablet 1 mg PO BEDTIME 12/27/2009/0207/17/25 History atorvastatin 40 mg tablet 40 mg PO BEDTIME 07/19/2507/17/25 History Physical Exam 2 Vital Signs: Vital Signs: Last Vital Signs Temp 98.1 F 07/19/25 15:29 Pulse 81 07/19/25 15:29 Resp 18 07/19/25 15:29 BP 125/65 07/19/25 15:29 Pulse Ox 96 07/19/25 15:29 O2 Del Method Room Air 07/19/25 15:29 BMI result Body Mass Index 29.5 Const: General: cooperative, healthy appearing, comfortable and no acute distress Orientation/consciousness: patient oriented x3 HEENT: Face and sinus: Yes normal facial exam Mouth: moist mucous membranes Neck: Neck: Yes normal visual inspection, Yes full ROM and Yes trachea midline Chest: Chest palpation & inspection: normal inspection of the chest Resp: Effort & Inspection: normal respiratory effort, able to speak in complete sentences and no respiratory distress GI: Inspection: Yes normal to inspection Back/Spine/Pelvis: Cervical Spine: normal cervical lordosis Thoracic/Lumbar Spine: thoracic and lumbar spine normal to inspection Skin: General skin exam: no rashes or lesions noted Neuro: General: patient oriented x3, tone normal and moves all extremities Extrem: General: Yes normal to inspection and Yes capillary refill normal Results Labs 07/20/25 05:29 07/20/25 05:29 Labs: Abnormal lab results 07/18/25 07/18/25 07/19/25 Range/Units 20:39 22:06 04:58 WBC 15.8 H 17.4 H (4.8-10.8) X10*3/uL Neut % (Auto) 84.2 H 89.7 H (45-73) % Lymph % (Auto) 8.5 L 5.7 L (20-40) % Lymph # (Auto) 1.0 L (1.2-4.9) X10*3/uL Abs Immat Gran (auto) 0.06 H 0.07 H (0.00-0.03) X10*3/uL Absolute Neuts (auto) 13.3 H 15.6 H (2.0-8.3) x10*3/uL BUN 20 H 21 H (9-16) mg/dL Creatinine 1.65 H 1.79 H (0.5-1.4) mg/dL Random Glucose 135 H 148 H (60-115) mg/dL Total Bilirubin 1.2 H (0.0-1.0) mg/dL B-Natriuretic Peptide 103 H (<100) pg/mL Urine Color Red A Urine Protein 30 (1+) H (Neg-Trace) mg/dL Urine Blood Large (3+) H (Negative) Ur Leukocyte Esterase Moderate (2+) H (Negative) Urine RBC >20 H (0-2) /HPF Urine WBC >50 H (0-5) /HPF Short CBC 07/18/25 07/19/25 Range/Units 20:39 04:58 WBC 15.8 H 17.4 H (4.8-10.8) X10*3/uL Hgb 15.1 15.0 (14.0-18.0) g/dl Hct 44.8 45.8 (42.0-52.0) % Plt Count 196 202 (160-400) X10*3/uL BMP 07/18/25 07/19/25 20:39 04:58 Sodium 141 139 Potassium 4.7 4.6 Chloride 106 104 Carbon Dioxide 24 23 BUN 20 H 21 H Creatinine 1.65 H 1.79 H Calcium 9.3 8.8 Liver Function 07/18/25 07/19/25 Range/Units 20:39 04:58 Total Bilirubin 1.2 H 1.0 (0.0-1.0) mg/dL Direct Bilirubin 0.4 (0.0-0.5) mg/dL AST 27 25 (5-37) U/L ALT 23 24 (0-40) U/L Alkaline Phosphatase 104 94 (39-117) U/L Albumin 4.3 4.1 (3.5-5.0) g/dL Urine 07/18/25 Range/Units 22:06 Urine Color Red A Urine Appearance Cloudy Urine pH 8.5 (5.0-9.0) Ur Specific [place] 1.020 (1.005-1.025) Urine Protein 30 (1+) H (Neg-Trace) mg/dL Urine Glucose (UA) Negative (Negative) mg/dL All other labs normal. Assessment and Plan (1) Calculus of left ureter: Status: Acute (2) Hydroureter on left: Status: Acute Plan Ureteroscopy We discussed the nature of the decision and reasonable alternatives for performing ureteroscopy. Options such as medical therapy were discussed. General surgical risks including, but not limited to - pain, bleeding, infection, myocardial infarction, pulmonary embolus, deep vein thrombosis and cerebrovascular accident which may result in further hospitalization were discussed. Full disclosure of the procedure as well as all major risks, benefits and complications were discussed including but not limited to damage to the urethra, bladder and kidney infection, damage to the ureter, stent migration or malposition, scarring to the renal pelvis, remnant stone fragments, subsequent stone passage with need for secondary procedures. The overall secondary procedure rate is approximately 10-15%. The overall clearance rate is approximately 90-95%. Success of the procedure in the short-term does not necessarily guarantee that long-term success will be maintained. Suitable follow up will need to be maintained. The patient showed understanding of discussion and wishes to proceed with - cystoscopy, retrograde, ureteroscopy, possible lithotripsy/stone basketing and stent on the left side Procedures Date of Service Date of Service: 07/20/25
[2025-07-19 19:15] VITALS: BP 137/66; PULSE 96; RESP 18; TEMP 36.9; O2SAT 93
[2025-07-19 20:03] LABS: Glucose, Whole Blood 236 mg/dL (60-115)
[2025-07-20] VITALS (9 sets, daily range): BP systolic 129–140; BP diastolic 61–79; PULSE 69–93; RESP 16–18; TEMP 36.4–38.2; O2SAT 92–99
[2025-07-20 06:29] LABS: MANUAL DIFF FLAG NO
[2025-07-20 06:35] LABS: Hematocrit 40.3 % (42.0-52.0); Hemoglobin 13.4 g/dl (14.0-18.0); Imm Gran Abs Auto 0.07 X10*3/uL (0.00-0.03); Imm Gran Pct Auto 0.6 % (0.0-0.4); Lymphocytes Absolute Auto 0.9 X10*3/uL (1.2-4.9); Mean Corpuscular HGB Conc 33.3 g/dl (31.0-36.0); Mean Corpuscular Hemoglobin 29.4 pg (27.0-33.0); Mean Corpuscular Volume 88.4 fL (80.0-98.0); NRBC Abs Auto 0.000 X10*3/uL (0.0-0.012); NRBC Pct Auto 0.0 /100WBC (0.0-0.2); Platelet Count 136 X10*3/uL (160-400); Red Blood Count 4.56 X10*6/uL (4.60-5.80); White Blood Count 11.9 X10*3/uL (4.8-10.8)
[2025-07-20 07:01] LABS: Alanine Aminotransferase 28 U/L (0-40); Albumin Level 3.4 g/dL (3.5-5.0); Alkaline Phosphatase 95 U/L (39-117); Anion Gap 14 (12-20); Aspartate Amino Transferase 43 U/L (5-37); Blood Urea Nitrogen 27 mg/dL (9-16); Calcium 8.4 mg/dL (8.4-10.2); Carbon Dioxide 22 mmol/L (22-29); Chloride 104 mmol/L (96-108); Creatinine Clr Calc Pharmacy 36.4; Estimated Glomerular Filt Rate 37; Potassium 4.4 mmol/L (3.3-5.1); Sodium 136 mmol/L (135-145); Total Protein 6.3 g/dL (6.5-8.0)
[2025-07-20 07:43] LABS: Glucose, Whole Blood 155 mg/dL (60-115)
[2025-07-20] MEDS: Lactated Ringers 1,000 ML 100 ML IVCONT (10:10)
[2025-07-20 11:06] LABS: Glucose, Whole Blood 130 mg/dL (60-115)
--- NOTE | 2025-07-20 13:31 | P.PNIM_ITS ---
Subjective Subjective Date of Service: 07/20/25 Interval History: No acute issues overnight. NPO pending procedure Review of Systems Denies chest pain Denies shortness of breath Denies nausea vomiting diarrhea Denies fever chills Physical Exam 2 Vital Signs: Vital Signs: Last Vital Signs Temp 98.6 F 07/20/25 07:46 Pulse 88 07/20/25 07:46 Resp 16 07/20/25 07:46 BP 129/62 07/20/25 07:46 Pulse Ox 93 07/20/25 07:46 O2 Del Method Room Air 07/20/25 07:46 BMI result Body Mass Index 29.5 Const: Other: Awake alert oriented x3 no acute distress Resp: Other: Clear to auscultation bilaterally no rales rhonchi or wheezes Cardio: Other: No S4; positive S1-S2; no S3 murmurs rubs or gallops GI: Other: Soft nontender nondistended normoactive bowel sounds Extrem: Other: No edema bilaterally Objective Data Active Medications Acetaminophen (Acetaminophen 325 Mg Tablet) 650 mg PO Q6H PRN PRN Reason: Pain, Mild 1-3,fever,headache Last Admin: 07/19/25 19:57 Dose: 650 mg Documented By: ARAMIS Aspirin (Aspirin Enteric Coated 81 Mg Tablet.) 81 mg PO DAILY [facility] Last Admin: 07/20/25 07:46 Dose: Not Given Documented By: STEVAN Non-Admin Reason: NPO Aspirin (Aspirin Enteric Coated 81 Mg Tablet.) 81 mg PO DAILY [facility] Last Admin: 07/20/25 07:46 Dose: Not Given Documented By: STEVAN Non-Admin Reason: NPO Atorvastatin Calcium (Atorvastatin Calcium 80 Mg Tablet) 80 mg PO DAILY [facility] Last Admin: 07/20/25 07:46 Dose: Not Given Documented By: STEVAN Non-Admin Reason: NPO Atorvastatin Calcium (Atorvastatin Calcium 40 Mg Tablet) 40 mg PO BEDTIME [facility] Last Admin: 07/19/25 20:40 Dose: 40 mg Documented By: ARAMIS Calcium Carbonate (Calcium Carbonate 750 Mg Tab.Chew) 750 mg PO Q4H PRN PRN Reason: Heartburn Carvedilol (Carvedilol 25 Mg Tablet) 25 mg PO BID [facility]; Protocol Last Admin: 07/20/25 10:06 Dose: 25 mg Documented By: STEVAN Ceftriaxone Sodium (Ceftriaxone Sodium 1 Gm Vial) 1 gm IVPUSH Q24H [facility] Last Admin: 07/19/25 20:41 Dose: 1 gm Documented By: ARAMIS Clopidogrel Bisulfate (Clopidogrel Bisulfate 75 Mg Tablet) 75 mg PO DAILY [facility] Last Admin: 07/20/25 07:47 Dose: Not Given Documented By: STEVAN Non-Admin Reason: hold petential surgery Dextrose (Dextrose 50 % 25 Gm/50 Ml Syringe) 25 gm IVPUSH Q15M PRN; Protocol PRN Reason: per Hypoglycemia Standing Ord. Docusate Sodium (Docusate Sodium 100 Mg Capsule) 100 mg PO BID [facility] Last Admin: 07/20/25 10:06 Dose: 100 mg Documented By: STEVAN Ezetimibe (Ezetimibe 10 Mg Tablet) 10 mg PO DAILY [facility] Last Admin: 07/20/25 09:33 Dose: Not Given Documented By: STEVAN Non-Admin Reason: NPO Enoxaparin Sodium (Enoxaparin Sodium 40 Mg/0.4 Ml Syringe) 40 mg SUBCUT Q24H [facility] Last Admin: 07/20/25 07:47 Dose: Not Given Documented By: STEVAN Non-Admin Reason: surgery this am Glucose (Glucose Gel 15 Gm Gel..Gram.) 15 gm PO Q15M PRN; Protocol PRN Reason: per Hypoglycemia Standing Ord. Hydromorphone HCl (Hydromorphone Hcl 0.5 Mg/0.5 Ml Syringe) 0.5 mg IVPUSH Q4H PRN; Protocol PRN Reason: Pain, Severe (Pain Scale 7-10) Hydromorphone HCl (Hydromorphone Hcl 0.5 Mg/0.5 Ml Syringe) 0.5 mg IVPUSH Q4H PRN; Protocol PRN Reason: Breakthrough Pain Lactated Ringer's (Lr) 1,000 mls @ 100 mls/hr IVCONT .Q10H [facility] Last Admin: 07/20/25 10:10 Dose: 100 mls/hr Documented By: STEVAN Insulin Human Lispro (Insulin Lispro 100 Unit/Ml 3 Ml Vial) 0 unit SUBCUT QIDACHS [facility]; Protocol Last Admin: 07/20/25 12:35 Dose: Not Given Documented By: HO.DABA Non-Admin Reason: No Insulin Coverage Magnesium Hydroxide (Milk Of Magnesia 30 Ml Oral.Susp) 30 ml PO DAILY PRN PRN Reason: Constipation Melatonin (Melatonin 3 Mg Tablet) 6 mg PO BEDTIME PRN PRN Reason: Insomnia Mexiletine HCl (Mexiletine Hcl 150 Mg Capsule) 150 mg PO Q12H [facility] Last Admin: 07/20/25 04:13 Dose: 150 mg Documented By: ARAMIS Ropinirole HCl (Ropinirole Hcl 1 Mg Tablet) 1 mg PO BEDTIME [facility] Last Admin: 07/19/25 20:48 Dose: 1 mg Documented By: ARAMIS Sodium Chloride (0.9 % Sodium Chloride Flush 3 Ml Syringe) 3 ml IVFLUSH QSHIFT [facility] Last Admin: 07/20/25 06:40 Dose: Not Given Documented By: STEVAN Non-Admin Reason: IV Running Labs 07/20/25 05:29 07/20/25 05:29 Labs: Laboratory Results - last 24 hr 07/19/25 07/19/25 07/20/25 15:57 19:57 05:29 MCV 88.4 MCH 29.4 MCHC 33.3 RDW 13.5 Plt Count 136 L D MPV 10.8 Immature Gran % (Auto) 0.6 H Neut % (Auto) 86.3 H Lymph % (Auto) 7.7 L [place] % (Auto) 4.3 Eos % (Auto) 0.9 Baso % (Auto) 0.2 Lymph # (Auto) 0.9 L [place] # (Auto) 0.5 Eos # (Auto) 0.1 Baso # (Auto) 0.0 Abs Immat Gran (auto) 0.07 H Absolute Neuts (auto) 10.3 H Absolute Nucleated RBC 0.000 Nucleated RBC % (auto) 0.0 Anion Gap 14 Estim Creat Clear Calc 36.4 Estimated GFR 37 POC Glucose 93 236 H Fasting Glucose 137 H Calcium 8.4 Total Bilirubin 1.3 H AST 43 H ALT 28 Alkaline Phosphatase 95 Total Protein 6.3 L Albumin 3.4 L 07/20/25 07/20/25 07:27 11:03 MCV MCH MCHC RDW Plt Count MPV Immature Gran % (Auto) Neut % (Auto) Lymph % (Auto) [place] % (Auto) Eos % (Auto) Baso % (Auto) Lymph # (Auto) [place] # (Auto) Eos # (Auto) Baso # (Auto) Abs Immat Gran (auto) Absolute Neuts (auto) Absolute Nucleated RBC Nucleated RBC % (auto) Anion Gap Estim Creat Clear Calc Estimated GFR POC Glucose 155 H 130 H Fasting Glucose Calcium Total Bilirubin AST ALT Alkaline Phosphatase Total Protein Albumin Microbiology Microbiology Results: Microbiology 07/18/25 Unknown Urine Culture - Preliminary Urine clean catch - Clean Catch Midstream Enterococcus/Streptococcus sp 07/19/25 00:42 Blood Culture - Preliminary Blood - Venous No growth after 24 hours. 07/19/25 00:42 Blood Culture - Preliminary Blood - Venous No growth after 24 hours. Assessment and Plan (1) Calculus of left ureter: Status: Acute (2) Hydroureter on left: Status: Acute (3) CAD (coronary artery disease): Status: Acute (4) Hypertension: Status: Acute Plan 79-year-old male with a past medical history of hypertension, HLD, diabetes, CAD, CHF; V-tach status post AICD; history of kidney stones; presented to the hospital today with a chief complaint of left lower quadrant pain. Admitted for following 1. Renal calculi with left hydro ureteral nephrosis -NPO pending procedure -ceftriaxone (2);Flomax -adjust therapies pending cultures 2.Diabetes Type II -acceptable control on current therapies -lispro correctional scale -adjust as indicated 3.Hypertension -acceptable control on current therapies -adjust as indicated 4.CAD -stable and well compensated -continue current therapies DVT prophylaxis: Lovenox Code status: Full code Quality Stroke Does the patient have a stroke diagnosis?: No VTE Prior VTE?: No VTE Risk Level:: Medical - moderate - high VTE Device Contraindication: Treatment Not Indicated VTE Drug Contraindication: N/A - Med Ordered
[2025-07-20 14:50] LABS: Glucose, Whole Blood 110 mg/dL (60-115)
--- NOTE | 2025-07-20 15:14 | P.CONAN_ITS ---
[facility] Active Problems Active Problems: All Active Problems (Updated 07/20/25 @ 12:27 by Leyla Rothman RN) Constipation (Acute) Acute UTI (Acute) TYLER (acute kidney injury) (Acute) Hydroureter on left (Acute) Calculus of left ureter (Acute) Near syncope (Acute) Palpitations (Acute) FRAZIER (dyspnea on exertion) (Acute) PVC (premature ventricular contraction) (Acute) Old inferior wall myocardial infarction (Acute) Stable angina (Acute) Hypertension (Acute) ICD (implantable cardioverter-defibrillator) in place (Acute) Stented coronary artery (Acute) CAD (coronary artery disease) (Acute) Sustained VT (ventricular tachycardia) (Acute) Ischemic cardiomyopathy (Acute) Past Medical History Medical History Diabetes ICD (implantable cardioverter-defibrillator) in place Sustained VT (ventricular tachycardia) CAD (coronary artery disease) Ischemic cardiomyopathy Family History Family History Other No known health problems Surgical History Surgical History Stented coronary artery Hx of external ear surgery History of tonsillectomy History of Problems with Anesthesia: No Social History Social History Household Members: None Household Members Other:: partner Housing: House Do you presently have visiting nurse or other home services: No Alcohol intake: never Patient Tobacco Use Status: Never used Tobacco service: Yes Current occupational status: unemployed Meds Allergies Allergy/AdvReac Type Severity Reaction Status Date / Time Sulfa (Sulfonamide Allergy Unknown Redness of Verified 07/18/25 20:04 Antibiotics) (SULFA Skin (SULFONAMIDE ANTIBIOTICS)) Active Medications: Current Medications Acetaminophen (Acetaminophen 325 Mg Tablet) 650 mg PO Q6H PRN PRN Reason: Pain, Mild 1-3,fever,headache Last Admin: 07/19/25 19:57 Dose: 650 mg Aspirin (Aspirin Enteric Coated 81 Mg Tablet.) 81 mg PO DAILY [facility] Last Admin: 07/20/25 07:46 Dose: Not Given Aspirin (Aspirin Enteric Coated 81 Mg Tablet.) 81 mg PO DAILY [facility] Last Admin: 07/20/25 07:46 Dose: Not Given Atorvastatin Calcium (Atorvastatin Calcium 80 Mg Tablet) 80 mg PO DAILY [facility] Last Admin: 07/20/25 07:46 Dose: Not Given Atorvastatin Calcium (Atorvastatin Calcium 40 Mg Tablet) 40 mg PO BEDTIME [facility] Last Admin: 07/19/25 20:40 Dose: 40 mg Calcium Carbonate (Calcium Carbonate 750 Mg Tab.Chew) 750 mg PO Q4H PRN PRN Reason: Heartburn Carvedilol (Carvedilol 25 Mg Tablet) 25 mg PO BID [facility]; Protocol Last Admin: 07/20/25 10:06 Dose: 25 mg Ceftriaxone Sodium (Ceftriaxone Sodium 1 Gm Vial) 1 gm IVPUSH Q24H [facility] Last Admin: 07/19/25 20:41 Dose: 1 gm Clopidogrel Bisulfate (Clopidogrel Bisulfate 75 Mg Tablet) 75 mg PO DAILY [facility] Last Admin: 07/20/25 07:47 Dose: Not Given Dextrose (Dextrose 50 % 25 Gm/50 Ml Syringe) 25 gm IVPUSH Q15M PRN; Protocol PRN Reason: per Hypoglycemia Standing Ord. Docusate Sodium (Docusate Sodium 100 Mg Capsule) 100 mg PO BID [facility] Last Admin: 07/20/25 10:06 Dose: 100 mg Ezetimibe (Ezetimibe 10 Mg Tablet) 10 mg PO DAILY [facility] Last Admin: 07/20/25 09:33 Dose: Not Given Enoxaparin Sodium (Enoxaparin Sodium 40 Mg/0.4 Ml Syringe) 40 mg SUBCUT Q24H [facility] Last Admin: 07/20/25 07:47 Dose: Not Given Glucose (Glucose Gel 15 Gm Gel..Gram.) 15 gm PO Q15M PRN; Protocol PRN Reason: per Hypoglycemia Standing Ord. Hydromorphone HCl (Hydromorphone Hcl 0.5 Mg/0.5 Ml Syringe) 0.5 mg IVPUSH Q4H PRN; Protocol PRN Reason: Pain, Severe (Pain Scale 7-10) Hydromorphone HCl (Hydromorphone Hcl 0.5 Mg/0.5 Ml Syringe) 0.5 mg IVPUSH Q4H PRN; Protocol PRN Reason: Breakthrough Pain Lactated Ringer's (Lr) 1,000 mls @ 100 mls/hr IVCONT .Q10H [facility] Last Admin: 07/20/25 10:10 Dose: 100 mls/hr Insulin Human Lispro (Insulin Lispro 100 Unit/Ml 3 Ml Vial) 0 unit SUBCUT QIDACHS [facility]; Protocol Last Admin: 07/20/25 12:35 Dose: Not Given Magnesium Hydroxide (Milk Of Magnesia 30 Ml Oral.Susp) 30 ml PO DAILY PRN PRN Reason: Constipation Melatonin (Melatonin 3 Mg Tablet) 6 mg PO BEDTIME PRN PRN Reason: Insomnia Mexiletine HCl (Mexiletine Hcl 150 Mg Capsule) 150 mg PO Q12H [facility] Last Admin: 07/20/25 04:13 Dose: 150 mg Ropinirole HCl (Ropinirole Hcl 1 Mg Tablet) 1 mg PO BEDTIME [facility] Last Admin: 07/19/25 20:48 Dose: 1 mg Sodium Chloride (0.9 % Sodium Chloride Flush 3 Ml Syringe) 3 ml IVFLUSH QSHIFT [facility] Last Admin: 07/20/25 06:40 Dose: Not Given Home Medications ?Medication ?Instructions ?Recorded ?Confirmed ?Last Taken ?Type ropinirole 1 mg tablet 1 mg PO BEDTIME 12/27/2009/0207/17/25 History atorvastatin 40 mg tablet 40 mg PO BEDTIME 07/19/2507/17/25 History Exam Height,Weight and Vital Signs: Height 5 ft 8 in Weight 88.1 kg Last Vital Signs Temp 97.5 F 07/20/25 14:46 Pulse 88 07/20/25 14:46 Resp 18 07/20/25 14:46 BP 139/68 07/20/25 14:46 Pulse Ox 95 07/20/25 14:46 O2 Del Method Room Air 07/20/25 14:46 Pertinent Lab Results Pertinent Lab Results: Laboratory Tests 07/18/25 07/18/25 07/19/25 20:39 22:06 00:42 WBC 15.8 H RBC 5.21 Hgb 15.1 Hct 44.8 MCV 86.0 MCH 29.0 MCHC 33.7 RDW 13.3 Plt Count 196 MPV 10.5 Immature Gran % (Auto) 0.4 Neut % (Auto) 84.2 H Lymph % (Auto) 8.5 L [place] % (Auto) 6.5 Eos % (Auto) 0.1 Baso % (Auto) 0.3 Lymph # (Auto) 1.3 [place] # (Auto) 1.0 Eos # (Auto) 0.0 Baso # (Auto) 0.1 Abs Immat Gran (auto) 0.06 H Absolute Neuts (auto) 13.3 H Absolute Nucleated RBC 0.000 Nucleated RBC % (auto) 0.0 Sodium 141 Potassium 4.7 Chloride 106 Carbon Dioxide 24 Anion Gap 16 BUN 20 H Creatinine 1.65 H Estim Creat Clear Calc 40.4 Estimated GFR 41 POC Glucose Random Glucose 135 H Fasting Glucose Lactic Acid 1.7 Calcium 9.3 Magnesium 2.1 Total Bilirubin 1.2 H Direct Bilirubin 0.4 AST 27 ALT 23 Alkaline Phosphatase 104 Troponin I High Sens 16.8 B-Natriuretic Peptide 103 H Total Protein 7.3 Albumin 4.3 Lipase 26 Urine Color Red A Urine Appearance Cloudy Urine pH 8.5 Ur Specific [place] 1.020 Urine Protein 30 (1+) H Urine Glucose (UA) Negative Urine Ketones Trace Urine Blood Large (3+) H Urine Nitrite Negative Ur Leukocyte Esterase Moderate (2+) H Urine RBC >20 H Urine WBC >50 H Ur Squamous Epith Cells 0-2 Urine Bacteria None Seen Hyaline Casts 0-2 COVID-19 ([facility]) Cancelled COVID-19 Clin Com Cancelled Influenza Type A (IN[facility]) Negative Influenza Type A (PCR) NEGATIVE Influenza Type B (INDRA) Negative Influenza Type B (PCR) NEGATIVE Influenza A & B Note See Note RSV RNA Qual (PCR) NEGATIVE SARS-CoV-2 RNA (RT-PCR) NEGATIVE 07/19/25 07/19/25 07/19/25 04:58 07:21 15:57 WBC 17.4 H RBC 5.10 Hgb 15.0 Hct 45.8 MCV 89.8 MCH 29.4 MCHC 32.8 RDW 13.3 Plt Count 202 MPV 10.3 Immature Gran % (Auto) 0.4 Neut % (Auto) 89.7 H Lymph % (Auto) 5.7 L [place] % (Auto) 3.6 Eos % (Auto) 0.1 Baso % (Auto) 0.5 Lymph # (Auto) 1.0 L [place] # (Auto) 0.6 Eos # (Auto) 0.0 Baso # (Auto) 0.1 Abs Immat Gran (auto) 0.07 H Absolute Neuts (auto) 15.6 H Absolute Nucleated RBC 0.000 Nucleated RBC % (auto) 0.0 Sodium 139 Potassium 4.6 Chloride 104 Carbon Dioxide 23 Anion Gap 17 BUN 21 H Creatinine 1.79 H Estim Creat Clear Calc 37.2 Estimated GFR 37 POC Glucose 113 93 Random Glucose 148 H Fasting Glucose Lactic Acid Calcium 8.8 Magnesium Total Bilirubin 1.0 Direct Bilirubin AST 25 ALT 24 Alkaline Phosphatase 94 Troponin I High Sens B-Natriuretic Peptide Total Protein 7.0 Albumin 4.1 Lipase Urine Color Urine Appearance Urine pH Ur Specific [place] Urine Protein Urine Glucose (UA) Urine Ketones Urine Blood Urine Nitrite Ur Leukocyte Esterase Urine RBC Urine WBC Ur Squamous Epith Cells Urine Bacteria Hyaline Casts COVID-19 ([facility]) COVID-19 Clin Com Influenza Type A ([facility]) Influenza Type A (PCR) Influenza Type B (INDRA) Influenza Type B (PCR) Influenza A & B Note RSV RNA Qual (PCR) SARS-CoV-2 RNA (RT-PCR) 07/19/25 07/20/25 07/20/25 19:57 05:29 07:27 WBC 11.9 H RBC 4.56 L Hgb 13.4 L Hct 40.3 L MCV 88.4 MCH 29.4 MCHC 33.3 RDW 13.5 Plt Count 136 L D MPV 10.8 Immature Gran % (Auto) 0.6 H Neut % (Auto) 86.3 H Lymph % (Auto) 7.7 L [place] % (Auto) 4.3 Eos % (Auto) 0.9 Baso % (Auto) 0.2 Lymph # (Auto) 0.9 L [place] # (Auto) 0.5 Eos # (Auto) 0.1 Baso # (Auto) 0.0 Abs Immat Gran (auto) 0.07 H Absolute Neuts (auto) 10.3 H Absolute Nucleated RBC 0.000 Nucleated RBC % (auto) 0.0 Sodium 136 Potassium 4.4 Chloride 104 Carbon Dioxide 22 Anion Gap 14 BUN 27 H Creatinine 1.80 H Estim Creat Clear Calc 36.4 Estimated GFR 37 POC Glucose 236 H 155 H Random Glucose Fasting Glucose 137 H Lactic Acid Calcium 8.4 Magnesium Total Bilirubin 1.3 H Direct Bilirubin AST 43 H ALT 28 Alkaline Phosphatase 95 Troponin I High Sens B-Natriuretic Peptide Total Protein 6.3 L Albumin 3.4 L Lipase Urine Color Urine Appearance Urine pH Ur Specific [place] Urine Protein Urine Glucose (UA) Urine Ketones Urine Blood Urine Nitrite Ur Leukocyte Esterase Urine RBC Urine WBC Ur Squamous Epith Cells Urine Bacteria Hyaline Casts COVID-19 ([facility]) COVID-19 Clin Com Influenza Type A ([facility]A) Influenza Type A (PCR) Influenza Type B (INDRA) Influenza Type B (PCR) Influenza A & B Note RSV RNA Qual (PCR) SARS-CoV-2 RNA (RT-PCR) 07/20/25 07/20/25 11:03 14:46 WBC RBC Hgb Hct MCV MCH MCHC RDW Plt Count MPV Immature Gran % (Auto) Neut % (Auto) Lymph % (Auto) [place] % (Auto) Eos % (Auto) Baso % (Auto) Lymph # (Auto) [place] # (Auto) Eos # (Auto) Baso # (Auto) Abs Immat Gran (auto) Absolute Neuts (auto) Absolute Nucleated RBC Nucleated RBC % (auto) Sodium Potassium Chloride Carbon Dioxide Anion Gap BUN Creatinine Estim Creat Clear Calc Estimated GFR POC Glucose 130 H 110 Random Glucose Fasting Glucose Lactic Acid Calcium Magnesium Total Bilirubin Direct Bilirubin AST ALT Alkaline Phosphatase Troponin I High Sens B-Natriuretic Peptide Total Protein Albumin Lipase Urine Color Urine Appearance Urine pH Ur Specific [place] Urine Protein Urine Glucose (UA) Urine Ketones Urine Blood Urine Nitrite Ur Leukocyte Esterase Urine RBC Urine WBC Ur Squamous Epith Cells Urine Bacteria Hyaline Casts COVID-19 ([facility]) COVID-19 Clin Com Influenza Type A (INDRA) Influenza Type A (PCR) Influenza Type B (INDRA) Influenza Type B (PCR) Influenza A & B Note RSV RNA Qual (PCR) SARS-CoV-2 RNA (RT-PCR) Airway Mallampati Class: III TM Dist: >3cm Neck ROM: Full Loose/Missing/Broken Teeth: No Heart: RRR Lungs: CTA Assessment and Plan Assessment Anesthesia Assessment: Anesthesia Plan Discussed and Chart Reviewed Final Anesthetic Review History of Problems with Anesthesia: No NPO: Yes ASA Class: III Final Preanesthetic Review: Meds/Allgs Chart Reviewed, Consent Obtained/Reviewed and Anes Risks/Benef Reviewed Patient Risk: Intermediate Procedure Risk: Low Anesthetic Plan Anesthetic Plan: GA Disposition: Standard PACU
--- NOTE | 2025-07-20 16:27 | MHC.SHP ---
Pre-Procedural Eval Section A - 24 Hr Update-Section A only Date of Service: 07/20/25 The patient is an INPATIENT: Yes Changes since office visit: No Cold of Flu in the past 2 weeks, No New Medical Problems, No Changes in Medication and No Patient answered all questions The patient has been examined within 24 hours of the surgical procedure. The History & Physical has been completed within 30 days and I have reviewed it.: Yes Section B - Complete if H&P > 30 days Chief Complaint: UTI Details of Present Illness: Cystoscopy, left retrograde, left stent placement Allergies: Allergies Allergy/AdvReac Type Severity Reaction Status Date / Time Sulfa (Sulfonamide Allergy Unknown Redness of Verified 07/18/25 20:04 Antibiotics) (SULFA Skin (SULFONAMIDE ANTIBIOTICS)) Plan Diagnosis/Plan: Unchanged I have reviewed the history and physical and performed a pertinent physical examination on my patient. No changes have occurred unless specified. Time Spent With Patient Time: Total time managing care of this patient today ____ minutes.
--- NOTE | 2025-07-20 17:13 | W.PM.OPN ---
Operative Note Operative Note Date of Service: 07/20/25 Narrative: PreOperative Diagnosis: Distal left ureteric stone with hydro uretero nephrosis Post Operative Diagnosis: Distal left ureteric stone with hydro uretero nephrosis Procedure: Cystoscopy, left retrograde, left stent placement Surgeon: Dr Paul Oscar Anesthesia: Sedation Indications for procedure: Distal left ureteric stone with hydro uretero nephrosis and elevated creatinine Procedure: After informed consent was verified the patient was brought to the operating room and placed in a supine position. Anesthesia was administered per protocol. The patient was placed in modified dorsal lithotomy position and prepped and draped in a sterile fashion. A safety pause time-out was performed. Laterality of procedure and antibiotics were confirmed, appropriate imaging was available A 22 [place] cystoscope was introduced per urethra. No abnormality was noted of urethra or bladder. Both ureteric orifices were seen in a normal position. The left ureter was cannulated with an open ended catheter and a retrograde examination was performed. Filling defects seen in distal portion of ureter. After sensor guidewire was placed small stone was injected in came out into bladder. A Sensor guidewire was placed under fluoroscopy and a good coil was seen within the renal pelvis. A 6 [place] by 28 double J stent was advanced over the wire and up to the level of the renal pelvis under fluoroscopic and direct visualization. The stent was seen with appropriate coil within the renal pelvis and in the bladder after deployment. The patient tolerated the procedure well and was transferred in a stable condition to the recovery area. Pathology: Stone Drains: Stent at the
[2025-07-20 17:45] LABS: Glucose, Whole Blood 166 mg/dL (60-115)
[2025-07-20 20:38] LABS: Glucose, Whole Blood 338 mg/dL (60-115)
[2025-07-21] MEDS: Lactated Ringers 1,000 ML 100 ML IVCONT (01:10)
[2025-07-21 04:00] VITALS: BP 132/70; PULSE 65; RESP 18; TEMP 36.4; O2SAT 95
[2025-07-21 07:33] LABS: Glucose, Whole Blood 199 mg/dL (60-115)
[2025-07-21 07:49] VITALS: BP 152/78; PULSE 63; RESP 16; TEMP 36; O2SAT 94
--- NOTE | 2025-07-21 10:26 | P.DS_ITS ---
DS: Providers Provider Date of Service: 07/21/25 Date of admission: 07/19/25 03:13 Date of discharge: 07/21/25 Primary care physician: PEG Burnette Consults: 07/19/25 03:13 Consult to Urology Routine Consulting Provider: [facility] Reason for consultation: nephrolothiasis; UTI DS: Diagnosis Discharge Diagnosis (1) Calculus of left ureter: Status: Acute (2) Hydroureter on left: Status: Acute (3) Enterococcus UTI: Status: Acute DS: Summary Hospital Course Hospital Course: From the history and physical by the admitting hospitalist, Gm De Guzman, 07/19/25: 79-year-old male with a past medical history of hypertension, HLD, diabetes, CAD, CHF; V-tach status post AICD; history of kidney stones; presented to the hospital today with a chief complaint of left lower quadrant pain. Over the past 1-2 days he has been having left lower quadrant pain. Also had mi ld burning when she pees and he pees. Has pink tinged urine. Denies any fevers and chills. He had Denies any chest pain or palpitations. Denies nausea vomiting. Review of all other systems is negative except mentioned above ER course: Per ER team, patient notes her left lower quadrant abdominal pain; CT abdomen pelvis showed findings concerning for ureteral stone as well as stool burden. Given pain medications. Urinalysis abnormal comes with UTI. 79-year-old male with a past medical history of hypertension, HLD, diabetes, CAD, CHF; V-tach status post AICD; history of kidney stones; presented to the hospital with a chief complaint of left lower quadrant pain and found to have left ureteral stone with hydroureteronephrosis. He was admitted to the medical- surgical unit with Urology consultation and treated with IV fluids and IV ceftriaxone. On 07/20/25, he underwent cystoscopy with left retrograde and stent placement. Pain resolved. Urine culture grew Enterococcus faecalis and he was discharged on 5 days of amoxicillin. He should follow up with Urology in 2 weeks. Acute kidney injury resolved and serum creatinine went from 1.8 to 1.28 with the above interventions. Time Attestation Discharge Coordination Time (in mins): 40 Quality: Safe Use of Opioids Does Pt have an Active Cancer Diagnosis on the Problem List?: No Quality: Stroke Does the patient have a stroke diagnosis?: No Physical Exam Vital Signs: Vital Signs: Last Vital Signs Temp 96.8 F 07/21/25 07:49 Pulse 63 07/21/25 07:49 Resp 16 07/21/25 07:49 BP 152/78 H 07/21/25 07:49 Pulse Ox 94 07/21/25 07:49 O2 Del Method Room Air 07/21/25 07:49 O2 Flow Rate 6 07/20/25 17:13 BMI result Body Mass Index 29.5 Gen: in no acute distress HEENT: sclera anicteric, moist mucus membranes Neck: supple Lungs: clear to auscultation bilaterally Heart: regular rate and rhythm, no murmurs Abd: soft, non-tender, non-distended Ext: no edema Skin: warm/well-perfused Neuro: alert and oriented x3, no focal findings Psych: appropriate affect DS: Data Data Completed and Pending Completed studies during hospitalization [Text1]: Laboratory Results WBC 11.9 X10*3/uL (4.8-10.8) H 07/20/25 05:29 RBC 4.56 X10*6/uL (4.60-5.80) L 07/20/25 05:29 Hgb 13.4 g/dl (14.0-18.0) L 07/20/25 05:29 Hct 40.3 % (42.0-52.0) L 07/20/25 05:29 MCV 88.4 fL (80.0-98.0) 07/20/25 05:29 MCH 29.4 pg (27.0-33.0) 07/20/25 05:29 MCHC 33.3 g/dl (31.0-36.0) 07/20/25 05:29 RDW 13.5 % (11.0-16.0) 07/20/25 05:29 Plt Count 136 X10*3/uL (160-400) L D 07/20/25 05:29 MPV 10.8 fL (9.4-12.4) 07/20/25 05:29 Immature Gran % (Auto) 0.6 % (0.0-0.4) H 07/20/25 05:29 Neut % (Auto) 86.3 % (45-73) H 07/20/25 05:29 Lymph % (Auto) 7.7 % (20-40) L 07/20/25 05:29 Sanborn % (Auto) 4.3 % (2-11) 07/20/25 05:29 Eos % (Auto) 0.9 % (0-4) 07/20/25 05:29 Baso % (Auto) 0.2 % (0-2) 07/20/25 05:29 Lymph # (Auto) 0.9 X10*3/uL (1.2-4.9) L 07/20/25 05:29 Sanborn # (Auto) 0.5 X10*3/uL (0.1-1.2) 07/20/25 05:29 Eos # (Auto) 0.1 X10*3/uL (0.0-0.4) 07/20/25 05:29 Baso # (Auto) 0.0 X10*3/uL (0.0-0.2) 07/20/25 05:29 Abs Immat Gran (auto) 0.07 X10*3/uL (0.00-0.03) H 07/20/25 05:29 Absolute Neuts (auto) 10.3 x10*3/uL (2.0-8.3) H 07/20/25 05:29 Absolute Nucleated RBC 0.000 X10*3/uL (0.0-0.012) 07/20/25 05:29 Nucleated RBC % (auto) 0.0 /100WBC (0.0-0.2) 07/20/25 05:29 Sodium 136 mmol/L (135-145) 07/20/25 05:29 Potassium 4.4 mmol/L (3.3-5.1) 07/20/25 05:29 Chloride 104 mmol/L (96-108) 07/20/25 05:29 Carbon Dioxide 22 mmol/L (22-29) 07/20/25 05:29 Anion Gap 14 (12-20) 07/20/25 05:29 BUN 27 mg/dL (9-16) H 07/20/25 05:29 Creatinine 1.80 mg/dL (0.5-1.4) H 07/20/25 05:29 Estim Creat Clear Calc 36.4 07/20/25 05:29 Estimated GFR 37 07/20/25 05:29 POC Glucose 199 mg/dL (60-115) H 07/21/25 07:18 Random Glucose 148 mg/dL (60-115) H 07/19/25 04:58 Fasting Glucose 137 mg/dL (60-99) H 07/20/25 05:29 Lactic Acid 1.7 mmol/L (0.5-2.0) 07/19/25 00:42 Calcium 8.4 mg/dL (8.4-10.2) 07/20/25 05:29 Magnesium 2.1 mg/dL (1.6-2.6) 07/18/25 20:39 Total Bilirubin 1.3 mg/dL (0.0-1.0) H 07/20/25 05:29 Direct Bilirubin 0.4 mg/dL (0.0-0.5) 07/18/25 20:39 AST 43 U/L (5-37) H 07/20/25 05:29 ALT 28 U/L (0-40) 07/20/25 05:29 Alkaline Phosphatase 95 U/L (39-117) 07/20/25 05:29 Troponin I High Sens 16.8 ng/L (<3.5-35.0) 07/18/25 20:39 B-Natriuretic Peptide 103 pg/mL (<100) H 07/18/25 20:39 Total Protein 6.3 g/dL (6.5-8.0) L 07/20/25 05:29 Albumin 3.4 g/dL (3.5-5.0) L 07/20/25 05:29 Lipase 26 U/L (8-78) 07/18/25 20:39 Urine Color Red A 07/18/25 22:06 Urine Appearance Cloudy 07/18/25 22:06 Urine pH 8.5 (5.0-9.0) 07/18/25 22:06 Ur Specific Fairchild 1.020 (1.005-1.025) 07/18/25 22:06 Urine Protein 30 (1+) mg/dL (Neg-Trace) H 07/18/25 22:06 Urine Glucose (UA) Negative mg/dL (Negative) 07/18/25 22:06 Urine Ketones Trace mg/dL (Negative) 07/18/25 22:06 Urine Blood Large (3+) (Negative) H 07/18/25 22:06 Urine Nitrite Negative (Negative) 07/18/25 22:06 Ur Leukocyte Esterase Moderate (2+) (Negative) H 07/18/25 22:06 Urine RBC >20 /HPF (0-2) H 07/18/25 22:06 Urine WBC >50 /HPF (0-5) H 07/18/25 22:06 Ur Squamous Epith Cells 0-2 /HPF (0-2) 07/18/25 22:06 Urine Bacteria None Seen (None Seen) 07/18/25 22:06 Hyaline Casts 0-2 /LPF (0-2) 07/18/25 22:06 COVID-19 (RENA) Cancelled 07/18/25 20:39 COVID-19 Clin Com Cancelled 07/18/25 20:39 Influenza Type A (INDRA) Negative (Negative) 07/18/25 20:39 Influenza Type A (PCR) NEGATIVE (Negative) 07/18/25 20:39 Influenza Type B (INDRA) Negative (Negative) 07/18/25 20:39 Influenza Type B (PCR) NEGATIVE (Negative) 07/18/25 20:39 Influenza A & B Note See Note 07/18/25 20:39 RSV RNA Qual (PCR) NEGATIVE (Negative) 07/18/25 20:39 SARS-CoV-2 RNA (RT-PCR) NEGATIVE (Negative) 07/18/25 20:39 Impressions Guidance Fluoroscopy 07/20/25 16:56 IMPRESSION: Fluoroscopy during procedure. Please see procedure report for additional information. Electronically signed by: Devan Larsen MD 07/21/2025 07:08 AM EDT Pending studies at discharge: Pending at discharge 07/20/25 07:15 Surgical [PTH] Routine Discharge Plan Discharge Anticipated Discharge Date/Time: 07/21/25 10:21 Patient Disposition: Home, Self-Care Discharge Diagnosis: hydronephrosis kidney stone urinary tract infection acute kidney injury Referrals: Paul Oscar MD [Physician, Urology] - 2 Weeks Dorian Douglas PA [Primary Care Provider, Internal Medicine] - 1 Week Discharge Medications: New amoxicillin 500 mg tablet 500 mg PO Q8H Qty: 15 0RF Continued aspirin 81 mg tablet,delayed release (DR/EC) 81 mg PO DAILY 90 Days Qty: 90 2RF ezetimibe 10 mg tablet 10 mg PO DAILY Qty: 90 3RF mexiletine 150 mg capsule 150 mg PO Q12H Qty: 180 2RF clopidogrel 75 mg tablet 75 mg PO DAILY Qty: 90 1RF atorvastatin 40 mg tablet 40 mg PO BEDTIME ropinirole 1 mg tablet 1 mg PO BEDTIME carvedilol 25 mg tablet 25 mg PO BID Qty: 180 3RF Rx Instructions: must administer with a meal/food Discharge Orders: Discharge Order (Routine); Ordered 07/21/25 Ordered By: Alex Bob Diet: Advance to usual diet Activity on Discharge: As tolerated Stand Alone Forms: Patient Portal Discharge page Print Language: Vietnamese Care Plan Goals: kidney health Health Concerns: hydronephrosis kidney stone urinary tract infection acute kidney injury Plan of Treatment: amoxicillin 500 mg 3x a day for 5 days follow up with [facility] [place] [facility] [place] Please follow up with your primary care doctor within 1 week. Return to the hospital if you experience recurrent or worsening symptoms. Assessment: See Discharge Summary.
[2025-07-21 11:23] LABS: Glucose, Whole Blood 270 mg/dL (60-115)
[2025-07-21 12:22] LABS: Anion Gap 10 (12-20); Blood Urea Nitrogen 21 mg/dL (9-16); Calcium 8.4 mg/dL (8.4-10.2); Carbon Dioxide 25 mmol/L (22-29); Chloride 105 mmol/L (96-108); Creatinine Clr Calc Pharmacy 51.3; Estimated Glomerular Filt Rate 54; Potassium 4.3 mmol/L (3.3-5.1); Sodium 136 mmol/L (135-145)
--- NOTE | 2025-07-21 12:46 | MHC.CM.PN ---
PT CLEARED TO DC HOME TODAY WITH NO SERVICES VIA PRIVATE TRANSPORT
[2025-07-21 12:55] VITALS: BP 143/74; PULSE 77; RESP 15; TEMP 36.1; O2SAT 94
[2025-07-21 13:22] VITALS: BP 149/71; PULSE 78; RESP 18; TEMP 36.3; O2SAT 95
== END 2025-07-21 13:31 | disposition home or self-care (01) | DRG 463 ==
LOC: HO.ED 07-19 01:28 → HO.EDOVER 07-19 03:18 → HO.S3 07-19 14:31
PROVIDERS: Hospitalist; Physician Assistant Medical; Urology; Admitting Provider Hospitalist; Emergency Provider Emergency Medicine; PCP Physician Assistant Medical; Visit Provider Family Medicine
PROC: 0T778DZ Dilation of Left Ureter with Intraluminal Device, Via Natural or Artificial Opening Endoscopic (ICD-10-PCS; principal; 2025-07-20 16:40)
DX: N13.6 Pyonephrosis (principal); I47.20 Ventricular tachycardia, unspecified; N17.9 Acute kidney failure, unspecified; K59.00 Constipation, unspecified; B95.2 Enterococcus as the cause of diseases classified elsewhere; I25.5 Ischemic cardiomyopathy; R31.9 Hematuria, unspecified; E11.9 Type 2 diabetes mellitus without complications; I25.10 Atherosclerotic heart disease of native coronary artery without angina pectoris; Z20.822 Contact with and (suspected) exposure to COVID-19; Z95.810 Presence of automatic (implantable) cardiac defibrillator; Z79.02 Long term (current) use of antithrombotics/antiplatelets; Z79.82 Long term (current) use of aspirin; Z79.899 Other long term (current) drug therapy
CPT/HCPCS: 36415; 71046; 74176; 80048; 80053; 80076; 81001; 82365; 82947; 83605; 83690; 83735; 83880; 84484; 85025; 87040; 87086; 87088; 87186; 87502; 87635; 87637; 88300; 93005; 99285; C1758; C1769; C2617; J0696; J1100; J1650; J2003; J2270; J2405; J3010; J7120; Q9967

== ENCOUNTER → 2025-07-18 20:04 | Outpatient (BNV) | payer OTHER, SELFPAY | PROVIDERS: Admitting Provider Hospitalist; Emergency Provider Emergency Medicine; PCP Physician Assistant Medical; Visit Provider Internal Medicine Cardiovascular Disease | DX: R94.31 Abnormal electrocardiogram [ECG] [EKG] (principal); R06.02 Shortness of breath | CPT/HCPCS: 93010 ==

== ENCOUNTER → 2025-07-18 20:04 | Outpatient (BNV) | payer OTHER, SELFPAY | PROVIDERS: PCP Physician Assistant Medical; Visit Provider Radiology Diagnostic Radiology | DX: R06.02 Shortness of breath (principal) | CPT/HCPCS: 71046 ==

== ENCOUNTER → 2025-07-18 23:59 | Outpatient (BNV) | payer OTHER, SELFPAY ==
--- NOTE | 2025-08-20 19:53 | MHC.OFFVIS ---
Intake Visit Reasons: Remote HF monitoring- Biotronik Allergies Sulfa (Sulfonamide Antibiotics) (SULFA (SULFONAMIDE ANTIBIOTICS)) Allergy (Unknown, Verified 08/01/25 10:50) Redness of Skin PFSH Medical History Diabetes ICD (implantable cardioverter-defibrillator) in place Sustained VT (ventricular tachycardia) CAD (coronary artery disease) Ischemic cardiomyopathy Surgical History Stented coronary artery Hx of external ear surgery History of tonsillectomy Family History Other No known health problems Social History Household Members: None Household Members Other:: partner Housing: House Do you presently have visiting nurse or other home services: No Alcohol intake: never Patient Tobacco Use Status: Never used Tobacco service: Yes Current occupational status: unemployed Office Procedures Cardiac Device Check Cardiac Device Check Details: HF monitoring Stable thoracic impedance. [id number] Cardiac Device Interrogation, cardio physiologic monitor Procedure code (CPT) selection complete Assessment & Plan Assessment & Plan (1) Ischemic cardiomyopathy: Code(s): I25.5 - Ischemic cardiomyopathy Category: Medical Plan: Coding Level of Care Code Procedure Only Diagnoses Ischemic cardiomyopathy I25.5 CPT Codes Cardiac Device Check - Cardiac Device 15: [id number] Cardiac Device Interrogation, cardio physiologic monitor ([id number])
== END ==
PROVIDERS: PCP Physician Assistant Medical; Visit Provider Internal Medicine Cardiovascular Disease
DX: I25.5 Ischemic cardiomyopathy (principal); Z95.810 Presence of automatic (implantable) cardiac defibrillator
CPT/HCPCS: 93297

== ENCOUNTER → 2025-07-19 03:13 | Outpatient (BNV) | payer OTHER, SELFPAY | PROVIDERS: Admitting Provider Hospitalist; Emergency Provider Emergency Medicine; PCP Physician Assistant Medical; Visit Provider Hospitalist | DX: N20.1 Calculus of ureter (principal); N13.4 Hydroureter; I25.10 Atherosclerotic heart disease of native coronary artery without angina pectoris; I10 Essential (primary) hypertension | CPT/HCPCS: 99223; 99232; 99499 ==

== ENCOUNTER → 2025-07-19 03:13 | Outpatient (BNV) | payer OTHER, SELFPAY | PROVIDERS: Admitting Provider Hospitalist; Emergency Provider Emergency Medicine; PCP Physician Assistant Medical; Visit Provider Urology | DX: N20.1 Calculus of ureter (principal); N13.4 Hydroureter | CPT/HCPCS: 52332; 74420; 99223 ==

== ENCOUNTER 2025-08-01 10:44 | Outpatient (AMB) | payer OTHER, SELFPAY ==
--- NOTE | 2025-08-01 10:49 | MHC.OFFVIS ---
Intake Visit Reasons: cysto/stent removal Intake Note: patient presents today for: cystoscopy/sent removal urology medicaions: clopidogrel blood thinners: aspirin Occupational Therapy Director Required: No Accompanied by: Self / Same As Patient Allergies Sulfa (Sulfonamide Antibiotics) (SULFA (SULFONAMIDE ANTIBIOTICS)) Allergy (Unknown, Verified 08/01/25 10:50) Redness of Skin HPI Comments Details: 79-year-old male Past medical history significant for CAD, CHF, diabetes and AICD placement Present through emergency room with 1-2 days of left lower quadrant pain. Holden tinged urine. Mild dysuria. Denied fevers or chills. Imaging - CT Mild-moderate left-sided hydroureteronephrosis with with 5 mm stone in the lower portion of the left ureter. No right-sided hydronephrosis. Vascular calcifications are multifocal. Bilateral perinephric stranding, left worse than right. Multiple additional bilateral nephrolithiasis are nonobstructing in the small measuring up to 4 mm Laboratories - WBC 11.9, creatinine 1.8, calcium 8.4 - UA 3+ blood, moderate leuk esterase, negative nitrites Given failure to expel stone over past 24 hours recommend intervention Left retrograde, ureteroscopy with laser lithotripsy and stent placement will be organized Calcium Oxalate Dihydrate (Weddellite) 15%Calcium Oxalate Monohydrate (Whewellite) 70%Carbonate Apatite (Dahllite) 15% Here today for stent removal Stone mixed oxalate Start vitamin B6 and allopurinol Repeat ultrasound when patient back from [facility] Medical History Diabetes ICD (implantable cardioverter-defibrillator) in place Sustained VT (ventricular tachycardia) CAD (coronary artery disease) Ischemic cardiomyopathy Surgical History Stented coronary artery Hx of external ear surgery History of tonsillectomy Family History Other No known health problems Social History Household Members: None Household Members Other:: partner Housing: House Do you presently have visiting nurse or other home services: No Alcohol intake: never Patient Tobacco Use Status: Never used Tobacco service: Yes Current occupational status: unemployed Review of Systems Const Denies chills and Denies fever(s) Card Reports no additional complaints and Denies syncope Resp Denies cough GI Denies abdominal pain and Denies heartburn Reports as per HPI and Denies change in libido Neuro Denies syncope Psych Denies change in libido Endo Denies change in libido Physical Exam Const General: cooperative, healthy appearing, comfortable and no acute distress Orientation/consciousness: patient oriented x3 HEENT Face and sinus: Yes normal facial exam Mouth: moist mucous membranes Neck Neck: Yes normal visual inspection, Yes full ROM and Yes trachea midline Chest Chest palpation & inspection: normal inspection of the chest Resp Effort & Inspection: normal respiratory effort, able to speak in complete sentences and no respiratory distress GI Inspection: Yes normal to inspection Back/Spine/Pelvis Cervical Spine: normal cervical lordosis Thoracic/Lumbar Spine: thoracic and lumbar spine normal to inspection Skin General skin exam: no rashes or lesions noted Neuro General: patient oriented x3, gait normal, tone normal and moves all extremities Extrem General: Yes normal to inspection and Yes capillary refill normal Office Procedures Cystoscopy Consent Discussed risk and benefit or proposed procedure with the patient. Information consent for procedure given to the patient. Discussed technical aspects, risks, benefits and alternatives in full. Addressed all of the patient's questions and concerns regarding the procedure. The patient demonstrated knowledge and understanding. They wish to proceed with this procedure. Preparation The patient was prepped in the usual manner. A chief technician was present and in the room. Genitalia was prepped with betadine solution in a sterile manner. Lidocaine Jelly 2% was placed into the urethra and 16Fr flexible Olympus cystoscope was inserted into the meatus after adequate lubrication. Procedure A well lubricated 16 Palestinian cystoscope was placed No abnormality noted of urethra during placement Indwelling stent seen within bladder emerging from left ureteric orifices The stent was grasped with a 3 prong grasper and removed without difficulty The patient tolerated the procedure well 75127-[id number] with stent removal DISPOSABLE SCOPE URO-G FLEXIBLE SCOPE Procedure code (CPT) selection complete Office Meds lidocaine HCl 2 % mucosal jelly in applicator Performing Provider: Paul Oscar MD [facility] Administered by: Alistair Thrasher LPN on 08/01/25 11:22 Dose Route Admin Location Dispensed Lot Number Expiration Date [facility] [place] 2] Sales Host 10 mL intra-urethral 10 mL nitrofurantoin monohydrate/macrocrystals 100 mg capsule Performing Provider: Paul Oscar MD Performing Location: [facility] Administered by: Alistair Thrasher LPN on 08/01/25 11:22 Dose Route Admin Location Dispensed Lot Number Expiration Date NDC Sales Host 100 mg PO 1 cap phenazopyridine 200 mg tablet Performing Provider: Paul Oscar MD Performing Location: [facility] Administered by: Alistair Thrasher LPN on 08/01/25 11:22 Dose Route Admin Location Dispensed Lot Number Expiration Date NDC Sales Host 200 mg PO 1 tab Results AMB Urinalysis, Automated UA Leukoctes 125 Opal/uL Last Edit by SATNAM Rowan on 08/01/25 11:26 UA Nitrite Positive Last Edit by SATNAM Rowan on 08/01/25 11:26 UA Urobilinogen 1 mg/dL Last Edit by SATNAM Rowan on 08/01/25 11:26 UA Protein 300 mg/dL Last Edit by SATNAM Rowan on 08/01/25 11:26 UA pH 6.0 Last Edit by SATNAM Rowan on 08/01/25 11:26 UA Blood 200 Atul/uL Last Edit by SATNAM Rowan on 08/01/25 11:26 UA Specific Rutledge 1.030 Last Edit by SATNAM Rowan on 08/01/25 11:26 UA Ketone Last Edit by SATNAM Rowan on 08/01/25 11:26 UA Bilirubin 1 mg/dL Last Edit by SATNAM Rowan on 08/01/25 11:26 UA Glucose 500 mg/dL Last Edit by SATNAM Rowan on 08/01/25 11:26 Results Reviewed Results Reviewed: Laboratory Last Values Urine pH (Auto) 6.0 08/01/25 11:24 Specific Rutledge (Auto) 1.030 08/01/25 11:24 Urine Protein (Auto) 300 mg/dL 08/01/25 11:24 Glucose (UA)(Auto) 500 mg/dL 08/01/25 11:24 Urine Blood (Auto) 200 Atul/uL 08/01/25 11:24 Urine Nitrite (Auto) Positive 08/01/25 11:24 Urine Bilirubin (Auto) 1 mg/dL 08/01/25 11:24 Urine Urobilinogen (Auto) 1 mg/dL 08/01/25 11:24 Leukocyte Esterase (Auto) 125 Opal/uL 08/01/25 11:24 Assessment & Plan Assessment & Plan (1) Calculus of left ureter: Code(s): N20.1 - Calculus of ureter Category: Medical Plan Start B6 and low-dose allopurinol Ultrasound follow-up Orders: Orders AMB Cystoscopy Today N13.4 - Hydroureter, N20.1 - Calculus of ureter AMB Urinalysis Automated Today Z13.9 - Encounter for screening, unspecified US renal BI 8 Months N20.1 - Calculus of ureter Medications: New pyridoxine (vitamin B6) 50 mg PO DAILY 90 tabs 1RF 90 days N20.1 - Calculus of ureter allopurinol 100 mg PO DAILY 90 tabs 1RF 90 days N20.1 - Calculus of ureter Patient Instructions: This note is constructed using voice recognition software. While every effort has been made to ensure accuracy polymerization kettle operator errors may have been included. Imaging studies, laboratory and physical exam results were discussed and reviewed in detail. No major barriers to patient understanding were identified. An opportunity to ask questions regarding the treatment plan was provided. All questions were answered. The patient expressed understanding and agreement with the above treatment plan. The patient is aware they should contact our office by phone for worsening of their current condition or the appearance of new urologic symptoms. Compliance is encouraged with any medications and followup testing that is ordered. It is a privilege to participate in the urologic care of your patient. If you have any questions or concerns regarding treatment for the above conditions, or other urologic issues, please do not hesitate to contact me. The office telephone contact is [phone]. Sincerely, Dr Paul Oscar MD, [facility] - Urology Compassionate Specialist Care for the Genitourinary System Coding Level of Care Code Est Pt Level 4 (83776) Diagnoses Calculus of left ureter N20.1 CPT Codes Cystoscopy - CPT: 63152-[id number] with stent removal ([id number])
--- OUTSIDE RECORDS SUMMARY | 2025-08-01 13:12 | XMS_ITS | Encounter Summary ---
Author Organization [facility] Address [address] [place] [address] Phone Care Team Providers Care Leather Heel Breaster Name Role Phone Unknown, Unknown Primary Care Provider Aura adams Encounter Details Date Type Department Care Team (Late st Contact Info) Description 08/05/2024 Procedure Pass OR Admitting Dept - Virtual Department [address] [place] [address] Social History Tobacco Use Types Packs/Day Years [...] on filedocumented in this encounter Care Teams Leather Heel Breaster Relationship Specialty Start Date End Date Unknown, Unknown, PCP - General 06/06/24 documented as of this encounter Additional Source Comments The information contained in this document represents components of the legal health record. It is not the complete legal health record.[facility]
--- OUTSIDE RECORDS SUMMARY | 2025-08-01 13:12 | XMS_ITS | Clinical Summary ---
Author Organization [facility] [address] [facility] Address [address] [place] [address] Phone Care Team Providers Care Strategic Insights Lead Name Role Phone Dorian Douglas Primary Care Provider [phone] Allergies Active Allergy Reactions Criticality Noted Date [...] flash glucose scanning reader (FreeStyle Dave 2 [place]) misc 1 UNITS BY DOES NOT APPLY [...] gallon at 8PM. 4000 mL 5 Active bisacodyL (DULCOLAX) 5 mg EC [...] CHF 5 Ischemic cardiomyopathy 05/26/2025 Ventricular tachycardia (CMS/HCC V24, CMS/HCC V2 8) 05/26/2025 Basal cell carcinoma of right ala nasi 4 Type 2 diabetes mellitus wit h microalbuminuria, without long-term current use of insulin (CMS/HCC V24, CMS/HCC V28) 03/09/2023 Coronary artery disease due to [...] kidney stones lithotripsy 2013 and 2018 in [place] Pure hypercholesterolemia 09/08/2005 Encounters Date Type Department Care Team Description 07/19/2025 Telephone Gastroenterology [facility] [address] [phone] Sally Mojica MD 06/27/2025 Telephone Gastroenterology [facility] [address] [place] [phone] Lauren Liu LPN 05/30/2025 8:40 AM EDT Consult Gastroenterology - [place] [address] [place] [phone] Pamela Cruz NP History of adenomatous polyp of colon (Primary Dx) 05/30/2025 Telephone Gastroenterology [facility] [address] [phone] Pamela Cruz NP from Last 3 Months Immunizations Name Administration [...] Record ed Within the last 3 months, tank murillo many times did you visit the emergency [...] Care Team (Late st Contact Info) Description 08/10/2025 3:[address] [facility] Endoscopy [address] [place] [phone] Sally Mojica MD [address] [facility] [address] [place] [address] 09/06/2025 10:45 AM EDT Office Visit Adult Medicine [facility] [address] [place] [phone] Dorian Douglas PA [address] [place] [phone] Health Maintenance Due Date Last Done Comments [...] Procedure Name Priority Date/Time Associated Diagnosis Comments EXTERNAL XRAY REPORT 07/19/[address] REPORT 07/18/2025 EXTERNAL XRAY REPORT 07/18/2025 EXTERNAL XRAY REPORT 07/18/[address] REPORT 07/18/2025 HEMOGLOBIN A1C Routine 05/24/2025 8:05 AM EDT Type 2 diabetes mellitus without complication, without long-term current use of insulin ([facility] V24, [facility] V28) MICROALBUMIN CREATININE URINE RATIO Routine 05/24/2025 8:05 AM EDT Type 2 diabetes mellitus without complication, without long-term current use of insulin ([facility] V24, [facility] V28) COMPREHENSIVE METABOLIC PANEL Routine 05/24/2025 8:05 AM EDT Type 2 diabetes mellitus without complication, without long-term current use of insulin ([facility] V24, [facility] V28) LIPID PANEL WITH REFLEX TO DIRECT LDL Routine 05/24/2025 8:05 AM EDT Type 2 diabetes mellitus without complication, without long-term current use of insulin ([facility] V24, [facility] V28) DIABETES FOOT EXAM Routine 08/10/2024 DIABETES EYE EXAM Routine 07/26/2024 COLONOSCOPY Routine 06/21/2020 HEPATITIS C SCREENING Routine 01/29/2016 from Last 3 Months or Most Recently Relevant to Health Maintenance Results * External Xray Report (07/19/2025) Only the most recent of3 resultswithin the time period is included. Anatomical Region Laterality Modality Radiographic Raysa ging Provider [facility] XR PROCEDURES Final Result * External CT Report (07/18/2025) Only the most recent of2 resultswithin the time period is included. Anatomical Region Laterality Modality Computed Tomogra phy Provider [facility] PROCEDURES Final Result * (ABNORMAL) Lipid panel with reflex to direct LDL (05/24/2025 8:05 AM EDT) Cholesterol 166 0 - 200 mg/dL LAB CHEMISTRY METHOD 05/24/2025 11:13 AM EDT [facility] Triglycerides 211(H) 0 - 150 mg/dL LAB CHEMISTRY METHOD 05/24/2025 11:13 AM T [facility] HDL 38(L) >=40 mg/dL LAB CHEMISTRY METHOD 05/24/2025 11:13 AM EDT [facility] LDL Calculated 86 0 - 100 mg/dL LAB CHEMISTRY METHOD 05/24/2025 11:13 AM EDT [facility] VLDL Cholesterol Pablo 42.2 mg/dL LAB CHEMISTRY METHOD 05/24/2025 11:13 AM EDT [facility] Non HDL Chol. (LDL+VLDL) 128 <145 mg/dL LAB CHEMISTRY METHOD 05/24/2025 11:13 AM EDT [facility] Chol/HDL Ratio 4.4 0.0 - 4.4 LAB CHEMISTRY METHOD 05/24/2025 11:13 AM EDT [facility] Blood Venous blood specimen / Unknown Venipuncture / Unknown 05/24/2025 8:05 AM EDT 05/24/2025 8:05 AM EDT us Lamar RUVALCABA LAB BLOOD ORDERABLES Final Resul t [facility] [address] [place] [address], [place] [phone] * (ABNORMAL) Microalbumin creatinine urine ratio (05/24/2025 8:05 AM EDT) Creatinine, Urine 231.0 mg/dL LAB CHEMISTRY METHOD 05/24/2025 12:21 PM EDT [facility] Microalb, Ur 39.5(H) 0.0 - 29.0 mg/L LAB CHEMISTRY METHOD 05/24/2025 12:21 PM EDT [facility] Microalb/Crea t Ratio 17 <30 mg/g creat LAB CHEMISTRY METHOD 05/24/2025 12:21 PM EDT [facility] Urine Urine specimen obtained by clean catch procedure / Unknown Non-blood Collection / Unknown 05/24/2025 8:05 AM EDT 05/24/2025 8:05 AM EDT us Lamar Mitchell PA LAB URINE ORDERABLES Final Resul t Performing Organization Address [facility]/ZIP Co de Phone Number [facility] [address] [place] [address], [place] [phone] * (ABNORMAL) Hemoglobin A1c (05/24/2025 8:05 AM EDT) Hemoglobin A1C 8.3(H) <6.5 % LAB CHEMISTRY METHOD 05/24/2025 12:36 PM EDT [facility] Mean Bld Glu Estim. 192 mg/dL LAB CHEMISTRY METHOD 05/24/2025 12:36 PM EDT [facility] Blood Venous blood specimen / Unknown Venipuncture / Unknown 05/24/2025 8:05 AM EDT 05/24/2025 8:05 AM EDT us Lamar RUVALCABA LAB BLOOD ORDERABLES Final Resul t Performing Organization Address [facility]/ZIP Co de Phone Number [facility] [address] [place] [address], [place] [phone] * (ABNORMAL) Comprehensive metabolic panel (05/24/2025 8:05 AM EDT) Sodium 138 133 - 145 mmol/L LAB CHEMISTRY METHOD 05/24/2025 11:13 AM T [facility] Potassium 4.0 3.5 - 5.5 mmol/L LAB CHEMISTRY METHOD 05/24/2025 11:13 AM EDT [facility] Chloride 106 96 - 110 mmol/L LAB CHEMISTRY METHOD 05/24/2025 11:13 AM T [facility] CO2 28 21 - 32 mmol/L LAB CHEMISTRY METHOD 05/24/2025 11:13 AM EDT [facility] Anion Gap 4 3 - 11 LAB CHEMISTRY METHOD 05/24/2025 11:13 AM T [facility] Glucose 139(H) 70 - 100 mg/dL LAB CHEMISTRY METHOD 05/24/2025 11:13 AM [facility] BUN 19 5 - 25 mg/dL LAB CHEMISTRY METHOD 05/24/2025 11:13 AM [facility] Creatinine 1.48(H) 0.70 - 1.30 mg/dL LAB CHEMISTRY METHOD 05/24/2025 11:13 AM [facility] eGFR 48(L) >=60 mL/min/1. 73m2 LAB CHEMISTRY METHOD 05/24/2025 11:13 AM [facility] Comment:Calculation based on the Chronic Kidney Disease Epidemiology Collaboration (CKD-EPI) equation refit without adjustment for race. BUN/Creatinine Ratio 12.8 LAB CHEMISTRY METHOD 05/24/2025 11:13 AM [facility] Calcium 8.5 8.5 - 10.5 mg/dL LAB CHEMISTRY METHOD 05/24/2025 11:13 AM [facility] AST (SGOT) 19 10 - 42 unit/L LAB CHEMISTRY METHOD 05/24/2025 11:13 AM [facility] ALT (SGPT) 26 10 - 60 unit/L LAB CHEMISTRY METHOD 05/24/2025 11:13 AM [facility] Alkaline Phosphatase 89 42 - 121 unit/L LAB CHEMISTRY METHOD 05/24/2025 11:13 AM [facility] Total Protein 6.6 6.0 - 8.0 g/dL LAB CHEMISTRY METHOD 05/24/2025 11:13 AM [facility] Albumin 3.8 3.2 - 5.0 g/dL LAB CHEMISTRY METHOD 05/24/2025 11:13 AM [facility] Total Bilirubin 0.9 0.0 - 1.4 mg/dL LAB CHEMISTRY METHOD 05/24/2025 11:13 AM [facility] Blood Venous blood specimen / Unknown Venipuncture / Unknown 05/24/2025 8:05 AM EDT 05/24/2025 8:05 AM EDT Lamar RUVALCABA LAB BLOOD ORDERABLES Final Resul t [facility] [address] [place] [address], [place] [phone] * Diabetes Foot Exam (08/10/2024) Pathologist [facility] Diabetes: Annual Foot Exam abstracted Historical Provider MD HEALTH MAINTENANCE Final Result * Diabetes Eye Exam (07/26/2024) [facility] Diabetes: Annual Retina Eye Exam abstracted Historical Provider MD HEALTH MAINTENANCE Final Result * Colonoscopy (06/21/2020) [facility] Colonoscopy no interpretation , abstracted Anatomical Region Laterality Modality Other Historical Provider MD HEALTH MAINTENANCE Final Result * Hepatitis C Screening (01/29/2016) Pathologist [facility] Hepatitis C Screening abstracted Historical Provider MD HEALTH MAINTENANCE Final Result from Last 3 Months or Most Recently Relevant to [place] [id number] [facility] [address] [place] [address] Care Teams Strategic Insights Lead Relationship Specialty Start Date End Date Dorian Douglas PA [address] [place] [id number] PCP - General Internal Medicine 11/16/20
--- OUTSIDE RECORDS SUMMARY | 2025-08-01 13:12 | XMS_ITS | Clinical Summary ---
Author Organization [facility] Address [address] [place] [address] Phone Care Team Providers Care Air Conditioning Sheet Metal Installer Name Role Phone Unknown, Unknown Primary Care [...] Not on file Insurance O O O [place], [place] [facility] HMO [address] [place], [place] [address] Care Teams Air Conditioning Sheet Metal Installer Relationship Specialty Start Date End Date Unknown, Unknown, PCP - General 06/06/24 Additional Source Comments The information contained in this document represents components of the legal health record. It is not the complete legal health record.[facility]
== END 2025-08-01 11:54 | disposition home or self-care (01) ==
LOC: HO.HUSH 10:44
PROVIDERS: PCP Physician Assistant Medical; Visit Provider Urology
DX: N20.1 Calculus of ureter (principal); N13.4 Hydroureter; Z96.0 Presence of urogenital implants; Z13.9 Encounter for screening, unspecified
CPT/HCPCS: 52310

== ENCOUNTER → 2025-08-01 10:44 | Outpatient (BNVA) | payer OTHER, SELFPAY | PROVIDERS: PCP Physician Assistant Medical; Visit Provider Urology | DX: N20.1 Calculus of ureter (principal) | CPT/HCPCS: 52310; 81003 ==

== ENCOUNTER → 2025-08-17 23:59 | Outpatient (BNV) | payer OTHER, SELFPAY ==
--- NOTE | 2025-09-04 21:16 | MHC.OFFVIS ---
Intake Visit Reasons: Remote ICD check- [employer]ik Allergies Sulfa (Sulfonamide Antibiotics) (SULFA (SULFONAMIDE ANTIBIOTICS)) Allergy (Unknown, Verified 08/01/25 10:50) Redness of Skin PFSH Medical History Constipation Hypertension Diabetes ICD (implantable cardioverter-defibrillator) in place Sustained VT (ventricular tachycardia) CAD (coronary artery disease) Ischemic cardiomyopathy Surgical History Stented coronary artery Hx of external ear surgery History of tonsillectomy Family History Other No known health problems Social History Household Members: None Household Members Other:: partner Housing: House Do you presently have visiting nurse or other home services: No Alcohol intake: never Patient Tobacco Use Status: Never used Tobacco service: Yes Current occupational status: unemployed Office Procedures Cardiac Device Check Cardiac Device Check Details: ICD Good battery life No new alerts. [id number] Cardiac Device Interrogation, pacemaker or defibrillator Procedure code (CPT) selection complete Assessment & Plan Assessment & Plan (1) Ischemic cardiomyopathy: Code(s): I25.5 - Ischemic cardiomyopathy Category: Medical Plan Coding Level of Care Code Procedure Only Diagnoses Ischemic cardiomyopathy I25.5 CPT Codes Cardiac Device Check - Cardiac Device 14: [id number] Cardiac Device Interrogation, pacemaker or defibrillator ([id number])
== END ==
PROVIDERS: PCP Physician Assistant Medical; Visit Provider Internal Medicine Cardiovascular Disease
DX: I25.5 Ischemic cardiomyopathy (principal); Z95.810 Presence of automatic (implantable) cardiac defibrillator
CPT/HCPCS: 93295

== ENCOUNTER 2025-08-28 15:24 | Outpatient (AMB) | payer OTHER, SELFPAY ==
--- NOTE | 2025-08-28 15:26 | A.OFFVIS_ITS ---
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 Accompanied by: Self / Same As Patient Allergies Sulfa (Sulfonamide Antibiotics) (SULFA (SULFONAMIDE ANTIBIOTICS)) Allergy (Unknown, Verified 08/01/25 10:50) Redness of Skin Medication List - Last Reconciled 08/28/25 by Sunny Issa MD allopurinol 100 mg PO DAILY 90 days aspirin 81 mg PO DAILY 90 days atorvastatin 40 mg PO BEDTIME carvedilol 25 mg PO BID clopidogrel 75 mg PO DAILY ezetimibe 10 mg PO DAILY losartan 50 mg PO DAILY mexiletine 150 mg PO Q12H pyridoxine (vitamin B6) 50 mg PO DAILY 90 days ropinirole 1 mg PO BEDTIME HPI Comments Details: 79-year-old gentleman with background history of ischemic cardiomyopathy and ventricular tachycardia for which he had single lead ICD placed in the past. Ejection fraction the past was 25-30%. No heart failure symptoms. He has been on mexiletine and has not had any shocks from his device. Clinically not in heart failure. He had repeat echocardiography in March 2022 showed mildly reduced ejection fraction of 45 50%. He has been on guideline directed medical therapy. He has been doing well. He is denying any shortness of breath. He did have some throbbing sensation around his ICD a few times. This is not a consistent symptom. He did not have any chest throbbing when he had acute coronary syndrome. He has been taking carvedilol 12.5 mg once a day. He is supposed to be on 6.25 mg twice a day. 03/21/24: He is here for follow-up. Doing well. No chest pain or shortness of breath. No arrhythmia or device therapy. 09/05/2024: He is here for follow-up. He has been doing well. He was in the emergency department in 07/2024 when he missed his carvedilol and was feeling tachycardia and palpitations. He did not have any arrhythmia. He was advised to restart carvedilol and was on 12.5 mg twice a day of carvedilol. He is returning and denying any symptoms. His device was interrogated with showing runs of nonsustained VT. No other concerns and no symptoms. 04/05/2025: Here for follow-up. Denying any significant dyspnea or chest discomfort. He has been walking his dog. Occasionally he gets hot and sweaty feeling along with some throat discomfort at rest. This happens every few months. He is saying when he is walking his dog he does not get any symptoms. Last echocardiography was in April of 2023 when his ejection fraction was 40-45% with inferior inferolateral akinesis. 08/28/2025: He is here for follow-up. Previous EF was 40-45%. No ICD therapies. Taking medication regularly. No chest pain or shortness of breath. He had kidney stones. [facility] Medical History Constipation Hypertension Diabetes ICD (implantable cardioverter-defibrillator) in place Sustained VT (ventricular tachycardia) CAD (coronary artery disease) Ischemic cardiomyopathy Surgical History Stented coronary artery Hx of external ear surgery History of tonsillectomy Family History Other No known health problems Social History Household Members: None Household Members Other:: partner Housing: House Do you presently have visiting nurse or other home services: No Alcohol intake: never Patient Tobacco Use Status: Never used Tobacco service: Yes Current occupational status: unemployed Review of Systems Const Denies chills, Denies fatigue, Denies fever(s), Denies frequent falls, Denies weakness, Denies weight gain and Denies weight loss ENT Denies dizziness Card Denies chest pain, Denies leg edema, Denies lightheadedness, Denies palpitations, Denies dyspnea and Denies dyspnea on exertion Resp Denies cough, Denies dyspnea and Denies dyspnea on exertion GI Denies hematochezia Musc Denies abnormal gait, Denies muscle weakness, Denies numbness, Denies radiating pain into limb and Denies tingling Neuro Denies abnormal gait, Denies dizziness, Denies frequent falls, Denies numbness, Denies tingling and Denies weakness Endo Denies fatigue and Denies palpitations Physical Exam Vital Signs: Last Vital Signs Pulse 78 08/28/25 15:28 BP 110/60 08/28/25 15:28 BMI result Body Mass Index 30.1 GENERAL APPEARANCE: in no acute distress, pleasant. NECK: no carotid bruit, no jugular venous distention. SKIN: no suspicious lesions, warm and dry. HEART: no murmurs, regular rate and rhythm. LUNGS: clear to auscultation bilaterally. ABDOMEN: soft, nontender. EXTREMITIES: no edema. PERIPHERAL PULSES: equal. NEUROLOGIC: No gross deficits, AAO X 3 Assessment & Plan Assessment & Plan (1) Ischemic cardiomyopathy: Code(s): I25.5 - Ischemic cardiomyopathy Category: Medical (2) ICD (implantable cardioverter-defibrillator) in place: Comment: Biotronik single-chamber ICD, secondary prevention, implanted 05/10/2021 Code(s): Z95.810 - Presence of automatic (implantable) cardiac defibrillator Category: Medical Plan 80-year-old gentleman presenting for follow-up. He has background history of inferior wall ND and EF is 40-45%. He presented late after the myocardial infarction. He subsequently had ventricular tachycardia and had a ICD placed. He has been taking medications since then and he is on beta-krupa and mexiletine with good control of arrhythmia. No chest discomfort shortness of breath. Blood pressure well controlled. Follow up with us in 6 months. Thank you for allowing me to participate in the care of your patient. Please feel free to contact me if you have any questions. Coding Level of Care Code Est Pt Level 4 (92054) Diagnoses Ischemic cardiomyopathy I25.5 ICD (implantable cardioverter-defibrillator) in place Z95.810
[2025-08-28 15:28] VITALS: BP 110/60; PULSE 78; BMI 30.1
--- OUTSIDE RECORDS SUMMARY | 2025-08-28 19:40 | XMS_ITS | Encounter Summary ---
Author Organization [facility] Address [address] [place] [address] Phone Care Team Providers Care Staff Writer Name Role Phone Unknown, Unknown Primary Care Provider Aura adams Encounter Details Date Type Department Care Team (Late st Contact Info) Description 08/05/2024 Procedure Pass OR Admitting Dept - Virtual Department [address] [place] [address] Social History Tobacco Use Types Packs/Day Years [...] on filedocumented in this encounter Care Teams Staff Writer Relationship Specialty Start Date End Date Unknown, Unknown, PCP - General 06/06/24 documented as of this encounter Additional Source Comments The information contained in this document represents components of the legal health record. It is not the complete legal health record.[facility]
--- OUTSIDE RECORDS SUMMARY | 2025-08-28 19:40 | XMS_ITS | Clinical Summary ---
Author Organization [facility] Address [address] [place] [address] Phone Care Team Providers Care Recording Studio Set Up Worker Name Role Phone Unknown, Unknown Primary Care [...] Not on file Insurance O O O [place], [place] [facility] HMO [address] [employer], [place] [id number] Care Teams Recording Studio Set Up Worker Relationship Specialty Start Date End Date Unknown, Unknown, PCP - General 06/06/24 Additional Source Comments The information contained in this document represents components of the legal health record. It is not the complete legal health record.[facility]
== END 2025-08-28 15:44 | disposition home or self-care (01) ==
LOC: HO.HCS 15:25
PROVIDERS: PCP Physician Assistant Medical; Visit Provider Internal Medicine Cardiovascular Disease
DX: I25.5 Ischemic cardiomyopathy (principal); Z95.810 Presence of automatic (implantable) cardiac defibrillator
CPT/HCPCS: 99214

== ENCOUNTER → 2025-09-01 23:59 | Outpatient (BNV) | payer OTHER, SELFPAY ==
--- NOTE | 2025-09-04 21:40 | MHC.OFFVIS ---
Intake Visit Reasons: Remote HF monitoring- Biotronik Allergies Sulfa (Sulfonamide Antibiotics) (SULFA (SULFONAMIDE ANTIBIOTICS)) Allergy (Unknown, Verified 08/01/25 10:50) Redness of Skin PFSH Medical History Constipation Hypertension Diabetes ICD (implantable cardioverter-defibrillator) in place Sustained VT (ventricular tachycardia) CAD (coronary artery disease) Ischemic cardiomyopathy Surgical History Stented coronary artery Hx of external ear surgery History of tonsillectomy Family History Other No known health problems Social History Household Members: None Household Members Other:: partner Housing: House Do you presently have visiting nurse or other home services: No Alcohol intake: never Patient Tobacco Use Status: Never used Tobacco service: Yes Current occupational status: unemployed Office Procedures Cardiac Device Check Cardiac Device Check Details: HF monitoring Stable thoracic impedance. [id number] Cardiac Device Interrogation, cardio physiologic monitor Procedure code (CPT) selection complete Assessment & Plan Assessment & Plan (1) Ischemic cardiomyopathy: Code(s): I25.5 - Ischemic cardiomyopathy Category: Medical Plan Coding Level of Care Code Procedure Only Diagnoses Ischemic cardiomyopathy I25.5 CPT Codes Cardiac Device Check - Cardiac Device 15: [id number] Cardiac Device Interrogation, cardio physiologic monitor ([id number])
== END ==
PROVIDERS: PCP Physician Assistant Medical; Visit Provider Internal Medicine Cardiovascular Disease
DX: I25.5 Ischemic cardiomyopathy (principal); Z95.0 Presence of cardiac pacemaker
CPT/HCPCS: 93297

== ENCOUNTER → 2025-10-16 12:48 | Outpatient (BNV) | payer OTHER, SELFPAY | PROVIDERS: PCP Physician Assistant Medical; Visit Provider Internal Medicine Cardiovascular Disease | DX: I25.5 Ischemic cardiomyopathy (principal); Z95.810 Presence of automatic (implantable) cardiac defibrillator | CPT/HCPCS: 93295 ==

== ENCOUNTER → 2025-10-18 10:08 | Outpatient (BNV) | payer OTHER, SELFPAY | PROVIDERS: PCP Physician Assistant Medical; Visit Provider Internal Medicine Cardiovascular Disease | DX: Z45.02 Encounter for adjustment and management of automatic implantable cardiac defibrillator (principal) | CPT/HCPCS: 93297 ==